=== PATIENT | female | born 1955 | race Caucasian/White ===

== ENCOUNTER → 2016-10-20 | Outpatient (REF) | payer OTHER ==
[2016-10-20 15:25] LABS: ALBUMIN/GLOBULIN RATIO 1.33 (1.00-1.93); ALKALINE PHOSPHATASE 124 U/L (45-117); ALT/SGPT 32 U/L (12-78); ANION GAP 8 MEQ/L (8-16); AST/SGOT 17 U/L (15-37); BILIRUBIN,TOTAL 0.3 MG/DL (0.2-1.0); BLOOD UREA NITROGEN 12 MG/DL (7-18); CALCIUM LEVEL 9.4 MG/DL (8.5-10.1); CARBON DIOXIDE LEVEL 30 MEQ/L (21-32); CHLORIDE LEVEL 104 MEQ/L (98-107); CHOLESTEROL LEVEL 180 MG/DL (<200); CREATININE FOR GFR 0.87 MG/DL (0.55-1.02); GLOMERULAR FILTRATION RATE > 60.0 (>51); GLUCOSE, FASTING 93 MG/DL (70-105); POTASSIUM SERUM 4.4 MEQ/L (3.5-5.1); SODIUM LEVEL 142 MEQ/L (136-145); TRIGLYCERIDES LEVEL 91 MG/DL (<150)
== END ==
LOC: M SFHCLACO 09:41
PROVIDERS: ATTEND Physician Assistant
DX: I10 Essential (primary) hypertension (principal); E78.2 Mixed hyperlipidemia; E11.9 Type 2 diabetes mellitus without complications

== ENCOUNTER → 2017-01-27 | Outpatient (RCR) | payer OTHER | LOC: M CR 01-07 10:33 | PROVIDERS: ATTEND Internal Medicine Cardiovascular Disease | DX: Z98.1 Arthrodesis status (principal) ==

== ENCOUNTER 2017-02-24 11:19 | Outpatient (RCR) | payer OTHER | END 2017-02-26 | LOC: M CR 11:19 | PROVIDERS: ATTEND Internal Medicine Cardiovascular Disease | DX: Z98.61 Coronary angioplasty status (principal) ==

== ENCOUNTER → 2017-03-29 | Outpatient (RCR) | payer OTHER | LOC: M CR 03-01 09:00 | PROVIDERS: ATTEND Internal Medicine Cardiovascular Disease | DX: Z98.1 Arthrodesis status (principal); Z51.89 Encounter for other specified aftercare ==

== ENCOUNTER 2017-04-05 11:01 | Outpatient (RCR) | payer OTHER | END 2017-04-29 | LOC: M CR 11:01 | PROVIDERS: ATTEND Internal Medicine Cardiovascular Disease | DX: Z95.5 Presence of coronary angioplasty implant and graft (principal); I25.10 Atherosclerotic heart disease of native coronary artery without angina pectoris; Z88.2 Allergy status to sulfonamides ==

== ENCOUNTER → 2017-08-03 | Outpatient (REF) | payer OTHER ==
[2017-08-03 12:32] LABS: MEAN CORPUSCULAR HEMOGLOBIN 27.8 pg (27.0-33.0); MEAN CORPUSCULAR HGB CONC 31.2 g/dl (32.0-36.5); MEAN CORPUSCULAR VOLUME 89.1 fl (80.0-96.0); PLATELET COUNT, AUTOMATED 291 10^3/uL (150-450); WHITE BLOOD COUNT 11.6 10^3/uL (4.0-10.0)
[2017-08-03 13:08] LABS: ALBUMIN 4.2 GM/DL (3.2-5.2); ALKALINE PHOSPHATASE 111 U/L (45-117); ALT/SGPT 32 U/L (12-78); ANION GAP 8 MEQ/L (8-16); AST/SGOT 14 U/L (7-37); BILIRUBIN,TOTAL 0.3 MG/DL (0.2-1.0); BLOOD UREA NITROGEN 17 MG/DL (7-18); CALCIUM LEVEL 9.3 MG/DL (8.5-10.1); CARBON DIOXIDE LEVEL 28 MEQ/L (21-32); CHLORIDE LEVEL 106 MEQ/L (98-107); CHOLESTEROL LEVEL 197 MG/DL (<200); CREATININE FOR GFR 0.97 MG/DL (0.55-1.02); FREE T4 0.86 NG/DL (0.76-1.46); GLOMERULAR FILTRATION RATE > 60.0 (>51); GLUCOSE, FASTING 89 MG/DL (70-105); POTASSIUM SERUM 4.9 MEQ/L (3.5-5.1); SODIUM LEVEL 142 MEQ/L (136-145); TOTAL PROTEIN 7.7 GM/DL (6.4-8.2); TRIGLYCERIDES LEVEL 90 MG/DL (<150)
== END ==
LOC: M SFHCADAM 08:51
PROVIDERS: ATTEND Family Medicine
DX: F32.9 Major depressive disorder, single episode, unspecified (principal); R73.03 Prediabetes; E78.5 Hyperlipidemia, unspecified; E55.9 Vitamin D deficiency, unspecified

== ENCOUNTER → 2017-08-05 | Outpatient (CLI) | payer OTHER ==
--- NOTE | 2017-08-05 16:40 | REPMRS ---
Patient History The patient states she has not had a clinical breast exam in over a year. Patient is postmenopausal. Family history of prostate cancer in father at age 50 or over. Digital Woman Screen Mammo: August 05, 2017 - Exam #: [id number] Bilateral CC and MLO view(s) were taken. Technologist: [place] Mireles Technologist FINDINGS: There are scattered fibroglandular densities. This is a baseline mammogram There is a mild amount of residual fibroglandular tissue which is fairly symmetric. There is no dominant mass, architectural distortion, or clustered microcalcification suggestive of malignancy. Minor tissue asymmetry in left breast anteriorly on CC view is normal on MLO and warrants no further evaluation. Scattered lymph nodes are seen in the axillae. ASSESSMENT: BI-RADS/ACR category 2 mammogram. Benign finding(s). Recommendation Routine screening mammogram in 1 year (for women over age 40). This mammogram was interpreted with the aid of an FDA-approved computer-aided dectection system. A. Negative x-ray reports should not delay biopsy if a dominant or clinically suspicious mass is present. B. Four to eight percent of cancers are not identified by mammography. C. Adenosis and dense breast may obscure an underlying neoplasm. Electronically Signed By: Man Orona MD 08/05/17 [id number]
== END ==
LOC: M WHC 14:51
PROVIDERS: ATTEND Family Medicine
DX: Z12.31 Encounter for screening mammogram for malignant neoplasm of breast (principal); Z78.0 Asymptomatic menopausal state

== ENCOUNTER → 2018-02-20 | Outpatient (CLI) | payer OTHER ==
[2018-02-20 16:32] LABS: MEAN CORPUSCULAR HGB CONC 30.8 g/dl (32.0-36.5); MEAN CORPUSCULAR VOLUME 87.8 fl (80.0-96.0); PLATELET COUNT, AUTOMATED 253 10^3/uL (150-450); RED BLOOD COUNT 4.44 10^6/uL (4.00-5.40); RED CELL DISTRIBUTION WIDTH 15.1 % (11.5-14.5); WHITE BLOOD COUNT 8.4 10^3/uL (4.0-10.0)
[2018-02-20 16:46] LABS: ANION GAP 10 MEQ/L (8-16); BLOOD UREA NITROGEN 19 MG/DL (7-18); CALCIUM LEVEL 8.4 MG/DL (8.8-10.2); CARBON DIOXIDE LEVEL 25 MEQ/L (21-32); CHLORIDE LEVEL 109 MEQ/L (98-107); CHOLESTEROL LEVEL 175 MG/DL (<200); CHOLESTEROL RISK RATIO 1.988 (<5); GLOMERULAR FILTRATION RATE > 60.0 (>45); GLUCOSE, FASTING 79 MG/DL (70-100); HDL CHOLESTEROL 88 MG/DL (>40); LDL CHOLESTEROL 70.4 MG/DL (<100); NON-HDL-C 87 MG/DL; POTASSIUM SERUM 4.4 MEQ/L (3.5-5.1); SODIUM LEVEL 144 MEQ/L (136-145); TRIGLYCERIDES LEVEL 83 MG/DL (<150)
== END ==
LOC: M ADAMS 09:46
DX: E78.00 Pure hypercholesterolemia, unspecified (principal); I25.10 Atherosclerotic heart disease of native coronary artery without angina pectoris
CPT/HCPCS: 80061

== ENCOUNTER → 2018-08-11 | Outpatient (CLI) | payer OTHER | LOC: M SMT 14:05 | DX: R06.00 Dyspnea, unspecified (principal) | CPT/HCPCS: 71046 ==

== ENCOUNTER → 2018-08-16 | Outpatient (REF) | payer OTHER ==
[2018-08-16 13:26] LABS: HEMATOCRIT 38.7 % (36.0-47.0); HEMOGLOBIN 11.7 g/dl (12.0-15.5); MEAN CORPUSCULAR HEMOGLOBIN 26.2 pg (27.0-33.0); MEAN CORPUSCULAR HGB CONC 30.2 g/dl (32.0-36.5); MEAN CORPUSCULAR VOLUME 86.6 fl (80.0-96.0); PLATELET COUNT, AUTOMATED 278 10^3/uL (150-450); RED BLOOD COUNT 4.47 10^6/uL (4.00-5.40)
[2018-08-16 13:45] LABS: HEMOGLOBIN A1c 6.5 %
[2018-08-16 13:46] LABS: ALBUMIN 3.8 GM/DL (3.2-5.2); ALT/SGPT 33 U/L (12-78); BILIRUBIN,TOTAL 0.3 MG/DL (0.2-1.0); BLOOD UREA NITROGEN 20 MG/DL (7-18); CALCIUM LEVEL 8.9 MG/DL (8.8-10.2); CARBON DIOXIDE LEVEL 25 MEQ/L (21-32); CHLORIDE LEVEL 108 MEQ/L (98-107); CHOLESTEROL LEVEL 201 MG/DL (<200); CHOLESTEROL RISK RATIO 2.364 (<5); CREATININE FOR GFR 0.99 MG/DL (0.55-1.30); FREE T4 0.93 NG/DL (0.76-1.46); GLOMERULAR FILTRATION RATE > 60.0 (>45); GLUCOSE, FASTING 98 MG/DL (70-100); HDL CHOLESTEROL 85 MG/DL (>40); LDL CHOLESTEROL 101 MG/DL (<100); NON-HDL-C 116 MG/DL; POTASSIUM SERUM 4.4 MEQ/L (3.5-5.1); SODIUM LEVEL 142 MEQ/L (136-145); TOTAL PROTEIN 7.3 GM/DL (6.4-8.2); TRIGLYCERIDES LEVEL 73 MG/DL (<150)
[2018-08-16 13:48] LABS: TOTAL 25(OH) VITAMIN D 21.9 NG/ML (30.0-100.0)
== END ==
LOC: M SFHCADAM 08:10
PROVIDERS: ATTEND Family Medicine
DX: I25.10 Atherosclerotic heart disease of native coronary artery without angina pectoris (principal); E78.2 Mixed hyperlipidemia; F32.9 Major depressive disorder, single episode, unspecified; R73.03 Prediabetes; E55.9 Vitamin D deficiency, unspecified

== ENCOUNTER → 2018-09-06 | Outpatient (CLI) | payer OTHER ==
[~2018-09-06] MED LIST: METHACHOLINE KIT (J7674) INH ONE
--- NOTE | 2018-09-06 15:29 | PFTRPT ---
Height: 63.00 Inches Weight: 240.00 Lbs BSA: 2.09 Diagnosis: R06.00 DATE OF PROCEDURE: 09/06/2018 ORDERED BY: HEATHER Galicia INTERPRETATION: Study of excellent technical quality. Under protocol, methacholine was administered. At a dose of 10 mg or 63.875 CDUs, a 34% decline in the FEV1 was noted. PC of 3.99 is significant. Flow rates did return to baseline post bronchodilator administration. IMPRESSION: Positive methacholine challenge study. MTDD
== END ==
LOC: M CARPUL 14:12
PROVIDERS: ATTEND Physician Assistant
DX: R06.00 Dyspnea, unspecified (principal)
CPT/HCPCS: 94070; J7674

== ENCOUNTER → 2018-11-04 | Outpatient (REF) | payer OTHER ==
[2018-11-04 12:42] LABS: HEMATOCRIT 38.7 % (36.0-47.0); HEMOGLOBIN 11.8 g/dl (12.0-15.5); MEAN CORPUSCULAR HEMOGLOBIN 26.2 pg (27.0-33.0); MEAN CORPUSCULAR HGB CONC 30.5 g/dl (32.0-36.5); MEAN CORPUSCULAR VOLUME 85.8 fl (80.0-96.0); PLATELET COUNT, AUTOMATED 248 10^3/uL (150-450); RED BLOOD COUNT 4.51 10^6/uL (4.00-5.40); WHITE BLOOD COUNT 8.1 10^3/uL (4.0-10.0)
[2018-11-04 13:10] LABS: ALBUMIN 3.8 GM/DL (3.2-5.2); ALT/SGPT 36 U/L (12-78); BILIRUBIN,TOTAL 0.3 MG/DL (0.2-1.0); BLOOD UREA NITROGEN 15 MG/DL (7-18); CALCIUM LEVEL 8.6 MG/DL (8.8-10.2); CARBON DIOXIDE LEVEL 25 MEQ/L (21-32); CHLORIDE LEVEL 111 MEQ/L (98-107); CHOLESTEROL LEVEL 169 MG/DL (<200); CHOLESTEROL RISK RATIO 1.942 (<5); CREATININE FOR GFR 0.93 MG/DL (0.55-1.30); GLOMERULAR FILTRATION RATE > 60.0 (>45); GLUCOSE, FASTING 85 MG/DL (70-100); HDL CHOLESTEROL 87 MG/DL (>40); LDL CHOLESTEROL 68 MG/DL (<100); NON-HDL-C 82 MG/DL; POTASSIUM SERUM 4.6 MEQ/L (3.5-5.1); SODIUM LEVEL 143 MEQ/L (136-145); TOTAL PROTEIN 7.1 GM/DL (6.4-8.2); TRIGLYCERIDES LEVEL 68 MG/DL (<150)
[2018-11-04 13:11] LABS: HEMOGLOBIN A1c 6.3 %
== END ==
LOC: M SFHCADAM 08:56
PROVIDERS: ATTEND Family Medicine
DX: I25.10 Atherosclerotic heart disease of native coronary artery without angina pectoris (principal); K22.70 Barrett's esophagus without dysplasia; R73.03 Prediabetes; E03.9 Hypothyroidism, unspecified; E78.2 Mixed hyperlipidemia

== ENCOUNTER → 2018-12-06 | Outpatient (REF) | payer OTHER ==
[2018-12-06 17:09] LABS: BLOOD UREA NITROGEN 20 MG/DL (7-18); CALCIUM LEVEL 9.1 MG/DL (8.8-10.2); CARBON DIOXIDE LEVEL 26 MEQ/L (21-32); CHLORIDE LEVEL 111 MEQ/L (98-107); GLOMERULAR FILTRATION RATE > 60.0 (>45); GLUCOSE, FASTING 76 MG/DL (70-100); LIPASE 171 U/L (73-393); SODIUM LEVEL 141 MEQ/L (136-145)
[2018-12-06 17:20] LABS: TOTAL 25(OH) VITAMIN D 15.3 NG/ML (30.0-100.0)
== END ==
LOC: M LABDRWAD 16:00
PROVIDERS: ATTEND Internal Medicine Gastroenterology
DX: K22.70 Barrett's esophagus without dysplasia (principal); E56.9 Vitamin deficiency, unspecified; K21.9 Gastro-esophageal reflux disease without esophagitis; K59.1 Functional diarrhea

== ENCOUNTER → 2019-02-16 | Outpatient (CLI) | payer OTHER ==
--- NOTE | 2019-02-16 18:40 | REP ---
Right foot series: Four views. History: Right foot pain. Findings: Four views right foot show overall normal mineralization. There is mild osteoarthritic spurring at the first MTP joint. There is Achilles and plantar calcaneal spurring. No acute bony abnormalities seen. Electronically Signed by Sina Khoury MD 02/16/2019 06:31 P
--- NOTE | 2019-02-16 18:41 | REP ---
Right ankle series: Four views. History: Right foot and ankle pain. Findings: There is Achilles and plantar calcaneal spurring. Ankle mortise is intact. No acute bony abnormality is appreciated. Impression: Heel spurs. No acute abnormality. Electronically Signed by Sina Khoury MD 02/16/2019 06:32 P
== END ==
LOC: M ADAMS 16:27
PROVIDERS: ATTEND Physician Assistant
DX: M77.31 Calcaneal spur, right foot (principal)

== ENCOUNTER 2019-03-17 11:31 | Emergency (ER) | payer OTHER ==
[~2019-03-17] VITALS: Ht 160 cm; Wt 111.4 kg
--- NOTE | 2019-03-17 12:03 | REP ---
Chest x-ray: AP portable exam. History: Chest pain. Comparison study: August 11, 2018. Findings: There is a dextroconvex curvature of the thoracic spine. Lungs are well inflated and clear. Pleural angles are sharp. Heart size is normal. Pulmonary vasculature is not increased. Impression: No active disease. Electronically Signed by Sina Khoury MD 03/17/2019 11:55 A
[2019-03-17 12:20] LABS: BASO # 0.1 10^3/uL (0.0-0.2); BASO % 0.7 % (0.0-1.0); EOS # 0.5 10^3/uL (0.0-0.50); EOS % 4.9 % (0.0-3.0); HEMATOCRIT 40.5 % (36.0-47.0); HEMOGLOBIN 12.4 g/dl (12.0-15.5); LYMPH # 1.3 10^3/uL (1.5-4.5); LYMPH % 12.6 % (24.0-44.0); MEAN CORPUSCULAR HEMOGLOBIN 26.6 pg (27.0-33.0); MEAN CORPUSCULAR HGB CONC 30.6 g/dl (32.0-36.5); MEAN CORPUSCULAR VOLUME 86.9 fl (80.0-96.0); MONO # 0.7 10^3/uL (0.0-0.8); NEUTROPHILS # 7.6 10^3/uL (1.8-7.7); NEUTROPHILS % 74.2 % (36.0-66.0); PLATELET COUNT, AUTOMATED 254 10^3/uL (150-450); RED BLOOD COUNT 4.66 10^6/uL (4.00-5.40); WHITE BLOOD COUNT 10.2 10^3/uL (4.0-10.0)
[2019-03-17 12:29] LABS: INR 0.94; PROTHROMBIN TIME 12.3 SECONDS (11.8-14.0)
[2019-03-17 12:30] LABS: PARTIAL THROMBOPLASTIN TIME 29.7 SECONDS (25.0-38.4)
[2019-03-17 13:09] LABS: ALBUMIN 3.5 GM/DL (3.2-5.2); ALT/SGPT 27 U/L (12-78); BILIRUBIN,DIRECT < 0.1 MG/DL (0.0-0.2); BILIRUBIN,TOTAL 0.4 MG/DL (0.2-1.0); BLOOD UREA NITROGEN 18 MG/DL (7-18); CALCIUM LEVEL 9.5 MG/DL (8.8-10.2); CARBON DIOXIDE LEVEL 24 MEQ/L (21-32); CHLORIDE LEVEL 110 MEQ/L (98-107); CK-MB VALUE MASS < 1.0 NG/ML (<3.6); CPK CREATINE PHOSPHOKINASE 82 U/L (26-192); CREATININE FOR GFR 1.03 MG/DL (0.55-1.30); GLUCOSE, FASTING 103 MG/DL (70-100); LIPASE 132 U/L (73-393); MB/CK RELATIVE INDEX 1.22 (< OR =4); NT-PRO BNP 217 PG/ML (<125); POTASSIUM SERUM 5.2 MEQ/L (3.5-5.1); SODIUM LEVEL 143 MEQ/L (136-145); TOTAL PROTEIN 7.3 GM/DL (6.4-8.2); TROPONIN I < 0.02 NG/ML (< 0.10)
[2019-03-17 15:22] LABS: CK-MB VALUE MASS < 1.0 NG/ML (<3.6); CPK CREATINE PHOSPHOKINASE 41 U/L (26-192); MB/CK RELATIVE INDEX 2.44 (< OR =4); TROPONIN I 0.02 NG/ML (< 0.10)
[2019-03-17 18:20] VITALS: BP 120/59
--- NOTE | 2019-03-17 21:08 | ECGEPIP ---
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
--- NOTE | 2019-03-17 21:10 | ECGEPIP ---
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
[2019-03-18] MEDS ORDERED: NITR0.4S14 SL (03:10)
[2019-03-18] MEDS ORDERED: LOSA25TA14 PO (03:10)
[2019-03-18] MEDS ORDERED: SYMB16INH INH (03:10)
[2019-03-18] MEDS ORDERED: DOXY100T PO (03:10)
[2019-03-18] MEDS ORDERED: DIAZ5TAB PO (03:10)
[2019-03-18] MEDS ORDERED: PANT40TA3 PO (03:10)
[2019-03-18] MEDS ORDERED: CLOP75TA2 PO (03:10)
[2019-03-18] MEDS ORDERED: AMLO10TA5 PO (03:10)
[2019-03-18] MEDS ORDERED: SERT-138 PO (03:10)
[2019-03-18] MEDS ORDERED: ROSU20TA5 PO (03:10)
[2019-03-18] MEDS ORDERED: ATEN50TA2 PO (03:10)
[2019-03-18] MEDS ORDERED: ECOT81TA5 PO (03:11)
[2019-03-18] MEDS ORDERED: BIOT1CAP2 PO (03:13)
[2019-03-18] MEDS ORDERED: D3-5CAP PO (03:13)
[2019-03-18] MEDS ORDERED: DRIS50003 PO (05:14)
[2019-03-18] MEDS ORDERED: RANI300T PO (05:14)
[2019-03-18] MEDS ORDERED: BIOT1000 PO (05:14)
[2019-03-18] MEDS ORDERED: ASPI325T36 PO (05:14)
[2019-03-18] MEDS ORDERED: VENTAER INH (05:15)
== END 2019-03-17 18:36 | disposition home or self-care (01) ==
LOC: M ED 11:31
DX: I20.8 Other forms of angina pectoris (principal); I44.7 Left bundle-branch block, unspecified; I10 Essential (primary) hypertension; E78.5 Hyperlipidemia, unspecified; F33.9 Major depressive disorder, recurrent, unspecified; Z79.82 Long term (current) use of aspirin; Z79.02 Long term (current) use of antithrombotics/antiplatelets; Z87.891 Personal history of nicotine dependence

== ENCOUNTER 2019-03-18 02:29 | Observation (INO) | payer OTHER ==
[~2019-03-18] VITALS: Ht 160 cm; Wt 110.5 kg
[2019-03-18] MEDS ORDERED: CLOP75TA2 PO (03:10)
[2019-03-18] MEDS ORDERED: SERT-138 PO (03:10)
[2019-03-18] MEDS ORDERED: ROSU20TA5 PO (03:10)
[2019-03-18] MEDS ORDERED: DOXY100T PO (03:10)
[2019-03-18] MEDS ORDERED: SYMB16INH INH (03:10)
[2019-03-18] MEDS ORDERED: LOSA25TA14 PO (03:10)
[2019-03-18] MEDS ORDERED: AMLO10TA5 PO (03:10)
[2019-03-18] MEDS ORDERED: NITR0.4S14 SL (03:10)
[2019-03-18] MEDS ORDERED: PANT40TA3 PO (03:10)
[2019-03-18] MEDS ORDERED: ATEN50TA2 PO (03:10)
[2019-03-18] MEDS ORDERED: DIAZ5TAB PO (03:10)
[2019-03-18] MEDS ORDERED: ECOT81TA5 PO (03:11)
[2019-03-18] MEDS ORDERED: D3-5CAP PO (03:13)
[2019-03-18] MEDS ORDERED: BIOT1CAP2 PO (03:13)
[2019-03-18 03:28] LABS: BASO # 0.1 10^3/uL (0.0-0.2); BASO % 0.7 % (0.0-1.0); EOS # 0.4 10^3/uL (0.0-0.50); EOS % 3.6 % (0.0-3.0); HEMATOCRIT 37.9 % (36.0-47.0); HEMOGLOBIN 11.8 g/dl (12.0-15.5); LYMPH # 1.7 10^3/uL (1.5-4.5); LYMPH % 17.3 % (24.0-44.0); MEAN CORPUSCULAR HEMOGLOBIN 27.2 pg (27.0-33.0); MEAN CORPUSCULAR HGB CONC 31.1 g/dl (32.0-36.5); MEAN CORPUSCULAR VOLUME 87.3 fl (80.0-96.0); MONO # 0.8 10^3/uL (0.0-0.8); MONO % 8.4 % (0.0-5.0); NEUTROPHILS # 6.9 10^3/uL (1.8-7.7); NEUTROPHILS % 69.5 % (36.0-66.0); PLATELET COUNT, AUTOMATED 263 10^3/uL (150-450); RED BLOOD COUNT 4.34 10^6/uL (4.00-5.40); WHITE BLOOD COUNT 9.9 10^3/uL (4.0-10.0)
[2019-03-18 03:32] LABS: INR 0.93; PROTHROMBIN TIME 12.2 SECONDS (11.8-14.0)
[2019-03-18 03:45] LABS: BLOOD UREA NITROGEN 17 MG/DL (7-18); CALCIUM LEVEL 8.6 MG/DL (8.8-10.2); CARBON DIOXIDE LEVEL 23 MEQ/L (21-32); CHLORIDE LEVEL 113 MEQ/L (98-107); CK-MB VALUE MASS 1.1 NG/ML (<3.6); CPK CREATINE PHOSPHOKINASE 56 U/L (26-192); CREATININE FOR GFR 1.08 MG/DL (0.55-1.30); GLOMERULAR FILTRATION RATE 54.9 (>45); GLUCOSE, FASTING 126 MG/DL (70-100); MB/CK RELATIVE INDEX 1.96 (< OR =4); SODIUM LEVEL 144 MEQ/L (136-145); TROPONIN I < 0.02 NG/ML (< 0.10)
[2019-03-18] MEDS ORDERED: BIOT1000 PO (05:14)
[2019-03-18] MEDS ORDERED: ASPI325T36 PO (05:14)
[2019-03-18] MEDS ORDERED: RANI300T PO (05:14)
[2019-03-18] MEDS ORDERED: DRIS50003 PO (05:14)
[2019-03-18] MEDS ORDERED: VENTAER INH (05:15)
[2019-03-18] MEDS ORDERED: ACETAMINOPHEN TAB 650MG DOSE (2X325MG) PO PRN (05:30)
--- NOTE | 2019-03-18 05:46 | HPEPDOC ---
General Date of Admission Mar 18, 2019 at 05:14 Date of Service: Mar 18, 2019 Attending Physician: ALESSIO DUNNE MD Chief Complaint The patient is a 63-year-old female admitted with a reason for visit of Angina Pectoris. History of Present Illness Vin is a 63-year-old female, past medical history significant for CAD status post stenting multiple times, presenting to the emergency room on account of chest pain which woke her from sleep. Pain is described as stabbing in na ture, mid sternal area, with radiation to her back. Associated with shortness of breath. She took 1 sublingual nitroglycerin with relief. Last stent was May 2018. Patient was in the emergency room earlier last night with complaints of chest pain. After she ruled out for acute myocardial infarction with negative cardiac biomarkers and 12-lead EKG she was discharged home. She returned due to wo rsening persisting symptoms. Patient also reports recent sinus and left ear infection for which she was started on doxycycline a week ago. Symptoms have been improved. Denies chills, fever, reports hot flashes, still has 2 days antibiotic therapy left. Home Medications Scheduled Amlodipine Besylate (Amlodipine Besylate) 10 Mg Tablet, 10 MG PO QHS, (Reported) Aspirin (Aspirin EC) 325 Mg Tablet.dr, 325 MG PO DAILY, (Reported) Atenolol (Atenolol) 50 Mg Tablet, 50 MG PO BID, (Reported) Biotin (Biotin) 1 Mg Tablet, 1 MG PO DAILY, (Reported) Budesonide/Formoterol (Symbicort 160-4.5 Mcg Inhaler) 6 Gm Hfa.aer.ad, 2 PUFF INH BID, (Reported) Clopidogrel Bisulfate (Clopidogrel) 75 Mg Tablet, 75 MG PO DAILY, (Reported) Doxycycline Hyclate (Doxycycline Hyclate) 100 Mg Tablet, 100 MG PO BID, (Reported) FILLED 03/09/19 X 10 DAY SUPPLY Ergocalciferol (Vitamin D2) (Drisdol) 50,000 Unit Capsule, 50,000 UNIT PO QWEEK, (Reported) TAKE ON SATURDAYS Losartan Potassium (Losartan Potassium) 25 Mg Tablet, 25 MG PO DAILY, (Reported) Pantoprazole Sodium (Pantoprazole Sodium) 40 Mg Tablet.dr, 40 MG PO DAILY, (Reported) Ranitidine HCl (Ranitidine HCl) 300 Mg Tablet, 1 TAB PO QHS, (Reported) Rosuvastatin Calcium (Rosuvastatin Calcium) 20 Mg Tablet, 20 MG PO QHS, (Reported) Sertraline HCl (Sertraline HCl) 100 Mg Tablet, 150 MG PO DAILY, (Reported) Scheduled PRN Albuterol Sulfate (Ventolin Hfa) 18 Gm Hfa.aer.ad, 2 PUFF INH Q4H PRN for SHORTNESS OF BREATH, (Reported) Diazepam (Diazepam) 5 Mg Tablet, 5 MG PO DAILY PRN for ANXIETY/AGITATION, (Reported) Nitroglycerin (Nitroglycerin) 0.4 Mg Tab.subl, 0.4 MG SL NITRO PRN for CHEST PAIN, (Reported) Allergies Coded Allergies: Penicillins (Verified Allergy, Unknown, RASH, 03/18/19) Sulfa (Sulfonamide Antibiotics) (Verified Allergy, Unknown, 03/17/19) RASH amoxicillin (Verified Allergy, Unknown, RASH, 03/18/19) cephalexin (Verified Allergy, Unknown, "FEELS BURNING SENSATION", 03/18/19) erythromycin base (Verified Allergy, Unknown, 03/18/19) sucralfate (Verified Allergy, Unknown, "IRRITATED THROAT", 03/18/19) Past Medical History Medical History Hypertension CAD Hyperlipidemia Asthma Barretts disease Chronic diarrhea Polyarthritis: Knees, right ankle. Morbid obesity Surgical History 1. Cholecystectomy. 2. Left foot bones for removal 3. Cardiac stenting. 4. D&C 5. Tonsillectomy. 6. Bladder suspension. 7. Renal stone retrieval. Family History Father: COPD, myocardial infarction, cardiovascular disease Mother: Hypertension Social History * Smoker: Denies Alcohol: Denies Drugs: denies A-FIB/CHADSVASC A-FIB History Current/History of A-Fib/PAF?: No Current PO Anticoag Therapy: No Review of Systems Other systems A 10 point pertinent review of systems was completed, negative except as stated in the history of presenting illness. Physical Examination Other physical findings GENERAL: Obese female in no acute distress SKIN : Warm, dry intact HEENT: Atraumatic, normocephalic, PERRL, moist mucous membrane CARDIOVASCULAR: Regular rate and rhythm, S1S2, no JVD, no edema, distal pulses + palpable RESP: CTAB, no accessory muscle use noted ABDOMEN: BS+ non distended non tender MS: no joint deformities NEURO: Alert and oriented x 3, CN2-12 grossly intact PSYCH: no anxiety or agitation, appropriate mood and affect. Vital Signs Vital Signs Date Time Temp Pulse Resp B/P (MAP) Pulse Ox O2 Delivery O2 Flow Rate FiO2 03/18/19 04:34 70 97 03/18/19 04:31 18 130/60 (83) Room Air 03/18/19 02:30 97.8 Laboratory Data Labs 24H Laboratory Tests 2 03/18/19 02:48: Immature Granulocyte % (Auto) 0.5, White Blood Count 9.9, Red Blood Count 4.34, Hemoglobin 11.8L, Hematocrit 37.9, Mean Corpuscular Volume 87.3, Mean Richard uscular Hemoglobin 27.2, Mean Corpuscular Hemoglobin Concent 31.1L, Red Cell Distribution Width 15.5H, Platelet Count 263, Neutrophils (%) (Auto) 69.5H, Lymphocytes (%) (Auto) 17.3L, Monocytes (%) (Auto) 8.4H, Eosinophils (%) (Auto) 3.6H, Basophils (%) (Auto) 0.7, Neutrophils # (Auto) 6.9, Lymphocytes # (Auto) 1.7, Monocytes # (Auto) 0.8, Eosinophils # (Auto) 0.4, Basophils # (Auto) 0.1, Nucleated Red Blood Cells % (auto) 0.0, Prothrombin Time 12.2, Prothromb Time International Ratio 0.93, Anion Gap 8, Glomerular Filtration Rate 54.9, Blood Urea Nitrogen 17, Creatinine 1.08, Sodium Level 144, Potassium Level 4.0#, Chloride Level 113H, Carbon Dioxide Level 23, Calcium Level 8.6L, Total Creatine Kinase 56, Creatine Kinase MB 1.1, Creatine Kinase MB Relative Index 1.96, Troponin I < 0.02 CBC/BMP Laboratory Tests 03/18/19 02:48 Red Blood Count 4.34, Mean Corpuscular Volume 87.3, Mean Corpuscular Hemoglobin 27.2, Mean Corpuscular Hemoglobin Concent 31.1 L, Red Cell Distribution Width 15.5 H, Neutrophils (%) (Auto) 69.5 H, Lymphocytes (%) (Auto) 17.3 L, Monocytes (%) (Auto) 8.4 H, Eosinophils (%) (Auto) 3.6 H, Basophils (%) (Auto) 0.7, Neutrophils # (Auto) 6.9, Lymphocytes # (Auto) 1.7, Monocytes # (Auto) 0.8, Eosinophils # (Auto) 0.4, Basophils # (Auto) 0.1, Calcium Level 8.6 L, Total Creatine Kinase 56 Assessment/Plan CAD with angina -Acute myonecrosis has been ruled out with negative cardiac biomarkers -12-lead EKG shows sinus rhythm, left axis deviation, left bundle branch block without any new ischemic changes -Patient will have significant cardiac history with prior stenting and cardiology has been consulted for further input and recommendations -CAD risk factor modifications with aspirin, statin, beta marietta therapy Hypertension -Blood pressure monitoring per unit protocol -Continue home medication regimen -Target systolic blood pressure less than 1 40 mmHg URI -Continue doxycycline for another 2 days -Patient has not been evaluated for sleep apnea but states has been recommended by hand splitter in the past Chronic diarrhea -Continue WelChol DVT Prophylaxis: -Lovenox SQ daily, Advanced care planning -CODE STATUS is full resuscitation -Anticipate discharge based on cardiology recommendations Plan / VTE VTE Prophylaxis Ordered?: Yes TORY SANTAMARIA Mar 18, 2019 05:46
[2019-03-18] MEDS ORDERED: diazePAM 5 MG TAB PO PRN (06:00)
[2019-03-18] MEDS ORDERED: ALBUTEROL 90 MCG/ACT 8GM HFA INHALER INH PRN (06:00)
--- NOTE | 2019-03-18 06:27 | ECGEPIP ---
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
[2019-03-18] MEDS: SYMBICORT 160/4.5MCG INHALER 6GM INH SCH ×2 (08:00→21:25)
[2019-03-18] MEDS ORDERED: VITAMIN D 50,000 UNITS CAPSULE (ERGOCALCIFEROL 1.25MG) PO SCH (09:00)
[2019-03-18] MEDS: CLOPIDOGREL 75 MG TAB PO SCH (09:12)
[2019-03-18] MEDS: ASPIRIN 325 MG TAB PO SCH (09:12)
[2019-03-18] MEDS: SERTRALINE HCL 50 MG TAB PO SCH (09:13)
[2019-03-18] MEDS: DOXYCYCLINE HYCLATE 100 MG TAB PO SCH ×2 (09:13→20:59)
[2019-03-18] MEDS: PANTOPRAZOLE 40MG TAB (PROTONIX) PO SCH (09:13)
[2019-03-18] MEDS: ENOXAPARIN 40 MG/0.4 ML SYRINGE (J1650) SC SCH (09:13)
[2019-03-18] MEDS: ATENOLOL 50 MG TAB PO SCH ×2 (09:14→21:00)
[2019-03-18] MEDS: LOSARTAN 25 MG TAB PO SCH (09:14)
[2019-03-18] MEDS ORDERED: ISOVUE-370 76% 100ML VIAL (Q9967) As Ordered ONE (09:35)
[2019-03-18] MEDS: MORPHINE 4 MG/ML 1ML VIAL/SYRINGE (J2270) IV PRN ×2 (09:51→22:00)
--- NOTE | 2019-03-18 10:03 | IPN ---
DATE OF SERVICE: 03/18/2019 Kim is seen in the emergency room (ER) in interim bed. She was admitted with chest pain. She was in the ER yesterday with chest pain and had atypical features. She was discharged home. She had recurrent chest pain. She returns. The pain is discretely located to the xiphoid area and reproducible upon palpation there. Has a mild pleuritic component, as well, varying with deep inspiration. It does radiate to her neck. She does have a history of coronary artery disease. She is status post cardiac catheterization 05/2018 with a drug-eluting stent to the left anterior descending (LAD). 65% to 70% ejection fraction noted. She had previously undergone two drug-eluting stents to the right coronary artery (RCA), two to the mid LAD and one to the circumflex, and that took place 11/2016. She does have a dilated ascending aorta 4.4 cm, first noticed on CT angiogram 04/2014. She has a history of chronic anxiety and depression, hyperlipidemia, hypertension, arthritis, and renal stones. Other past medical history shows prediabetes, vitamin D deficiency, Brennan esophagus, biopsies done by Dr. Mendenhall in 2017. She has chronic diarrhea. Is followed by Dr. Mendenhall. Takes WelChol for the absorbed properties of this. It helps her chronic diarrhea. She has anxiety attacks triggered by stress from her mother and isyysv-bi-beg, per her report. Chronic foot pain, for which she sees podiatry. Fatty liver on a CT from 2014. Degenerative disc disease of cervical and thoracic spine on MRI from 2011. Gastroparesis with delayed emptying on the nuclear medicine study [address] Mendenhall. Subclinical hypothyroidism , and asthma with a positive methacholine challenge per [facility], for which she is on bronchodilator. She was recently seen in our office for a sinusitis on 03/09/2019 and left otitis media, treated with doxycycline. PHYSICAL EXAMINATION: She is visibly anxious. She is hyperventilating. She answers questions appropriately. HEENT: Unremarkable. Lungs clear. Heart: Regular rate and rhythm. No murmur. Chest wall is tender to palpate at xiphoid process. This chest pain is reproducible. Abdomen: Soft, nontender. No masses. No peripheral edema. LABORATORIES: Complete blood count (CBC) unremarkable. Complete metabolic panel (CMP) unremarkable. Cardiac enzymes remain fine. Electrocardiogram (EKG) shows a left bundle branch block. I went through old records. Goes back to at least 03/2018. IMPRESSION: 1. Chest pain. Has some anginal features, including musculoskeletal reproduction and variation with respiration. However, she does have document coronary artery disease, and the pain does radiate to her neck. The monomer recovery supervisor has been consulted. Followup cardiac enzymes have been ordered. I have ordered some morphine for both pain relief and relief of some obvious anxiety present. She has a history of thoracic aortic aneurysm. At once (STAT) CT angiogram has been ordered. The case has been discussed with Dr. Snyder, who will be seeing the patient in consultation. 2. Anxiety. She received some Valium a short while ago, and already she is breathing much easier and seems calmer. My experience with her in the office is that there is a strong anxiety component to her issues. 3. Rhinosinusitis with a recent left otitis media. She is on doxycycline for this. 4. Asthma. Continue bronchodilator and inhaled Symbicort. 5. Hypertensive heart disease. Continue her antihypertensive medication. 6. Coronary artery disease with several stenting procedures, as summarized above. Continue her clopidogrel 75 mg daily and losartan 25 mg daily. 7. Brennan esophagus. Continue Protonix 40 mg daily. 8. Hyperlipidemia. Continue Crestor 20 mg daily. 9. Anxiety/depression. Continue Zoloft 150 mg daily, Valium 5 mg daily. 10. Vitamin D deficiency. She is on Drisdol 50,000 units weekly. 11. Chronic diarrhea. She previously was on WelChol for this, 625 mg twice a day, which we will continue.
--- NOTE | 2019-03-18 11:16 | REP ---
CT ANGIOGRAM CHEST: TECHNIQUE: Axial contrast enhanced images from the thoracic inlet to the upper abdomen using 100 mL Isovue 370 intravenous contrast material with multiplanar reformations. There is slight dilatation of the ascending thoracic aorta at 4 cm, unchanged since the prior study of 05/22/2014. There is no dissection. There is mild atherosclerotic calcification. No central pulmonary embolism is seen, peripheral pulmonary arterial system is not optimally opacified as the study was protocol to primary evaluate the thoracic aorta. The heart is mildly enlarged. There is no mediastinum, hilar or chest wall lymphadenopathy. There is no pleural or pericardial effusion. Minor scattered fibroatelectatic changes are seen in both lungs. There is a tiny calcified granuloma in the right upper lobe. Small left adrenal adenoma is unchanged since the prior study. The patient has had a prior cholecystectomy. IMPRESSION: Very mild dilatation of the ascending thoracic aorta thoracic without dissection. No change since the prior study in 2013. No other acute finding. Electronically Signed by Peter Taylor MD 03/19/2019 09:20 P
[2019-03-18 16:41] LABS: CK-MB VALUE MASS 2.2 NG/ML (<3.6); MB/CK RELATIVE INDEX 3.61 (< OR =4); TROPONIN I 0.15 NG/ML (< 0.10)
[2019-03-18 19:08] VITALS: BP 139/73
[2019-03-18] MEDS: COLESEVELAM 625 MG TAB (WELCHOL) PO SCH (20:57)
[2019-03-18] MEDS ORDERED: amLODIPine 10 MG TAB PO SCH (21:00)
[2019-03-18] MEDS ORDERED: ROSUVASTATIN 10 MG TAB (CRESTOR) PO SCH (21:00)
[2019-03-18] MEDS: NITROGLYCERIN 2% OINT 1 GM *U/D* PKT TOP SCH (22:23)
[2019-03-18 23:59] VITALS: BP 117/74
[2019-03-19 00:28] LABS: CK-MB VALUE MASS 2.2 NG/ML (<3.6); MB/CK RELATIVE INDEX 4.31 (< OR =4); TROPONIN I 0.1 NG/ML (< 0.10)
[2019-03-19 04:00] VITALS: BP 138/67
[2019-03-19] MEDS: NITROGLYCERIN 2% OINT 1 GM *U/D* PKT TOP SCH (04:12)
[2019-03-19] MEDS: MORPHINE 4 MG/ML 1ML VIAL/SYRINGE (J2270) IV PRN (06:56)
[2019-03-19] MEDS: SYMBICORT 160/4.5MCG INHALER 6GM INH SCH (07:21)
[2019-03-19 07:22] VITALS: O2SAT 97
[2019-03-19 07:40] VITALS: BP 122/66
--- NOTE | 2019-03-19 07:55 | REP ---
CHEST, SINGLE VIEW: There is no evidence of acute infiltrate. No pleural effusion is seen. The heart is normal in size. The mediastinal silhouette is unremarkable. The visualized osseous structures are intact. There are mild calcifications of the thoracic aorta. There are degenerative changes of the spine. IMPRESSION: No acute pulmonary disease. Electronically Signed by Peter Taylor MD 03/19/2019 10:28 P
[2019-03-19 08:04] LABS: HEMATOCRIT 38.5 % (36.0-47.0); HEMOGLOBIN 11.8 g/dl (12.0-15.5); MEAN CORPUSCULAR HEMOGLOBIN 26.6 pg (27.0-33.0); MEAN CORPUSCULAR HGB CONC 30.6 g/dl (32.0-36.5); MEAN CORPUSCULAR VOLUME 86.9 fl (80.0-96.0); PLATELET COUNT, AUTOMATED 222 10^3/uL (150-450); RED BLOOD COUNT 4.43 10^6/uL (4.00-5.40); WHITE BLOOD COUNT 8.3 10^3/uL (4.0-10.0)
[2019-03-19] MEDS: ENOXAPARIN 40 MG/0.4 ML SYRINGE (J1650) SC SCH (08:08)
[2019-03-19] MEDS: COLESEVELAM 625 MG TAB (WELCHOL) PO SCH (08:08)
[2019-03-19] MEDS: PANTOPRAZOLE 40MG TAB (PROTONIX) PO SCH (08:08)
[2019-03-19] MEDS: SERTRALINE HCL 50 MG TAB PO SCH (08:08)
[2019-03-19] MEDS: ASPIRIN 325 MG TAB PO SCH (08:08)
[2019-03-19] MEDS: DOXYCYCLINE HYCLATE 100 MG TAB PO SCH (08:12)
[2019-03-19] MEDS: CLOPIDOGREL 75 MG TAB PO SCH (08:12)
[2019-03-19] MEDS: LOSARTAN 25 MG TAB PO SCH (08:12)
[2019-03-19 08:13] VITALS: BP 122/66
[2019-03-19] MEDS: ATENOLOL 50 MG TAB PO SCH (08:13)
[2019-03-19 08:18] LABS: ALBUMIN 3.3 GM/DL (3.2-5.2); BILIRUBIN,TOTAL 0.3 MG/DL (0.2-1.0); CREATININE FOR GFR 1.06 MG/DL (0.55-1.30); GLOMERULAR FILTRATION RATE 56.1 (>45); MAGNESIUM LEVEL 2.1 MG/DL (1.8-2.4); MB/CK RELATIVE INDEX 4.55 (< OR =4); POTASSIUM SERUM 4.1 MEQ/L (3.5-5.1); TOTAL PROTEIN 7.2 GM/DL (6.4-8.2); TROPONIN I 0.1 NG/ML (< 0.10)
[2019-03-19] MEDS ORDERED: NITROGLYCERIN 0.4 MG SUBL TABLET SL PRN (09:00)
--- NOTE | 2019-03-19 14:19 | IPN ---
DATE OF SERVICE: 03/19/2019 Kim is seen in progressive care unit (PCU). Dr. Snyder saw her in consultation. I appreciate his input. We spoke yesterday. He is planning to transfer her to [facility]. She had a slight bump in her troponin to 0.15. She did have recurrent chest pain this morning. Sublingual nitroglycerin was just ordered. When I saw her, she was resting comfortably. She has a lot of anxiety, which I think provokes chest pain. PHYSICAL EXAMINATION: 122/66, pulse 65. Lungs clear. Heart: Regular rate and rhythm. Chest wall is tender to palpate. Abdomen: Soft, nontender. No masses. No peripheral edema. LABORATORIES: Look unremarkable. Troponin peaked at 0.15. IMPRESSION: 1. Chest pain. Unknown etiology. Possibly cardiac. Being transferred to [facility] for cardiac catheterization this morning. I appreciate Dr. Snyder's assistance. 2. Anxiety. Nursing staff notes that her chest pain complaints only occur when the staff is in the room. She does have anxieties, on chronic anxiolytics at home. 3. Hypertensive heart disease. Blood pressure is well controlled.
--- NOTE | 2019-03-19 19:02 | ECGEPIP ---
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 Electronically Signed on 03-19-2019 19:02:03 EDT by Robel Snyder
--- NOTE | 2019-03-19 21:51 | CR ---
DATE OF CONSULTATION: 03/18/2019 REFERRING PROVIDER: Dr. Ghulam Godinez PRIMARY LEVER OPERATOR: Dr. Venecia Zambrano REASON FOR CONSULTATION: Recurrent chest pain. HISTORY OF PRESENT ILLNESS: A 63-year-old woman, well known by the office. She sees Dr. Zambrano with a history of coronary artery disease with percutaneous transluminal coronary angioplasty (PTCA) and multiple coronary artery stents. She came to the emergency room (ER) yesterday with chest pain. She was evaluated then discharged home. Her serum troponin was negative. While at home, she woke up this morning with the patient, and she came to the ER again for further evaluation. She was admitted for further management and monitoring. She has had two episodes chest pain since in the hospital, and the most recent and the most severe was about 10-11 this morning when she came back from a CT scan. In view of her symptoms, cardiology consult was called. When I saw Mrs. Kim Banuelos early evening, she was sitting up in her bed in no acute distress at rest, and her was at bedside. She has started having shortness of breath with activities and with rest, and she has been having recurrent chest pain on and off, relieved with nitroglycerine sublingual. Her chest pain is described as a tightness, retrosternal area, with some radiation to the jaw, and this has been relieved with rest and more severe with nitroglycerine sublingual, and usually one. She denies any palpitations, pedal edema, orthopnea, syncope, or near syncope. She denies any bleeding. She has no cough or hemoptysis. She has a history of hiatal hernia, and she thinks it is related to that, because when she had her stents in the past, she only was having shortness of breath with activities. PAST MEDICAL HISTORY: Positive for: 1. Coronary artery disease, as mentioned above, with multiple coronary artery stents/PTCA. 2. Hypertension. 3. Hyperlipidemia. 4. Obesity and sleep apnea. 5. Gastroesophageal reflux disease (GERD)/Brennan esophagus. 6. She also was diagnosed with diabetes mellitus, and she is being monitored with diet. There is no history of congestive heart failure, significant valvular heart disease, atrial fibrillation, cardiomyopathy, sudden cardiac , cerebrovascular accident (CVA)/transient ischemic attacks (TIA). She does have the history of abnormal EKG manifested by PVCs/left bundle branch block. HOME MEDICATIONS: - amlodipine 10 mg by mouth daily - aspirin 325 mg by mouth daily - atenolol 50 mg by mouth twice a day - biotin 1 mg by mouth daily - Symbicort as directed - Plavix/clopidogrel 75 mg by mouth daily - doxycycline - vitamin D2 at 50,000 units by mouth weekly - losartan 25 mg by mouth daily - pantoprazole 40 mg by mouth daily - amantadine 300 mg by mouth daily - rosuvastatin 20 mg by mouth daily - serotonin 100 mg by mouth daily Also on an as-needed basis she is on albuterol sulfate, diazepam 5 mg as needed for anxiety, and nitroglycerine sublingual as needed for chest pain, 0.4 mg. PAST SURGICAL HISTORY: Positive for: 1. Cholecystectomy. 2. Dilatation and curettage (D and C). 3. Tonsillectomy. 4. surgery. 5. Surgery done on her left foot. FAMILY HISTORY: Positive for heart disease, significant. It is also positive for hypertension. SOCIAL HISTORY: Patient lives with her . She does not smoke or abuse alcohol. She denies have a remote history of smoking but stopped many years ago. ALLERGIES: PENICILLIN and SULFA, the reaction she describes is rash. She also has allergies to AMOXICILLIN, rash. According to the chart, she also has allergies to SUCRALFATE, ADRIAMYCIN, and CEPHALEXIN. ADVANCE DIRECTIVES: Patient is a full code. PHYSICAL EXAMINATION: Patient is alert and oriented in no acute distress at rest. VITAL SIGNS: Her most recent vital signs reveal a blood pressure of 171/70 with a pulse of (cut off) respirations 18, and she is afebrile. She has an oxygen saturation of 97%/95% on room air. HEAD, EYES, EARS, NOSE, AND THROAT: Atraumatic. NECK: Supple, and no jugular venous distention (JVD) appreciated. LUNGS: Clear bilaterally on inspiration without any wheezing or crackles. HEART: Revealed normal S1, S2 without gallops. The point of maximal impulse (PMI) is not displaced. There is no rub. There is a systolic murmur, grade 2/6, over the precordium and noted at the base of the heart/aortic valve area and also at the lower left sternal border and at the apex. ABDOMEN: Protuberant, nontender. EXTREMITIES: Reveal no pedal edema. Peripheral pulses, dorsalis pedis, were +2 and equal. NEUROLOGIC: Negative for focal deficit. LABORATORY DATA: BMP done today revealed a sodium 144, potassium 4.0, chloride 113, CO2 of 23, BUN 17, creatinine 1.08, GFR 54.9, fasting glucose 126, and calcium 8.6. Her serum troponin was less than 0.2, and second set was 0.15. PT is 12.6 with an INR of 0.93. CBC revealed a WBC of 9.9, hemoglobin 11.8, hematocrit 37.9, and platelets 263,000. EKG done earlier today in the morning at 2:30 a.m. revealed a normal sinus rhythm with underlying left bundle branch block. Chest x-ray revealed no cardiomegaly and no manifestation of heart failure. CT angiogram of the chest done today, 03/18/2019, revealed mild dilation of the ascending thoracic aorta without any dissection. No change from prior study in 2013. No other findings. The ascending aorta measured 4.0 cm. There was mild cardiomegaly. IMPRESSION: A 63-year-old woman with a history of coronary artery disease (CAD), requiring multiple percutaneous transluminal coronary angioplasty (PTCA)/stents over time has been having recurrent chest pain in the last couple days. She came to the ER yesterday. She was evaluated, and her serum troponin was negative, and discharged home. She came back earlier this morning with chest pain. She has had two episodes of chest pain. Her serum troponin was fairly normal, but her second set of troponin done at 4 o'clock is minimally elevated. This will be repeated tonight. She has been free of chest pain since 10-11 o'clock in the morning. We have discussed the above findings, and patient will be referred for a cardiac catheterization at some point prior to going home. If she remains stable, she will be referred for the cardiac catheterization this coming 03/20/2019. If she continues to have chest pain, she will be transferred this weekend. In the meantime, we will continue current medications and will add a long-acting nitrate.. It was a pleasure to participate in the care of Mrs. Kim Banuelos for her underlying cardiac condition. I will continue to monitor along with you. The above was discussed with her as well as her , and admitting physician will be informed.
== END 2019-03-19 10:08 | disposition short-term general hospital (02) ==
LOC: M ED 02:29 → M ED INP 05:14 → M PCU 19:08
PROVIDERS: ADMIT Internal Medicine; ATTEND Family Medicine
DX: I25.119 Atherosclerotic heart disease of native coronary artery with unspecified angina pectoris (principal); R07.89 Other chest pain; F41.9 Anxiety disorder, unspecified; I11.9 Hypertensive heart disease without heart failure; R74.8 Abnormal levels of other serum enzymes; I44.7 Left bundle-branch block, unspecified; J31.0 Chronic rhinitis; J32.9 Chronic sinusitis, unspecified; H66.92 Otitis media, unspecified, left ear; E78.5 Hyperlipidemia, unspecified; E66.9 Obesity, unspecified; G47.30 Sleep apnea, unspecified; K21.9 Gastro-esophageal reflux disease without esophagitis; K22.70 Barrett's esophagus without dysplasia; E11.9 Type 2 diabetes mellitus without complications; F32.9 Major depressive disorder, single episode, unspecified; M17.0 Bilateral primary osteoarthritis of knee; M19.071 Primary osteoarthritis, right ankle and foot; E55.9 Vitamin D deficiency, unspecified; K52.9 Noninfective gastroenteritis and colitis, unspecified; Z87.442 Personal history of urinary calculi; Z79.899 Other long term (current) drug therapy; Z79.2 Long term (current) use of antibiotics; Z79.51 Long term (current) use of inhaled steroids; Z79.82 Long term (current) use of aspirin; Z79.02 Long term (current) use of antithrombotics/antiplatelets; Z88.0 Allergy status to penicillin; Z88.2 Allergy status to sulfonamides; Z88.8 Allergy status to other drugs, medicaments and biological substances; Z88.1 Allergy status to other antibiotic agents
CPT/HCPCS: 36415; 71045; 71275; 80048; 80053; 82550; 82553; 83735; 84484; 85025; 85027; 85610; 93005; 93041; 94640; 94760; 96372; 96374; 96376; 99285; J1650; J2270; Q9967

== ENCOUNTER → 2019-04-25 | Outpatient (REF) | payer OTHER ==
[~2019-04-25] MED LIST changes: +AMLO10TA5 PO; +ASPI325T36 PO; +ATEN50TA2 PO; +BIOF4GEL4 TOP; +BIOT1000 PO; +BIOT1CAP2 PO; +CIPR-250 PO; +CLOP75TA2 PO; +D3-5CAP PO; +DIAZ5TAB PO; +DOXY100T PO; +DRIS50003 PO; +ECOT81TA5 PO; +FOLGTAB5 PO; +KETO2CR EXT; +LOSA25TA14 PO; -METHACHOLINE KIT (J7674) INH ONE; +NITR0.4S14 SL; +PANT40TA3 PO; +PERCOCET PO; +RANI300T PO; +ROSU20TA5 PO; +SERT-138 PO; +SYMB16INH INH; +VALTAREN; +VENTAER INH; +VOLT1GEL15 TOP
[2019-04-25 19:31] LABS: ALBUMIN 3.8 GM/DL (3.2-5.2); BILIRUBIN,TOTAL 0.3 MG/DL (0.2-1.0); CALCIUM LEVEL 8.8 MG/DL (8.8-10.2); CHOLESTEROL RISK RATIO 1.896 (<5); CREATININE FOR GFR 1.17 MG/DL (0.55-1.30); GLOMERULAR FILTRATION RATE 50.1 (>45); POTASSIUM SERUM 4.6 MEQ/L (3.5-5.1); TOTAL PROTEIN 7.3 GM/DL (6.4-8.2)
[2019-04-25 19:32] LABS: HEMATOCRIT 38.9 % (36.0-47.0); HEMOGLOBIN 11.8 g/dl (12.0-15.5); MEAN CORPUSCULAR HEMOGLOBIN 26.6 pg (27.0-33.0); MEAN CORPUSCULAR HGB CONC 30.3 g/dl (32.0-36.5); MEAN CORPUSCULAR VOLUME 87.6 fl (80.0-96.0); PLATELET COUNT, AUTOMATED 287 10^3/uL (150-450); RED BLOOD COUNT 4.44 10^6/uL (4.00-5.40); WHITE BLOOD COUNT 10.1 10^3/uL (4.0-10.0)
[2019-04-25 19:45] LABS: HEMOGLOBIN A1c 6.2 %
== END ==
LOC: M SFHCADAM 11:32
PROVIDERS: ATTEND Family Medicine
DX: I11.9 Hypertensive heart disease without heart failure (principal); R73.03 Prediabetes; E78.2 Mixed hyperlipidemia

== ENCOUNTER 2019-04-28 13:20 | Outpatient (RCR) | payer OTHER ==
--- NOTE | 2019-04-21 08:51 | CARECAPL ---
Assessment Account #s: Initial Assessment General Diagnoses: PTCA Date of event: Mar 13, 2019 Physician: Venecia Zambrano MD Allergies: Coded Allergies: Penicillins (Verified Allergy, Unknown, RASH, 03/18/19) Sulfa (Sulfonamide Antibiotics) (Verified Allergy, Unknown, 03/17/19) RASH amoxicillin (Verified Allergy, Unknown, RASH, 03/18/19) cephalexin (Verified Allergy, Unknown, "FEELS BURNING SENSATION", 03/18/19) doxycycline (Verified Allergy, Unknown, 04/21/19) erythromycin base (Verified Allergy, Unknown, 03/18/19) sucralfate (Verified Allergy, Unknown, "IRRITATED THROAT", 03/18/19) Date Entered Program: Apr 21, 2019 Risk strat for cardiac event: High Exercise Assessment: Initial Assessment Stress Test: MET Level (7.0) Exercise Prescription Plan Educate about cardiovascular disease and increase endurance, flexibility and strength through monitored exercise. Modalities initiated: Treadmill (will add speed 2.0 for 10 minutes), Nustep (will add resistance 2 for 10 minutes), Arm Aerometer (will add resistance 1.0 for 8 minutes), Dumbells (will add 2lbs for 2 reps 8-10), Recumbent Bike (will add resistance of 2 for 5 minutes) Frequency: 2-3 Duration (Minutes) 30-60 minutes total exercise a day. 15-20 work intervals in minutes. prn rest intervals in minutes. Functional Capacity Goal Sustained Metabolic Equivalent of a task (MET) goal of 3.5-4.0 for 15-20 minutes. Intensity: 3-Moderate Progression (METS) Increase by: 0.5 METS every: 3-5 sessions Target Heart Rate rest + 35-40 per beta [place] therapy Medications Scheduled Amlodipine Besylate (Amlodipine Besylate), 10 MG PO QHS, (Reported) Aspirin (Aspirin EC), 325 MG PO DAILY, (Reported) Atenolol (Atenolol), 50 MG PO BID, (Reported) Biotin (Biotin), 1 MG PO DAILY, (Reported) Budesonide/Formoterol (Symbicort 160-4.5 Mcg Inhaler), 2 PUFF INH BID, (Reported) Clopidogrel Bisulfate (Clopidogrel), 75 MG PO DAILY, (Reported) Ergocalciferol (Vitamin D2) (Drisdol), 50,000 UNIT PO QWEEK, (Reported) Losartan Potassium (Losartan Potassium), 25 MG PO DAILY, (Reported) Menthol (Biofreeze), 1 APLCT TOP QID, (Reported) Pantoprazole Sodium (Pantoprazole Sodium), 40 MG PO DAILY, (Reported) Ranitidine HCl (Ranitidine HCl), 1 TAB PO QHS, (Reported) Rosuvastatin Calcium (Rosuvastatin Calcium), 20 MG PO QHS, (Reported) Vit D3/Folic Acid/B2/B6/B12 (Folgard Tablet), 1 TAB PO QWEEK, (Reported) Scheduled PRN Albuterol Sulfate (Ventolin Hfa), 2 PUFF INH Q4H PRN for SHORTNESS OF BREATH, (Reported) Diazepam (Diazepam), 5 MG PO DAILY PRN for ANXIETY/AGITATION, (Reported) Nitroglycerin (Nitroglycerin), 0.4 MG SL NITRO PRN for CHEST PAIN, (Reported) Miscellaneous Medications [valtaren gel], (Reported) Discontinued Medications Budesonide/Formoterol (Symbicort 160-4.5 Mcg Inhaler), 2 PUFF INH BID, (Reported) Discontinued Reason: Re-entering as new Doxycycline Hyclate (Doxycycline Hyclate), 100 MG PO BID, (Reported) Discontinued Reason: Pt states not taking Sertraline HCl (Sertraline HCl), 150 MG PO DAILY, (Reported) Discontinued Reason: Pt states not taking Target Goals Individual exercise Rx (1) BP 140/90 or 130/80 if DM or CKD (1) Aerobic active 30+min 5 days per week (1) Nutrition Date: Apr 21, 2019 Assessment: Initial Assessment Lipids Total Cholesterol (169), High Density Lipids (HDL) (87), Low Density Lipids (LDL) (68), Triglycerides (68), Duration (1.942), Lipid med/supplement (crestor) Lipid- med/supplement crestor 20 mg daily Diabetes Diabetes: Yes HbA1c (%): 6.3 Diabetes medication diet controlled Monitor Blood Sugar at home: No Weight Management Weight (lbs): 245.6 Height (inches): 63 Waist Circumference (Inches): 51 BMI: 43.40 Weight goal: 180 Special Diet: mediteranean diet Alcohol: none Diet Access Tool: Rate your plate Score: 40 Referral to Diabetes education: No Referral to lipid clinic: No Referral to weight mangement p: No Target goal LDL-C<100 if triglycerides are >200 Non-HDL-C should be <130 (1) LDL-C<70 for high risk patients (4) HbA1c<7% (1) BMI<25 Waist cir<40in M/<35in F (1) Education Date: Apr 21, 2019 Assessment: Initial Assessment Learning Barriers: ready Knowledge Test Score: 8 Family Support: Yes Tobacco use: No Quit: >6 months (quit 1998) Tobacco Use Smokeless tobacco: No Intervention Referral to smoking cessation: No Individual education and couns: No Tobacco Adjunct: No Education class schedule given: No Attended education classes: No Target Goals Complete cessation of tobacco use (1). Psychosocial Date: Apr 21, 2019 Assessment: Initial Assessment Psych Test (Initial/Discharge) Tool Used: CESD Score: 8 Intervention Physician Consult: No Physician Referral: No Psychotropic medication none Target Goal Assess presence or absence of depression using a valid screening tool (1). Maximize coping skills (2). Positive support system (2). Patient/Program Goal Preventative Medication: Yes Aspirin, Yes Clopidogrel, Yes Beta blockade, Yes Statin/OTR lipid Lowering, Yes Other (calcium channel [place] and angiotensin receptor blockers) Fall Risk Assess: Yes (no fall risk) Provider Assessment Provider Assessment: Proceed with rehab Nahomi Ferguson RN Apr 21, 2019 08:51
[~2019-04-28 13:20] MED LIST changes: -CIPR-250 PO; -KETO2CR EXT; -PERCOCET PO; -VOLT1GEL15 TOP
== END 2019-04-29 ==
LOC: M CR 13:20
PROVIDERS: ATTEND Internal Medicine Cardiovascular Disease
DX: Z98.61 Coronary angioplasty status (principal)

== ENCOUNTER 2019-05-10 21:35 | Observation (INO) | payer OTHER ==
[~2019-05-10] VITALS: Ht 160 cm; Wt 113.7 kg
[2019-05-10] MEDS: amLODIPine 10 MG TAB PO SCH (04:48)
[2019-05-10] MEDS ORDERED: NS 1,000 ML IV ONE (22:15)
[2019-05-10] MEDS ORDERED: ACETAMINOPHEN *IV* 1,000 MG in APPROPRIATE DILUENT 1 EA IV ONE (22:15)
[2019-05-10] MEDS ORDERED: fentaNYL 100 MCG/2 ML INJECTION (J3010) IV ONE (22:15)
[2019-05-10 22:29] LABS: BASO # 0.1 10^3/uL (0.0-0.2); BASO % 0.6 % (0.0-1.0); EOS # 0.3 10^3/uL (0.0-0.5); EOS % 1.9 % (0.0-3.0); HEMATOCRIT 36.5 % (36.0-47.0); HEMOGLOBIN 11.3 g/dl (12.0-15.5); MEAN CORPUSCULAR HEMOGLOBIN 26.9 pg (27.0-33.0); MEAN CORPUSCULAR VOLUME 86.9 fl (80.0-96.0); MONO # 1.2 10^3/uL (0.0-0.8); MONO % 7.6 % (0.0-5.0); NEUTROPHILS # 11.8 10^3/uL (1.5-8.5); NEUTROPHILS % 75.9 % (36.0-66.0); PLATELET COUNT, AUTOMATED 297 10^3/uL (150-450); WHITE BLOOD COUNT 15.6 10^3/uL (4.0-10.0)
[2019-05-10 23:06] LABS: APPEARANCE, URINE HAZY (CLEAR); BACTERIA, URINE AUTO NEGATIVE (NEGATIVE); BILIRUBIN, URINE AUTO NEGATIVE (NEGATIVE); BLOOD, URINE BLOOD 3+ (NEGATIVE); COLOR, URINE YELLOW (YELLOW); GLUCOSE, URINE (UA) AUTO NEGATIVE (NEGATIVE); KETONE, URINE AUTO NEGATIVE (NEGATIVE); LEUKOCYTE ESTERASE, URINE AUTO 3+ (NEGATIVE); NITRITE, URINE AUTO NEGATIVE (NEGATIVE); PROTEIN, URINE AUTO 1+ mg/dL (NEGATIVE); RBC, URINE AUTO TNTC /HPF (0-3); SPECIFIC GRAVITY URINE AUTO 1.019 (1.002-1.035); SQUAMOUS EPITHELIAL CELL UR AU 1 /HPF (0-6); UROBILINOGEN, URINE AUTO 0.2 mg/dL (0.0-2.0); WBC, URINE AUTO 30 /HPF (0-3)
[2019-05-10 23:12] LABS: ALBUMIN 3.8 GM/DL (3.2-5.2); BILIRUBIN,TOTAL 0.2 MG/DL (0.2-1.0); C REACTIVE PROTEIN QUANTITATIV 0.58 MG/DL (0.00-0.30); CALCIUM LEVEL 9.2 MG/DL (8.8-10.2); CREATININE FOR GFR 1.55 MG/DL (0.55-1.30); GLOMERULAR FILTRATION RATE 36.2 (>45); POTASSIUM SERUM 4.6 MEQ/L (3.5-5.1); TOTAL PROTEIN 7.3 GM/DL (6.4-8.2)
[2019-05-11] MEDS ORDERED: MORPHINE 4 MG/ML 1ML VIAL/SYRINGE (J2270) IV ONE ×2 (00:15→03:45)
[2019-05-11] MEDS ORDERED: METOCLOPRAMIDE INJ 10MG/2ML VIAL (J2765) IV ONE (00:15)
[2019-05-11] MEDS ORDERED: KETO2CR EXT (00:21)
[2019-05-11] MEDS ORDERED: VOLT1GEL15 TOP (00:21)
[2019-05-11] MEDS ORDERED: SERT-138 PO (00:21)
--- NOTE | 2019-05-11 00:24 | REPVR ---
EXAM: CT Abdomen and Pelvis Without Contrast EXAM DATE/TIME: 05/10/2019 10:10 PM CLINICAL HISTORY: 63 years old, female; Abdominal pain; Localized; Left Lower Quadrant (LLQ); Additional Info: LLQ pain, HX of kidney stones, feels the same TECHNIQUE: Imaging protocol: Computed tomography of the abdomen and pelvis without contrast. Radiation optimization: All CT scans at this facility use at least one of these dose optimization techniques: automated exposure control; mA and/or kV adjustment per patient size (includes targeted exams where dose is matched to clinical indication); or iterative reconstruction. COMPARISON: CT ABD PELVIS W/O CONTRAST 04/18/2013 8:55 PM FINDINGS: Liver: Normal. No mass. Gallbladder and bile ducts: Status post cholecystectomy. No biliary ductal dilatation. Pancreas: Normal. No ductal dilation. Spleen: Normal. No splenomegaly. Adrenals: Normal. No mass. Kidneys and ureters: No right hydronephrosis. Moderate left hydronephrosis. Stone in the proximal left ureter measured 4 x 3 x 5 mm. Parapelvic renal cysts bilaterally measuring to 3 cm. Stomach and bowel: Negative for colonic diverticulitis. No abnormal bowel dilatation. No abnormal bowel wall thickening. Appendix: Appendix is normal. Intraperitoneal space: Unremarkable. No free air. No significant fluid collection. Vasculature: Moderate calcified atherosclerotic disease. No aortic aneurysm. Lymph nodes: Unremarkable. No enlarged lymph nodes. Bladder: Unremarkable as visualized. Reproductive: Uterus is normal. Bones/joints: Severe degenerative spine. No acute fracture. Soft tissues: Moderate umbilical hernia containing fat. There is no evidence of strangulation. There is dependent subcutaneous edema. IMPRESSION: 1. Acute obstructive left uropathy with proximal ureteral stone. 2. Parapelvic renal cysts bilaterally. Increased from prior. No followup is necessary. Electronically signed by: Nancy Lizama On 05/11/2019 00:23:43 AM
[2019-05-11] MEDS ORDERED: HYDROMORPHONE HCL 0.5 MG/ 0.5 ML SYRINGE (J1170 PER 1) IV ONE (00:45)
[2019-05-11] MEDS ORDERED: ACETAMINOPHEN TAB 650MG DOSE (2X325MG) PO PRN (03:15)
[2019-05-11] MEDS ORDERED: MORPHINE 4 MG/ML 1ML VIAL/SYRINGE (J2270) IV PRN (03:15)
[2019-05-11] MEDS ORDERED: MOM 30ML SUSPENSION UDC PO PRN (03:15)
[2019-05-11] MEDS ORDERED: NITROGLYCERIN 0.4 MG SUBL TABLET SL PRN (03:30)
[2019-05-11] MEDS ORDERED: ALBUTEROL 90 MCG/ACT 8GM HFA INHALER INH PRN (03:30)
[2019-05-11] MEDS ORDERED: diazePAM 5 MG TAB PO PRN (03:30)
[2019-05-11] MEDS: raNITIdine SYRUP 150 MG/10 ML UDC PO SCH ×3 (04:44→21:26)
[2019-05-11] MEDS: NS 1,000 ML IV SCH ×2 (04:48→12:33)
[2019-05-11] MEDS: ROSUVASTATIN 10 MG TAB (CRESTOR) PO SCH ×2 (04:48→19:42)
[2019-05-11] MEDS: HEPARIN SOD (PORCINE) 5000 UNITS/ML VIAL SC SCH ×3 (05:55→21:26)
[2019-05-11] MEDS ORDERED: DICLOFENAC EPOLAMINE 1.3 % PATCH TOP PRN (06:00)
[2019-05-11 06:43] LABS: INR 0.99; PROTHROMBIN TIME 12.8 SECONDS (11.8-14.0)
[2019-05-11 07:41] LABS: POTASSIUM RANDOM URINE 43.1 MEQ/L; SODIUM,RANDOM URINE 40 MEQ/L
[2019-05-11 07:44] LABS: OSMOLALITY URINE 365 MOSM/KG (500-800)
[2019-05-11] MEDS ORDERED: ALBUTEROL SULFATE 2.5 MG/0.5 ML INH NEB SOLN As Ordered ONE (07:57)
[2019-05-11] MEDS: SYMBICORT 160/4.5MCG INHALER 6GM INH SCH ×2 (08:00→20:26)
--- NOTE | 2019-05-11 08:39 | CR.PDOC ---
General Date of Consultation: May 11, 2019 Consultation REASON FOR CONSULTATION/CHIEF COMPLAINT: Left ureteral calculus. HISTORY OF PRESENT ILLNESS: 63-year-old female with a 1 day history of left flank pain radiating to the left lower quadrant. Pain was severe rated 10 over 10 in severity. Patient did get relief with IV analgesics. She reports nausea and vomiting. She denies fever or chills. She reports a history of stone disease which require a ureteroscopy [address] scan was reviewed and a 4 mm left midureteral calculus is present with mild hydronephrosis. Patient is comfortable this morning with minimal discomfort. She denies nausea or vomiting. ALLERGIES: Please see below. HOME MEDICATIONS: Please see below. PAST MEDICAL HISTORY: 1. Coronary artery disease status post 10 cardiac stents. 2. Hypertension. 3. Diabetes mellitus 4. GERD PAST SURGICAL HISTORY: 1. Cardiac stents 2. Ureteroscopy 3. Cholecystectomy 4. Bladder suspension 5. Tonsillectomy REVIEW OF SYSTEMS: CONSTITUTIONAL: Denies fever or chills. HEENT: Denies headache. CARDIOVASCULAR: Denies chest pain or shortness of breath. RESPIRATORY: Denies shortness of breath. GENITOURINARY: See HPI. MUSCULOSKELETAL: Reports diffuse joint pain. GASTROINTESTINAL: Reports nausea and vomiting which has resolved this morning. SKIN: Denies rashes. NEUROLOGICAL: Denies neurological symptoms. HEMATOLOGIC/LYMPHATIC: Denies bleeding disorders. PHYSICAL EXAMINATION: VITAL SIGNS: Please see below. GENERAL APPEARANCE: Patient awake and alert lying comfortably on a hospital stretcher. HEENT: Unremarkable. RESPIRATORY: No respiratory distress. CARDIOVASCULAR: Moderate peripheral edema. ABDOMEN: Obese nontender, with no CVA tenderness. NEUROLOGICAL: No focal deficits. LABORATORY DATA: Please see below. WBC 15.6 BUN 21, creatinine 1.55 Urinalysis 30 WBCs per high-power field, too numerous to count RBCs ASSESSMENT/PLAN: 1. Patient has a left midureteral calculus with a possible urinary tract infection. Patient is now comfortable with good pain control and resolution of her nausea and vomiting. Recommend antibiotics for her urinary tract infection. Treatment options for her stone were discussed. Patient has elected medical expulsive therapy. Patient will continue with analgesics and IV hydration. Recommend beginning Flomax 0.4 mg daily. All urine should be strained. Patient is urologically clear for discharge if her pain can be controlled with oral analgesics. We will follow with you during her hospitalization. Thank you very much for this consultation. Vital Signs/I&O Vital Signs Date Time Temp Pulse Resp B/P (MAP) Pulse Ox O2 Delivery O2 Flow Rate FiO2 05/11/19 07:10 62 18 128/59 (82) 98 Room Air 05/10/19 21:36 97.8 Laboratory Data Labs 24H Laboratory Tests 2 05/10/19 22:18: Immature Granulocyte % (Auto) 1.0, White Blood Count 15.6H, Red Blood Count 4.20, Hemoglobin 11.3L, Hematocrit 36.5, Mean Corpuscular Volume 86.9, Mean Corpuscular Hemoglobin 26.9L, Mean Corpuscular Hemoglobin Concent 31.0L, Red Cell Distribution Width 15.9H, Platelet Count 297, Neutrophils (%) (Auto) 75.9H, Lymphocytes (%) (Auto) 13.0L, Monocytes (%) (Auto) 7.6H, Eosinophils (%) (Auto) 1.9, Basophils (%) (Auto) 0.6, Neutrophils # (Auto) 11.8H, Lymphocytes # (Auto) 2.0, Monocytes # (Auto) 1.2H, Eosinophils # (Auto) 0.3, Basophils # (Auto) 0.1, Nucleated Red Blood Cells % (auto) 0.0, Urine Appearance HAZY, Urine Color YELLOW, Urine pH 7.0, Urine Specific [place] 1.019, Urine Protein 1+H, Urine Glucose (UA) NEGATIVE, Urine Ketones NEGATIVE, Urine Urobilinogen 0.2, Urine Bilirubin NEGATIVE, Urine Leukocyte Esterase 3+H, Urine Blood 3+H, Urine Nitrite NEGATIVE, Urine WBC (Auto) 30H, Urine RBC (Auto) TNTCH, Urine Hyaline Casts (A uto) 2, Urine Bacteria (Auto) NEGATIVE, Urine Squamous Epithelial Cells 1, Urine Sperm (Auto) , Anion Gap 12, Glomerular Filtration Rate 36.2L, Blood Urea Nitrogen 21H, Creatinine 1.55H, Sodium Level 140, Potassium Level 4.6, Chloride Level 108H, Carbon Dioxide Level 20L, Calcium Level 9.2, Aspartate Amino Transf (AST/SGOT) 23, Alanine Aminotransferase (ALT/SGPT) 32, Alkaline Phosphatase 115, Total Bilirubin 0.2, Total Protein 7.3, Albumin 3.8, C-Reactive Protein, Quantitative 0.58H, Albumin/Globulin Ratio 1.09 05/11/19 06:19: Prothrombin Time 12.8, Prothromb Time International Ratio 0.99 05/11/19 07:15: Urine Random Osmolality 365L, Urine Random Sodium 40, Urine Random Potassium 43.1 CBC/BMP Laboratory Tests 05/10/19 22:18 Red Blood Count 4.20, Mean Corpuscular Volume 86.9, Mean Corpuscular Hemoglobin 26.9 L, Mean Corpuscular Hemoglobin Concent 31.0 L, Red Cell Distribution Width 15.9 H, Neutrophils (%) (Auto) 75.9 H, Lymphocytes (%) (Auto) 13.0 L, Monocytes (%) (Auto) 7.6 H, Eosinophils (%) (Auto) 1.9, Basophils (%) (Auto) 0.6, Neutrophils # (Auto) 11.8 H, Lymphocytes # (Auto) 2.0, Monocytes # (Auto) 1.2 H, Eosinophils # (Auto) 0.3, Basophils # (Auto) 0.1, Calcium Level 9.2, Aspartate Amino Transf (AST/SGOT) 23, Alanine Aminotransferase (ALT/SGPT) 32, Alkaline Phosphatase 115, Total Bilirubin 0.2, Total Protein 7.3, Albumin 3.8 Allergies Coded Allergies: ticagrelor (Verified Allergy, Severe, can't breathe, 05/10/19) Penicillins (Verified Allergy, Mild, RASH, 04/21/19) Sulfa (Sulfonamide Antibiotics) (Verified Allergy, Mild, RASH, 04/21/19) amoxicillin (Verified Allergy, Mild, RASH, 04/21/19) doxycycline (Verified Allergy, Unknown, 04/21/19) erythromycin base (Verified Allergy, Unknown, 03/18/19) cephalexin (Verified Adverse Reaction, Intermediate, "FEELS BURNING SENSATION", 04/21/19) sucralfate (Verified Adverse Reaction, Intermediate, "IRRITATED THROAT", 04/21/19) Home Medications Scheduled Amlodipine Besylate (Amlodipine Besylate) 10 Mg Tablet, 10 MG PO QHS, (Reported) Aspirin (Aspirin EC) 325 Mg Tablet.dr, 325 MG PO DAILY, (Reported) Atenolol (Atenolol) 50 Mg Tablet, 50 MG PO BID, (Reported) Biotin (Biotin) 1 Mg Tablet, 1 MG PO DAILY, (Reported) Budesonide/Formoterol (Symbicort 160-4.5 Mcg Inhaler) 6 Gm Hfa.aer.ad, 2 PUFF INH BID, (Reported) Clopidogrel Bisulfate (Clopidogrel) 75 Mg Tablet, 75 MG PO DAILY, (Reported) Ergocalciferol (Vitamin D2) (Drisdol) 50,000 Unit Capsule, 50,000 UNIT PO QWEEK, (Reported) TAKE ON SATURDAYS Ketoconazole (Ketoconazole) 15 Gm Cream..g., 1 DOSE EXT QHS, (Reported) APPLIES TO FACE Losartan Potassium (Losartan Potassium) 25 Mg Tablet, 25 MG PO DAILY, (Reported) Pantoprazole Sodium (Pantoprazole Sodium) 40 Mg Tablet.dr, 40 MG PO DAILY, (Reported) Ranitidine HCl (Ranitidine HCl) 300 Mg Tablet, 1 TAB PO QHS, (Reported) Rosuvastatin Calcium (Rosuvastatin Calcium) 20 Mg Tablet, 20 MG PO QHS, (Reported) Sertraline HCl (Sertraline HCl) 100 Mg Tablet, 150 MG PO DAILY, (Reported) Scheduled PRN Albuterol Sulfate (Ventolin Hfa) 18 Gm Hfa.aer.ad, 2 PUFF INH Q4H PRN for SHORTNESS OF BREATH, (Reported) Diazepam (Diazepam) 5 Mg Tablet, 5 MG PO DAILY PRN for ANXIETY/AGITATION, (Reported) Diclofenac Sodium (Voltaren) 100 Gm Gel..gram., 1 DOSE TOP QID PRN for PAIN, (Reported) APPLIES TO QUADS AND KNEES Menthol (Biofreeze) 118 Ml Gel..ml., 1 DOSE TOP QID PRN for PAIN, (Reported) APPLIES TO QUADS AND KNEES Nitroglycerin (Nitroglycerin) 0.4 Mg Tab.subl, 0.4 MG SL NITRO PRN for CHEST PAIN, (Reported) Dre Littlejohn MD May 11, 2019 08:39
[2019-05-11] MEDS ORDERED: LOSARTAN 25 MG TAB PO SCH (09:00)
[2019-05-11] MEDS: ANALGESIC BALM CRM 120 GM TOP SCH ×5 (09:00→19:47)
[2019-05-11] MEDS: ASPIRIN ENTERIC 325 MG TAB PO SCH (09:00)
[2019-05-11] MEDS: DOCUSATE SODIUM 100 MG CAP PO SCH ×2 (10:21→19:43)
[2019-05-11] MEDS: CLOPIDOGREL 75 MG TAB PO SCH (10:22)
[2019-05-11] MEDS: SERTRALINE HCL 50 MG TAB PO SCH (10:22)
[2019-05-11] MEDS: ATENOLOL 50 MG TAB PO SCH ×2 (10:22→19:43)
[2019-05-11] MEDS: PANTOPRAZOLE 40MG TAB (PROTONIX) PO SCH (10:22)
[2019-05-11] MEDS: PERCOCET 5MG/325MG TAB PO PRN ×2 (12:34→19:36)
[2019-05-11 12:45] VITALS: BP 124/70
[2019-05-11] MEDS: NS 0.45% 1,000 ML IV SCH (17:16)
[2019-05-11] MEDS: CIPROFLOXACIN 400 MG in APPROPRIATE DILUENT 1 EA IV SCH (17:16)
--- NOTE | 2019-05-11 17:28 | IPN ---
DATE: 05/11/2019 The patient was seen on 05/11/2019 around 12 o'clock, was admitted with pyelonephritis. Did not receive any sign out on this patient, but understood the patient had been on antibiotic therapy, as expected, for pyelonephritis. Apparently, however, no antibiotics have been ordered. The patient was seen earlier today by Dr. Littlejohn from urology who recommended Flomax and, of course, antibiotics. When I saw her, she was having some left flank pain but otherwise was feeling well. No fever or chills. [place] a little better than she had when she was first admitted. CT scan of the chest showed acute obstructive uropathy with a proximal ureteral stone on the left. PHYSICAL EXAM: Afebrile. Vital signs stable 124/70. She is alert, conversant, in no distress. Lungs: Clear. Heart: Regular rhythm. Abdomen: Soft, tender left side, left costovertebral angle (CVA) tenderness present. Trace peripheral edema. LABORATORY: No labs were ordered for today except a procalcitonin. IMPRESSION: 1. Pyelonephritis. Apparently no antibiotics ordered for this patient. We will start Cipro 400 mg IV every 12 hours, first dose now and Flomax for the stone. 2. Left ureteral stone. Flomax 0.4 mg ordered. Urology consultation has been obtained. 3. Acute kidney injury. She is receiving saline. She seems adequately hydrated. Will change this to half normal saline to reduce the chloride load, which can worsen acute kidney injury. We are stopping her losartan in the face of acute kidney injury as well as her diclofenac patch. 4. Hypertensive heart disease. Continue her amlodipine 10 mg daily, atenolol 50 mg twice a day. 5. Hyperlipidemia. Continue Crestor 20 mg daily. 6. Chronic depression. Continue sertraline 150 mg daily. 7. Vitamin D deficiency. She takes Drisdol 50,000 units weekly.
[2019-05-11] MEDS: TAMSULOSIN 0.4 MG CAP PO SCH (19:42)
[2019-05-11] MEDS: amLODIPine 10 MG TAB PO SCH (19:42)
--- NOTE | 2019-05-11 19:56 | HPEPDOC ---
General Date of Admission May 10, 2019 at 21:36 Date of Service: May 11, 2019 Primary Care Physician: Ghulam Godinez MD Other Providers Dr. Dre LittlejohnVnhm-Skgvnza-Zpgzegvjsymi Attending Physician: СЕРГЕЙ GONSALES DO Chief Complaint The patient is a 63-year-old female admitted with a reason for visit of Pyelonephritis. Source: Patient, Family, RN notes reviewed, EMS notes reviewed, Caregiver Severity: Mild Associated Symptoms: Loss of appetite, Nausea, Weakness, Other (decrease urine) History of Present Illness 63 year-old female who presents to [facility] ED with complaints of dysuria, sharp, stabbing lower left abdominal pain radiating to left flank with mild to moderate nausea. She reports painful is 10/10 and was medicated with 4 mg of Morphine Sulfate, Tylenol, Fentanyl. Pain reassessed and it is sharp to left flank 3/10 continuously. She has significant medical history Anxiety, Depression, Essential Hypertension, Diabetes Mellitus II, CAD with 10 stents, Asthma, Angina Pectoris, GERD, Dyslipidemia, Kidney Stones, and Vitamin D Deficiency. She was evaluated by Dr. Dre Littlejohn Urologist for left obstructive urinary stone discovered on CT Abdomen/Pelvis and has been cleared by Urology. Due to patients intractable pain, her plan of care option for medical expulsive therapy for the obstructive stone, she will be admitted to Med-Surg unit for Observation under Hospitalist service. Home Medications Scheduled Amlodipine Besylate (Amlodipine Besylate) 10 Mg Tablet, 10 MG PO QHS, (Reported) Aspirin (Aspirin EC) 325 Mg Tablet.dr, 325 MG PO DAILY, (Reported) Atenolol (Atenolol) 50 Mg Tablet, 50 MG PO BID, (Reported) Biotin (Biotin) 1 Mg Tablet, 1 MG PO DAILY, (Reported) Budesonide/Formoterol (Symbicort 160-4.5 Mcg Inhaler) 6 Gm Hfa.aer.ad, 2 PUFF INH BID, (Reported) Clopidogrel Bisulfate (Clopidogrel) 75 Mg Tablet, 75 MG PO DAILY, (Reported) Ergocalciferol (Vitamin D2) (Drisdol) 50,000 Unit Capsule, 50,000 UNIT PO QWEEK, (Reported) TAKE ON SATURDAYS Ketoconazole (Ketoconazole) 15 Gm Cream..g., 1 DOSE EXT QHS, (Reported) APPLIES TO FACE Losartan Potassium (Losartan Potassium) 25 Mg Tablet, 25 MG PO DAILY, (Reported) Pantoprazole Sodium (Pantoprazole Sodium) 40 Mg Tablet.dr, 40 MG PO DAILY, (Reported) Ranitidine HCl (Ranitidine HCl) 300 Mg Tablet, 1 TAB PO QHS, (Reported) Rosuvastatin Calcium (Rosuvastatin Calcium) 20 Mg Tablet, 20 MG PO QHS, (Reported) Sertraline HCl (Sertraline HCl) 100 Mg Tablet, 150 MG PO DAILY, (Reported) Scheduled PRN Albuterol Sulfate (Ventolin Hfa) 18 Gm Hfa.aer.ad, 2 PUFF INH Q4H PRN for SHORTNESS OF BREATH, (Reported) Diazepam (Diazepam) 5 Mg Tablet, 5 MG PO DAILY PRN for ANXIETY/AGITATION, (Reported) Diclofenac Sodium (Voltaren) 100 Gm Gel..gram., 1 DOSE TOP QID PRN for PAIN, (Reported) APPLIES TO QUADS AND KNEES Menthol (Biofreeze) 118 Ml Gel..ml., 1 DOSE TOP QID PRN for PAIN, (Reported) APPLIES TO QUADS AND KNEES Nitroglycerin (Nitroglycerin) 0.4 Mg Tab.subl, 0.4 MG SL NITRO PRN for CHEST PAIN, (Reported) Allergies Coded Allergies: ticagrelor (Verified Allergy, Severe, can't breathe, 05/10/19) Penicillins (Verified Allergy, Mild, RASH, 04/21/19) Sulfa (Sulfonamide Antibiotics) (Verified Allergy, Mild, RASH, 04/21/19) amoxicillin (Verified Allergy, Mild, RASH, 04/21/19) doxycycline (Verified Allergy, Unknown, 04/21/19) erythromycin base (Verified Allergy, Unknown, 03/18/19) cephalexin (Verified Adverse Reaction, Intermediate, "FEELS BURNING SENSATION", 04/21/19) sucralfate (Verified Adverse Reaction, Intermediate, "IRRITATED THROAT", 04/21/19) Past Medical History Medical History Anxiety, Depression, Essential Hypertension, CAD with 10 stents, Asthma, Diabe jamshid Mellitus II, Angina Pectoris, GERD, Dyslipidemia, Kidney Stones, and Vitamin D Deficiency. Surgical History Tonsillectomy, Cardiac Catheterization with 10 stents, Bladder Suspension, Cholecystectomy, D&C (multiple) Family History Significant Family History: COPD (Dad), Heart disease (MOM-CHF, Dad before age [address] CT), Hypertension (Mom & DAD) Social History * Smoker: former Smoker (20 years ago-cigarettes) Alcohol: occationally Drugs: denies Recent Travel/Sick Contacts: Denies: Recent travel, Recent sick contacts Psychosocial History: Anxiety, Danyel SI and HI, Depression A-FIB/CHADSVASC A-FIB History Current/History of A-Fib/PAF?: No Review of Systems Constitutional: Reports: Fatigue Eyes: Reports: Pain ENT: Denies: Head Aches, Ear Pain, Dysphagia, Sinus Congestion, Post Nasal Drip, Sore Throat, Epistaxis, Other Symptoms Skin: Denies: Rash, Lesions, Jaundice, Bruising, Itching, Dry, Breakdown, Nail Changes, Other Pulmonary: Denies: Dyspnea, Cough, Pleuritic Chest Pain, Other Symptoms Cardiovascular: Denies: Chest Pain, Palpitations, Orthopnea, Paroxysmal Noc. Dyspnea, Edema, Lt Headedness, Other Symptoms Gastrointestinal: Reports: Nausea, Abdominal Pain Genitourinary: Reports: Dysuria Hematologic: Denies: Bruising, Bleeding Excessively, Petecchia, Purpura, Enlarged Lymph Nodes, Other Hematologic Endocrine: Denies: Polydipsia, Polyphagia, Polyuria, Heat Intolerance, Cold Intolerance, Other Endocrine Sx Musculoskeletal: Reports: Back Pain (Left flank & lower back) Neurological: Denies: Weakness, Numbness, Incoordination, Change in speech, Confusion, Seizures, Other Symptoms Psych: Reports: Anxiety Physical Examination General Exam: Positive: Alert, Cooperative, Moderate Distress Eye Exam: Positive: PERRLA, Conjunctiva & lids normal, EOMI, Sclera icteric ENT Exam: Positive: Atraumatic, Mucous membr. moist/pink, Pharynx Normal, Tongue Midline, Nares Patent Neck Exam: Positive: Supple, +2 carotid pulse wo bruit Chest Exam: Positive: Clear to auscultation, Normal air movement Heart Exam: Positive: Rate Normal, Regular Rhythm, Normal S1, Normal S2 Abdomen Exam: Positive: Normal bowel sounds, Tenderness (LUQ, LLQ to palpation) Extremity Exam: Positive: Normal pulses Skin Exam: Positive: Nl turgor and temperature Neuro Exam: Positive: Normal Speech, Cranial Nerves 3-12 NL Psych Exam: Positive: Mental status NL, Mood NL, Oriented x 3 Vital Signs Vital Signs Date Time Temp Pulse Resp B/P (MAP) Pulse Ox O2 Delivery O2 Flow Rate FiO2 05/11/19 04:46 61 16 117/55 (75) 94 05/11/19 00:51 Room Air 05/10/19 21:36 97.8 Height (in): 63 Weight (kg): 113.7 BMI (kg): 44.4 Laboratory Data Labs 24H Laboratory Tests 2 05/10/19 22:18: Immature Granulocyte % (Auto) 1.0, White Blood Count 15.6H, Red Blood Count 4.20, Hemoglobin 11.3L, Hematocrit 36.5, Mean Corpuscular Volume 86.9, Mean Corpuscular Hemoglobin 26.9L, Mean Corpuscular Hemoglobin Concent 31.0L, Red Cell Distribution Width 15.9H, Platelet Count 297, Neutrophils (%) (Auto) 75.9H, Lymphocytes (%) (Auto) 13.0L, Monocytes (%) (Auto) 7.6H, Eosinophils (%) (Auto) 1.9, Basophils (%) (Auto) 0.6, Neutrophils # (Auto) 11.8H, Lymphocytes # (Auto) 2.0, Monocytes # (Auto) 1.2H, Eosinophils # (Auto) 0.3, Basophils # (Auto) 0.1, Nucleated Red Blood Cells % (auto) 0.0, Urine Appearance HAZY, Urine Color YELLOW, Urine pH 7.0, Urine Specific Mobile 1.019, Urine Protein 1+H, Urine Glucose (UA) NEGATIVE, Urine Ketones NEGATIVE, Urine Urobilinogen 0.2, Urine Bilirubin NEGATIVE, Urine Leukocyte Esterase 3+H, Urine Blood 3+H, Urine Nitrite NEGATIVE, Urine WBC (Auto) 30H, Urine RBC (Auto) TNTCH, Urine Hyaline Casts (Auto) 2, Urine Bacteria (Auto) NEGATIVE, Urine Squamous Epithelial Cells 1, Urine Sperm (Auto) , Anion Gap 12, Glomerular Filtration Rate 36.2L, Blood Urea Nitrogen 21H, Creatinine 1.55H, Sodium Level 140, Potassium Level 4.6, Chloride Level 108H, Carbon Dioxide Level 20L, Calcium Level 9.2, Aspartate Amino Transf (AST/SGOT) 23, Alanine Aminotransferase (ALT/SGPT) 32, Alkaline Phosphatase 115, Total Bilirubin 0.2, Total Protein 7.3, Albumin 3.8, C-Reactive Protein, Quantitative 0.58H, Albumin/Globulin Ratio 1.09 CBC/BMP Laboratory Tests 05/10/19 22:18 Red Blood Count 4.20, Mean Corpuscular Volume 86.9, Mean Corpuscular Hemoglobin 26.9 L, Mean Corpuscular Hemoglobin Concent 31.0 L, Red Cell Distribution Width 15.9 H, Neutrophils (%) (Auto) 75.9 H, Lymphocytes (%) (Auto) 13.0 L, Monocytes (%) (Auto) 7.6 H, Eosinophils (%) (Auto) 1.9, Basophils (%) (Auto) 0.6, Neutrophils # (Auto) 11.8 H, Lymphocytes # (Auto) 2.0, Monocytes # (Auto) 1.2 H, Eosinophils # (Auto) 0.3, Basophils # (Auto) 0.1, Calcium Level 9.2, Aspartate Amino Transf (AST/SGOT) 23, Alanine Aminotransferase (ALT/SGPT) 32, Alkaline Phosphatase 115, Total Bilirubin 0.2, Total Protein 7.3, Albumin 3.8 RAD Interpretation STUDY: Rad Actions: Report Reviewed, Wet Read Reviewed, Films Reviewed, Discussed with the pt RAD Interpretation: Interv. Req. See Plan (Moderate left obstructive urinary stone in proximal ureter measuring 4 x 3x 5 mm with moderate left kidney hydronephrosis. No right kidney hydronephrosis visualized), Other Result Comments: (parapelvic renal cysts bilateral 3 cm; moderate umbilical hernia containing fat without strangulation; moderate calcified athersclerotic disease) Assessment/Plan 63 year-old female who presents to [facility] ED with complaints of dysuria, sharp, stabbing lower left abdominal pain radiating to left flank with mild to moderate nausea. She reports painful is 10/10 and was medicated with 4 mg of Morphine Sulfate, Tylenol, Fentanyl. Pain reassessed and it is sharp to left flank 3/10 continuously on pain scale 1-10. Plan: Medical expulsive therapy for left urinary obstructive stone and IV antibiotics for pyelonephritis Pyelonephritis-Acute Start IV antibiotics Ciprofloxacin 400 mg every 12 hours Monitor CBC, IV fluids Normal Saline 120 cc/hr (re-hydration) Monitor temperature (if develop with collect samples for sepsis screen) Zofran 4 mg slow IV push every 4 hours as needed for nausea and vomiting Left Obstructed Urinary Stone with Left Hydronephrosisacute Consult Urology-Completed with Dr. Littlejohn with recommendations. Thank you Dr. Littlejohn for your recommendations. Start Flomax 0.4 mg Po dailynew. Per recommendations Monitor I&O's,CMP, Strain Urine with each urinationnew. Per recommendations Manage pain: Morphine now 3mg slow IV push. Then maintenance Morphine 2 mg slow IV push every 3 hours pain 7-10; Oxycodone/Acetaminophen 5/325 mg 1 po every 4 hours as needed for pain 4-6, Nicholas Gloira cream use sparingly 4 times a day prn, Diclofenac 1.3% patch to lower back as needed, acetaminophen 650 mg by mouth every 4 hours as needed for pain 13/fever. Initiate bowel regimen: Milk of Magnesia 30 cc Po daily as needed for constipation, Colace 100 Po twice a day Essential hypertensionchronic. Continue home medications: Losartan 25 mg by mouth daily, Amlodipine 10 mg by mouth daily, Atenolol 50 mg by mouth twice a day. Monitor blood pressure. Goal blood pressure 140/80 or less. Call blood pressure systolic blood pressure greater than 180. Gait. Manual blood pressure and bilateral arms. If blood pressure systolic is greater then 160 and diastolic is greater than 100. Diet no salt added with carbohydrates calculated accordingly due to diabetes ,Diabetes type 2chronic , A1c POC before meals at bedtime Sliding-scale insulin as needed Dyslipidemia/Coronary artery disease with stents 10chronic. Continue Crestor 20 mg, aspirin 325 mg by mouth daily, Plavix 75 mg by mouth d aily Angina pectorischronic. Continue Nitroglycerin 0.4 mg sublingual as directed. Onset of chest pain Stat EKG as needed, stat troponin with trending troponin 3, stat CK, stat magnesium, stat CMP, stat chest x-ray, AP/ lateral Anxietychronic. Continue Diazepam 5 mg by mouth as needed Depressionchronic Continue Zoloft 50 mg by mouth daily GERDchronic. Ranitidine 300 mg by mouth at bedtime, Protonix DR 40 mg by mouth daily ,Vitamin D deficiencychronic. Continue vitamin D 50,000 IUs 1 by mouth every week ,Asthmachronic. Continue Symbicort 160/4.5 g 2 inhalations by mouth twice a day, albuterol 90 g 2 puffs every 4-6 hours as needed and when necessary nebulizer treatments as needed every 6 hours for shortness of breath and/or wheezing or respiratory distress. Prognosis: Good. DVT prophylaxis: Heparin 5000 IUs every 8 hours, subcutaneous; SCDs/TEDs stockings bilateral lower extremities. Discharge: Pending Problems (1) Pyelonephritis Status: Acute Response to Treatment: Worse Discussed With: Patient Problem Specific Plan: Monitor Clinically, Repeat Labs Plan / VTE VTE Prophylaxis Ordered?: Yes VTE Exclusion Mechanical Proph: Roman Lower Ex DVT Plan IVF: Continue Diet: Advance Activity: Continue Current Respiratory: Other Respiratory (prn respiratory treatments Albuterol) Diagnostics: Check Labs, Repeat Labs in AM, CT Anticipated Discharge: Home XIN RIVERA May 11, 2019 04:53
[2019-05-11] MEDS: HumaLOG INSULIN (NovoLOG) PER UNIT SC SCH (21:00)
[2019-05-11 21:45] LABS: CALCIUM,RANDOM URINE < 5.0 MG/DL
[2019-05-11 22:00] VITALS: BP 136/67
[2019-05-12] MEDS: NS 0.45% 1,000 ML IV SCH ×3 (02:38→22:45)
[2019-05-12] MEDS: HEPARIN SOD (PORCINE) 5000 UNITS/ML VIAL SC SCH ×3 (05:25→22:45)
[2019-05-12] MEDS: CIPROFLOXACIN 400 MG in APPROPRIATE DILUENT 1 EA IV SCH ×2 (05:25→18:25)
[2019-05-12] MEDS: PERCOCET 5MG/325MG TAB PO PRN ×3 (05:31→14:15)
[2019-05-12 06:00] VITALS: BP 131/74
[2019-05-12 07:12] LABS: HEMATOCRIT 33.6 % (36.0-47.0); HEMOGLOBIN 9.9 g/dl (12.0-15.5); MEAN CORPUSCULAR HEMOGLOBIN 25.7 pg (27.0-33.0); MEAN CORPUSCULAR HGB CONC 29.5 g/dl (32.0-36.5); MEAN CORPUSCULAR VOLUME 87.3 fl (80.0-96.0); PLATELET COUNT, AUTOMATED 214 10^3/uL (150-450); RED BLOOD COUNT 3.85 10^6/uL (4.00-5.40); WHITE BLOOD COUNT 8.3 10^3/uL (4.0-10.0)
[2019-05-12] MEDS: HumaLOG INSULIN (NovoLOG) PER UNIT SC SCH ×4 (07:30→20:39)
--- NOTE | 2019-05-12 07:39 | IPNPDOC ---
Date Seen The patient was seen on 05/12/19. Progress Note SUBJECTIVE: Patient is reporting mild pain, 3/10 in severity. Denies passage of stone. Pain controlled with analgesics OBJECTIVE PHYSICAL EXAMINATION: VITAL SIGNS: Please see below. Abd: soft non tender, no CVA tenderness LABORATORY DATA, IMAGING STUDIES, MICROBIOLOGY: Please see below. WBC normal Creat. pending ASSESSMENT AND PLAN: Patient has a 4 mm left ureteral stone. Pain and nausea are controlled and patient is urologically clear for discharge. Continue Flomax and antibiotics as outpatient. Please schedule follow up in office next week. VS, I&O, 24H, Fishbone Vital Signs/I&O Vital Signs Date Time Temp Pulse Resp B/P (MAP) Pulse Ox O2 Delivery O2 Flow Rate FiO2 05/12/19 06:01 16 05/12/19 06:00 97.3 61 131/74 (93) 95 05/11/19 12:18 Room Air I&O- Last 24 Hours up to 6 AM 05/12/19 06:00 Intake Total 2900 ml Output Total 1950 ml Balance 950 ml Laboratory Data 24H LABS Laboratory Tests 2 05/11/19 20:40: Bedside Glucose (Misc Panel) 115 05/12/19 06:41: Nucleated Red Blood Cells % (auto) 0.0 CBC/BMP Laboratory Tests 05/12/19 06:41 Red Blood Count 3.85 L, Mean Corpuscular Volume 87.3, Mean Corpuscular Hemoglobin 25.7 L, Mean Corpuscular Hemoglobin Concent 29.5 L, Red Cell Distribution Width 15.9 H Dre Littlejohn MD May 12, 2019 07:39
[2019-05-12] MEDS: SYMBICORT 160/4.5MCG INHALER 6GM INH SCH ×2 (07:41→20:26)
[2019-05-12 09:00] LABS: BILIRUBIN,TOTAL 0.2 MG/DL (0.2-1.0); CALCIUM LEVEL 8.6 MG/DL (8.8-10.2); CREATININE FOR GFR 1.01 MG/DL (0.55-1.30); GLOMERULAR FILTRATION RATE 59.3 (>45); POTASSIUM SERUM 4.1 MEQ/L (3.5-5.1); TOTAL PROTEIN 6.2 GM/DL (6.4-8.2)
[2019-05-12] MEDS: DOCUSATE SODIUM 100 MG CAP PO SCH ×3 (09:00→21:00)
[2019-05-12] MEDS: PANTOPRAZOLE 40MG TAB (PROTONIX) PO SCH (09:20)
[2019-05-12] MEDS: ATENOLOL 50 MG TAB PO SCH ×2 (09:20→21:02)
[2019-05-12] MEDS: ASPIRIN ENTERIC 325 MG TAB PO SCH (09:20)
[2019-05-12] MEDS: CLOPIDOGREL 75 MG TAB PO SCH (09:21)
[2019-05-12] MEDS: ANALGESIC BALM CRM 120 GM TOP SCH ×4 (09:21→21:00)
[2019-05-12] MEDS: SERTRALINE HCL 50 MG TAB PO SCH (09:21)
--- NOTE | 2019-05-12 11:53 | IPNPDOC ---
Subjective Date Seen The patient was seen on 05/12/19. Subjective Chief Complaint/HPI Pt this morning reports an increase in her L flank pain compared with earlier. She was seen by Dr Littlejohn who advised her that she can be d/c. SHe doesnt feel comfortable going home with this amount of pain. General: Denies: Fatigue Constitutional: Denies: Chills, Fever Pulmonary: Denies: Dyspnea, Cough Cardiovascular: Denies: Chest Pain Gastrointestinal: Denies: Nausea, Vomiting Genitourinary: Reports: Other Symptoms Objective Physical Examination General Exam: Positive: Alert, Cooperative, Mild Distress ENT Exam: Positive: Mucous membr. moist/pink, Tongue Midline Neck Exam: Positive: Supple, +2 carotid pulse wo bruit Chest Exam: Positive: Clear to auscultation, Normal air movement Heart Exam: Positive: Rate Normal, Regular Rhythm, Normal S1, Normal S2 Abdomen Exam: Positive: Normal bowel sounds, Tenderness (LUQ, LLQ to palpation) Skin Exam: Positive: Nl turgor and temperature Neuro Exam: Positive: Normal Speech Psych Exam: Positive: Mental status NL, Mood NL, Oriented x 3 Assessment /Plan Problems (1) Pyelonephritis Status: Acute Response to Treatment: Improving, Worse Discussed With: Patient Problem Specific Plan: Monitor Clinically, Repeat Labs Problem Text: Pt will cont withi IV CIpro today, enc PO hydration, if she does OK today will plan for home tomorrow, she is hesitant for DC today as she has increased L flank pain. Plan/VTE VTE Prophylaxis Ordered?: Yes VTE Exclusion Mechanical Proph: Roman Lower Ex DVT Plan IVF: Continue Diet: Advance Activity: Continue Current Respiratory: Other Respiratory (prn respiratory treatments Albuterol) Diagnostics: Check Labs, Repeat Labs in AM, CT Anticipated Discharge: Home VS, I&O, 24H, [facility] Vital Signs/I&O Vital Signs Date Time Temp Pulse Resp B/P (MAP) Pulse Ox O2 Delivery O2 Flow Rate FiO2 05/12/19 09:53 17 05/12/19 09:20 68 146/62 05/12/19 06:00 97.3 95 05/11/19 12:18 Room Air I&O- Last 24 Hours up to 6 AM 05/12/19 06:00 Intake Total 2900 ml Output Total 1950 ml Balance 950 ml Laboratory Data 24H LABS Laboratory Tests 2 05/11/19 20:40: Bedside Glucose (Misc Panel) 115 05/12/19 06:41: Nucleated Red Blood Cells % (auto) 0.0, Anion Gap 7L, Glomerular Filtration Rate 59.3, Blood Urea Nitrogen 17, Creatinine 1.01, Sodium Level 141, Potassium Level 4.1, Chloride Level 110H, Carbon Dioxide Level 24, Calcium Level 8.6L, Aspartate Amino Transf (AST/SGOT) 16, Alanine Aminotransferase (ALT/SGPT) 26, Alkaline Phosphatase 100, Total Bilirubin 0.2, Total Protein 6.2L, Albumin 3.0#L, Albumin/Globulin Ratio 0.94L CBC/BMP Laboratory Tests 05/12/19 06:41 Red Blood Count 3.85 L, Mean Corpuscular Volume 87.3, Mean Corpuscular Hemoglobin 25.7 L, Mean Corpuscular Hemoglobin Concent 29.5 L, Red Cell Distribution Width 15.9 H, Calcium Level 8.6 L, Aspartate Amino Transf (AST/SGOT) 16, Alanine Aminotransferase (ALT/SGPT) 26, Alkaline Phosphatase 100, Total Bilirubin 0.2, Total Protein 6.2 L, Albumin 3.0 #L VINCENT SALES PA-C May 12, 2019 11:53
[2019-05-12 14:00] VITALS: BP 131/70
[2019-05-12] MEDS: TAMSULOSIN 0.4 MG CAP PO SCH (21:01)
[2019-05-12] MEDS: ROSUVASTATIN 10 MG TAB (CRESTOR) PO SCH (21:01)
[2019-05-12] MEDS: amLODIPine 10 MG TAB PO SCH (21:02)
[2019-05-12] MEDS: raNITIdine SYRUP 150 MG/10 ML UDC PO SCH (21:04)
[2019-05-12 22:00] VITALS: BP 134/86
[2019-05-13] MEDS: NS 0.45% 1,000 ML IV SCH ×3 (01:00→09:00)
[2019-05-13 06:00] VITALS: BP_SYST 132; BP_SYST 134; BP_DIAS 86; BP_DIAS 88
[2019-05-13] MEDS: CIPROFLOXACIN 400 MG in APPROPRIATE DILUENT 1 EA IV SCH (06:03)
[2019-05-13] MEDS: HEPARIN SOD (PORCINE) 5000 UNITS/ML VIAL SC SCH (06:03)
[2019-05-13 07:18] LABS: HEMATOCRIT 32.7 % (36.0-47.0); HEMOGLOBIN 9.8 g/dl (12.0-15.5); MEAN CORPUSCULAR HEMOGLOBIN 26.7 pg (27.0-33.0); MEAN CORPUSCULAR VOLUME 89.1 fl (80.0-96.0); PLATELET COUNT, AUTOMATED 216 10^3/uL (150-450); RED BLOOD COUNT 3.67 10^6/uL (4.00-5.40); WHITE BLOOD COUNT 6.9 10^3/uL (4.0-10.0)
[2019-05-13] MEDS: HumaLOG INSULIN (NovoLOG) PER UNIT SC SCH ×2 (07:30→11:35)
[2019-05-13 07:40] LABS: CALCIUM LEVEL 8.6 MG/DL (8.8-10.2); CREATININE FOR GFR 1.06 MG/DL (0.55-1.30); GLOMERULAR FILTRATION RATE 56.1 (>45); POTASSIUM SERUM 4.1 MEQ/L (3.5-5.1)
[2019-05-13] MEDS: SYMBICORT 160/4.5MCG INHALER 6GM INH SCH (08:24)
[2019-05-13] MEDS: DOCUSATE SODIUM 100 MG CAP PO SCH (08:48)
[2019-05-13] MEDS: ANALGESIC BALM CRM 120 GM TOP SCH ×2 (08:49→13:00)
[2019-05-13] MEDS: CLOPIDOGREL 75 MG TAB PO SCH (08:50)
[2019-05-13] MEDS: ASPIRIN ENTERIC 325 MG TAB PO SCH (08:50)
[2019-05-13] MEDS: PANTOPRAZOLE 40MG TAB (PROTONIX) PO SCH (08:50)
[2019-05-13 08:52] VITALS: BP 130/62
[2019-05-13] MEDS: SERTRALINE HCL 50 MG TAB PO SCH (08:52)
[2019-05-13] MEDS: ATENOLOL 50 MG TAB PO SCH (08:52)
[2019-05-13] MEDS ORDERED: VITAMIN D 50,000 UNITS CAPSULE (ERGOCALCIFEROL 1.25MG) PO SCH (09:00)
--- NOTE | 2019-05-13 09:20 | IPNPDOC ---
Subjective Review oF Systems Chief Complaint The patient is a 63-year-old female admitted with a reason for hospitalization left ureteral calculus Events since Last Encounter She has had no severe pain since yesterday. She has had no fever. She passed some small bits of material in the urine that appears to be small blood clots. No stone retrieved. Objective Physical Examination General Exam: Alert, Cooperative, No Acute Distress Heart Exam: Positive: Rate Normal, Regular Rhythm, Normal S1, Normal S2 Vital Signs/I&O Vital Signs Date Time Temp Pulse Resp B/P (MAP) Pulse Ox O2 Delivery O2 Flow Rate FiO2 05/13/19 08:52 76 130/62 05/13/19 06:00 98.4 18 94 05/11/19 12:18 Room Air I&O- Last 24 Hours up to 6 AM 05/13/19 05:59 Intake Total 5055 ml Output Total 3550 ml Balance 1505 ml Laboratory Data Labs 24H Laboratory Tests 2 05/12/19 11:54: Bedside Glucose (Misc Panel) 109 05/12/19 18:12: Bedside Glucose (Misc Panel) 98 05/12/19 20:34: Bedside Glucose (Misc Panel) 127H 05/13/19 07:09: Nucleated Red Blood Cells % (auto) 0.0, Anion Gap 5L, Glomerular Filtration Rate 56.1, Blood Urea Nitrogen 13, Creatinine 1.06, Sodium Level 138, Potassium Level 4.1, Chloride Level 107, Carbon Dioxide Level 26, Calcium Level 8.6L CBC/BMP Laboratory Tests 05/13/19 07:09 Red Blood Count 3.67 L, Mean Corpuscular Volume 89.1, Mean Corpuscular Hemoglobin 26.7 L, Mean Corpuscular Hemoglobin Concent 30.0 L, Red Cell Distrib ution Width 15.7 H, Calcium Level 8.6 L FSBS Laboratory Tests Test 05/12/19 11:54 05/12/19 18:12 05/12/19 20:34 Range/Units Bedside Glucose (Misc Panel) 109 98 127 80-115 MG/DL Assessment/Plan Date Seen The patient was seen on 05/13/19. Problems (1) Left ureteral calculus Plan/VTE VTE Prophylaxis Ordered?: Yes VTE Exclusion Mechanical Proph: Roman Lower Ex DVT Plan/Urinary Catheter Reason for insertion/continuin: Assist wound healing Plan I discussed the options available for management of left ureteral calculus, 4 mm. She is made aware of the option of proceeding with ureteroscopy and extraction of the calculus but at this time does not want to undergo a procedure. She would like to try to pass this. She is interested in being discharged and trying to pass this at home. I see no contraindication to this. She is asked to force fluids, strain her urine and follow up in the urology office in one week. IVF: Continue Diet: Advance Activity: Continue Current Respiratory: Other Respiratory (prn respiratory treatments Albuterol) Diagnostics: Check Labs, Repeat Labs in AM, CT Anticipated Discharge: Home JV ANTHONY MD May 13, 2019 09:20
[2019-05-13] MEDS ORDERED: CIPR-250 PO (12:29)
[2019-05-13] MEDS ORDERED: PERCOCET PO (12:29)
--- NOTE | 2019-05-14 08:02 | DSES ---
DATE OF ADMISSION: 05/10/2019 DATE OF DISCHARGE: 05/13/2019 PRINCIPAL DIAGNOSIS: Acute left obstructive uropathy with a proximal ureteral stone. SECONDARY DIAGNOSES: Acute kidney injury. Hypertensive heart disease. Hyperlipidemia. Chronic kidney disease. Vitamin D deficiency. HISTORY: Kim Banuelos was admitted with an obstructive urinary stone, details as per history and physical from admission. HOSPITAL COURSE: Admitted to medical bed. Seen by urology. They recommended antibiotic, Flomax, and fluids. Unfortunately, no urine culture was done on admission, despite 3+ leukocytosis, so current treatment is empiric. She was placed on Cipro due to multiple drug allergies. She tolerated this well. On date of discharge, she feels able to go home. She was seen daily by urology and it has been felt that she could have outpatient treatment, straining her urine to try to capture passed stone. SIGNIFICANT LABS: Today, sodium is 138, potassium 4.1, BUN 13, creatinine 1.0. Creatinine was 1.55 on admission. Blood sugar is normal. Urinalysis showed 3+ leukocytes, too much blood to count. Blood count on admission was 15.6 and normalized after starting antibiotics. DISPOSITION: She is discharged home in improved and stable condition. She can take the medicine she usually takes prior to admission. We are adding Cipro 250 mg twice a day for 3 days, oxycodone/acetaminophen 5/325 every 6 hours as needed (12) for pain. Activity as tolerated. She it so strain her urine, push fluids. She is to followup in our office in a week. To followup with urology next week, per their office. No pending labs at time of dictation.
== END 2019-05-13 13:52 | disposition home or self-care (01) ==
LOC: M ED 21:35 → M ED INP 21:36 → M MSPAV 05-11 12:25
PROVIDERS: ADMIT Internal Medicine; ATTEND Family Medicine
DX: N13.2 Hydronephrosis with renal and ureteral calculous obstruction (principal); N17.9 Acute kidney failure, unspecified; I11.9 Hypertensive heart disease without heart failure; E78.49 Other hyperlipidemia; E11.9 Type 2 diabetes mellitus without complications; N18.9 Chronic kidney disease, unspecified; E55.9 Vitamin D deficiency, unspecified; F41.9 Anxiety disorder, unspecified; F32.9 Major depressive disorder, single episode, unspecified; I25.10 Atherosclerotic heart disease of native coronary artery without angina pectoris; Z95.5 Presence of coronary angioplasty implant and graft; K21.9 Gastro-esophageal reflux disease without esophagitis; J45.909 Unspecified asthma, uncomplicated; Z79.82 Long term (current) use of aspirin; Z79.899 Other long term (current) drug therapy; Z79.51 Long term (current) use of inhaled steroids; Z88.0 Allergy status to penicillin; Z88.2 Allergy status to sulfonamides; Z88.8 Allergy status to other drugs, medicaments and biological substances; Z87.891 Personal history of nicotine dependence
CPT/HCPCS: 36415; 74176; 80048; 80053; 81001; 82340; 83935; 84133; 84145; 84300; 85025; 85027; 85610; 86140; 94640; 96361; 96365; 96366; 96372; 96375; 96376; 99284; J0131; J0744; J1170; J2270; J2765; J3010

== ENCOUNTER → 2019-05-26 | Outpatient (CLI) | payer OTHER ==
[~2019-05-26] MED LIST changes: +CIPR-250 PO; +KETO2CR EXT; +PERCOCET PO; +VOLT1GEL15 TOP
--- NOTE | 2019-05-26 15:49 | REP ---
KUB: Two views. History: Kidney stones. Comparison CT study is from May 10, 2019. Findings: Bowel gas pattern is unremarkable. There are clips in the right upper quadrant. Mild vascular calcification is observed in the pelvis. There is an irregularly shaped 6 mm calcific density in the left true pelvis at the level of the iliac spines which could be a distal ureteral stone. The stone was noted on CT study from May 10, 2019 in the left mid ureter. No other urinary tract calculus is seen. Impression: Calcific density in the left true pelvis 6 mm in diameter may be distal ureteral. Electronically Signed by Sina Khoury MD 05/26/2019 04:08 P
== END ==
LOC: M SMT 13:53
PROVIDERS: ATTEND Urology
DX: N20.1 Calculus of ureter (principal)

== ENCOUNTER → 2019-05-29 | Outpatient (RCR) | payer OTHER ==
--- NOTE | 2019-05-15 11:44 | CARECAPL ---
Assessment Account #s: Re-Assessment I General Diagnoses: PTCA Date of event: May 14, 2019 Physician: Venecia Zambrano MD Allergies: Coded Allergies: ticagrelor (Verified Allergy, Severe, can't breathe, 05/10/19) Penicillins (Verified Allergy, Mild, RASH, 04/21/19) Sulfa (Sulfonamide Antibiotics) (Verified Allergy, Mild, RASH, 04/21/19) amoxicillin (Verified Allergy, Mild, RASH, 04/21/19) doxycycline (Verified Allergy, Unknown, 04/21/19) erythromycin base (Verified Allergy, Unknown, 03/18/19) cephalexin (Verified Adverse Reaction, Intermediate, "FEELS BURNING SENSATION", 04/21/19) sucralfate (Verified Adverse Reaction, Intermediate, "IRRITATED THROAT", 04/21/19) Date Entered Program: Apr 21, 2019 Risk strat for cardiac event: High Exercise Date: May 15, 2019 Assessment: Re-Assessment I Stages of change: Contemplate Exercise Prescription Modalities initiated: Treadmill (1.8/ MTS 2.4 RPE 3 10 MINUTES), Nustep (L3 MTS 2.4 RPE 3 10 MINUTES), Arm Aerometer (2.0MTS 1.9 RPE 3 10 MINUTES), Dumbells, Recumbent Bike (MTS 2.7 RPE 4 5 MINUTES) Frequency: 2 Duration (Minutes) 30 - 60 minutes total exercise a day. 15 - 20 work intervals in minutes. PRN rest intervals in minutes. Functional Capacity Goal Sustained Metabolic Equivalent of a task (MET) goal of 3.5-4.0 for 15-20 minutes. Intensity: 3-Moderate Progression (METS) Increase by: METS every: sessions Angina with ex: No Resistance Training: Yes Weight (pounds): 3 Reps: 8-12 Hypertension: Yes Hypertension controlled with: Other (EXERCISE) Resting 150/80 Peak Exercise BP 200/90 Medications Scheduled Amlodipine Besylate (Amlodipine Besylate), 10 MG PO QHS, (Reported) Aspirin (Aspirin EC), 325 MG PO DAILY, (Reported) Atenolol (Atenolol), 50 MG PO BID, (Reported) Biotin (Biotin), 1 MG PO DAILY, (Reported) Budesonide/Formoterol (Symbicort 160-4.5 Mcg Inhaler), 2 PUFF INH BID, (Reported) Ciprofloxacin HCl (Cipro), 1 TAB PO BID Clopidogrel Bisulfate (Clopidogrel), 75 MG PO DAILY, (Reported) Ergocalciferol (Vitamin D2) (Drisdol), 50,000 UNIT PO QWEEK, (Reported) Ketoconazole (Ketoconazole), 1 DOSE EXT QHS, (Reported) Losartan Potassium (Losartan Potassium), 25 MG PO DAILY, (Reported) Pantoprazole Sodium (Pantoprazole Sodium), 40 MG PO DAILY, (Reported) Ranitidine HCl (Ranitidine HCl), 1 TAB PO QHS, (Reported) Rosuvastatin Calcium (Rosuvastatin Calcium), 20 MG PO QHS, (Reported) Sertraline HCl (Sertraline HCl), 150 MG PO DAILY, (Reported) Scheduled PRN Albuterol Sulfate (Ventolin Hfa), 2 PUFF INH Q4H PRN for SHORTNESS OF BREATH, (Reported) Diazepam (Diazepam), 5 MG PO DAILY PRN for ANXIETY/AGITATION, (Reported) Diclofenac Sodium (Voltaren), 1 DOSE TOP QID PRN for PAIN, (Reported) Menthol (Biofreeze), 1 DOSE TOP QID PRN for PAIN, (Reported) Nitroglycerin (Nitroglycerin), 0.4 MG SL NITRO PRN for CHEST PAIN, (Reported) Oxycodone/Acetaminophen (Oxycodone-Acetaminophen 5-325), 1 TAB PO Q6HP PRN for pain 4-6 Discontinued Medications Vit D3/Folic Acid/B2/B6/B12 (Folgard Tablet), 1 TAB PO QWEEK, (Reported) Discontinued Reason: Pt states not taking [valtaren gel], (Reported) Discontinued Reason: Prescription changed Current BP 120/62 Med Change: No (AFTER EXERCISE) Intervention Education: Self pulse (PT DEMONSTRATES SELF PULSE), Ex safety (STATES UNDERSTANDING OF SAFE EXERCISE, REPORTING CHST POLK, WARM/UP COOL DOWN), S/S to report (REPORTING SOB/CHEST DISCOMFORT), Low NA diet (UNDERSTANDING OF LOW NA DIET, NOT ADDING SALT TO FOOD), BP medication (COMPLIANCE WITH MEDICATIONS), RPE Scale (UNDERSTANDS DIFFICULTY SCALE), Equipment orientation (STATES UNDERSTANDING OF OPERATION OF EQUIPMENT), warm up/cool down (INDEPT WITH WARM/UP COOL DOWN), Understand BP (UNDERSTANDING OF HEALTH BP), Physical Active (I MPORTANCE OF EXERCISE WITH CARDIAC DISEASE) Education Goals Met: No (PROGRESSING TOWARD GOALS) Target Goals Individual exercise Rx (1) BP 140/90 or 130/80 if DM or CKD (1) Aerobic active 30+min 5 days per week (1) Nutrition Date: May 15, 2019 Assessment: Re-Assessment I Stages of change: action Diabetes Diabetes: Yes Monitor Blood Sugar at home: Yes Current Weight (pounds): 247.8 Weight Goal 200 Intervention Diet Class: Yes (WILL SEE DURING PROGRAM) Education S&S hypo/hyper glycemia (STATES UNDERSTANDING OF LOW/HIGH BLOOD SUGAR AND HOW TO TX), Relate Diabetes in CAD (STATES UNDERSTANDING OF MAINTAINING GOOD BLOOD SUGAR) Education Goals Met: No (PROGRESSING TOWARD GOALS) Target goal LDL-C<100 if triglycerides are >200 Non-HDL-C should be <130 (1) LDL-C<70 for high risk patients (4) HbA1c<7% (1) BMI<25 Waist cir<40in M/<35in F (1) Education Date: May 15, 2019 Assessment: Re-Assessment I Intervention Education: CAD (STATES UNDERSTANDING OF CAD), Risk factors (HIGH CHOLESTEROL, LOW NA DIET, EXERCISE), med compliance (STATES UNDERSTAND OF TAKING MEDICATIONS), cardiac A&P (REVIEWED PATHOPHYSIOLOGY OF HEART DISEASE), Angina S/S (REPORTING S/S OF CHEST PAIN, SOB, ETC), Sexuality (OK WHEN RELEASED BY DR) Education Goals Met: No (PROGRESSING TOWARD GOALS) Target Goals Complete cessation of tobacco use (1). Psychosocial Date: May 15, 2019 Assessment: Re-Assessment I Stress Management Class: Yes Uses Stress Management Skills: Yes Education Education: Coping Techniques (EXPRESSING FEELINGS AND USING EXERCISE), S/S depression (LACK OF INTEREST, CRYING SPELLS, ), Relaxation Techniques (DEEP BREATHING, TAKING TIME FOR SELF) Education Goals Met: No (PROGRESSING TOWARD GOALS) Target Goal Assess presence or absence of depression using a valid screening tool (1). Maximize coping skills (2). Positive support system (2). Provider Assessment Session Number: 5 Provider Assessment: No changes (GOOD ATTITUDE TOWARD EXERCISE) Linda Arreola RN May 15, 2019 11:44
== END ==
LOC: M CR 05-03 13:50
PROVIDERS: ATTEND Internal Medicine Cardiovascular Disease
DX: Z98.61 Coronary angioplasty status (principal)

== ENCOUNTER → 2019-06-07 | Outpatient (CLI) | payer OTHER ==
--- NOTE | 2019-06-08 10:38 | REP ---
CT ABDOMEN AND PELVIS WITHOUT CONTRAST: CT abdomen and pelvis performed without oral or IV contrast. Sagittal and coronal reconstruction images are performed. Comparison is made with a prior study of 05/10/2019. Visualized lung bases demonstrate no evidence of acute infiltrate. The liver is grossly unremarkable. The patient has had a prior cholecystectomy. There is no evidence of significant biliary dilatation. The spleen is normal in size with no gross abnormality. The right adrenal gland is normal. Left adrenal gland demonstrates a small nodule inferiorly measuring 1.3 cm in diameter with density measurements compatible with an adenoma. The pancreas is grossly unremarkable. There are again parapelvic cysts of both kidneys. There is no hydroureteronephrosis. The previously noted left hydronephrosis has resolved and the previously noted left ureteral calculus is no longer visualized. There is mild to moderate atherosclerotic calcification of the abdominal aorta with no aneurysm. There is no adenopathy. There is no free air or free fluid. There is no bowel wall thickening. The appendix is normal. I see no pelvic mass. Bladder is not wall distended and not optimally evaluated, but no gross intraluminal calculus is seen. There are degenerative changes of the spine. IMPRESSION: Previously noted left ureteral calculus is no longer visualized and the left hydroureteronephrosis has resolved. Once again parapelvic cysts are seen of both kidneys. There is a small left adrenal adenoma. No acute findings. Electronically Signed by Peter Taylor MD 06/09/2019 09:15 A
== END ==
LOC: M RAD 17:35
PROVIDERS: ATTEND Nurse Practitioner Women's Health
DX: N13.2 Hydronephrosis with renal and ureteral calculous obstruction (principal)

== ENCOUNTER 2019-06-21 14:26 | Outpatient (RCR) | payer OTHER ==
--- NOTE | 2019-06-12 14:51 | CARECAPL ---
Assessment Account #s: Re-Assessment II General Diagnoses: PTCA Date of event: May 14, 2019 Physician: Venecia Zambrano MD Allergies: Coded Allergies: ticagrelor (Verified Allergy, Severe, can't breathe, 05/10/19) Penicillins (Verified Allergy, Mild, RASH, 04/21/19) Sulfa (Sulfonamide Antibiotics) (Verified Allergy, Mild, RASH, 04/21/19) amoxicillin (Verified Allergy, Mild, RASH, 04/21/19) doxycycline (Verified Allergy, Unknown, 04/21/19) erythromycin base (Verified Allergy, Unknown, 03/18/19) cephalexin (Verified Adverse Reaction, Intermediate, "FEELS BURNING SENSATION", 04/21/19) sucralfate (Verified Adverse Reaction, Intermediate, "IRRITATED THROAT", 04/21/19) Date Entered Program: Apr 21, 2019 Risk strat for cardiac event: High Exercise Date: Jun 07, 2019 Assessment: Re-Assessment II Stages of change: Contemplate Exercise Prescription Plan Educate on cardiovascular disease and increased endurance, strength and flexibility through monitored exercise program. Modalities initiated: Treadmill (speed 1.8 incline 1.0 for 7 minutes mets 2.63 and RPE 5), Nustep (resistance of 4 for 12 minutes mets 4.8 RPE 3), Arm Aerometer (resistance of 3 for 10 minutes mets 2.0 RPE 3), Dumbells (4 pound weight 1 set for 15 reps RPE 3), Recumbent Bike (resistance of 2 for 7 minutes mets 4.2 RPE 3) Frequency: 2 Duration (Minutes) 30 - 60 minutes total exercise a day. 15 - 20 work intervals in minutes. PRN rest intervals in minutes. Functional Capacity Goal Sustained Metabolic Equivalent of a task (MET) goal of 4.0-4.5 for 15-20 minutes. Intensity: 3-Moderate Progression (METS) Increase by: 0.5 METS every: 3-5 sessions Angina with ex: No Target Heart Rate rest +35-40 per beta marietta therapy Resistance Training: Yes Weight (pounds): 4. Reps: 12-15 Medications Scheduled Amlodipine Besylate (Amlodipine Besylate), 10 MG PO QHS, (Reported) Aspirin (Aspirin EC), 325 MG PO DAILY, (Reported) Atenolol (Atenolol), 50 MG PO BID, (Reported) Biotin (Biotin), 1 MG PO DAILY, (Reported) Budesonide/Formoterol (Symbicort 160-4.5 Mcg Inhaler), 2 PUFF INH BID, (Reported) Ciprofloxacin HCl (Cipro), 1 TAB PO BID Clopidogrel Bisulfate (Clopidogrel), 75 MG PO DAILY, (Reported) Ergocalciferol (Vitamin D2) (Drisdol), 50,000 UNIT PO QWEEK, (Reported) Ketoconazole (Ketoconazole), 1 DOSE EXT QHS, (Reported) Losartan Potassium (Losartan Potassium), 25 MG PO DAILY, (Reported) Pantoprazole Sodium (Pantoprazole Sodium), 40 MG PO DAILY, (Reported) Ranitidine HCl (Ranitidine HCl), 1 TAB PO QHS, (Reported) Rosuvastatin Calcium (Rosuvastatin Calcium), 20 MG PO QHS, (Reported) Sertraline HCl (Sertraline HCl), 150 MG PO DAILY, (Reported) Scheduled PRN Albuterol Sulfate (Ventolin Hfa), 2 PUFF INH Q4H PRN for SHORTNESS OF BREATH, (Reported) Diazepam (Diazepam), 5 MG PO DAILY PRN for ANXIETY/AGITATION, (Reported) Diclofenac Sodium (Voltaren), 1 DOSE TOP QID PRN for PAIN, (Reported) Menthol (Biofreeze), 1 DOSE TOP QID PRN for PAIN, (Reported) Nitroglycerin (Nitroglycerin), 0.4 MG SL NITRO PRN for CHEST PAIN, (Reported) Oxycodone/Acetaminophen (Oxycodone-Acetaminophen 5-325), 1 TAB PO Q6HP PRN for pain 4-6 Current BP 160/80 Med Change: No Education Goals Met: Yes (will continue to educate throughout program, education documented on previous ITP) Target Goals Individual exercise Rx (1) BP 140/90 or 130/80 if DM or CKD (1) Aerobic active 30+min 5 days per week (1) Nutrition Date: Jun 12, 2019 Assessment: Re-Assessment II Stages of change: Contemplate Med Change: No Monitor Blood Sugar at home: No Medication Change: No Current Weight (pounds): 244.4 Intervention Associate Manager Consult: No Nurse/patient discussion: No Diet Class: No Education Goals Met: No (will continue to educate throughout program. See education documented on prior ITP) Target goal LDL-C<100 if triglycerides are >200 Non-HDL-C should be <130 (1) LDL-C<70 for high risk patients (4) HbA1c<7% (1) BMI<25 Waist cir<40in M/<35in F (1) Education Date: Jun 12, 2019 Assessment: Re-Assessment II Education Goals Met: No (will educate throughout program. see education documented on prior ITP) Target Goals Complete cessation of tobacco use (1). Psychosocial Date: Jun 12, 2019 Assessment: Re-Assessment II Stages of change: Contemplate Med Change: No Stress Management Class: Yes Uses Stress Management Skills: Yes Education Goals Met: No (will continue to educate throughout program. See education documented on prior PTP) Target Goal Assess presence or absence of depression using a valid screening tool (1). Maximize coping skills (2). Positive support system (2). Patient/Program Goal Preventative Medication: Yes Aspirin, Yes Beta blockade, Yes Statin/OTR lipid Lowering Fall Risk Assess: Yes (negative for fall risk) Provider Assessment Session Number: 9 Provider Assessment: Proceed with rehab (poor attendance due to kidney stones.) Nahomi Ferguson RN Jun 12, 2019 14:51
== END 2019-06-29 ==
LOC: M CR 14:26
PROVIDERS: ATTEND Internal Medicine Cardiovascular Disease
DX: Z98.61 Coronary angioplasty status (principal)

== ENCOUNTER 2019-06-30 14:41 | Outpatient (RCR) | payer OTHER ==
--- NOTE | 2019-07-06 09:54 | CARECAPL ---
Assessment Account #s: Discharge (will finish program early d/t leg injury and motherinlaw going on hospice) General Diagnoses: PTCA Date of event: May 14, 2019 Physician: Venecia Zambrano MD Allergies: Coded Allergies: ticagrelor (Verified Allergy, Severe, can't breathe, 05/10/19) Penicillins (Verified Allergy, Mild, RASH, 04/21/19) Sulfa (Sulfonamide Antibiotics) (Verified Allergy, Mild, RASH, 04/21/19) amoxicillin (Verified Allergy, Mild, RASH, 04/21/19) doxycycline (Verified Allergy, Unknown, 04/21/19) erythromycin base (Verified Allergy, Unknown, 03/18/19) cephalexin (Verified Adverse Reaction, Intermediate, "FEELS BURNING SENSATION", 04/21/19) sucralfate (Verified Adverse Reaction, Intermediate, "IRRITATED THROAT", 04/21/19) Date Entered Program: Apr 21, 2019 Risk strat for cardiac event: High Exercise Date: Jul 06, 2019 Assessment: Followup/Discharge Exercise Prescription Modalities initiated: Treadmill (1.8/1.5 15 minutes mts 2.63 rpe 2.5), Nustep (L5 mts 2.5 rpe 3 15 minutes), Arm Aerometer (3.0 10 minutes mts 2.0 rpe 2.5), Recumbent Bike (R2 10 minutes mts 3.2 rpe 3) Frequency: 1 Duration (Minutes) 30 - 60 minutes total exercise a day. 15 - 20 work intervals in minutes. PRN rest intervals in minutes. Functional Capacity Goal Sustained Metabolic Equivalent of a task (MET) goal of for minutes. Intensity: 3-Moderate Progression (METS) Increase by: METS every: sessions Angina with ex: No Resistance Training: Yes Weight (pounds): 4 Reps: 6-8 Hypertension: Yes Hypertension controlled with: Medication Resting 158/78 Peak Exercise BP 152/82 Meds see below Medications Scheduled Amlodipine Besylate (Amlodipine Besylate), 10 MG PO QHS, (Reported) Aspirin (Aspirin EC), 325 MG PO DAILY, (Reported) Atenolol (Atenolol), 50 MG PO BID, (Reported) Biotin (Biotin), 1 MG PO DAILY, (Reported) Budesonide/Formoterol (Symbicort 160-4.5 Mcg Inhaler), 2 PUFF INH BID, ( Reported) Clopidogrel Bisulfate (Clopidogrel), 75 MG PO DAILY, (Reported) Ketoconazole (Ketoconazole), 1 DOSE EXT QHS, (Reported) Losartan Potassium (Losartan Potassium), 25 MG PO DAILY, (Reported) Pantoprazole Sodium (Pantoprazole Sodium), 40 MG PO DAILY, (Reported) Ranitidine HCl (Ranitidine HCl), 1 TAB PO QHS, (Reported) Rosuvastatin Calcium (Rosuvastatin Calcium), 20 MG PO QHS, (Reported) Sertraline HCl (Sertraline HCl), 150 MG PO DAILY, (Reported) Scheduled PRN Albuterol Sulfate (Ventolin Hfa), 2 PUFF INH Q4H PRN for SHORTNESS OF BREATH, (Reported) Diazepam (Diazepam), 5 MG PO DAILY PRN for ANXIETY/AGITATION, (Reported) Diclofenac Sodium (Voltaren), 1 DOSE TOP QID PRN for PAIN, (Reported) Menthol (Biofreeze), 1 DOSE TOP QID PRN for PAIN, (Reported) Nitroglycerin (Nitroglycerin), 0.4 MG SL NITRO PRN for CHEST PAIN, (Reported) Oxycodone/Acetaminophen (Oxycodone-Acetaminophen 5-325), 1 TAB PO Q6HP PRN for pain 4-6 Discontinued Medications Ciprofloxacin HCl (Cipro), 1 TAB PO BID Discontinued Reason: Pt states not taking Ergocalciferol (Vitamin D2) (Drisdol), 50,000 UNIT PO QWEEK, (Reported) Discontinued Reason: Pt states not taking Current BP 118/80 after exercise Med Change: No Intervention Home exercise: Type (walking, lifting weights, join gym), Frequency (3/4 times week), Duration (30-60) Resistance Training: Yes Education Goals Met: No (program poor attendance, education not completed d/t attendance) Target Goals Individual exercise Rx (1) BP 140/90 or 130/80 if DM or CKD (1) Aerobic active 30+min 5 days per week (1) Nutrition Date: Jul 06, 2019 Assessment: Followup/Discharge Stages of change: Contemplate Diabetes Diabetes: Yes HbA1c (%): 6.2 Monitor Blood Sugar at home: No Medication Change: No Current Weight (pounds): 242.4 Weight Goal 200 Intervention Diet Class: No (not completed d/t discharge from program per pt request) Referral to Diabetes education: No Referral to lipid clinic: No Referral to weight mangement p: No Education Goals Met: No Target goal LDL-C<100 if triglycerides are >200 Non-HDL-C should be <130 (1) LDL-C<70 for high risk patients (4) HbA1c<7% (1) BMI<25 Waist cir<40in M/<35in F (1) Education Date: Jul 06, 2019 Assessment: Followup/Discharge Intervention Referral to smoking cessation: No Individual education and couns: No Tobacco Adjunct: No Education class schedule given: Yes Education Goals Met: No (not completed d/t discharge from program early d/t family illness) Target Goals Complete cessation of tobacco use (1). Psychosocial Date: Jul 06, 2019 Assessment: Followup/Discharge Psych Test (Initial/Discharge) Tool Used: Other (not completed on d/c) Target Goal Assess presence or absence of depression using a valid screening tool (1). Maximize coping skills (2). Positive support system (2). Provider Assessment Provider Assessment: Please add/change: (good attitude about exercise. Pain, family obligation prevented pt from have good attendance. d/c early from program) Linda Arreola RN Jul 06, 2019 09:54
== END 2019-07-29 ==
LOC: M CR 14:41
PROVIDERS: ATTEND Internal Medicine Cardiovascular Disease
DX: Z98.61 Coronary angioplasty status (principal)

== ENCOUNTER 2019-07-05 14:25 | Emergency (ER) | payer OTHER ==
[~2019-07-05] VITALS: Ht 160 cm; Wt 110.1 kg
[2019-07-05 14:25] VITALS: BP 160/72
[2019-07-05 16:25] LABS: BASO # 0.1 10^3/uL (0.0-0.2); BASO % 0.7 % (0.0-1.0); EOS # 0.2 10^3/uL (0.0-0.5); EOS % 2.1 % (0.0-3.0); HEMATOCRIT 37.1 % (36.0-47.0); LYMPH # 1.5 10^3/uL (1.5-5.0); LYMPH % 14.4 % (24.0-44.0); MEAN CORPUSCULAR HEMOGLOBIN 25.9 pg (27.0-33.0); MEAN CORPUSCULAR HGB CONC 29.6 g/dl (32.0-36.5); MEAN CORPUSCULAR VOLUME 87.5 fl (80.0-96.0); MONO # 0.8 10^3/uL (0.0-0.8); MONO % 7.8 % (0.0-5.0); NEUTROPHILS # 7.5 10^3/uL (1.5-8.5); NEUTROPHILS % 74.6 % (36.0-66.0); PLATELET COUNT, AUTOMATED 255 10^3/uL (150-450); RED BLOOD COUNT 4.24 10^6/uL (4.00-5.40); WHITE BLOOD COUNT 10.1 10^3/uL (4.0-10.0)
== END 2019-07-05 17:08 | disposition home or self-care (01) ==
LOC: M ED 14:25
DX: S80.11XA Contusion of right lower leg, initial encounter (principal); R23.3 Spontaneous ecchymoses; W22.8XXA Striking against or struck by other objects, initial encounter; Y92.9 Unspecified place or not applicable; Y93.9 Activity, unspecified; Y99.9 Unspecified external cause status; Z95.5 Presence of coronary angioplasty implant and graft; E78.00 Pure hypercholesterolemia, unspecified; I10 Essential (primary) hypertension; J45.909 Unspecified asthma, uncomplicated; K21.9 Gastro-esophageal reflux disease without esophagitis; Z87.442 Personal history of urinary calculi; Z87.440 Personal history of urinary (tract) infections; R73.03 Prediabetes; K76.9 Liver disease, unspecified; M17.11 Unilateral primary osteoarthritis, right knee; Z79.82 Long term (current) use of aspirin; Z79.899 Other long term (current) drug therapy; Z88.0 Allergy status to penicillin; Z88.2 Allergy status to sulfonamides; Z88.8 Allergy status to other drugs, medicaments and biological substances

== ENCOUNTER → 2019-10-24 | Outpatient (CLI) | payer OTHER ==
--- NOTE | 2019-10-24 12:19 | REP ---
PA and lateral chest: Comparison is 10/12/2017. The lung mayorga are clear. The cardiac size is normal. The shagufta, mediastinum, and skeletal structures are unremarkable except for thoracic scoliosis convex right, unchanged. Impression: Negative PA and lateral chest. There is no interval change. Electronically Signed by Peter Low MD 10/24/2019 12:11 P
== END ==
LOC: M ADAMS 10:05
PROVIDERS: ATTEND Nurse Practitioner Family
DX: J20.9 Acute bronchitis, unspecified (principal)

== ENCOUNTER → 2019-11-23 | Outpatient (REF) | payer OTHER ==
[2019-11-23 12:41] LABS: HEMATOCRIT 37.4 % (36.0-47.0); HEMOGLOBIN 11.1 g/dl (12.0-15.5); MEAN CORPUSCULAR HEMOGLOBIN 25.4 pg (27.0-33.0); MEAN CORPUSCULAR HGB CONC 29.7 g/dl (32.0-36.5); MEAN CORPUSCULAR VOLUME 85.6 fl (80.0-96.0); PLATELET COUNT, AUTOMATED 300 10^3/uL (150-450); RED BLOOD COUNT 4.37 10^6/uL (4.00-5.40); WHITE BLOOD COUNT 9.5 10^3/uL (4.0-10.0)
[2019-11-23 12:48] LABS: ALBUMIN 3.5 GM/DL (3.2-5.2); BILIRUBIN,TOTAL 0.4 MG/DL (0.2-1.0); CALCIUM LEVEL 8.8 MG/DL (8.8-10.2); CHOLESTEROL RISK RATIO 1.967 (<5); CREATININE FOR GFR 1.09 MG/DL (0.55-1.30); GLOMERULAR FILTRATION RATE 54.3 (>45); POTASSIUM SERUM 4.5 MEQ/L (3.5-5.1); TOTAL PROTEIN 6.8 GM/DL (6.4-8.2)
[2019-11-23 13:00] LABS: HEMOGLOBIN A1c 6.7 %
== END ==
LOC: M SFHCADAM 10:33
PROVIDERS: ATTEND Family Medicine
DX: I11.9 Hypertensive heart disease without heart failure (principal); R73.03 Prediabetes; I25.10 Atherosclerotic heart disease of native coronary artery without angina pectoris; E78.2 Mixed hyperlipidemia

== ENCOUNTER → 2020-02-08 | Outpatient (REF) | payer OTHER ==
[2020-02-08 18:17] LABS: CREATININE FOR GFR 1.16 MG/DL (0.55-1.30); GLOMERULAR FILTRATION RATE 50.4 (>45); POTASSIUM SERUM 3.4 MEQ/L (3.5-5.1)
== END ==
LOC: M LABDRWAD 17:16
PROVIDERS: ATTEND Internal Medicine Cardiovascular Disease
DX: R06.09 Other forms of dyspnea (principal); I50.33 Acute on chronic diastolic (congestive) heart failure

== ENCOUNTER 2020-09-10 23:24 | Emergency (ER) | payer OTHER ==
[~2020-09-10] VITALS: Ht 160 cm; Wt 114.5 kg
[~2020-09-10 23:24] MED LIST changes: -AMLO10TA5 PO; +AMLO1TAB25 PO; +PANT40TA29 PO; -PANT40TA3 PO
--- OUTSIDE RECORDS SUMMARY | 2020-09-10 23:37 | CCD ---
Author Author [facility] Organization [facility] Address Unknown Phone Unavailable Care Team Providers Care Supervisor Chlorine Liquefaction Name Role Phone Venecia Zambrano MD Unavailable Unavailable Venecia Zambrano MD Unavailable Unavailable Venecia Zambrano MD Unavailable Unavailable Venecia Zambrano MD Unavailable Unavailable Venecia Zambrano MD Unavailable Unavailable Venecia Zambrano MD Unavailable Unavailable Venecia Zambrano MD Unavailable Unavailable Venecia Zambrano MD Unavailable Unavailable Venecia Zambrano MD Unavailable Unavailable Venecia Zambrano MD Unavailable Unavailable Venecia Zambrano MD Unavailable Unavailable Venecia Zambrano MD Unavailable Unavailable Venecia Zambrano MD Unavailable Unavailable Venecia Zambrano MD Unavailable Unavailable Venecia Zambrano MD Unavailable Unavailable Venecia Zambrano MD Unavailable Unavailable Venecia Zambrano MD Unavailable Unavailable Venecia Zambrano MD Unavailable Unavailable Venecia Zambrano MD Unavailable Unavailable Venecia Zambrano MD Unavailable Unavailable SleVenecia rascon MD Unavailable Unavailable SleVenecia rascon MD Unavailable Unavailable SlemichelinekaPhilippejtech Unavailable Unavailable SleVenecia rascon MD Unavailable Unavailable SleAmrik rascontech Unavailable Unavailable SleVenecia rascon MD Unavailable Unavailable SleAmrik rascontech Unavailable Unavailable SleAmrik rascontech Unavailable Unavailable SlemichelinekaPhilippejtech Unavailable Unavailable SleAmrik rascontech Unavailable Unavailable SleAmrik rascontech Unavailable Unavailable SleVenecia rascon MD Unavailable Unavailable SleVenecia rascon MD Unavailable Unavailable SlePhilippe rasconjtech Unavailable Unavailable SlemichelinekaPhilippejtech Unavailable Unavailable SleVenecia rascon MD Unavailable Unavailable SleVenecia rascon MD Unavailable Unavailable Venecia Zambrano MD Unavailable Unavailable SleVenecia rascon MD Unavailable Unavailable SleVenecia rascon MD Unavailable Unavailable SleAmrik rascontech Unavailable Unavailable Venecia Zambrano MD Unavailable Unavailable Venecia Zambrano MD Unavailable Unavailable Venecia Zambrano MD Unavailable Unavailable Venecia Zambrano MD Unavailable Unavailable SleVenecia rascon MD Unavailable Unavailable SleVenecia rascon MD Unavailable Unavailable SleVenecia rascon MD Unavailable Unavailable Venecia Zambrano MD Unavailable Unavailable Venecia Zambrano MD Unavailable Unavailable SleVenecia rascon MD Unavailable Unavailable SleVenecia rascon MD Unavailable Unavailable SleAmrik rascontech Unavailable Unavailable SleVenecia rascon MD Unavailable Unavailable Venecia Zambrano MD Unavailable Unavailable Venecia Zambrano MD Unavailable Unavailable Sushant Dimas PA Unavailable Unavailable Sushant Dimas PA Unavailable Unavailable Sushant Dimas PA Unavailable Unavailable Sushant Dimas PA Unavailable Unavailable Sushant Dimas PA Unavailable Unavailable Sushant Dimas PA Unavailable Unavailable Sushant Dimas PA Unavailable Unavailable Sushant Dimas PA Unavailable Unavailable Sushant Dimas PA Unavailable Unavailable Sushant Dimas PA Unavailable Unavailable Sushant Dimas PA Unavailable Unavailable Sushant Dimas PA Unavailable Unavailable Sushant Dimas PA Unavailable Unavailable Sushant Dimas PA Unavailable Unavailable Sushant Dimas PA Unavailable Unavailable Dimas, L Reena PA Unavailable Unavailable Dimas, L Reena PA Unavailable Unavailable Dimas, L Reena PA Unavailable Unavailable Dimas, L Reena PA Unavailable Unavailable Dimas, L Reena PA Unavailable Unavailable Dimas, L Reena PA Unavailable Unavailable Dimas, L Reena PA Unavailable Unavailable Dimas, L Reena PA Unavailable Unavailable Dimas, L Reena PA Unavailable Unavailable Dimas, L Reena PA Unavailable Unavailable Dimas, L Reena PA Unavailable Unavailable Dimas, L Reena PA Unavailable Unavailable Dimas, L Reena PA Unavailable Unavailable Dimas, L Reena PA Unavailable Unavailable Dimas, L Reena PA Unavailable Unavailable Dimas, L Reena PA Unavailable Unavailable Dimas, L Reena PA Unavailable Unavailable Dimas, L Reena PA Unavailable Unavailable Dimas, L Reena PA Unavailable Unavailable Dimas, L Reena PA Unavailable Unavailable Dimas, L Reena PA Unavailable Unavailable BunletakErin MD Unavailable Unavailable BuniakErin MD Unavailable Unavailable BuniakErin MD Unavailable Unavailable BuniakErin MD Unavailable Unavailable BuniakErin MD Unavailable Unavailable BuniakErin MD Unavailable Unavailable BuniakErin MD Unavailable Unavailable BuniakErin MD Unavailable Unavailable BuniakErin MD Unavailable Unavailable BuniakErin MD Unavailable Unavailable BuniakErin MD Unavailable Unavailable BuniakErin MD Unavailable Unavailable BuniakErin MD Unavailable Unavailable BuniakErin MD Unavailable Unavailable BuniakErin MD Unavailable Unavailable BuniakErin MD Unavailable Unavailable BuniakErin MD Unavailable Unavailable BuniakErin MD Unavailable Unavailable BuniakErin MD Unavailable Unavailable BuniakErin MD Unavailable Unavailable BuniakErin MD Unavailable Unavailable BuniakErin MD Unavailable Unavailable BuniakErin MD Unavailable Unavailable BuniakErin MD Unavailable Unavailable BuniakErin MD Unavailable Unavailable BuniakErin MD Unavailable Unavailable BuniakErin MD Unavailable Unavailable BuniakErin MD Unavailable Unavailable BuniakErin MD Unavailable Unavailable BuniakErin MD Unavailable Unavailable BuniakErin MD Unavailable Unavailable BuniakErin MD Unavailable Unavailable BuniakErin MD Unavailable Unavailable BuniakErin MD Unavailable Unavailable Buniak, Borkrish ZAPATA Unavailable Unavailable Buniak, Borys Unavailable Unavailable Buniak, Borys Unavailable Unavailable Buniak, Borys Unavailable Unavailable Buniak, Borys Unavailable Unavailable Buniak, Borys Unavailable Unavailable Buniak, Borys Unavailable Unavailable Buniak, Borys Unavailable Unavailable Buniak, Borys Unavailable Unavailable Buniak, Borys Unavailable Unavailable Buniak, Borys Unavailable Unavailable Buniak, Borys Unavailable Unavailable Buniak, Borys MD Unavailable Unavailable Buniak, Borys MD Unavailable Unavailable Buniak, Borys MD Unavailable Unavailable Buniak, Borys Unavailable Unavailable Buniak, Borys Unavailable Unavailable Buniak, Borys Unavailable Unavailable Buniak, Borys Unavailable Unavailable Buniak, Borys Unavailable Unavailable Buniak, Borys Unavailable Unavailable Buniak, Borys Unavailable Unavailable Buniak, Borys Unavailable Unavailable Buniak, Borys Unavailable Unavailable Buniak, Makennays Unavailable Unavailable Buniak, Borys Unavailable Unavailable Buniak, Borys Unavailable Unavailable Buniak, Borys Unavailable Unavailable Buniak, Borys Unavailable Unavailable Buniak, Borys Unavailable Unavailable Buniak, Borys Unavailable Unavailable Buniak, Makennays Unavailable Unavailable Buniak, Makennays Unavailable Unavailable Buniak, Makennays Unavailable Unavailable Buniak, Makennays Unavailable Unavailable Buniak, Makennays Unavailable Unavailable Buniak, Makennays Unavailable Unavailable Buniak, Makennays Unavailable Unavailable Buniak, Makennays Unavailable Unavailable Buniak, Makennays Unavailable Unavailable Buniak, Borys Unavailable Unavailable Buniak, Makennays Unavailable Unavailable Buniak, Borys Unavailable Unavailable Buniak, Borys Unavailable Unavailable Buniak, Borys Unavailable Unavailable Buniak, Borys Unavailable Unavailable Buniak, Borys Unavailable Unavailable Buniak, Borys Unavailable Unavailable Buniak, Makennays Unavailable Unavailable Buniak, Maknenays Unavailable Unavailable Buniak, Makennays Unavailable Unavailable Buniak, Makennays Unavailable Unavailable Buniak, Borys Unavailable Unavailable Buniak, Borys Unavailable Unavailable Buniak, Borys Unavailable Unavailable Buniak, Borys Unavailable Unavailable Buniak, Borys Unavailable Unavailable Buniak, Borys MD Unavailable Unavailable Bunletak, Makennays MD Unavailable Unavailable Buniak, Borys MD Unavailable Unavailable RING, K ZOIE PA Unavailable Unavailable RING, K ZOIE PA Unavailable Unavailable RING, K ZOIE PA Unavailable Unavailable RING, K ZOIE PA Unavailable Unavailable RING, K ZOIE PA Unavailable Unavailable RING, K ZOIE PA Unavailable Unavailable RING, K ZOIE PA Unavailable Unavailable RING, K ZOIE PA Unavailable Unavailable RING, K ZOIE PA Unavailable Unavailable RING, K ZOIE PA Unavailable Unavailable RING, K ZOIE PA Unavailable Unavailable RING, K ZOIE PA Unavailable Unavailable RING, K ZOIE PA Unavailable Unavailable RING, K ZOIE PA Unavailable Unavailable RING, K ZOIE PA Unavailable Unavailable RING, K ZOIE PA Unavailable Unavailable RING, K ZOIE PA Unavailable Unavailable RING, K ZOIE PA Unavailable Unavailable RING, K ZOIE PA Unavailable Unavailable RING, K ZOIE PA Unavailable Unavailable Chuck, Cyndy PA Unavailable Unavailable Chuck, Cyndy PA Unavailable Unavailable Chuck, Cyndy PA Unavailable Unavailable Chuck, Cyndy PA Unavailable Unavailable Chuck, Cyndy PA Unavailable Unavailable Chuck, Cyndy PA Unavailable Unavailable Chuck, Cyndy PA Unavailable Unavailable Chuck, Cyndy PA Unavailable Unavailable Chuck, Cyndy PA Unavailable Unavailable Chuck, Cyndy PA Unavailable Unavailable Chuck, Cyndy PA Unavailable Unavailable Chuck, Cyndy PA Unavailable Unavailable Chuck, Cyndy PA Unavailable Unavailable Chuck, Cyndy PA Unavailable Unavailable Chuck, Cynyd PA Unavailable Unavailable Chuck, Cyndy PA Unavailable Unavailable Chuck, Cyndy PA Unavailable Unavailable Chuck, Cyndy PA Unavailable Unavailable Chuck, Cyndy PA Unavailable Unavailable Chuck, Cyndy PA Unavailable Unavailable Chuck, Cyndy PA Unavailable Unavailable Chuck, Cyndy PA Unavailable Unavailable Chuck, Cyndy PA Unavailable Unavailable Chuck, Cyndy PA Unavailable Unavailable Chuck, Cyndy PA Unavailable Unavailable Chuck, Cyndy PA Unavailable Unavailable Chuck, Cyndy PA Unavailable Unavailable Chuck, Cyndy PA Unavailable Unavailable Chuck, Cyndy PA Unavailable Unavailable Chuck, Cyndy PA Unavailable Unavailable Chuck, Cyndy PA Unavailable Unavailable Chuck, Cyndy PA Unavailable Unavailable Chuck, Cyndy PA Unavailable Unavailable Chuck, Cyndy PA Unavailable Unavailable Chuck, Cyndy PA Unavailable Unavailable Chuck, Cyndy PA Unavailable Unavailable Chuck, Cyndy PA Unavailable Unavailable Chuck, Cyndy PA Unavailable Unavailable Chuck, Cyndy PA Unavailable Unavailable Chuck, Cyndy PA Unavailable Unavailable Chuck, Cyndy PA Unavailable Unavailable Chuck, Cyndy PA Unavailable Unavailable Chuck, Cyndy PA Unavailable Unavailable Chuck, Cyndy PA Unavailable Unavailable Chuck, Cyndy PA Unavailable Unavailable Chuck, Cyndy PA Unavailable Unavailable Chuck, Cyndy PA Unavailable Unavailable Chuck, Cyndy PA Unavailable Unavailable Chuck, Cyndy PA Unavailable Unavailable Chuck, Cyndy PA Unavailable Unavailable Chuck, Cyndy PA Unavailable Unavailable Chuck, Cyndy PA Unavailable Unavailable Chuck, Cyndy PA Unavailable Unavailable Chuck, Cyndy PA Unavailable Unavailable Chuck, Cyndy PA Unavailable Unavailable Chuck, Cyndy PA Unavailable Unavailable Chuck, Cyndy PA Unavailable Unavailable Chuck, Cyndy PA Unavailable Unavailable Spearance, J Miguel PA Unavailable Unavailable Spearance, J Miguel PA Unavailable Unavailable Spearance, J Miguel PA Unavailable Unavailable Spearance, J Miguel PA Unavailable Unavailable Spearance, J Miguel PA Unavailable Unavailable Spearance, J Miguel PA Unavailable Unavailable Spearance, J Miguel PA Unavailable Unavailable Spearance, J Miguel PA Unavailable Unavailable Spearance, J Miguel PA Unavailable Unavailable Spearance, J Miguel PA Unavailable Unavailable Spearance, J Miguel PA Unavailable Unavailable Spearance, J Miguel PA Unavailable Unavailable Spearance, J Miguel PA Unavailable Unavailable Spearance, J Miguel PA Unavailable Unavailable Spearance, J Miguel PA Unavailable Unavailable Spearance, J Miguel PA Unavailable Unavailable Spearance, J Miguel PA Unavailable Unavailable Spearance, J Miguel PA Unavailable Unavailable Spearance, J Miguel PA Unavailable Unavailable Spearance, J Miguel PA Unavailable Unavailable El-Khally, A Ziad MD Unavailable Unavailable El-Khally, A Ziad MD Unavailable Unavailable El-Khally, A Ziad MD Unavailable Unavailable El-Khally, A Ziad MD Unavailable Unavailable El-Khally, A Ziad MD Unavailable Unavailable El-Khally, A Ziad MD Unavailable Unavailable El-Khally, A Ziad MD Unavailable Unavailable El-Khally, A Ziad MD Unavailable Unavailable El-Khally, A Ziad MD Unavailable Unavailable El-Khally, A Ziad MD Unavailable Unavailable El-Khally, A Ziad MD Unavailable Unavailable El-Khally, A Ziad MD Unavailable Unavailable El-Khally, A Ziad MD Unavailable Unavailable El-Khally, A Ziad MD Unavailable Unavailable El-Khally, A Ziad MD Unavailable Unavailable El-Khally, A Ziad MD Unavailable Unavailable El-Khally, A Ziad MD Unavailable Unavailable El-Khally, A Ziad MD Unavailable Unavailable El-Khally, A Ziad MD Unavailable Unavailable El-Khally, A Ziad MD Unavailable Unavailable El-Khally, A Ziad MD Unavailable Unavailable El-Khally, A Ziad MD Unavailable Unavailable El-Khally, A Ziad MD Unavailable Unavailable El-Khally, A Ziad MD Unavailable Unavailable El-Khally, A Ziad MD Unavailable Unavailable El-Khally, A Ziad MD Unavailable Unavailable El-Khally, A Ziad MD Unavailable Unavailable El-Khally, A Ziad MD Unavailable Unavailable El-Khally, A Ziad MD Unavailable Unavailable El-Khally, A Ziad MD Unavailable Unavailable El-Khally, A Ziad MD Unavailable Unavailable El-Khally, A Ziad MD Unavailable Unavailable El-Khally, A Ziad MD Unavailable Unavailable El-Khally, A Ziad MD Unavailable Unavailable El-Khally, A Ziad MD Unavailable Unavailable El-Khally, A Ziad MD Unavailable Unavailable El-Khally, A Ziad MD Unavailable Unavailable El-Khally, A Ziad MD Unavailable Unavailable El-Khally, A Ziad MD Unavailable Unavailable De Jesus, Marleny DIE CUTTER OPERATOR Unavailable Unavailable De Jesus, Marleny DIE CUTTER OPERATOR Unavailable Unavailable De Jesus, Marleny DIE CUTTER OPERATOR Unavailable Unavailable De Jesus, Marleny DIE CUTTER OPERATOR Unavailable Unavailable De Jesus, Marleny DIE CUTTER OPERATOR Unavailable Unavailable De Jesus, Marleny DIE CUTTER OPERATOR Unavailable Unavailable De Jesus, Marleny DIE CUTTER OPERATOR Unavailable Unavailable De Jesus, Marleny DIE CUTTER OPERATOR Unavailable Unavailable De Jesus, Marleny DIE CUTTER OPERATOR Unavailable Unavailable De Jesus, Marleny DIE CUTTER OPERATOR Unavailable Unavailable De Jesus, Marleny DIE CUTTER OPERATOR Unavailable Unavailable GUZMAN, M LETY PA Unavailable Unavailable GUZMAN, M LETY PA Unavailable Unavailable GUZMAN, M LETY PA Unavailable Unavailable GUZMAN, M LETY PA Unavailable Unavailable GUZMAN, M LETY PA Unavailable Unavailable GUZMAN, M LETY PA Unavailable Unavailable GUZMAN, M LETY PA Unavailable Unavailable GUZMAN, M LETY PA Unavailable Unavailable GUZMAN, M LETY PA Unavailable Unavailable GUZMAN, M LETY PA Unavailable Unavailable GUZMAN, M LETY PA Unavailable Unavailable GUZMAN, M LETY PA Unavailable Unavailable GUZMAN, M LETY PA Unavailable Unavailable GUZMAN, M LETY PA Unavailable Unavailable GUZMAN, M LETY PA Unavailable Unavailable GUZMAN, M LETY PA Unavailable Unavailable GUZMAN, M LETY PA Unavailable Unavailable GUZMAN, M LETY PA Unavailable Unavailable GUZMAN, M LETY PA Unavailable Unavailable GUZMAN, M LETY PA Unavailable Unavailable GUZMAN, M LETY PA Unavailable Unavailable GUZMAN, M LETY PA Unavailable Unavailable GUZMAN, M LETY PA Unavailable Unavailable GUZMAN, M LETY PA Unavailable Unavailable GUZMAN, M LETY PA Unavailable Unavailable GUZMAN, M LETY PA Unavailable Unavailable GUZMAN, M LETY PA Unavailable Unavailable GUZMAN, M LETY PA Unavailable Unavailable GUZMAN, M LETY PA Unavailable Unavailable GUZMAN, M LETY PA Unavailable Unavailable GUZMAN, M LETY PA Unavailable Unavailable GUZMAN, M LETY PA Unavailable Unavailable GUZMAN, M LETY PA Unavailable Unavailable Artesia, V TUTU PA-C Unavailable Unavailable Artesia, V TUTU PA-C Unavailable Unavailable Artesia, V TUTU PA-C Unavailable Unavailable Diane, V TUTU PA-C Unavailable Unavailable Artesia, V TUTU PA-C Unavailable Unavailable Artesia, V TUTU PA-C Unavailable Unavailable Re-disclosure Warning The records that you are about to access may contain information from federally-assisted alcohol or drug abuse programs. If such information is present, then the following federally mandated warning applies: This information has been disclosed to you from records protected by federal confidentiality rules (42 CFR part 2). The federal rules prohibit you from making any further disclosure of this information unless further disclosure is expressly permitted by the written consent of the person to whom it pertains or as otherwise permitted by 42 CFR part 2. A general authorization for the release of medical or other information is NOT sufficient for this purpose. The Federal rules restrict any use of the information to criminally investigate or prosecute any alcohol or drug abuse patient.The records that you are about to access may contain highly sensitive health information, the redisclosure of which is protected by Article 27-F of the [facility] Public Health law. If you continue you may have access to information: Regarding HIV / AIDS; Provided by facilities licensed or operated by the [facility] Office of Mental Health; or Provided by the [facility] Office for People With Developmental Disabilities. If such information is present, then the following [facility] mandated warning applies: This information has been disclosed to you from confidential records which are protected by state law. State law prohibits you from making any further disclosure of this information without the specific written consent of the person to whom it pertains, or as otherwise permitted by law. Any unauthorized further disclosure in violation of state law may result in a fine or mcfp sentence or both. A general authorization for the release of medical or other information is NOT sufficient authorization for further disc losure. Allergies and Adverse Reactions Type Description Substance Reaction Status Data Source(s ) Drug allergy Doxycycline Hyclate Doxycycline unknown Active eC W1 ([facility]) Drug allergy Keflex Cephalexin unknown, but tolerates other cephalosporins Active eCW1 ([facility]) Drug allergy Carafate Sucralfate irritated throat Active eCW1 ([facility]) Drug allergy Amoxicillin Amoxicillin Rash Active eCW1 ([facility]) Erythromycin Erythromycin Erythromycin 500 MG Delayed Rele ase Oral Tablet unknown Active eCW1 ([facility]) Brillinta Brillinta Brillinta SOB Active eCW1 ([facility]) Brillinta Brillinta Brillinta SOB Active eCW1 ([facility]) Family History Family Member Name Family Member Gender Family Member Status Date o f Status Description Data Source(s) Unknown Unknown Problem MEDENT ([facility]) Unknown Female Problem MEDENT ([facility]) Encounters Encounter Providers Location Date Indications Data Source(s ) Outpatient Attender: TUTU TEAGUE.DOUGLAS-SJP.DOUGLAS 12:00:00 AM [facility] - 07/22/2020 02:40:14 PM [facility] Attender: Erin Diazerrer: LETY REED 06/25/2020 08:20:10 PM EDT [facility] Attender: Erin Cazareser: LETY REED 06/25/2020 08:20:10 PM EDT [facility] Attender: Erin Mendenhall MD 06/25/2020 08:20:10 P M EDT [facility] Attender: Erin Mendenhall MD 06/25/2020 08:20:10 P M EDT [facility] Attender: Erin Mendenhall MD 06/25/2020 08:20:10 P M EDT [facility] Attender: Erin Mendenhall MD 06/25/2020 08:20:10 P M EDT [facility] Attender: Erin Mendenhall MD 06/10/2020 08:20:10 P M EDT [facility] Attender: Erin Mendenhall MD 06/10/2020 08:20:10 P M EDT [facility] Outpatient SUNIL-SJP.DOUGLAS 04/16/2020 12:00:00 AM EDT [facility] Attender: Erin Mendenhall MD 04/09/2020 08:20:08 P M EDT [facility] Attender: Erin Mendenhall MD 04/09/2020 08:20:08 P M EDT [facility] Out[facility] Attender: Venecia BARBER-SJP.DOUGLAS 01/2020 12:00:00 AM EDT - 04/04/2020 11:37:48 AM EDT [facility] Unknown [facility] [facility] [address] 03/22/2020 12:00:00 AM EDT eC1 ([facility]) Attender: Erin Mendenhall MD 02/14/2020 08:20:06 P M EDT [facility] Attender: Erin Mendenhall MD 02/14/2020 08:20:06 P M EDT [facility] Attender: Erin Mendenhall MD 02/14/2020 08:20:06 P M EDT [facility] Attender: Erin Mendenhall MD 02/14/2020 08:20:06 P M EDT [facility] Out[facility] Attender: Venecia BARBER-SJP.DOUGLAS 11/2019 12:00:00 AM EDT - 02/01/2020 03:01:46 PM EDT [facility] Outpatient Attender: Karel Varghese MDAdmitter: Karel man MD [email or web address] 01/25/2020 10:22:00 AM EDT - 01/25/2020 03:42:00 PM EDT [facility] Patient discharged. Outpatient Referrer: Karel Varghese MD MOB-MOB.[email or web address] 12/29 11:06:57 AM EDT - 01/22/2020 11:07:00 AM EDT [facility] Outpatient Referrer: Reena KENDOUGLAS-SJP.DOUGLAS 02/2020 01:08:20 PM EDT [facility] Outpatient Referrer: Reena KENDOUGLAS-SJP.DOUGLAS 12:00:00 AM EDT [facility] Attender: Erin Mendenhall MD 2019 08:20:04 P M EDT [facility] Attender: Erin Mendenhall MD 2019 08:20:04 P M EDT [facility] Outpatient Attender: Reena KENDOUGLAS-SJP.DOUGLAS 12:00:00 AM EDT - 12/15/2019 02:36:03 PM EDT [place] [id number] [facility] [address] 11/23/2019 12:00:00 AM EDT eCW1 ([facility]) [facility] [address] [facility] [address] 11/08/2019 12:00:00 AM EDT eCW1 ([facility]) Outpatient Referrer: Cyndy REED 10/31/2019 04:03:0 0 PM EST [facility] [address] [facility] [address] 10/31/2019 12:00:00 AM EST eCW1 ([facility]) [facility] [address] [facility] [address] 10/31/2019 12:00:00 AM EST eCW1 ([facility]) Outpatient Attender: Marleny [facility] 10/24/2019 08:30:00 AM EST MEDENT ([facility]) Outpatient Attender: ZOIE Lancaster [facility] 10/19/2019 08:15:00 AM EST MEDENT ([facility]) Attender: Erin Mendenhall MD 09/20/2019 08:20:01 P M EST [facility] Attender: Erin Mendenhall MD 09/20/2019 08:20:01 P M EST [facility] Attender: Erin Mendenhall MD 09/20/2019 08:20:01 P M EST [facility] Attender: Erin Mendenhall MD 09/20/2019 08:20:01 P M EST [facility] Outpatient Attender: Miguel Lancaster [facility] 09/01/2019 08:45:00 AM EST MEDENT ([facility]) Outpatient Attender: ZOIE Lancaster [facility] 08/28/2019 11:00:00 AM EST MEDENT ([facility]) [facility] [place] [address] [place] [id number] 08/28/2019 12:00:00 AM EST eCW1 ([facility]) [facility] [address] [place] [address] [place] [phone] 07/19/2019 12:00:00 AM EST eCW1 ([facility]) [facility] [address] [place] [address] [place] [phone] 07/14/2019 12:00:00 AM EST eCW1 ([facility] [facility] Medications Medication Brand Name Start Date Product Form Dose Route Admi nistrative Instructions Pharmacy Instructions Status Indications Reaction Description Data Source(s) Metoprolol Tartrate 50 MG Oral Tablet me toprolol tartrate (LOPRESSOR) 50 MG tablet metoprolol tartrate (LOPRESSOR) 50 MG tablet 07/22/2020 12:0 0:00 AM EST 50 mg Oral active Take 1 tablet (5 0 mg total) by mouth 2 (two) times a day [facility] Losartan Potassium 100 MG Oral Tablet losartan (COZAAR ) 100 MG tablet losartan (COZAAR) 100 MG tablet 06/21/2020 12:00:00 AM EDT active TAKE 1 TABLET DAILY [facility] clopidogrel 75 MG Oral Tablet clopidogrel (PLAVIX) 75 MG tablet clopidogrel (PLAVIX) 75 MG tablet 06/21/2020 12:00:00 AM EDT active Coronary 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 TAKE 1 TABLET DAILY [facility] Coronary 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 KLOR-CON M20 20 MEQ tablet [id number] 06/20/2020 12:00:00 AM EDT 1 {tbl} Oral active Take 1 tablet by nadege th daily [facility] Amlodipine 10 MG Oral Tablet amLODIPine (NORVASC) 10 M G tablet amLODIPine (NORVASC) 10 MG tablet 06/20/2020 12:00:00 AM EDT 1 {tbl} Oral active Take 1 tablet by mouth daily [facility] 120 ACTUAT Fluticasone propionate 0.23 M G/ACTUAT / salmeterol 0.021 MG/ACTUAT Metered Dose Inhaler [Advair] ADVAIR HFA 230-21 MCG/ACT inhaler ADVAIR HFA 230- 21 MCG/ACT inhaler 06/20/2020 12:00:00 AM EDT 1 {inhaler} Oral active Take 1 Inhaler by mouth as needed [facility] Metoprolol Tartrate 25 MG Oral Tablet me toprolol tartrate (LOPRESSOR) 25 MG tablet metoprolol tartrate (LOPRESSOR) 25 MG tablet 03/26/2020 12:0 0:00 AM EDT 25 mg Oral aborted Coronary arter y disease involving [place] coronary artery of [place] heart without angina pectorisEssential hypertension Take 1 tablet (25 mg total) by mouth 2 (two) times a day [facility] Coronary 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 Essential hypertension torsemide 20 MG Oral Tablet torsemide (DEMADEX) 20 MG tablet torsemide (DEMADEX) 20 MG tablet 02/26/2020 12:00:00 AM EDT 40 mg Oral acti ve Take 2 tablets (40 mg total) by mouth daily [facility] Potassium Chloride 20 MEQ Extended Relea se Oral Tablet Potassium Chloride ER 20 MEQ TBCR Potassium Chloride ER 20 MEQ TBCR 02/26/2020 12:00:00 AM EDT 20 meq Oral active Take 1 tablet (20 mE q total) by mouth daily [facility] 17.5-3.13-1.6 gram 02/15/2020 12:00:00 AM EDT recon soln 354 USE DIRECTED BY [facility],AFTER MEALS USE DIRECTED BY [facility],AFTER MEALS SOLD: 02/21/2020 [facility] 20 mEq 02/09/2020 12:00:00 AM EDT tablet extended release 30 TAKE ONE TABLET BY MOUTH EVERY DAY TAKE ONE TABLET BY MOUTH EVERY DAY SOLD: 02/12/2020 [facility] 20 mg 02/01/2020 12:00:00 AM EDT tablet 60 TAKE TWO TABLETS BY MOUTH EVERY DAY TAKE TWO TABLETS BY MOUTH EVERY DAY SOLD: 02/01/2020 [facility] normal saline flush 0.9 % injection 3 mL [id number] 01/25/2020 02:00:00 PM EDT 3 mL Intravenous active 3 mL , Intravenous, Every 8 hours (scheduled), First dose on [facility] 01/25/20 at 1400, Pre-op
Rapid push positive pressure flushing shall be performed with a 10 cc normal saline syringe to check the PATENCY of a PIV site prior to any infusion therapy initiation unless resistance is met.
[facility] Medication administered onsite normal saline flush 0.9 % injection 3 mL [id number] 01/25/2020 02:00:00 PM EDT 3 mL Intravenous active 3 mL , Intravenous, Every 8 hours (scheduled), First dose on Gabrielle 01/25/20 at 1400, Pre-op
Rapid push positive pressure flushing shall be performed with a 10 cc normal saline syringe to check the PATENCY of a PIV site prior to any infusion therapy initiation unless resistance is met.
[facility] Medication administered onsite normal saline flush 0.9 % injection 3 mL [id number] 01/25/2020 02:00:00 PM EDT 3 mL Intravenous active 3 mL , Intravenous, PROTOCOL, First dose on Gabrielle 01/25/20 at 1400, Pre-op
flush per protocol, D/C Main IV fluid if appropriate
[facility] Medication administered onsite Acetaminophen 325 MG Oral Tablet acetaminophen (TYLENO L) 325 MG tablet 650 mg acetaminophen (TYLENOL) 325 MG tablet 650 mg 01/25/2020 01:32:18 PM EDT 650 mg Oral active 650 mg, Or al, Every 4 hours PRN, headaches, and non cardiac pain, Starting Gabrielle 01/25/20 at 1332, Post-op
"Maximum dose of acetaminophen is 4,000 mg from all sources in 24 hours."
[facility] Medication administered onsite Nitroglycerin 0.4 MG Sublingual Tablet n itroglycerin (NITROSTAT) SL tablet 0.4 mg nitroglycerin (NITROSTAT) SL tablet 0.4 mg 01/25/2020 01:32:18 P M EDT 0.4 mg Sublingual active 0.4 mg, S ublingual, Every 5 min PRN, chest pain, Starting Gabrielle 01/25/20 at 1332, Post-op
May administer every 5 minutes for 3 doses and call cardio lab MD.
[facility] Medication administered onsite iopamidol (ISOVUE-370) 76 % [id number] 01/25/2020 01:15:08 PM EDT active As needed, Starting Gabrielle 01/25/20 at 1315, Intra-Procedu re [facility] Medication administered onsite furosemide (LASIX) injection [id number] 01/25/2020 01:13:27 PM EDT active As needed, Starting Gabrielle 01/25/20 at 1313, Intra-Procedure [facility] Medication administered onsite heparin (porcine) injection [id number] 01/25/2020 01:04:35 PM EDT active As needed, Starting Gabrielle 01/25/20 at 1304, Intra-Procedure [facility] Medication administered onsite 4 ML Verapamil hydrochloride 2.5 MG/ML Injection verap jamila (ISOPTIN) injection verapamil (ISOPTIN) injection 01/25/2020 01:04:24 PM EDT active As needed, Starting Gabrielle 01/25/20 at 1304, Intra-Procedure [facility] Medication administered onsite lidocaine 1 % injection [id number] 01/25/2020 01:03:36 PM EDT active As needed, Starting Gabrielle 01/25/20 at 1303, Intra-Procedure [facility] Medication administered onsite 2 ML Midazolam 1 MG/ML Injection midazolam (VERSED) in jection midazolam (VERSED) injection 01/25/2020 01:02:57 PM EDT active As needed, Starting Gabrielle 01/25/20 at 1302, Intra-Procedure [facility] Medication administered onsite fentaNYL Citrate (PF) (SUBLIMAZE) injection [id number] 01/25/2020 01:02:46 PM EDT active As neede d, Starting Gabrielle 01/25/20 at 1302, Intra-Procedure [facility] Medication administered onsite sodium chloride 0.9% (NS) infusion [id number] 01/25/2020 11:00:00 AM EDT 100 mL/h Intravenous active at 100 m L/hr, 100 mL/hr, Intravenous, Continuous, Starting Gabrielle 01/25/20 at 1100, Pre-op
Start two hours prior to scheduled start time
[facility] Medication administered onsite 25 mg 01/04/2020 12:00:00 AM EDT tablet 60 TAKE ONE TABLET BY MOUTH TWICE A DAY TAKE ONE TABLET BY MOUTH TWICE A DAY SOLD: 01/04/2020 [facility] Metoprolol Tartrate 25 MG Oral Tablet me toprolol tartrate (LOPRESSOR) 25 MG tablet metoprolol tartrate (LOPRESSOR) 25 MG tablet 01/04/2020 12:0 0:00 AM EDT 25 mg Oral active Coronary arter y disease involving [place] coronary artery of [place] heart without angina pectorisEssential hypertension Take 1 tablet (25 mg total) by mouth 2 (two) times a day [facility] Coronary 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 Essential hypertension 25 mg 01/04/2020 12:00:00 AM EDT tablet 60 TAKE ONE TABLET BY MOUTH TWICE A DAY TAKE ONE TABLET BY MOUTH TWICE A DAY SOLD: 03/26/2020 [facility] clopidogrel 75 MG Oral Tablet clopidogrel (PLAVIX) 75 MG tablet clopidogrel (PLAVIX) 75 MG tablet 12/29/2019 12:00:00 AM EDT 75 mg Oral active Coronary 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 Take 1 tablet (75 mg total) by mouth alberto shin [facility] Coronary 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 Rosuvastatin calcium 40 MG Oral Tablet rosuvastatin (C RESTOR) 40 MG tablet rosuvastatin (CRESTOR) 40 MG tablet 12/15/2019 12:00:00 AM EDT 40 mg Oral active Pure hypercholesterolemia Take 1 tablet (40 mg t otal) by mouth daily [facility] Pure hypercholesterolemia Amlodipine 10 MG Oral Tablet amLODIPine (NORVASC) 10 M G tablet amLODIPine (NORVASC) 10 MG tablet 12/15/2019 12:00:00 AM EDT 10 mg Oral active Essential hypertension Take 1 tablet (10 mg total) by mouth daily [facility] Essential hypertension pantoprazole 40 MG Delayed Release Oral Tablet pantoprazole (PROTONIX) 40 MG tablet pantoprazole (PROTONIX) 40 MG tablet 12/15/2019 12:00:00 AM EDT 40 mg Oral active Gastroesophageal reflux disease, esophagitis presence not specified Take 1 tablet (40 mg total) by mouth [facility] aleida [facility] Gastroesophageal reflux disease, esophag itis presence not specified Losartan Potassium 50 MG Oral Tablet losartan (COZAAR) 50 MG tablet losartan (COZAAR) 50 MG tablet 12/15/2019 12:00:00 AM EDT 50 mg Oral active Essential hypertension Take 1 tablet (50 mg total) by mouth daily [facility] Essential hypertension montelukast 10 MG Oral Tablet MONTELUKAST SODIUM 11/15/2019 12:0 0:00 AM EDT tablet 30 TAKE ONE TABLET BY MOUTH AT BEDT ERNST TAKE ONE TABLET BY MOUTH AT BEDTIME SOLD: 11/20/2019 [facility] Nizatidine 300 MG Oral Capsule Nizatidine 300 MG 11/10/2019 12:00:0 0 AM EDT 1.0 {capsule_at_bedtime} suspended Nizat idine 300 MG eCW1 ([facility]) Nizatidine 300 MG Oral Capsule Nizatidine 300 MG 11/10/2019 12:00:00 AM EDT suspended 1 capsule at bedtime eCW1 ([facility]) Nizatidine 300 MG Oral Capsule Nizatidine 300 MG 11/10/2019 12:00:00 AM EDT active 1 capsule at bedtime eCW1 ([facility]) Famotidine 20 MG Oral Tablet Famotidine 20 MG 10/31/2019 12:00:[address] active 1 tablet at bedtime as ne eded eCW1 ([facility]) Famotidine 20 MG Oral Tablet Famotidine 20 MG 10/31/2019 12:00:[address] active 1 tablet at bedtime as ne eded eCW1 ([facility]) Famotidine 20 MG Oral Tablet Famotidine 20 MG 10/31/2019 12:00:00 A M EST 1.0 {tablet_at_bedtime_as_needed} active Fa motidine 20 MG eCW1 ([facility]) Singulair 10 mg UNK 10/31/2019 12:00:00 AM EST active 1 tablets in the evening eCW1 ([facility]) Singulair 10 mg UNK 10/31/2019 12:00:00 AM EST active 1 tablets in the evening eCW1 ([facility]) Singulair 10 mg UNK 10/31/2019 12:00:00 AM EST 1.0 {ta blets_in_the_evening} active Singulair 10 mg eCW1 ([facility]) 10 mg 10/24/2019 12:00:00 AM EST tablet 30 TAKE 4 TABLETS BY MOUTH ONCE DAILY FOR 3 DAYS THEN 3 TABLETS ONCE DAILY FOR 3 DAYS THEN 2 TABLETS ONCE DAILY FOR 3 DAYS THEN 1 TABLET ONCE DAILY FOR 3 DAYS TAKE 4 TABLETS BY MOUTH ONCE DAILY FOR 3 DAYS THEN 3 TABLETS ONCE DAILY FOR 3 DAYS THEN 2 TABLETS ONCE DAILY FOR 3 DAYS THEN 1 TABLET ONCE DAILY FOR 3 DAYS SOLD: 10/24/2019 [facility] Prednisone 10 MG Oral Tablet Prednisone 10/24/2019 12:00:00 AM EST active MEDENT ([facility]) benzonatate 100 MG Oral Capsule Benzonatate 10/24/2019 12:00:00 AM EST ORAL active MEDENT ([facility]) benzonatate 100 MG Oral Capsule BENZONATATE 10/24/2019 12:00:00 AM EST capsule 30 TAKE ONE CAPSULE BY MOUTH THREE TIMES A DAY NEEDED FOR COUGH TAKE ONE CAPSULE BY MOUTH THREE TIMES A DAY NEEDED FOR COUGH SOLD: 10/24/2019 [facility] Azithromycin 250 MG Oral Tablet Azithromycin 10/24/2019 12:00:[address] ORAL active MEDENT ([facility]) 250 mg 10/24/2019 12:00:00 AM EST tablet 6 TAKE TWO TABLETS BY MOUTH AT ONCE ON THE FIRST DAY THEN TAKE ONE DAILY THEREAFTER TAKE TWO TABLETS BY MOUTH AT ONCE ON THE FIRST DAY THEN TAKE ONE DAILY THEREAFTER SOLD: 10/24/2019 [facility] [employer] [facility] 10/19/2019 12:00:00 AM EST completed MEDENT ([facility]) Doxycycline Monohydrate 100 MG Oral Capsule Doxycycline [place] hydrate 10/19/2019 12:00:00 AM EST ORAL active M EDENT ([facility]) 100 mg 10/19/2019 12:00:00 AM EST capsule 20 TAKE ONE CAPSULE BY MOUTH TWICE A DAY FOR 10 DAYS TAKE ONE CAPSULE BY MOUTH TWICE A DAY FOR 10 DAYS SOLD : 10/19/2019 [facility] 2.5 mg /3 mL (0.083 %) 10/19/2019 12:00:00 AM EST solu tion for nebulization 75 INHALE THE CONTENTS OF ONE V IAL VIA NEBULIZER EVERY 4 TO 6 HOURS NEEDED FOR COUGH AND WHEEZING INHALE THE CONTENTS OF ONE VIAL VIA NEBU LIZER EVERY 4 TO 6 HOURS NEEDED FOR COUGH AND WHEEZING SOLD: 10/31/2019 [facility] NEBULIZER AND COMPRESSOR 10/19/2019 12:00:00 AM EST device 1 USE DIRECTED USE DIRECTED SOLD: 10/19/2019 [facility] Albuterol 0.83 MG/ML Inhalant Solution Albuterol Sulfate 0 10/19/2019 12:00:00 AM EST ORAL active MEDENT ([facility]) 2.5 mg /3 mL (0.083 %) 10/19/2019 12:00:00 AM EST solu tion for nebulization 75 INHALE THE CONTENTS OF ONE V IAL VIA NEBULIZER EVERY 4 TO 6 HOURS NEEDED FOR COUGH AND WHEEZING INHALE THE CONTENTS OF ONE VIAL VIA NEBU LIZER EVERY 4 TO 6 HOURS NEEDED FOR COUGH AND WHEEZING SOLD: 10/19/2019 [facility] Prednisone 10 MG Oral Tablet Prednisone 10/19/2019 12:00:00 AM EST ORAL completed MED[facility] ([facility]) 10 mg 10/19/2019 12:00:00 AM EST tablet 12 TAKE ONE TABLET BY MOUTH THREE TIMES A DAY FOR 4 DAYS TAKE ONE TABLET BY MOUTH THREE TIMES A DAY FOR 4 DAYS SOLD: 10/19/2019 [facility] 20 mg 09/01/2019 12:00:00 AM EST tablet 12 TAKE ONE TABLET BY MOUTH THREE TIMES A DAY FOR 4 TABLETS TAKE ONE TABLET BY MOUTH THREE TIMES A D AY FOR 4 TABLETS SOLD: 09/01/2019 [facility] Prednisone 20 MG Oral Tablet Prednisone 09/01/2019 12:00:00 AM EST ORAL completed [facility] ([facility]) 100 mg 08/28/2019 12:00:00 AM EST tablet 20 TAKE ONE TABLET BY MOUTH TWICE A DAY FOR 10 DAYS TAKE ONE TABLET BY MOUTH TWICE A DAY FOR 10 DAYS SOLD: 08/28/2019 [facility] Doxycycline Monohydrate 100 MG Oral Tablet Doxycycline Monoh ydrate 08/28/2019 12:00:00 AM EST ORAL completed [facility] ([facility]) montelukast 10 MG Oral Tablet MONTELUKAST SODIUM 08/15/2019 12:0 0:00 AM EST tablet 30 TAKE ONE TABLET BY MOUTH AT BEDT ERNST TAKE ONE TABLET BY MOUTH AT BEDTIME SOLD: 08/15/2019 [facility] Insurance Providers Payer name Policy type / Coverage type Policy ID Covered green party ID Covered green party's relationship to levi Policy Levi Plan Information AETNA [facility] [id number] AETNA AETNA [id number] Spo [id number] Aetna HMO PPO POS GPPO MANAGED CARE [id number] INSURANCE COVID-19 COVID Lis C OVID INSURANCE COVID-19 COVID Lis C OVID INSURANCE COVID-19 [id number] GABE CLAIM ADMIN WORK O [id number] S [id number] GABE CLAIM ADMIN WORK COMP [id number] SP [id number] AETNA [place] [id number] HU2 [id number] AETNA US HEALTHC[employer] [place] [id number] HU2 [id number] AETNA US [employer] [place] O [id number] S [id number] AETNA [place] [place] [id number] HU2 [id number] AETNA [place] [place] [id number] HU2 [id number] [employer]ET[employer] [place] [place] [id number] HU2 [id number] ANSI-Commercial [id number] ANSI-Commercial [id number] ANSI-Commercial [id number] ANSI-Commercial [id number] ANSI-Commercial [id number] ANSI-Commercial [id number] ANSI-Commercial [id number] ANSI-Commercial [id number] ANSI-Commercial [id number] ANSI-Commercial [id number] ANSI-Commercial [id number] ANSI-Commercial [id number] Aetna Commercial [id number] Family Dependent [id number] AETNA [place] [id number] HU2 [id number] ANSI-Commercial [id number] AETNA PI PI ANSI-Commercial [id number] AETNA [place] [id number] HU2 [id number] AETNA [id number] Spo [id number] AETNA [place] O [id number] S [id number] AETNA [employer] [place] [id number] HU2 [id number] AETNA US HE[employer] [place] [id number] HU2 [id number] AETNA [employer] [place] [id number] HU2 [id number] Aetna Ppo/Pos/Nap/MC Commercial Family Dependent Aetna Commercial Family Dependent AETNA US HEALTHCARE [place] [id number] HU2 [id number] AETNA US HEALTHCARE [place] P [id number] S [id number] AETNA O [id number] SP [id number] MAGGIE UNAVAILABLE [id number] UNAV AILABLE [id number] Problems, Conditions, and Diagnoses Code Display Name Description Problem Type Effective Dates Data Source(s) Z01.810 Preoperative cardiovascular examination Preoperative cardiovascular examination [id number] 04/07/2020 12:00:00 AM EDT [facility] E78.00 Pure hypercholesterolemia Pure hypercholesterolemia 64 [id number] 01/15/2020 12:00:00 AM EDT [facility] R06.00 MORAN (dyspnea on exertion) MORAN (dyspnea on exertion) 64 [id number] 01/15/2020 12:00:00 AM EDT [facility] J45.31 [id number] Mild persistent asthma with exacerbation Problem 10/31/2019 12:00:00 AM EST eCW1 ([facility]) J45.31 [id number] Mild persistent asthma with exacerbation Problem 10/31/2019 12:00:00 AM EST eCW1 ([facility]) I25.10 Atherosclerotic heart diseas e of [place] coronary artery without angina pectoris Atherosclerotic heart disease of [place] Diagnosis 07/22/2020 01:35:44 PM EST [facility] I10 Essential (primary) hypertension Essential (primary) h ypertension Diagnosis 04/16/2020 09:28:53 AM EDT [facility] Z01.810 Encounter for preprocedural cardiovascul ar examination Encounter for preprocedural cardiovascul Diagnosis 04/04/2020 10:31:26 AM EDT [facility] I71.2 Thoracic aortic aneurysm, without ruptur e Thoracic aortic aneurysm, without ruptur Diagnosis 04/04/2020 10:31:26 AM EDT [facility] E11.9 Type 2 diabetes mellitus without complic ations Type 2 diabetes mellitus without complic Diagnosis 04/04/2020 10:31:26 AM EDT [facility] R06.09 Other forms of dyspnea Other forms of dyspnea Diagnosi s 04/04/2020 10:31:26 AM EDT [facility] I50.33 Acute on chronic diastolic (congestive) heart failure Acute on chronic diastolic (congestive) Diagnosis 02/01/2020 01:56:12 PM EDT [facility] Z98.61 Coronary angioplasty status Coronary angioplasty statu s Diagnosis 01/25/2020 10:22:00 AM EDT [facility] I21.4 Non-ST elevation (NSTEMI) myocardial inf arction Non-ST elevation (NSTEMI) myocardial inf Diagnosis 01/25/2020 10:22:00 AM EDT [facility] E78.00 Pure hypercholesterolemia, unspecified P ure hypercholesterolemia, unspecified Diagnosis 01/25/2020 10:22:00 AM EDT [facility] J98.8 Other specified respiratory disorders Ot her specified respiratory disorders Diagnosis 01/22/2020 11:06:57 AM EDT [facility] U07.1 COVID-19 COVID-19 Diagnosis 01/22/2020 11:06:57 AM ED T [facility] K21.9 Gastro-esophageal reflux disease without esophagitis Gastro-esophageal reflux disease without Diagnosis 12/15/2019 01:20:59 PM EDT [facility] E66.01 Morbid (severe) obesity due to excess ca lories Morbid (severe) obesity due to excess ca Diagnosis 12/15/2019 01:20:59 PM EDT [facility] Surgeries/Procedures Procedure Description Date Indications Data Source(s) CARDIAC CATHETERIZATION CARDIAC CATHETERIZATION Routine 01/25/2020 1:11 PM EDT Coronary 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 MORAN (dyspnea on exertion) Essential hypertension Pure hypercholesterolemia NSTEMI (non-ST elevated myocardial infarction) Thoracic aortic aneurysm without rupture Coronary angioplasty status 01/25/2020 05:11:25 PM EDT Coron ashlyn angioplasty statusThoracic aortic aneurysm without ruptureNSTEMI (non-ST elevated myocardial infarction)Pure hypercholesterolemiaEssential hypertensionDOE (dyspnea on exertion)Coronary 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 [facility] Coronary angioplasty status Thoracic aortic aneurysm without rupture NSTEMI (non-ST elevated myocardial infar ction) Pure hypercholesterolemia Essential hypertension MORAN (dyspnea on exertion) Coronary 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 ECG ROUTINE ECG W/LEAST 12 LDS TRCG ONLY W/O I&R ECG 12-LEAD Routine 01/25/2020 10:52 AM EDT 01/25/2020 02:52:10 PM EDT [facility] Results ID Date Data Source [id number] 06/25/2020 03:30:00 PM EDT [facility] Name Value Range Interpretation Code Description Data Apple rce(s) Supporting Document(s) Follow Up [facility] [id number]jGYQkK1O5TXprTa4OAMqyjlXcECMoCa9+EPGwEI0hnf6aRMBq gMy [file] 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 systems administrator+CRISTINO/LF343v2AlJQAqYPnr /czyrohYPw81GP4AIaO6ZQIEwTxIDhxJBr1ErVP+uHe6Gzc041yQor2KiU/a8osRpwOrCSz9Zme4GR0b ze54U60t8wdIkBmmkimq6Q5kfP5lYQwe/KL2nOnhPjgOGM17bojlYcTK15+A3PWhcNN57msjknjoOiGO xa/Lour2vYxRrY3iJ1zf8el8XUgIzyWS+qAx1VZKBb ewbbAX4gWLl7wDiZ2UsdeeMmR5G6SAu9rgJey55A5B47eb+29jthlphKu6IKp8yCR6Hup14oZMnu7z3x Eg+dur03zgl4IzOygLMZ6d256R4fruo0rRmIrVn7PluuVGEIO4NYrfuovC9LJNP8vVKrnPXPKd3LZX0i xvykmGTgg3k3WQyRQXylwivttLfragQoJPjrjqc8f5 [file] qEvzYUPetvgMD+vp project+2EMO0lsYb6eC9wFhjb57seiDq 5aXugT/xorQJ0E7kyOuGfW6/Bm49JmT+SIb/w/fu+ctyhlp6hKDOnDtbLbqQnwDijk4u0aWY8vWNQqjI MpnGDXfbOMx1zS63QAVLu8d3+T2T4IOLvmQcRrNpom0hWEFj0VRzrT2HvI2L3AeKi/6Cdlb1dDdPCoS7 5JWeSvbs6RdNYan10aiI5nWbYKV2r8nJr1VG4UR2px jxkUakFAmeKpY097lOiRSd45bwYlOetd1kaf+1T+iOrHu3UNBjv53UagqHOVxpi7Pl5kcJ4Dpy/otfpo 49HYO81HNm8vsYEe3AmxPlU7/f0lV3cPadbWJksvYLcl0cy64x8O7D4NZlq92Y5cvs88u0SeGE048inj y5ocxtg6jr22qf3ru98G9vBxvSGgyq67RmtF7nurrd ZvF7lU9myKR4yntnOcfYiNtwaA4tsKC22H33HB1CfTbNqmLbzGRxGQAeQQyqUIhb8NIYNiQ7zfp/yl/W dYU4exgfJRPk8+5HlqzqVN1aiK8M2WmiFLONkcFFBZSmo2aT8X/pDAFtHjOA0vVLVZfACkl1BnP4nrV9 bChXuJPdeCj97iz4pqW7POw5EpI7/sIEO/f+dhKgzc Be41dXGl3dXFY+J1qQDtlj/5YEHL5kwAaYmrKUTNfGEkG/p+CpMfejB7xBfqWlRfvBU9rGbXWDytS5R2 Trh5K3/p6ooxM/Q7fWwP2WoBzbKnBAvXHcq/Bni2uorWqJui59kAqA4zaz0YLQ2PlkDCGpQlRFOodR+w BURNISHER/BEAIqyCSJcO4f+TgkKTN5P/9BTcqvzfNnddnrO [file] [employer] 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/TKgQQ+iA7PDE3J2nLfzh250fNyWBwJSzQXfoBDQkwq9Tt+yEVB7ANBjhRH+tXn3jR//VkqX3VlS4 [file] QVe+line manager/KK7mdivbs0R1UIvfI35qlqhw4f0pUO9XePz [file] wJ3RIhrGSSgtb7otLXv2I0AOfh7O/Medical Lab Technologist+sd43sfZrsWcTmDNOC7ZjZKM4AMoeagEvatbEoSFPRC51UOsu [file] Nmrqt/Dining Car Steward+l4MVUl59opxy3dP1rYeKCg46DGVpNw3owTeXl2WUZhmnXD0TJi7MdHuSuqnfJpKYfvJ+SV [file] u7F7ULKTcHXThTFYfdTyPcb+6jDk1O9PbOq6rA4HVj86ULHOqjsnsuUwd2lKDI/Bam/JK12cno7FHkKaT nAQBd24KnOnfMJ6UK9Qhp6Wks/cL4H+GrIcL8lHh5lZvRooqBGT+/Ibw3aPPgftGin+BUyTzePuZgqob OXic6dTC8xjAPG1F1guJhnUnFBHJpbTcOfz0LlpL+l kiIr6UTLI8DLCB3GY0jSaQAtKyf8UQguWK/kymEeoFJPiHntE5Spddvx32LQ9y1B/6SOIgzWtsNnxH/+ KCyCmb1vbrodKqvoAkH/Xukw5GDK3WLvzZeXblR4X8XyAjUE4v7qGc5C1fqXB+OLsR0YUWUV4hTGcIg/ c9kLR/mDfw2f5+VILhTiZua8bO24bWogXP6pPo4kQc Wm4hLLF16/7EMoa/F1fVUPZAcKQORsL+Os4La9S3cuORutWnZZ7iE48AnAvFrz4LJUcZo67ag/g6o3su r61UFid+YX4tc0r6TMY4oZaaBYAh7yPk4LqUy4om8ZXBmRHMWSJNNZwLrmmqNtaFDI9GE6zj+xpgzB+y czDi3P/hjD1gV+j2uYdzz2nsT3Iz00/GO0WEZ+Kk0U 2f95DqGWzXmMmYyZmCUHeHOt4tZBmfWFUL9AFQ/bs+RqUnI0bHJS7HjD3XbW7O3KakVZzuFwK/mJVilr GGXBvR2GZwbzc4xvQlTxJorihmDaQc3Bh3Hgs7w6YfDWFelumOlAbhIAAuPGe9SyVOi+aD+qnhSK3pKP W1qiI+RyfmatjSayr16EX4OjZ6e583IM+Y0lbPKXNW MKpJX7ilRUwlNCcd0RfBFQsFjf4HxgZGtHkpjy3tMCYmOQ36BOqolYU+6pBOcfmgFHNVjUXxBjYmNeO3 5YXYQ5gWbULAXkvmqBWDBs/xkjhLDaHc4sYk6k8Yqly6J4vC87ZCp0CvIMZR1rTUabFTrsNibOlDRN10 ZLcyaFSbN4VLoI3jMcweX+3VbydsX/SpHa36X++AIR COMPRESSOR OPERATOR [file] E2WHd7qgfoq+FLOHc0s/Radha/BtIrUodQzxn5P4RMzPwZ+/O7AUl5Bz8JU7TzkGZLzyLl+1f1kHl3RCY TMsuh/dJu83Bu4nUWH/MaH63ZidfbuV1HNW9ONkiRT hjoOq9A4T8GPEzThNAwm7K+7rQ9oDaZDORSEgloMhTuSpmOivxoYos21avElRiDBeuayCcfEgC8L9Cls FiJ5ikFmKWAsncADMYBKno/2BPoo4wRG+GfOutMLgDJU9rsPCVRbrYHgb9IBO94nHnejjyce2AN/kfmK 3GUGr2a6din/TVLafS793d89ZI7+1YjnRp26Za1oas c3YZU5KQ4k3g2HfPARWlZBaoFtWHjaL4wEqnSbUlx/9AJJayrvf2375LJsITLopVevffTOoXbgMy9ESd q7u1u4OUS/qqQD8YkZwM9fCYjOhXRWUx5lsq6vmpkvt66DYfK7le4LuiU/jSGhsQ/t1q/V0GB9PN7spt iBpB4hJUGvn3IQf3RqZGGHLcCmIyb71Q0ubCahheON GvHQ/chief fundraising officer+eNfss5+imLtRHz7pU9fhfjxr3W3T7wUgUw7+s3SJFmn8Iyykewdc36Stw0ud78hjsEGgsN9 [file] fE0+6UojIYvX/ENs6/iYENmo8LXf3G1yJrWRputV77gZXpY5s6HRqeDohfgLMhgzt/J2oxy3WgY/Communication Electronic Technician [file] knowledge manager+8Bzkm/cdD3ASQG6lIJoJ+y0lvdylB43w5nP1e1nSKv4KIlhLxkqw2cvRjWJ5toUzRYzOX8zKA4JO [file] YwhvwXketN99q6Hzjrha1f6JZTEiZztz1aFRRjoS6p2Pt/Ply Cutter+gzJwA2LCPG8vAmSjMxOy029Jwc48nW [file] X1uScspYAleVVW/Rudy/FcgsrHFrnCEQ6P2PZI/4cSzAK4talUnDKwP/DmsBexo0iml+n3GA9bqURdR07 KwcbPB4jFq3OCMVgjaGzBvY/WTq70UfUW8FNwGmDtS 5lhxM94eDZ7ss4+faVlZNyVS+BJsEiemHeZXJBz7uRe+EZqAZsTRvDn1OciqhQ5/5JUC52RFUv2lF2y6 mQvNkQylF2MeCkjvdzAZ/75pfp19kf+Xw0eXAF7+ch52TEu1lVgb++LXugWLAz49pGC0eNL8lag6rFAR 6hcVItmcdKHLdCKDJyLMmbjzqB95f1irWfEm6bEilN TwtLck/xpcxW1+SIjbf5xWr05NPya1ozlBmc1gg5iEufkg6bWCdwBhRoHihBKbjO98sVsp63jIugW0PD qVYcoMa17V7L5gxCKmAwc8k/fZ3PqfSYqvhKqGURGunhTjH4H+RN0Oykfr+HSZhwmT+AIR COMPRESSOR OPERATOR/25oGb7qP9 [file] regional training manager+Z8B0PDpD9zeEJCEu/QpC2vQu/co61rsogWnxjEF yg+9urQ6K5PFDF7zihipWg5zQQ8tNjxvF60+QF5ZG2wxNdpW2WojSJ2MrE4yVTU9oZTTQw3B4Cszx9K0 Cm9Ky3kMH+O/Ld1tE+/GHYHhNfNva8YbYgM3AE3KM3QZaSDaJaY0Ew/cLO6CosN9cAs77knvNxIUKxAV rByz8D9mCLwDhU/Sk1jzdSSUFQX3eQiDT1YGk0fZYB bg1ui64wf/1dxcKdlg11oF3QqAz8ckxTYlIeDOBnEXZWFD8ux0+3gheqxiRZ++TxAPdLoga1IdjLS/Ng 965+/zoQw/iJBb9aRxG5e66DCQvd1esbdvtXvFCGqmqBAN8Br7HXZIQEXnr5faPIeF6AED2Q3jRxM56K 7Q7IMTdiM2IWkQuSf8+ZgppzJVSAzOHLWTgTHzIg2A BTMR9JPAvyxiA9zHDqziQAiFL5vK+ypgpGLHSS5B40taYijzM6b6yt1tbHN65ioS/FcuUdJsSYW2adje VNUqIYP3XdaTN7FLJndbk98g+MlLF+01OcPLidLZ6/b1QSDwrxZDPiBJye9NfRHIe8Esrws3F4s/uXiD 0RSXE0g5g3dYvsFf3HakzmMP8DMAM8ZAUMnJSIYS83 ZL13oPi6aanT38jcuKOsFeqjmdZeJxRHByeHSJpqsKwWoYS+1hKyMj4kOtqnva95Frel7f0W4cIfgySH Klt3leKOUdyjtF3qrX1u2oCuP/hXmYdqYjL2ZouKIkRKcdmLeye5o57GNSRtUBxJduZyPNMSNQTIKK3X Vijay/VXy6gRvozvKnXfdAoC2388Bw0z5Hz5w8lhUKzKE [file] 4kRfJ1PnMvmSqYM4iNeo8xTDv8j5gS9T7bBn12ykuJeSFs/tfq6E578+DV+/feeder loader/4dJ29S02Sko6Gyk+ AM9giLF9He9S0bjOWZkeN/dzEkKGjmA7gavqqLZxK8 HQ5Xq939j8+PANEL RAISER OPERATOR/2iMk7wf/wxYBbPdTVf2F+4TdLIiZ4jrF62tfZx4WifPjyrpJcpDB3vLeOymObxw4C [file] project ZFp+Farooq/NpyxPuuC8NcQFT8HOSIFZjUMVCprrfFNYwXj4ZqXCvOB27awuhy1TG5maF/6DHhAp6aXfHka [file] NnUe1jIOmAESzgvj3/dQyQjbb+Q0/x09eLo5v+Y/Qfo/8Y/beverage steward/8BUo3VX/bh9qi6YCQfkVs/F40wvmF 4xEa4tXQWtEzJ82WyYHth8Wa5gCEA5sFauyoKdv8Er2wl8UTtkOkbwjWPKYzDqf0i7bwpO3eAZpTqYH4 9Jv63xyT0+HFPJfbgqtYkfzZ+2ybADidVB3dKMBE8o 7QwHsYo3V3JOqXMsDcoMBS0KV88PgmHmweyivpXQ5vSdb0gCF5G2ROG3d404DfNQnDvGFMXu+W+mZ5yr dBrXOP3lM4l1jG6OxY3QcVJWWmSIOx+3rJBF5oWPVmRODoNuSrCRQO8h4hmlhxaHL7OdHH24ZVw8HSgq 1sJ9ti4PUWLk3cXeLcEtBlBpvQ5ae4vsg0WQTOZApC p5gDfw86UQ/DtDwBs+NXoWJQqqeC6qlCBEVitssjm8mR45b9z4izUASUkRONwIIOExZxUPmia/MARIEL+/O FlunV/BpdEtHghhgRSqlGkwLIc0gYrnmYokYJHhIZQDkOSz0QK7EcZnWQkTpkhv2MgGYpJq+zhC6iTkA 9SmOpF3277+HcKShVvi3pENg28DjrCMLMs0Jm9m2N4 AweJOtW/2VbLX7c+bm+/ZUP1686e25dvekn4ySpJDria6ppCat8N25c1TgGFbI38PucoEqb/qqjPjbLo NvqlEqIKUVP5MAuXxUQgso9C4s2/vb9b98SQEvUoxygWkIdfRAs5pmZRx3s80Mdzv6riK0IUKSTrLGC/ DoC/52q3o5RwFcc8ckxpM/6Hq7jNQw5bvxPYeRJi0O Q2ooe4hrZcTOy/IrHf3Hi7em/RIjm1tNcipZiU4IvRA1WOyFDSFLVClE07aSLE8/yvU0H4CJMGxNGHJu S+rVdhgS6A/LLwQd9YPHG+tehMtFsg14vWhd2SAepn8g6J6O1lemPkntuNBWcBtqomnHPOzkadHqBxxG gGkjTJ/f/VbE7M20Iz+DLSa26W8M3kAEx2jHrWWofX WtqSADbh3TqlHHmI7ZD0vLsUS/4Qck/ocmv2hvC+tDQ0VKj53GN+yATUK/pREw3QYju8/mp3bE+n7v7t Z6ud/vegFr6Ae/dKZ5hZeZv5yjSlt6rnhZABMve44kFqy+Dn5GbyjPWX/1PMYBSInDkqiFthQxg7IscJ t3SKM4xQa7GPghsddicvb7ILKtFfe6l23fiHLn36aS Q/YCgVoAu3y+QyNA8TGH868KiY/hO+IpVPAZa/xRKmr88Z7OgDC/EfvX/0/tH7R+8fvX/0/tH7/41ezH /oMXJ+rVc9owj4w6sOZuNrQA+vKJiAjwW2eDUV0vYSyNRhMN7yn/1F7cNG9qlG2v0TbooFbAzA1os71M Wmh3E6JIajy1ynypgvXEbuD4PosRXTNSAkOCmA/Mickie [file] HmBeicdpgOfw4ExQyMM3A8BFbcLq/O6qSAEvAEJ77FHmpo2bzreg6g+Minnie+yns0t9mQ2h7k8zkxhIciF P9oHNLkjyaqGz4+mLr+Aej3f42UdYGTvw1X+ovO+E6 E6PWx1/T0JfsB47bBCa4gcnv6Ns7Wr7kLbZOp7qL6jLtch+87CnZ+Kaila+JsnjKjJxtG0T8JdchpXc2fc 9khOM8h7rA9idoIT6sJBQvHKCUfb1T5dTRe+qS8q84KU3dvtLaFd8dcKilgiEq4bWi9HMVPgfneNadkg OJiXWKjRi2O1SNueFvuI+6fhinSJ65UBoxvGOMUtVK LlnSyYwA+MwF/4XIrcTGRYKWDob79UYTfJmIDoWuDMpeR5N81NQAujDj3WbMTp0iDSaiUnGjsGyeneQT AV2z9Xr70reoqc5Y3Dm7yS1RdmBG5dNZVrqH7NO8verJPXDCMg0/wpI7doj0LfYJ1dwdVRUBT2qrC8lv XSuGe5gILk50uQvbPsRRjKHjikKjL3zepuhklukKZR llwGBc4FnqT/TIxgp0rvkQ51kmL2VJP6kN5+TUlCLTO2PsRbPAlXKHPLe3OrjtO5Vh4gZzZ9Jry3xhlH WvxlJbeeBcgHy8uWWKKD7Eyu+jOR2Hx7VqZzMvQV1aDShmCu9Pobsh4szSqjgd43jYmsR1Eg3C7K0Lgm beBN7rDJupu6JkrE4GLCQiiMPnwgloW1yfB21fxaME k54/storeroom supervisor//ohIX0sCrERDIuEsCzjs+AzCZnjexvFajhfOJmJ3po9/pg5miM1CrZiFsuSAP68taQEylosg [file] Iwn1IaR7juqkGKmtcxtFl7ugXaUBH5+a5K/María+HCKkrM2R96rDJ+AF/YRM5ydDqO/ziSws4100fWTvO [file] PjYq7f3WWbSDnb5KiK69ptcTs19J5mNn9NLGvXmAEWbJFjp3ejTcxX0rxJpgxZ65BTTEmWwOZbhN+SUN'AQ [file] reproduction machine loader/girMC1pyBkC9wiGbIUQM5ZnrwUZEApaX/fe+fsjBa/j6/LqLXmzSfdmgFZJsaopFhR2ihe6N0zFD [file] WeI7AJO7iXLcAe6EASB9FvL8XG0GBVCPT0Y= ID Date Data Source [id number] 06/10/2020 09:45:00 AM EDT [facility] Name Value Range Interpretation Code Description Data Apple rce(s) Supporting Document(s) EGD-[facility]on[facility] OKUFOa7lYtDXAwZwJHEtPanSGCfgFGifJOSdI9S0BBbcHh7AHCqbufLkWPMsCt0+PTFjYY2vlr7lWRDx gMy [file] RESIDENT CARE DIRECTOR/WaAu9f/pXA97rSf+tMMhxEkj1Ixt97PYqD/j8aM [file] R2L9uBkEJDs57Qb4q3NFdNj6QfEj8NKMEdF09oETMxl876hbBSCJR0H9MYM+MAIJG5vPWEST/SzV/Luciana 2GpQqvQu5UVQcOXwVHwDoOWgqn/cV6pw8jl7ErSYKwyDxmtz90svmDuYyYy6oc7BJXZxypCUeHYPv/UM María+ua8r3+UVFuAO6R++bcjcPTjqhA3JmifQrSpDrw [file] DdY2D6g+fj/wg3iL95djioIQbOx0emQaQ6TTtI3xOllZ776hoc+yboE/ss6aMRsY23S6qOgxY7J0 OxjD+UXffR+6Kqhm+4Oel9URFbWdf3jb1UDZMrslZND5+r1dG0CTYXhJ5/XOj+lDi/g/+Qw5MNPcSAJ0 vWRn2khrb5RfC+1QfvIRwAoDxrSF+KwHg+i572pGGA V44mWnKmUF/Fq128nDpM8KEtIk6uv/eEXnDtsMKvjc5o73Cyu6K/yTDfM94j+ACheKXUbn14WtOq9g1f Oagt/mbaTDxGI6+iK6tas49XoZRQve/e3F1xzyqvPgX7WIXikjnivdZy1hoyoQtKHtd8afPNp0bezAsg B7uVbIEVjRTD3iodx0XfC3sIP/SFYHABkkjaNLq8r9 Zr1+h3yirMfoX9oaNmJdUhaDtdJatqZuLIUNyk/5sfy/C3Owo2ndOwO3VLp/Maria A/qvNet9ATk0d0ppjN [file] 82i8XgJ0Ej/button spindler/iocOF0gEcAcLdr9pza6+NsWJKSW [file] yvf8J4mlADlPkxApH47bmEdKVwKL5RLA6h5pNE+filler spreader [file] IljJ+jqOtbl2HdsTgHB7tSpjl9Y2vUe9XKUTuvo24fP98nXoubbDSY5KkOv/YP8Vt3IAP8gOUBjw+Saúl [file] e/KbTgQqQn1aQVHH5rcBHf+Noemí+BJETttQzWjS3TGR [file] DudBXh1j4NVNdQ9UdembpuQG7Uw8fl9x4yhBJs9o9uRMQsA2W6iR8t/pMMa/ZIYKjK62kbvYY2TOf+DIE CUTTER OPERATOR [file] QXdeOwk4NkBx808b+Aw8FK3nGWP+regional training manager+8bGToOq0IwLQ9clLrejbSyDv/uhlxAyFZbjvBSrzwFYbRt0Oz [file] Gn/debUICy2jnUkfAH81ka/Fm7e71/+anlYocg [file] vp project+y4EX2RB/1uoTBRC8uLJEHQhK5WQBY8gKsFA7/PT [file] nQL7Wtj2Ws5LQ+BD+WAw/bwgpetTh+vFMt5SW/PUFE4J4dstpiG3Ofs5jHN0oghqe+uvlV7k/xRUE/Word Processing Specialist [file] QQ7I9c+WtbW9aX0nkzCaijoyT4oSJCfE6jSdjwK9SkmEzlI2aCaAFwyRjVoooLlWoqOsZzSt8PAbL/regional training manager [file] 7K+HoxPUtRjM2ZMIaD/Vijay/FtIVxh5JHYCup6GdSiVYvGc6jaDA7dw1sj7s7EatxtEqX0TPumaX4zAL31 L7niXn7QZW8HbtF5RFQeWJSZ1ZFC5OJYuLtWoxpAdjEEA2tAx6u7mF4/XP4Hp4UgaVTCKMBrpDi2kDpe /ZdA6fzoGjAdvzrNh6p29YXc/6JBgXipUzqhqxgQ7+ uLhlLvEllGSsCPP7A4K2b3R/YLZJNUO/YI5Q/uZSO9YGEg3hes4gcfo0sJHZaw6rM0ZpAFl5ib/k/AL+ 2EW8C/jVi2zxXkJvdkY9mim0xfgKB1hgVzdobj1woX2kPd/e8ZtASTp9/60D/qTGFyhOHIa0aQaRynLu q+8If0Mpsr8mA52CDacW2/Uoka6gqCb8UBnK2bAjnt MPD/d2qhqOOeE1Qp7vIL7ZVrE9ufGvq0erKKvSyazpHq75W6s0sXqy7SgJR9UfLVIyXrfHYmnH2YNyLS T7RQZmd3PWcN224gBWDAPnPwmNKeU750GXxxwWFOuIUZhwKeL3zk15jQIdWpEHTB4B3Eigna8ujc2OWp ucAbp5SR/u9+N65MDbUYzdbRWYb6VsKljh6qrLMx8t NAoAbI4lQeWaHf4DBrtI8eh40twHuU36F1zmx5d7j+M+RFRQ+4/4wA/xGn+MBraDQf6hQyJdw0oYycit 9hwumftTcObHOvjQR/FR+n2rUsXjpvG8iAyV8DaDQnVT8ykeyTICZZFBKTPBTCui6maE9vtGPXIvotdY [facility]/338agX66OM+WOX9+Tpl/aNVrCHsdO/jf [file] xir6cMWiBW6xmLJsfEIN73Ge+ro3JahXjrCrwMlbE55xKKImSXvB+yse0NYe1ge0EetHbqUxPnnJ+tile installer [file] Gómez/endzo2FOL3ilI3zFoOltJ7aJzY52WbEYCmQbc29Yl15GN5rtIBFeXJrLxGn7zHb4Xn0TqMMe15Mm [file] v1IF+DTHKEwBEnp6YfucHfy2WrQUaGQn6Sz/vp project/NrulUtrPk6rovmKvxy8ukdwJ2ijFArknzp25zpNwC b6RG8qOZgzboUGycZ1AkhSsjfH7rNycCszFaQ9y85Gomdn5TKfRICDP74yL2aXiRSbqguoJ72/9/wZJk /uZXuPVHd4CNYp7gnisCuekIwLAwbKAhNqYQ9pn2Rh 5nhj3VIIRZmOBr5F77HHdtp9Jpw2XLW+r5OgdTPiFXSAFU+T9VpVLhA1lmQOHjFpogjb1WPO6N94pWjw 8kgyVmBhxf6U+lxm04cHoI2+S4+pP6iUTAEhVuFcipIKScs7ztUQacVuQ+/qjmfqW723oc31GleZE+Ul 0f5hxGdNvz3KFRTXI936ZZ90BhmsTcq79aIIawkWqe Qid0JgDck5xwEr0tYK/vMmz+88wT4uBof919gnA8vVc7yEWTdIGF3jMpdJFHEtaBSSy/E7PoIrwkGRA9 85gKdGTr6MN8wTdOSmSv+DuoRce3jw4Q3QPy271AM7w3Gel61ibP6ws0oLci51kAbLHvDdAIo1TvwzM8 cY39ah/Zqlt4AF8+ooQ4hQf62lZ4x3euhS1cui2LOl e92FCsNczszqYZa2aUpQY4tw6bGNU03UuKrGAacjfK0wGTK/HWaCT4Q8kIbc/azlIUO/HdwS2RbRvLeI UnUrljgYKwg/6Po6XzIb9a8KtJAbIPK0hLAPPusRWLcRXeFjKeWEwypekCSpEF0ux8kFpjl1wptH3304 4b0CJlPapqwKhiwjLlnVMHjjayoaM8tmfqzdOFNVvr [file] USFPAeFyYKR7aeXgiX9CRO9bi7OgIX7Kk5SppiM8coXlVEo2JvMoUgkBTeWlOV8C ID Date Data Source [id number] 02/14/2020 03:45:00 PM EDT [facility] Name Value Range Interpretation Code Description Data Apple rce(s) Supporting Document(s) Follow Up [facility] QBLZCf5qQzKURlOfBRNuThvJOSdeHCyqTQEuH5I4YTbiBh4FBLvqvpEzEDWzEa7+THSlVF1usb4qFROh gMy [file] 3IQVMkQAkZZJHBfdRiR72Yj0R62gbS+0m/kMvQD3YVIFehWZBbl1UMDNvI7j+reservation sales agent+YNx056p+P1tcHoV [file] LFFDhhCm5vq/HdbEpqSkV17XKKAaeSiyHMVM2KG/regional training manager [file] M7F0yMXegVne+If2jM9ivQHmxlwf/l5OS7VDv/Z [file] SG4emfAufcRk7QdSHaJUAcpthdiaZUdADV+zKDmPCltRlmriosNclr8KYydGaxJnYiLwfUQ3/line manager+A4h0 [file] jF4q8A9RzqrVkfDGxrqvYaJsfj8e/1JwVcAiPTuuwkLmUJx1O4+regional training manager/+XwS5w3gxRXJNR/SEM2DmY3naJ [file] xzJfpJLZzEL9Kv0xlX9mj/Lester/ugfUwlVqwUjkklW6 BxkqHj7yOhKIx5yGJZM8mg2SAjg1rkYTYOf9RZkSuyWDebHDWdOVsWjD+/TBJ17IqSEjxdnwfBZ2eMto i1mmJwvglCxh30k2m2KQrzGPdpmqYko2iQWsZTxXbPkhLCHmPST/z6xKLf6UwPC11khSt9+Word Processing Specialist/ipakJI [file] 9jv6WymLUL9DIpGjI8ivc/Word Processing Specialist+drFz6phJPIHJWz/Jf [file] epzSwP2vHSiGXmksakM8dXYS+zGpsVTiteIzZR1hvOr4C2ny84HEh8gnxxX1+Eg6357vgZfjwCsdT/RESIDENT CARE DIRECTOR [file] line manager+q36Hw4hP5VvmiVuMcEeIvoc6aNALWekPEi1P7Kjm5qC6hgmqUQE5rxNMNiL8QoG1NsIbiG4SFyulh [file] +CBwXz4KP8yT2MGKcdRs3Kf3x/zIYDu5/PMdG [file] kVd9mh+/cw71FTPXLz9WZ8FetxlWTFmSiSEmjI6pq0rdArm0ReSr/f48Gb0uBFEUhltC8Cb/BqAM+knurling machine tender [file] lhT/IlSoTVM/+Kvng/Z+D1aRI1+vjCzgcDaq9HSj4ntBFnOjdVNthxQCJNOTKN72soUCJDpHbnPO2Nw2M ZngXGG1Cv+ywqpfeL2Cfw6+DNckr26VlwcS7eXEuEI FF/e1ge9i2mJfb/TCAesBw7594y2LG7KO0nsRlSKJlGe/IF3576dPlZMhVVQSuHYrn/qDVwb3VqaQjO7 CT5N0iqHupTz9dXnbpJ9sgCAEtx6AVkxD2yitU06M+m0vTZ7XUjqhFjkcOyaAS+kc1Q851iLOD1isqs/ 9OP7kdPLdGrCMSpyItFycY4ZHe40j0FkzmHCn50Tto ZFp+1Anlg2rx+KPvRH9vjcP7so0pTGTj1IN2Av7WiN2O3M6ujRsrfl/2lMJ4j22fbZPatcRXrI0i3vw9 NpetFZqG6MJud8tHuAJOJuaAGDGTgg4d7ta5OEh/xz7xApdqTPfeRqo+mcX6RG+AoxP343DQc0NZGRMp Alp/g6s8ZpUd/Jl7HfqAYdtJEtvTBCmz1TN/SqvzKe 7uI5HCtfLqEiqTVju8ySpsIaxO+eLKvJLj6/Ynq7PsK8BvFqUzP9IM/n5h6GnCG9hA22whuQVinpiStR NQ1XYFnn8lPUqJ/TsAeNfCo82to9GL+YXaVrTu6S1m8Cdu1GP9ZGjwqUwrZ2oNzc075i+XJA1yiDLhnS yU9PDg6/fo9l7ms2imn0lFsHwUVqugorXs6N0QTzsU Hl59G7yc0gnD1jsCf+OlF1SBZ5xMbhNTOEV/dcfvdc9hYazUtJMF6nEEwBMG7YAKoHLYjQuDZnqb0T1p ZPZ5Eu9BfPfCVfXBpiPfT95hjK+PhQhTgHqDdlvZ6NDmCjcBFBajnASUUS4IYM2HXOWk30lYDZL4iXmT Oee7dg5JiozdLkMo4P0D5I1arXtK//uqi0h/n6I40d sVJRtKYPbfagvj899ozXbPyhVOOZiU/mWZ2Ei24UK6AUKhMYNEysACu1z8qhUa+s/WfwJ4JgZLN6Hp2z 4pDa9lCNt124cBEXrBE6lDe5pyAO40OlWurEOL8ng04gkqFWplE2bkx5Dlh5pZ52IRrknAuGhonYC+Word Processing Specialist [file] project [file] HbDU+zDfq/DELIVERY MGR+WrTaXgYcrXCg9T7WpQo4BhTnrEzi k3YoUzyeWEAnxcEiwvK4ZbrPGfOKmEHI3/d1bkaIqGTN+OnOq/USQ/1p8AKwFbuyVnvWwc/TuWcxlS+d IIolvhrPp5sqKmiz8krIgjoM+0JLJ8mmB/7HRrg9pjWJk+O6n/cnbHO6NtF7dKtLPm3qblAwTTXla1sE Zbg0+7BElmTJsqsh4F4n43bbOB/nzT1A/cDZ2TGMmR MBxkIgxfJWGzphuv8hKABHcdwrOrw2E2zkNZwNF1VJYAh1OwC1meoBaI3b1FJnMLgV1bcHcuRao46nwr PglBRMCwh0K+MzbN/USSd8cREb5/SA43EKjGCdvF8WXL3A/vjzmsxPW1TtclqMH1eanxw6tyGihmS0mv 3IST4Ed43i4022mCR2l9/79/9/G/QJX9Qr6T35gQND [file] do758jBtsRsUUg94fIHq8182Bs5N+PGbxbNjw/jewelry enameler+ [file] MwDQolJUVPRg== ID Date Data Source [id number] 01/25/2020 01:14:48 PM EDT [facility] Name Value Range Interpretation Code Description Data Apple rce(s) Supporting Document(s) &PDF [facility] FZSYMh8lWjNIAxFt50/VAQxdKOTwu8NvHOkeYVy4ZShnZKJeV4YsfVuwTL0CY0rUEY4pX7ERBA4pEPOm yKE [file] qOgS3a8z9/MKpj5QHgusnEy3GaVW5lMGuCq0OPQ1TmG+YCR6eWuh2rBu+yiL7a+Q3M+30bOS9q65+supervisor polishing [file] esJSSpa5MRkh5Dr4FcYPbKLh/i++assembler final+rh5NcA7MDZ [file] 3XSWPLS3BSYn== ID Date Data Source [id number] 01/25/2020 11:42:45 AM EDT [facility] Name Value Range Interpretation Code Description Data Apple rce(s) Supporting Document(s) EKG [facility] VVIOZo7tAhWTVkVce4KvIdAnDQCoFG9coya6O7I5gOIwZ0EgzXXnl2elK0IkZ9JmKNOsJGHVBP0JsXNg jb2 [file] 83I83fQ1+hny2VB5XLt19/qX8/89c/eSz9+9nf/sl3 6N/PGvhPXjz/hipTl8F3riSzeBWcQ5+6ro/Bc0ocXjcYrithsroc8ON6+vvck/XdP09CVO6kecVz2hea 9kwDeVkdkbvIxOS4S4pH/KM8p84vc6Xgs7xNB/oiD7ig1XBO8Xg/pmx2EIMWT7xSKd+v3GE1thwmU+iF 69yJHVnkZQRdsClnkNWUjZLB1rCvcXwH5PnOsDAfKB /9L+gN+zLl9dvOWZVZ4NA66GG0RP7+HXw7+E4xHeP0mfG/tOzXQH/MYC0BQ6GnKM2kdRnNJ0I9uP1pnF 25tooY8Fy3+U2xIdX0cCsXnS8m/S70d6G/X1aAfkoscHXuwF6IbMw5wqrpsVqB6QWX9SgMc5VtxRC+D9 7vAd+PqQCL79VbIs3Ljid9J/yh6MxHNI7lZQcCKWIE XAXL6Kg6cs5a+dVyXzIWmY9vBr1tbR45x8CQJ23gFdA/k7za+n/w3fr/SVryKnSzJnnletoVdAPdQQ/c O/FM8IV+5TKy8Z8Vo5Q1fj0Z2I41w44YTvAKeHj0flP99JX91KVeR16kJqTBSu1MW8Xf0BL7PM/QG/RJ MwHUwlJwEThxh0hR/akXNQvfKY76Qg+KtbVJvyrln+ efh65Mjcpsd9DBIDkP78W/nB3+nB43t2Oas+ty/zyX/rku98+B7Z/rcv/8GP+0LmiOktnj37P/3Mn/uS 73Lyzhn+tyF+jFntikt2Q044qguqa6PtddRlSq23V/ggP+sE03s6F7j+ty/3xI/3jg795g8B/rcv+cXP 24Nibj0Nex06Y/zvT+vB597Zdz/Lb4pSe2Rb8AjaJs uDf3VX88T2ULVaqhLrwLZM/hwfkgwfQru8bc+z4D5SNsGf/G53yzvjuNxiI+J50x0Sl1d+t+f1Lf6E/u W3zhbyoWuj4yc0odda3/r888z9uNPKkTE9CZoD3C4qBct2GU7MFMNVE0b++xys00Q1oEMRn1MrDNA8uc 8l0obzL+Hpyuc8R2/xZJ0T++5wZ184dLEjwq4Sq3L8 pD5aOOEpNubhq4QCe9BT6ty8aFJuMPDe7l2oq71dVtB2auxYxYjUsS///i1bNgaewG8YuCJso/dLQz5N T06R6apH0/ao186UxFJnd0Fm/8/A6+Ia/2CtpUALqHgca13ddwixo+JI4L/voY4x/bsc6iou+Ns4K/8Q xeIa88/gYtnviUzKnkOiSicgG1pHo/a+jHwycj29Tp /CwuxCs03IuxA42ajOfa65C+U8/s0M164AfQ/ajFZtfhpFI47Uuog21WvNKuTG/QE/QKdJZehuP8Hcu2 N/hCv+o79cm+c13oO+VGl7zy/1Pz9Bw9jS5KYo1QV9CLnIn5SKM/0K/6Ad+D5jemT3VYBYBel3wIMro6 awxk23eM3C876zxPPhKewcLL+qPpkvw43SP9+zvKAr 1B5ziP+lLqqYZc4Typ0inaL9X83fW/J/1a49oZ8B6O8rjjWidXC9EOyhjsh44jv8jFNuP1y18uVdb2gc ff2E59AHe1/5/96m/X/932iHgA60LeI+3Hw6T/g4MXNgCpfam/5NVfm+Y/1+X+x8FbIx7HUs+yHCv5hC nxKE0HwsKt/8yb/5mW53hkQTp6FtsSOYNN0SfzgLq9 Ia+C0Bgnafr8rDvAvqjn6698sbdoddMjO9NKwJYdBRhNrfk3gBYf7vEpGpnt8r5NT9+Word Processing Specialist+xXpkteA/vV bK3IbPe1S/TPjZQTB26O6q1kQAdZy1iKr4WnaUHSaJvi+6PdcDdt2NO580zYr5VU/WrIfqXvRfYrfUey X+s7gz5wtF5+epJoU2yPqjV6pa5M6+Sk/hpfi6f3ol p+5XraYb+SmF6sI9E1AribfngDVzxTn+jQY4/o/VydPKzx9/qQV35+jTa7z6UA6me3+J76bc5bDMxjxn c+qZ+j0z/W0xGIJsgzuhHFW5bs8sqVPYQan1KDwz3TBOHbylai5x3lkQIa4uERhj93k2UcrZocW4/smi 2uU5TC8BN3O36FTfwgtv44k8RIUatx5W/QBXQFnevR 4VttX0OkdOLj8MsLn1CvRC2JjsBbupDPW2UpH+mAp5WpuOTtkpOMD/arOTHOsF/Q0NBe9k/E+676g7UV Bl/tD6Mlsvt7JsW5UW3U88swdebJylzMhnMhD61vdu2LkoQ53dbv1fLBK/pNHt0Mbnd49OExzYS+Howz 7hOP2ap8AS8U7it8ye5O75P4z166DS1ngS+tJ+1168 [file] i68tyu0qNDpjUZTA+4+/qD306J3I789fA21YJSP24d kDD93/O7elaJ+2Pja+uV2+//jL+5/+6t5B11k+9MpvNX/6kloD6IjXL8azQQ/5+0Pw3//20dK5gtAkT+ 2riWPbH+6/+MP9d9j+8H4NbC+ueqRtf2nldsCDGzMsTK0D+ZUay65K7qm5IZJr+18Bizst0yn8uKW/instrumentation technologist vv9z//+u4/LlykJxdvbp+abdNUf9Ry//zpT7/7ZO9x Ib58/+GcT88p8j0o+/N3f//u3c/fv/b64gwMyim07siSM91/8yR+/UKdUb/68aqcdKx1Aqws0bym/fvv /vbx++5gQxF2edMsy/265kz7/dvXt40id2kZ0AhmjBInIx/z7r/oA9l77u+Pn6U+sKznuUJ0wUoanm1h 7sP3N3UBhX/ellav3y9D/e97BEUEe9Lf1muhtu/2fZ j6fUOyaz4ZpV7G1rjiYrbhviZtfDDeTE1FNE1le8UaPkP1TJWso7YlPCapTSz5mZQsYPoltjIbm3Wmvg eiB7Tea4AtDpJrTYUpQeFkNre9CWQqLnX3bHTtGzGvCFNcV2WpFOGrAbD7KiKlPVSXQK6TTNNynwMsPy AwIFI+GhApGS6niaptMDDkm4CsOVvbGGysLQLuX5H3 hChuTTSiM6UloR27WJObF8LposW6BAZ7OBErGxAnDLLlaOIqYOMdWNB+XaEnVI9rsczuIMVcp8WtSBbo MET9mS9fNYzICVEKEAaEBAwfKaW2q00tomLYQOMhOQFsPK5JtbUawFxpgnNzaYStGDL5RdEaKAJ8Jqib OBQwEEJCBDHdBTFoXQSoQLHuQ6TbtNlvOIiKQRQNCK qMBFrqUlXqo6O3JDDpnsIPHDRCASALJOSKBAYWXiXsVCClKALtYmfdCD9XvHZlFPU7GIsXWDVOAQeMCT ibQbSmw4Q7TFRrI8TqYVUautHeTZYNASjtXnnyKX3abJduovnrU6HrrCVqUXNDKDHkYZQeHGHaEKHnG0 Ksb6J5V5WfJLiPVDIAPZzCSAufGaG6b63lmxXDYKTe ZXMpID4+ZV9qy1SqAz0OXMSiAH0sxfj8DX3OkJWjOD5QECazikHgN2yngwCdRaGxPJRJVK6iF9OrgL52 YENNIFER+ZwZgSC1smok5sdDoMpDcAVTmJBGjPLIyPSywCJHiVXQgGSVsSTZ0PBM0HQPrTnBaHDAeFJh4YMWa HCHaHLFrblKCSKOmUSU8HuY7KFLiFPMqJXFfNDhaOG VsKEK0JyA9PBGfSDMxRU1aRpJzXJSbSSYnUATaSpK2ZoPaQiILTKBuASRzJFMdQxXcZSCeRIKrQLlzMG XgJJOgMKn0IXAwLIFoSF6kUgOgNWJhCHNaXBMfDYRzEYZcvxGQQYUaTCBrLIE4CBQdNQWnCTFsJQpzBL TbAYGkRGT9VLIkECFqVV9nZyRoHISuLFG0UhWtZWMc CYQhfgZPPIZqMERyEHK3HLVbUWSaFQWdZNjhSPOeYNAyDwB3WTGoQKPuST0lLlYlUVJyHTS9SZRhUKJn DRLjhfQBMYKoGNZiREd7SeDlGKRxQOXuQXbjPHGxMETbFYnjLDQmDWEbLB2wXkRyGDVnMYDoVDZwRMKl ELKbjmNCAQCdYFEvJNK1UuObAQPzSPKoRBoeSQSpWO KdRPA2QIVkWQJhOD2sHvEtLPPcTKclEWnuCGRyUOHfjfBWMDSgQZAoUQSgQHKoMAHvIXNaOTgmMGXjXF UqWlZ3FJWfYFMfXG2fIeKxPEOpEHG1QHEoAKIoUKEaisNIQSVrWCXyMBRjKMJ4OBKcJFNuGHd4ibAaiI LnYxh9Vp5WwCcmZOX9Rf3NbsGkJAKrNGBOIy8Nx363 IDUgMCBSCgo+PsvhiNRhoLngXKZTVSp7APFERSTJE3F= ID Date Data Source [id number] 01/22/2020 09:59:00 AM EDT [facility] Name Value Range Interpretation Code Description Data Apple rce(s) Supporting Document(s) SARS CORONAVIRUS 2 RNA [facility] This lab was ordered by [facility] and reported by [facility]. ID Date Data Source [id number] 01/23/2020 01:06:48 PM EDT [facility] Name Value Range Interpretation Code Description Data Apple rce(s) Supporting Document(s) SARS-COV-2 EDGARDO [facility] Not DetectedReference range: Not Detecte d Testing was performed using the roselyn(R) SARS-CoV-2 test. This test was developed and its performance characteristics determined by [employer]. This test has not been FDA cleared or approved. This test has been authorized by FDA under an Emergency Use Authorization (EUA). This test is only authorized for the duration of time the declaration that circumstances exist justifying the authorization of the emergency use of in vitro diagnostic tests for detection of SARS-CoV-2 virus and/or diagnosis of COVID-19 infection under section 564(b)(1) of the Act, 21 U.S.C. 360bbb-3(b)(1), unless the authorization is terminated or revoked sooner. When diagnostic testing is negative, the possibility of a false negative result should be considered in the context of a patient's recent exposures and the presence of clinical signs and symptoms consistent with COVID-19. An individual without symptoms of COVID-19 and who is not shedding SARS-CoV-[address] to have a negative (not detected) result in this assay. Performed At: [facility] [id number] Mich Ortiz MD Ph:[phone] ID Date Data Source LIPID PANEL (CARDIAC RISK) 11/23/2019 12:00:00 AM EDT eCW1 ( [facility]) Name Value Range Interpretation Code Description Data Apple rce(s) Supporting Document(s) Cholesterol in HDL [Moles/volume] in Serum or Plasma 91 >40 HDL CHOLESTEROL eCW1 ([facility]) Cholesterol [Moles/volume] in Serum or Plasma 179 <200 CHOLESTEROL LEVEL eCW1 ([facility]) Triglyceride [Mass/volume] in Serum or Plasma by calculation 67 <150 TRIGLYCERIDES LEVEL eCW1 ([facility]) 88 NON-HDL-C eCW1 ([facility]) 1.967 <5 CHOLESTEROL RISK RATIO eCW1 ([facility]) Cholesterol in LDL [Mass/volume] in Serum or Plasma by calculation 75 <100 LDL CHOLESTEROL eCW1 ([facility]) ID Date Data Source [id number] 11/23/2019 12:00:00 AM EDT eCW1 ([facility]) Name Value Range Interpretation Code Description Data Apple rce(s) Supporting Document(s) Hemoglobin A1c/Hemoglobin.total in Blood 6.7 HEMOGLOBIN A1c eCW1 ([facility]) ID Date Data Source Comprehensive Metabolic Profile (CMP) 11/23/2019 12:00:00 AM EDT eCW1 ([facility]) Name Value Range Interpretation Code Description Data Apple rce(s) Supporting Document(s) 89 70-100 GLUCOSE, FASTING eCW1 ([facility]) 17 7-18 BLOOD UREA NITROGEN eCW1 ([facility]) 4.5 3.5-5.1 POTASSIUM SERUM eCW1 ([facility]) 141 136-145 SODIUM LEVEL eCW1 ([facility]) 1.09 0.55-1.30 CREATININE FOR GFR eCW1 ([facility]) 54.3 >45 GLOMERULAR FILTRATION RATE eCW 1 ([facility]) 8.8 8.8-10.2 CALCIUM LEVEL eCW1 ([facility]) 111 98-107 CHLORIDE LEVEL eCW1 ([facility]) 25 7-37 AST/SGOT eCW1 ([facility]) 28 21-32 CARBON DIOXIDE LEVEL eCW1 ([facility]) 40 12-78 ALT/SGPT eCW1 ([facility]) 6.8 6.4-8.2 TOTAL PROTEIN eCW1 ([facility]) 0.4 0.2-1.0 BILIRUBIN,TOTAL eCW1 ([facility]) 108 45-117 ALKALINE PHOSPHATASE eCW1 ([facility]) 1.06 1.00-1.93 ALBUMIN/GLOBULIN RATIO eCW1 ([facility]) 3.5 3.2-5.2 ALBUMIN eCW1 ([facility]) ID Date Data Source CBC - Complete Blood Count 11/23/2019 12:00:00 AM EDT eCW1 ( [facility]) Name Value Range Interpretation Code Description Data Apple rce(s) Supporting Document(s) 4.37 4.00-5.40 RED BLOOD COUNT eCW1 ([facility]) 11.1 12.0-15.5 HEMOGLOBIN eCW1 ([facility]) 9.5 4.0-10.0 WHITE BLOOD COUNT eCW1 ([facility]) 25.4 27.0-33.0 MEAN CORPUSCULAR HEMOGLOB IN eCW1 ([facility]) 37.4 36.0-47.0 HEMATOCRIT eCW1 ([facility]) 85.6 80.0-96.0 MEAN CORPUSCULAR VOLUME e CW1 ([facility]) 29.7 32.0-36.5 MEAN CORPUSCULAR HGB CONC eCW1 ([facility]) 300 150-450 PLATELET COUNT, AUTOMATED eCW1 ([facility]) 17.6 11.5-14.5 RED CELL DISTRIBUTION WID TH eCW1 ([facility]) Procedure Social History Code Duration Value Status Description Data Source(s ) Alcohol intake 07/22/2020 12:00:00 AM EST Yes completed [facility] Cigarette pack-years 07/22/2020 12:00:00 AM EST UNK completed [facility] Cigarettes smoked current (pack per day) - Reported 07/22/20 12:00:00 AM EST UNK completed [facility] Smoking 07/22/2020 12:00:00 AM EST Former smoker completed Former smoker [facility] Alcohol intake 01/25/2020 12:00:00 AM EDT No completed [facility] Cigarette pack-years 01/25/2020 12:00:00 AM EDT UNK completed [facility] Cigarettes smoked current (pack per day) - Reported 01/25/20 12:00:00 AM EDT UNK completed [facility] Smoking 01/25/2020 12:00:00 AM EDT Former smoker completed Former smoker [facility] Alcohol intake 12/20/2019 12:00:00 AM EDT No completed [facility] Cigarette pack-years 12/20/2019 12:00:00 AM EDT UNK completed [facility] Cigarettes smoked current (pack per day) - Reported 12/20/19 12:00:00 AM EDT UNK completed [facility] Smoking 12/20/2019 12:00:00 AM EDT Former smoker completed Former smoker [facility] Smoking 11/23/2019 12:00:00 AM EDT Former Smoker completed Former Smoker eCW1 ([facility]) Vital Signs ID Date Data Source UNK Name Value Range Interpretation Code Description Data Source(s) Oxygen saturation in Arterial blood by Pulse oximetry 96 % 96 % [facility] Body mass index (BMI) [Ratio] 43.22 kg/m2 43.22 kg/m2 [facility] Body weight 110.678 kg 110.678 kg [facility] Body height 160 cm 160 cm [facility] Heart rate 82 /min 82 /min [facility] Diastolic blood pressure 60 mm[Hg] 60 mm[Hg] [facility] Systolic blood pressure 116 mm[Hg] 116 mm[Hg] [facility] Heart rate 86 /min 86 /min [facility] Diastolic blood pressure 65 mm[Hg] 65 mm[Hg] [facility] Systolic blood pressure 129 mm[Hg] 129 mm[Hg] [facility] Oxygen saturation in Arterial blood by Pulse oximetry 96 % 96 % [facility] Respiratory rate 18 /min 18 /min [facility] Body temperature 36.78 Leida 36.78 Leida [facility] Body mass index (BMI) [Ratio] 44.88 kg/m2 44.88 kg/m2 [facility] Body weight 114.9 kg 114.9 kg [facility] Body height 160 cm 160 cm [facility] Diastolic blood pressure 70 mm[Hg] 70 mm[Hg] eCW1 ([facility]) Systolic blood pressure 130 mm[Hg] 130 mm[Hg] e CW1 ([facility]) Body temperature 96.1 [degF] 96.1 [degF] eCW1 ( [facility]) Respiratory rate 18 /min 18 /min eCW1 ([facility]) Heart rate 87 /min 87 /min eCW1 ([facility]) Body mass index (BMI) [Ratio] 45.34 kg/m2 45.34 kg/m2 eCW1 ([facility]) Body height 63.25 [in_us] 63.25 [in_us] eCW1 ([facility]) Body weight Measured 258 [lb_av] 258 [lb_av] eC W1 ([facility]) Diastolic blood pressure 72 mm[Hg] 72 mm[Hg] eCW1 ([facility]) Systolic blood pressure 124 mm[Hg] 124 mm[Hg] e CW1 ([facility]) Body temperature 97.1 [degF] 97.1 [degF] eCW1 ( [facility]) Respiratory rate 20 /min 20 /min eCW1 ([facility]) Heart rate 86 /min 86 /min eCW1 ([facility]) Body mass index (BMI) [Ratio] 44.56 kg/m2 44.56 kg/m2 eCW1 ([facility]) Body height 63.25 [in_us] 63.25 [in_us] eCW1 ([facility]) Body weight Measured 253.6 [lb_av] 253.6 [lb_av ] eCW1 ([facility]) Body mass index (BMI) [Ratio] 43.9 kg/m2 43.9 k g/m2 [facility] ([facility], [facility]) Body height 63 [in_i] 63 [in_i] MEDENT ([facility], [facility]) 5'3" Body weight 248.00 [lb_av] 248.00 [lb_av] MEDEN T ([facility], [facility]) Body temperature 98.7 [degF] 98.7 [degF] [facility] ([facility], [facility]) Oxygen saturation in Arterial blood by Pulse oximetry 96 % 96 % [facility] ([facility], [facility]) Respiratory rate 22 /min 22 /min [facility] ( [facility], [facility]) Heart rate 69 /min 69 /min [facility] ([facility], [facility]) Diastolic blood pressure 74 mm[Hg] 74 mm[Hg] [facility] ([facility], [facility]) Systolic blood pressure 162 mm[Hg] 162 mm[Hg] M EDENT ([facility], [facility]) Diastolic blood pressure 70 mm[Hg] 70 mm[Hg] [facility] ([facility], [facility]) Systolic blood pressure 158 mm[Hg] 158 mm[Hg] M EDENT ([facility], [facility]) Body mass index (BMI) [Ratio] 43.9 kg/m2 43.9 k g/m2 [facility] ([facility], [facility]) Body height 63 [in_i] 63 [in_i] [facility] ([facility], [facility]) 5'3" Body weight 248.00 [lb_av] 248.00 [lb_av] MEDEN T ([facility], [facility]) Body temperature 98.6 [degF] 98.6 [degF] [facility] ([facility], [facility]) Oxygen saturation in Arterial blood by Pulse oximetry 97 % 97 % [facility] ([facility], [facility]) Respiratory rate 12 /min 12 /min [facility] ( [facility], [facility]) Heart rate 69 /min 69 /min [facility] Body mass index (BMI) [Ratio] 43.9 kg/m2 43.9 k g/m2 [facility] ([facility], [facility]) Body height 63 [in_i] 63 [in_i] [facility] ([facility], [facility]) 5'3" Body weight 248.00 [lb_av] 248.00 [lb_av] MEDEN T ([facility], [facility]) Body temperature 98.7 [degF] 98.7 [degF] [facility] ([facility], [facility]) Oxygen saturation in Arterial blood by Pulse oximetry 97 % 97 % [facility], [facility]) Respiratory rate 20 /min 20 /min [facility] ( [facility], [facility]) Heart rate 74 /min 74 /min [facility] ([facility], [facility]) Diastolic blood pressure 68 mm[Hg] 68 mm[Hg] [facility] ([facility], [facility]) Systolic blood pressure 138 mm[Hg] 138 mm[Hg] M EDENT ([facility], [facility]) Body mass index (BMI) [Ratio] 43.9 kg/m2 43.9 k g/m2 [facility] ([facility], [facility]) Body height 63 [in_i] 63 [in_i] [facility] ([facility], [facility]) 5'3" Body weight 248.00 [lb_av] 248.00 [lb_av] MEDEN T ([facility], [facility]) Body temperature 98.9 [degF] 98.9 [degF] [facility], [facility]) Oxygen saturation in Arterial blood by Pulse oximetry 96 % 96 % [facility] ([facility], [facility]) Respiratory rate 20 /min 20 /min [facility] ( [facility], [facility]) Heart rate 70 /min 70 /min [facility] ([facility], [facility]) Diastolic blood pressure 78 mm[Hg] 78 mm[Hg] [facility] ([facility], [facility]) Systolic blood pressure 125 mm[Hg] 125 mm[Hg] [facility]) Patient Treatment Plan of Care Planned Activity Planned Date Details Description Data Source (s) Metoprolol Tartrate 50 MG Oral Tablet 07/22/2020 12:00:00 AM EST [facility] clopidogrel 75 MG Oral Tablet 06/21/2020 12:00:00 AM EDT [facility] Losartan Potassium 100 MG Oral Tablet 06/21/2020 12:00:00 AM EDT [facility] KLOR-CON M20 20 MEQ tablet 06/20/2020 12:00:00 AM EDT [facility] 120 ACTUAT Fluticasone propionate 0.23 M G/ACTUAT / salmeterol 0.021 MG/ACTUAT Metered Dose Inhaler [Advair] 06/20/2020 12:00:00 AM EDT [facility] Amlodipine 10 MG Oral Tablet 06/20/2020 12:00:00 AM EDT [facility] Metoprolol Tartrate 25 MG Oral Tablet 03/26/2020 12:00:00 AM EDT [facility] Potassium Chloride 20 MEQ Extended Release Oral Tablet 02/26/2020 12:00:00 AM EDT [facility] torsemide 20 MG Oral Tablet 02/26/2020 12:00:00 AM EDT [facility] Metoprolol Tartrate 25 MG Oral Tablet 01/04/2020 12:00:00 AM EDT [facility] clopidogrel 75 MG Oral Tablet 12/29/2019 12:00:00 AM EDT [facility] pantoprazole 40 MG Delayed Release Oral Tablet 12/15/2019 12:00:00 AM EDT [facility] Losartan Potassium 50 MG Oral Tablet 12/15/2019 12:00:00 AM EDT [facility] Amlodipine 10 MG Oral Tablet 12/15/2019 12:00:00 AM EDT [facility] Rosuvastatin calcium 40 MG Oral Tablet 12/15/2019 12:00:00 AM EDT [facility] Nizatidine 300 MG Oral Capsule 11/10/2019 12:00:00 AM EDT eCW1 ([facility]) Famotidine 20 MG Oral Tablet 10/31/2019 12:00:00 AM EST eCW1 ([facility]) Singulair 10 mg 10/31/2019 12:00:00 AM EST eCW1 ([facility])
[2020-09-11] MEDS ORDERED: KETOROLAC 30 MG/ML 1ML VIAL IV ONE
[2020-09-11 00:22] LABS: BASO # 0.1 10^3/uL (0.0-0.2); BASO % 0.6 % (0.0-1.0); EOS # 0.4 10^3/uL (0.0-0.5); HEMATOCRIT 32.9 % (36.0-47.0); HEMOGLOBIN 9.8 g/dl (12.0-15.5); LYMPH # 1.5 10^3/uL (1.5-5.0); LYMPH % 14.6 % (24.0-44.0); MEAN CORPUSCULAR HEMOGLOBIN 23.9 pg (27.0-33.0); MEAN CORPUSCULAR HGB CONC 29.8 g/dl (32.0-36.5); MEAN CORPUSCULAR VOLUME 80.2 fl (80.0-96.0); MONO # 0.9 10^3/uL (0.0-0.8); MONO % 8.8 % (0.0-5.0); NEUTROPHILS # 7.3 10^3/uL (1.5-8.5); NEUTROPHILS % 71.5 % (36.0-66.0); PLATELET COUNT, AUTOMATED 282 10^3/uL (150-450); WHITE BLOOD COUNT 10.2 10^3/uL (4.0-10.0)
[2020-09-11 00:33] LABS: CALCIUM LEVEL 9.2 MG/DL (8.8-10.2); CK-MB VALUE MASS 2.9 NG/ML (<3.6); CREATININE FOR GFR 1.12 MG/DL (0.55-1.30); GLOMERULAR FILTRATION RATE 52.5 (>45); MB/CK RELATIVE INDEX 2.4 (< OR =4); POTASSIUM SERUM 3.3 MEQ/L (3.5-5.1); TROPONIN I 0.07 NG/ML (< 0.10)
--- NOTE | 2020-09-11 00:44 | REPVR ---
PROCEDURE INFORMATION: Exam: XR Chest, 1 View Exam date and time: 09/10/2020 11:59 PM Age: 64 years old Clinical indication: Chest pain TECHNIQUE: Imaging protocol: XR of the chest Views: 1 view. COMPARISON: DX CHEST 2 VIEW 10/24/2019 9:57 AM FINDINGS: Lungs: Unremarkable. No consolidation. No pulmonary edema. Pleural space: Unremarkable. No pleural effusion or pneumothorax is identified. Heart/Mediastinum: Unremarkable. No cardiomegaly. Bones/joints: There are endplate spurs in the thoracic spine. IMPRESSION: No acute findings. Electronically signed by: Syed Frye On 09/11/2020 00:45:06 AM
[2020-09-11] MEDS: NITROGLYCERIN 0.4 MG SUBL TABLET SL PRN ×2 (01:20→01:35)
[2020-09-11 01:35] VITALS: BP 120/59
--- OUTSIDE RECORDS SUMMARY | 2020-09-11 02:33 | CCD ---
Author Author [facility] Organization [facility] Address Unknown Phone Unavailable Care Team Providers Care Border Measurer And Cutter Name Role Phone Venecia Zambrano MD Unavailable Unavailable Venecia Zambrano MD Unavailable Unavailable Venecia Zambrano MD Unavailable Unavailable Venecia Zmabrano MD Unavailable Unavailable Venecia Zambrano MD Unavailable [...] Unavailable Unavailable Chuck, Cyndy PA Unavailable Unavailable Cuhck, Cyndy PA Unavailable Unavailable Chuck, Cyndy PA [...] Ziad MD Unavailable Unavailable De Jesus, Marleny HOUSEHOLD MANAGER Unavailable Unavailable De Jesus, Marleny HOUSEHOLD MANAGER Unavailable Unavailable De Jesus, Marleny HOUSEHOLD MANAGER Unavailable Unavailable De Jesus, Marleny HOUSEHOLD MANAGER Unavailable Unavailable De Jesus, Marleny HOUSEHOLD MANAGER Unavailable Unavailable De Jesus, Marleny HOUSEHOLD MANAGER Unavailable Unavailable De Jesus, Marleny HOUSEHOLD MANAGER Unavailable Unavailable De Jesus, Marleny HOUSEHOLD MANAGER Unavailable Unavailable De Jesus, Marleny HOUSEHOLD MANAGER Unavailable Unavailable De Jesus, Marleny HOUSEHOLD MANAGER Unavailable Unavailable De Jesus, Marleny HOUSEHOLD MANAGER Unavailable Unavailable GUZMAN, M LETY PA Unavailable [...] Unavailable GUZMAN, M LETY PA Unavailable Unavailable [place], V TUTU PA-C Unavailable Unavailable [place], V TUTU PA-C Unavailable Unavailable [place], V TUTU PA-C Unavailable Unavailable Diane, V TUTU PA-C Unavailable Unavailable [place], V TUTU PA-C Unavailable Unavailable [place], V TUTU PA-C Unavailable Unavailable Re-disclosure Warning [...] is protected by Article 27-F of the [facility] Public Health law. If you continue you may have access to information: Regarding HIV / AIDS; Provided by facilities licensed or operated by the [facility] Office of Mental Health; or Provided by the [facility] Office for People With Developmental Disabilities. If such information is present, then the following [facility] mandated warning applies: This information has [...] law may result in a fine or intermediate sentence or both. A general authorization for the release of medical or other information is NOT sufficient authorization for further disc losure. Allergies and Adverse Reactions Type Description Substance Reaction Status Data Source(s ) Drug allergy Doxycycline Hyclate Doxycycline unknown Active eC W1 ([facility]) Drug allergy Keflex Cephalexin unknown, but tolerates other cephalosporins Active eCW1 ([facility]) Drug allergy Carafate Sucralfate irritated throat Active eCW1 ([facility]) Drug allergy Amoxicillin Amoxicillin Rash Active eCW1 ([facility]) Erythromycin Erythromycin Erythromycin 500 MG Delayed Rele ase Oral Tablet unknown Active eCW1 ([facility]) Brillinta Brillinta Brillinta SOB Active eCW1 ([facility]) Brillinta Brillinta Brillinta SOB Active eCW1 ([facility]) Family History Family Member Name Family Member Gender Family Member Status Date o f Status Description Data Source(s) Unknown Unknown Problem MEDENT ([facility]) Unknown Female Problem MEDENT ([facility]) Encounters Encounter Providers Location Date Indications Data Source(s ) Outpatient Attender: TUTU TEAGUE.DOUGLAS-SJP.DOUGLAS 12:00:00 AM [facility] - 07/22/2020 02:40:14 PM [facility] Attender: Erin Diazerrer: LETY REED 06/25/2020 08:20:10 PM EDT [facility] Attender: Erin Cazareser: LETY REED 06/25/2020 08:20:10 PM EDT [facility] Attender: Erin Mendenhall MD 06/25/2020 08:20:10 P M EDT [facility] Attender: Erin Mendenhall MD 06/25/2020 08:20:10 [...] [facility] SUNIL-SJP.DOUGLAS 04/16/2020 12:00:00 AM EDT [facility] Attender: Erin Mendenhall MD 04/09/2020 08:20:08 P M EDT [facility] Attender: Erin Mendenhall MD 04/09/2020 08:20:08 P M EDT [facility] Attender: Venecia BARBER-SJP.DOUGLAS 01/2020 12:00:00 AM EDT - 04/04/2020 11:37:48 AM EDT [facility] Unknown [facility] [address] 03/22/2020 12:00:00 AM EDT eC1 ([facility]) Attender: Erin Mendenhall MD 02/14/2020 08:20:06 P [...] AM EDT - 02/01/2020 03:01:46 PM EDT [facility] Outpatient Attender: Karel Varghese MDAdmitter: Karel man MD ES1-SJ.CVAU 01/25/2020 10:22:00 AM EDT - 01/25/2020 03:42:00 PM EDT [facility] Patient discharged. Outpatient Referrer: Karel Varghese MD MOB-MOB.PAT 12/29 11:06:57 AM EDT - 01/22/2020 11:07:00 AM EDT [facility] Outpatient Referrer: Reena KENDOUGLAS-SJP.DOUGLAS 02/2020 01:08:20 PM EDT [facility] Outpatient Referrer: Reena KENDOUGLAS-SJP.DOUGLAS 12:00:00 AM EDT [facility] Attender: Erin Mendenhall MD 2019 08:20:04 P M EDT [facility] Attender: Erin Mendenhall MD 2019 08:20:04 P M EDT [facility] Outpatient Attender: Reena KENDOUGLAS-SJP.DOUGLAS 12:00:00 AM EDT - 12/15/2019 02:36:03 PM EDT [place] [id number] [facility] [place] [address] 11/23/2019 12:00:00 AM EDT eCW1 ([facility]) [facility] [address] [facility] [place] [address] 11/08/2019 12:00:00 AM EDT eCW1 ([facility]) Outpatient Referrer: Cyndy REED 10/31/2019 04:03:0 0 PM EST [facility] [address] [facility] [place] [address] 10/31/2019 12:00:00 AM EST eCW1 ([facility]) [facility] [address] [facility] [place] [address] 10/31/2019 12:00:00 AM EST eCW1 ([facility]) Outpatient Attender: Marleny Landon [facility] 10/24/2019 08:30:00 AM EST MEDENT ([facility]) Outpatient Attender: ZOIE [facility] 10/19/2019 08:15:00 AM EST MEDENT ([facility]) Attender: Erin Mendenhall MD 09/20/2019 08:20:01 P M EST [facility] Attender: Erin Mendenhall MD 09/20/2019 08:20:01 P M EST [facility] Attender: Erin Mendenhall MD 09/20/2019 08:20:01 P M EST [facility] Attender: Erin Mendenhall MD 09/20/2019 08:20:01 P M EST [facility] Outpatient Attender: Miguel [facility] 09/01/2019 08:45:00 AM EST MEDENT ([facility]) Outpatient Attender: ZOIE [facility] 08/28/2019 11:00:00 AM EST MEDENT ([facility]) [facility] [place] [address] [place] [address] 08/28/2019 12:00:00 AM EST eCW1 ([facility]) [facility] [place] [address] [place] [address] [place] [address] 07/19/2019 12:00:00 AM EST eCW1 ([facility]) [facility] [address] [place] [address] [place] [address] 07/14/2019 12:00:00 AM EST eCW1 ([facility]) Medications Medication Brand Name Start Date Product Form Dose Route Admi nistrative Instructions Pharmacy Instructions Status Indications Reaction Description Data Source(s) Metoprolol Tartrate 50 MG Oral Tablet me toprolol tartrate (LOPRESSOR) 50 MG tablet metoprolol tartrate (LOPRESSOR) 50 MG tablet 07/22/2020 12:0 0:00 AM EST 50 mg Oral active Take 1 tablet (5 0 mg total) by mouth 2 (two) times a day [facility] Losartan Potassium 100 MG Oral Tablet losartan (COZAAR ) 100 MG tablet losartan (COZAAR) 100 MG tablet 06/21/2020 12:00:00 AM EDT active TAKE 1 TABLET DAILY [facility] clopidogrel 75 MG Oral Tablet clopidogrel (PLAVIX) 75 MG tablet clopidogrel (PLAVIX) 75 MG tablet 06/21/2020 12:00:00 AM EDT active 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 TAKE 1 TABLET DAILY [facility] 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 KLOR-CON M20 20 MEQ tablet [id number] 06/20/2020 12:00:00 AM EDT 1 {tbl} Oral active Take 1 tablet by nadege th daily [facility] Amlodipine 10 MG Oral Tablet amLODIPine (NORVASC) 10 M G tablet amLODIPine (NORVASC) 10 MG tablet 06/20/2020 12:00:00 AM EDT 1 {tbl} Oral active Take 1 tablet by mouth daily [facility] 120 ACTUAT Fluticasone propionate 0.23 M G/ACTUAT / salmeterol 0.021 MG/ACTUAT Metered Dose Inhaler [Advair] ADVAIR HFA 230-21 MCG/ACT inhaler ADVAIR HFA 230- 21 MCG/ACT inhaler 06/20/2020 12:00:00 AM EDT 1 {inhaler} Oral active Take 1 Inhaler by mouth as needed [facility] Metoprolol Tartrate 25 MG Oral Tablet me toprolol tartrate (LOPRESSOR) 25 MG tablet metoprolol tartrate (LOPRESSOR) 25 MG tablet 03/26/2020 12:0 0:00 AM EDT 25 mg Oral aborted Coronary arter y disease involving barrow coronary artery of barrow heart without angina pectorisEssential hypertension Take 1 tablet (25 mg total) by mouth 2 (two) times a day [facility] 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 Essential hypertension torsemide 20 MG Oral Tablet torsemide (DEMADEX) 20 MG tablet torsemide (DEMADEX) 20 MG tablet 02/26/2020 12:00:00 AM EDT 40 mg Oral acti ve Take 2 tablets (40 mg total) by mouth daily [facility] Potassium Chloride 20 MEQ Extended Relea se Oral Tablet Potassium Chloride ER 20 MEQ TBCR Potassium Chloride ER 20 MEQ TBCR 02/26/2020 12:00:00 AM EDT 20 meq Oral active Take 1 tablet (20 mE q total) by mouth daily [facility] 17.5-3.13-1.6 gram 02/15/2020 12:00:00 AM EDT recon soln 354 USE DIRECTED BY [facility],AFTER MEALS USE DIRECTED BY [facility],AFTER MEALS SOLD: 02/21/2020 [facility] 20 [...] saline flush 0.9 % injection 3 mL [id number] 01/25/2020 02:00:00 PM EDT 3 mL Intravenous active 3 mL , Intravenous, Every 8 hours (scheduled), First dose on [facility] 01/25/20 at 1400, Pre-op
Rapid push positive pressure flushing shall be performed with a 10 cc normal saline syringe to check the PATENCY of a PIV site prior to any infusion therapy initiation unless resistance is met.
[facility] Medication administered onsite normal saline flush 0.9 % injection 3 mL [id number] 01/25/2020 02:00:00 PM EDT 3 mL Intravenous active 3 mL , Intravenous, Every 8 hours (scheduled), First dose on [facility] 01/25/20 at 1400, Pre-op
Rapid push positive pressure flushing shall be performed with a 10 cc normal saline syringe to check the PATENCY of a PIV site prior to any infusion therapy initiation unless resistance is met.
[facility] Medication administered onsite normal saline flush 0.9 % injection 3 mL [id number] 01/25/2020 02:00:00 PM EDT 3 mL Intravenous active 3 mL , Intravenous, PROTOCOL, First dose on [facility] 01/25/20 at 1400, Pre-op
flush per protocol, D/C Main IV fluid if appropriate
[facility] Medication administered onsite Acetaminophen 325 MG [...] mg from all sources in 24 hours."
[facility] Medication administered onsite Nitroglycerin 0.4 MG Sublingual Tablet n itroglycerin (NITROSTAT) SL tablet 0.4 mg nitroglycerin (NITROSTAT) SL tablet 0.4 mg 01/25/2020 01:32:18 P M EDT 0.4 mg Sublingual active 0.4 mg, S ublingual, Every 5 min PRN, chest pain, Starting [facility] 01/25/20 at 1332, Post-op
May administer every 5 minutes for 3 doses and call cardio lab MD.
[facility] Medication administered onsite iopamidol (ISOVUE-370) 76 % 41950 01/25/2020 01:15:08 PM EDT active As needed, Starting Gabrielle 01/25/20 at 1315, Intra-Procedu re [facility] Medication administered onsite furosemide (LASIX) injection [id number] 01/25/2020 01:13:27 PM EDT active As needed, Starting Gabrielle 01/25/20 at 1313, Intra-Procedure [facility] Medication administered onsite heparin (porcine) injection 73215-849-02 01/25/2020 01:04:35 PM EDT active As needed, Starting Gabrielle 01/25/20 at 1304, Intra-Procedure [facility] Medication administered onsite 4 ML Verapamil hydrochloride 2.5 MG/ML Injection verap jamila (ISOPTIN) injection verapamil (ISOPTIN) injection 01/25/2020 01:04:24 PM EDT active As needed, Starting Gabrielle 01/25/20 at 1304, Intra-Procedure [facility] Medication administered onsite lidocaine 1 % injection [id number] 01/25/2020 01:03:36 PM EDT active As needed, Starting Gabrielle 01/25/20 at 1303, Intra-Procedure [facility] Medication administered onsite 2 ML Midazolam 1 MG/ML Injection midazolam (VERSED) in jection midazolam (VERSED) injection 01/25/2020 01:02:57 PM EDT active As needed, Starting Gabrielle 01/25/20 at 1302, Intra-Procedure [facility] Medication administered onsite fentaNYL Citrate (PF) (SUBLIMAZE) injection [id number] 01/25/2020 01:02:46 PM EDT active As neede d, Starting Gabrielle 01/25/20 at 1302, Intra-Procedure [facility] Medication administered onsite sodium chloride 0.9% (NS) infusion [id number] 01/25/2020 11:00:00 AM EDT 100 mL/h Intravenous active at 100 m L/hr, 100 mL/hr, Intravenous, Continuous, Starting Gabrielle 01/25/20 at 1100, Pre-op
Start two hours prior to scheduled start time
[facility] Medication administered onsite 25 mg 01/04/2020 [...] Oral active Coronary arter y disease involving barrow coronary artery of barrow heart without angina pectorisEssential hypertension Take 1 tablet (25 mg total) by mouth 2 (two) times a day [facility] 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 Essential hypertension 25 mg 01/04/2020 12:00:00 AM EDT tablet 60 TAKE ONE TABLET BY MOUTH TWICE A DAY TAKE ONE TABLET BY MOUTH TWICE A DAY SOLD: 03/26/2020 [facility] clopidogrel 75 MG Oral Tablet clopidogrel (PLAVIX) 75 MG tablet clopidogrel (PLAVIX) 75 MG tablet 12/29/2019 12:00:00 AM EDT 75 mg Oral active 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 Take 1 tablet (75 mg total) by mouth alberto shin [facility] 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 Rosuvastatin calcium 40 MG Oral Tablet rosuvastatin (C RESTOR) 40 MG tablet rosuvastatin (CRESTOR) 40 MG tablet 12/15/2019 12:00:00 AM EDT 40 mg Oral active Pure hypercholesterolemia Take 1 tablet (40 mg t otal) by mouth daily [facility] Pure hypercholesterolemia Amlodipine 10 MG Oral Tablet amLODIPine (NORVASC) 10 M G tablet amLODIPine (NORVASC) 10 MG tablet 12/15/2019 12:00:00 AM EDT 10 mg Oral active Essential hypertension Take 1 tablet (10 mg total) by mouth daily [facility] Essential hypertension pantoprazole 40 MG Delayed Release Oral Tablet pantoprazole (PROTONIX) 40 MG tablet pantoprazole (PROTONIX) 40 MG tablet 12/15/2019 12:00:00 AM EDT 40 mg Oral active Gastroesophageal reflux disease, esophagitis presence not specified Take 1 tablet (40 mg total) by mouth [facility] aleida [facility] Gastroesophageal reflux disease, esophag itis presence not specified Losartan Potassium 50 MG Oral Tablet losartan (COZAAR) 50 MG tablet losartan (COZAAR) 50 MG tablet 12/15/2019 12:00:00 AM EDT 50 mg Oral active Essential hypertension Take 1 tablet (50 mg total) by mouth daily [facility] Essential hypertension montelukast 10 MG Oral Tablet MONTELUKAST SODIUM 11/15/2019 12:0 0:00 AM EDT tablet 30 TAKE ONE TABLET BY MOUTH AT BEDT ERNST TAKE ONE TABLET BY MOUTH AT BEDTIME SOLD: 11/20/2019 [facility] Nizatidine 300 MG Oral Capsule Nizatidine 300 MG 11/10/2019 12:00:0 0 AM EDT 1.0 {capsule_at_bedtime} suspended Nizat idine 300 MG eCW1 ([facility]) Nizatidine 300 MG Oral Capsule Nizatidine 300 MG 11/10/2019 12:00:00 AM EDT suspended 1 capsule at bedtime eCW1 ([facility]) Nizatidine 300 MG Oral Capsule Nizatidine 300 MG 11/10/2019 12:00:00 AM EDT active 1 capsule at bedtime eCW1 ([facility]) Famotidine 20 MG Oral Tablet Famotidine 20 MG 10/31/2019 12:00:[address] active 1 tablet at bedtime as ne eded eCW1 ([facility]) Famotidine 20 MG Oral Tablet Famotidine 20 MG 10/31/2019 12:00:[address] active 1 tablet at bedtime as ne eded eCW1 ([facility]) Famotidine 20 MG Oral Tablet Famotidine 20 MG 10/31/2019 12:00:00 A M EST 1.0 {tablet_at_bedtime_as_needed} active Fa motidine 20 MG eCW1 ([facility]) Singulair 10 mg UNK 10/31/2019 12:00:00 AM EST active 1 tablets in the evening eCW1 ([facility]) Singulair 10 mg UNK 10/31/2019 12:00:00 AM EST active 1 tablets in the evening eCW1 ([facility]) Singulair 10 mg UNK 10/31/2019 12:00:00 AM EST 1.0 {ta blets_in_the_evening} active Singulair 10 mg eCW1 ([facility]) 10 mg 10/24/2019 12:00:00 AM EST tablet [...] Prednisone 10/24/2019 12:00:00 AM EST active MEDENT ([facility]) benzonatate 100 MG Oral Capsule Benzonatate 10/24/2019 12:00:00 AM EST ORAL active MEDENT ([facility]) benzonatate 100 MG Oral Capsule BENZONATATE 10/24/2019 12:00:00 AM EST capsule 30 TAKE ONE CAPSULE BY MOUTH THREE TIMES A DAY NEEDED FOR COUGH TAKE ONE CAPSULE BY MOUTH THREE TIMES A DAY NEEDED FOR COUGH SOLD: 10/24/2019 [facility] Azithromycin 250 MG Oral Tablet Azithromycin 10/24/2019 12:00:[address] ORAL active MEDENT ([facility]) 250 mg 10/24/2019 12:00:00 AM EST tablet 6 TAKE TWO TABLETS BY MOUTH AT ONCE ON THE FIRST DAY THEN TAKE ONE DAILY THEREAFTER TAKE TWO TABLETS BY MOUTH AT ONCE ON THE FIRST DAY THEN TAKE ONE DAILY THEREAFTER SOLD: 10/24/2019 [facility] Airial Compact Compressornebulizer System 10/19/2019 12:00:00 AM EST completed MEDENT ([facility]) Doxycycline Monohydrate 100 MG Oral Capsule Doxycycline [place] hydrate 10/19/2019 12:00:00 AM EST ORAL active [...] 10/19/2019 12:00:00 AM EST ORAL active MEDENT ([facility]) 2.5 mg /3 mL (0.083 %) 10/19/2019 [...] 10/19/2019 12:00:00 AM EST ORAL completed MEDENT ([facility]) 10 mg 10/19/2019 12:00:00 AM EST tablet [...] 09/01/2019 12:00:00 AM EST ORAL completed MEDENT ([facility]) 100 mg 08/28/2019 12:00:00 AM EST tablet [...] type / Coverage type Policy ID Covered republican ID Covered republican's relationship to levi Policy Levi Plan Information AETNA [facility] [id number] AETNA AETNA [id number] Spo [id number] [employer]etna HMO PPO POS GPPO MANAGED CARE [id number] INSURANCE COVID-19 COVID Lis C OVID INSURANCE COVID-19 COVID Lis C OVID INSURANCE COVID-19 [id number] 2 [id number] GABE CLAIM ADMIN WORK O [id number] S [id number] GABE CLAIM ADMIN WORK COMP [id number] SP [id number] AETNA [place] [id number] HU2 [id number] AETNA [place] HEALTH[employer] [place] [id number] HU2 [id number] AETNA [employer]ARE [place] O [id number] S [id number] [employer]ET[employer] [place] [id number] HU2 [id number] [employer]ET[employer] [place] [id number] HU2 [id number] [employer] [place] [id number] HU2 [id number] ANSI-Commercial [id number] ANSI-Commercial [id number] ANSI-Commercial [id number] ANSI-Commercial [id number] ANSI-Commercial [id number] ANSI-Commercial [id number] ANSI-Commercial [id number] ANSI-Commercial [id number] ANSI-Commercial [id number] ANSI-Commercial [id number] ANSI-Commercial [id number] ANSI-Commercial [id number] Aetna Commercial [id number] Family Dependent [id number] AETNA [place] [id number] HU2 [id number] ANSI-Commercial [id number] AETNA PI PI ANSI-Commercial [id number] AETNA [place] [id number] HU2 [id number] AETNA [id number] Spo [id number] AETNA [place] O [id number] S [id number] AETNA [place] [id number] HU2 [id number] AETNA [place] [id number] HU2 [id number] AETNA [place] [id number] HU2 [id number] Aetna Ppo/Pos/Nap/MC Commercial Family Dependent Aetna Commercial Family Dependent AETNA US HEALTHCARE [place] [id number] HU2 [id number] AETNA US HEALTHCARE [place] P [id number] S [id number] AETNA O [id number] SP [id number] MAGGIE UNAVAILABLE [id number] UNAV AILABLE [id number] Problems, Conditions, and Diagnoses Code Display Name Description Problem Type Effective Dates Data Source(s) Z01.810 Preoperative cardiovascular examination Preoperative cardiovascular examination [id number] 04/07/2020 12:00:00 AM EDT [facility] E78.00 Pure hypercholesterolemia Pure hypercholesterolemia 64 [id number] 01/15/2020 12:00:00 AM EDT [facility] R06.00 MORAN (dyspnea on exertion) MORAN (dyspnea on exertion) 64 195436 01/15/2020 12:00:00 AM EDT [facility] J45.31 [id number] Mild persistent asthma with exacerbation Problem 10/31/2019 12:00:00 AM EST eCW1 ([facility]) J45.31 [id number] Mild persistent asthma with exacerbation Problem 10/31/2019 12:00:00 AM EST eCW1 ([facility]) 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 Diagnosis 07/22/2020 01:35:44 PM EST [facility] I10 Essential (primary) hypertension Essential (primary) h ypertension Diagnosis 04/16/2020 09:28:53 AM EDT [facility] Z01.810 Encounter for preprocedural cardiovascul ar examination Encounter for preprocedural cardiovascul Diagnosis 04/04/2020 10:31:26 AM EDT [facility] I71.2 Thoracic aortic aneurysm, without ruptur e Thoracic aortic aneurysm, without ruptur Diagnosis 04/04/2020 10:31:26 AM EDT [facility] E11.9 Type 2 diabetes mellitus without complic ations Type 2 diabetes mellitus without complic Diagnosis 04/04/2020 10:31:26 AM EDT [facility] R06.09 Other forms of dyspnea Other forms of dyspnea Diagnosi s 04/04/2020 10:31:26 AM EDT [facility] I50.33 Acute on chronic diastolic (congestive) heart failure Acute on chronic diastolic (congestive) Diagnosis 02/01/2020 01:56:12 PM EDT [facility] Z98.61 Coronary angioplasty status Coronary angioplasty statu s Diagnosis 01/25/2020 10:22:00 AM EDT [facility] I21.4 Non-ST elevation (NSTEMI) myocardial inf arction Non-ST elevation (NSTEMI) myocardial inf Diagnosis 01/25/2020 10:22:00 AM EDT [facility] E78.00 Pure hypercholesterolemia, unspecified P ure hypercholesterolemia, unspecified Diagnosis 01/25/2020 10:22:00 AM EDT [facility] J98.8 Other specified respiratory disorders Ot her specified respiratory disorders Diagnosis 01/22/2020 11:06:57 AM EDT [facility] U07.1 COVID-19 COVID-19 Diagnosis 01/22/2020 11:06:57 AM ED T [facility] K21.9 Gastro-esophageal reflux disease without esophagitis Gastro-esophageal reflux disease without Diagnosis 12/15/2019 01:20:59 PM EDT [facility] E66.01 Morbid (severe) obesity due to excess ca lories Morbid (severe) obesity due to excess ca Diagnosis 12/15/2019 01:20:59 PM EDT [facility] Surgeries/Procedures Procedure Description Date Indications Data Source(s) CARDIAC CATHETERIZATION CARDIAC CATHETERIZATION Routine 01/25/2020 1:11 PM EDT 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 MORAN (dyspnea on exertion) Essential hypertension Pure hypercholesterolemia NSTEMI (non-ST elevated myocardial infarction) Thoracic aortic aneurysm without rupture Coronary angioplasty status 01/25/2020 05:11:25 PM EDT Coron ashlyn angioplasty statusThoracic aortic aneurysm without ruptureNSTEMI (non-ST elevated myocardial infarction)Pure hypercholesterolemiaEssential hypertensionDOE (dyspnea on exertion)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 [facility] Coronary angioplasty status Thoracic aortic aneurysm without rupture NSTEMI (non-ST elevated myocardial infar ction) Pure hypercholesterolemia Essential hypertension MORAN (dyspnea on exertion) 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 ECG ROUTINE ECG W/LEAST 12 LDS TRCG ONLY W/O I&R ECG 12-LEAD Routine 01/25/2020 10:52 AM EDT 01/25/2020 02:52:10 PM EDT [facility] Results ID Date Data Source [id number] 06/25/2020 03:30:00 PM EDT [facility] Name Value Range Interpretation Code Description Data Apple rce(s) Supporting Document(s) Follow Up [facility] TNRNYy4iNaAPQaZrOEZfLvaKAQfxXHdoFBQeG9X7CGdmPc6IUPubweTbUBHdBm6+ASDuEW6kfj4sBHYo gMy [file] Hx/miniature set constructor/pqnAOygc871wynGi4eGuKK/xwyZJ7m0gMsn [file] mYLtJKWa8HcKJ/4/special effects designer/g3oL7P5FBGMM5l4zRAMnSQ2bL6zesCOv9oIaE6ymSlKWGf54w5RXh7yvwe0G [file] /P6iNn1v+RkS4r6j/internet architect+CRISTINO/PT567f9SmRSMlPOun /iuiyioXWk89CK0LVaB7BPUDtKdCKrzTTi0CyDD+jTm1Wnl695zJaz7AgO/t0liYztMzIGv5Gtr8OO2q ts92H23u0wuEjKqbqsjf6F9xqB8uSBex/RF0zNfdOetRWM93vxvhSmGV77+G5LVvuZN22temcjpsAkRF xa/Mmfe9jFzPdE4fR8rx6zw1KXtHkhXI+cBn6RDHCk wmrwXX3sLVp8xTdG5GhxxdWtL1X7KIo4qtVxq35H9Y09ta+11lsamwiQr4ZMe6dIX0Jhl38nZGbp5h8k Eg+egx25woc5JnAskGYO7t677T0mrsq2tOiPrQk9TpgfFRHMA0BQxwcskV4ANJH2sVOmvVLSIa4BDK6l hzvqvPCto4f7MLdLOOsvmymfyIazukFxFKwywhr9u1 [file] qEvzYUPetvgMD+vp design+5YCO7xjLc6tP9hMoii30tcwUt 5aXugT/brkHU9W5smReMiR9/Cu20XpO+SIb/w/fu+vuecjq5zYKTeRpfNgkCsrLvoh0n6gYD2hFPUtaN VicAOJyqUJf6gP81XFLLf4q8+J5Q5GCJsrXmZsSnff4pFKWu8HIwrL1ScP1J1JaSq/2Jsoo9mRcUSmL1 7DRbNtta0DhEPyk90dbK2iSnCPU8x0yBh0NR1UP0ss fnvMxmEUjhMxO561rZuUQq85oxOrOncz2jli+1T+hCxVx3VCRcg68CafhUJRvca5Zr4puD8Jcs/otfpo 57GBW99DMe3uzPHl9GjsYsN5/c6hK9oDyutOLldrNMxw3dl87c8D9Y7ALtx75W1gmy90q2OaVZ596bds w6xmmzt9tz64bb9jc80T3vSvqVXkux43WblR9bbbxr GgI1xD5gbMS4rcvwYqcZyYvmrJ0mkEB63L88GM4LkFcRfaRipVFvWWVoBZgiYNhq4DOVJqH5nfs/yl/W dDS3fgmlZPYq7+3KnxtcBK9iuK1J2HunDAIXxdPGZHZaf6hS3T/eMVRzAcEX0kLWKBtDNrq7JpC3wuS9 uByHzJWshMk47yc9diH1LIh9OlJ0/sIEO/f+dhKgzc Fn03vXRv7rRDZ+J7oARipr/8GIWI6dhWaZpcHKBKgFBoT/p+AwHpuvL5lNywBmKgtSM3rIgRPXkpO9Z1 Trh5K3/p6ooxM/Q5iUiM7RoJxuXvGOdXXpj/Kve8ocqOkZik18mPqU5dyj9BTA0QpqANDjYsAVUjdD+w GENERAL ACTIVITIES THERAPIST/ASURzdYTXkR2j+LhyPDV3K/9BTcqvzfNnddnrO [file] airborne and air delivery specialist/TKgQQ+dP5YLP3D5fYijl463sVlVTsVTbUXskKMLcvk3Gm+pLOL6WDPeoQK+tXn3jR//YouM8JvB0 [file] QVe+needle setter/HV5cifrot3N7GHhhH27nmbjs4j4eDL1SfFj [file] oP6YDubOCRflf4bfETn8X8ZFwm7E/Avionics Manager+iu62wdMiwQfQjQXOD7WnOSK0WIglejBfiwpEnGHSUN26HOny [file] Nmrqt/Relief Master+v1RHWn70vaan5hN3wUkJOu68XWFtDj6zhVqOe1OVHwbcTJ0GAd2TjLyCfzaaPdUGaiW+SV [file] w4T6EVBFcVIStHRKlbHyPhs+7pVo6U4TgVk4zO3WFy71ZSTQyeioxzTtd6yISU/Bam/TM63brr6FQqJfI mJGAn81GlEvwPN1OC7Aza0Cjm/cL4H+BkVpX7nUu1pJcKztwANI+/Mqo3lYWpzpYhs+BUyTzePuZgqob PXvg6sBW0eoLEM7I0uqEfdUpISAGmtQfCdu2BjrL+l feRm7KNHA1NGVZ2WR4uHxVTgTqh1QIzvAW/qdoAixXOPiNxgQ5Cgwdzd24WY8u4V/6SOIgzWtsNnxH/+ QSaJsq5jyydbPdmqYhG/Eaph1COV7GSxbIkFmnQ1D2MtBpAC3z4hDr6H8usXT+KKcB6VAJLF6cPUzCr/ c9kLR/uLxn7c4+IGGrCdAjz4eB54nNbhXH6cTa4iVy Em2aXTG72/7EMoa/F8xNYMUMuAWHOeJ+Ov1Ar6V9qsLClzMdEM5aN26JqAqUag3DKDrKe14rg/g6o3su t44UQqw+QC0xd5s5NRN7jVfnIPCm2aSj4EaRq8ag5ZXFaFCIAIDVHBzJkkwcWnyTKT6WE7ry+xpgzB+y czDi3P/hjD1gV+l8fCmqo2igC7Ee19/GO0WEZ+Kk0U 7r54SqYPlNvUyCjYyEQGwXLh8rDKfsMHRT5TUK/bs+PpQkV1bJXR0WeY7GkC2W9UbvFSyrNkZ/mJVilr JELTpO2GXcryp4ibOnYiAcomogIaVs6Ee2Fot4n8BcXVVlfbqXdSkqHWMsJDk7BeZId+aD+gpcBK8oSK W1qiI+ExwfkkoNjag15ZR5ShO0s594DC+L8wyCXIJS TXjTB6qcLLocDGib4UtOZQjIub9KocSTkWplit4vTLRgXU03SSehnRT+0oYHxwxzAXFTjGVuVlNoLuJ3 9YINE1yTcJPSVsmmaRFKOe/eaggOXtPc1eCw3e6Typu3A0qE33ZTp0ZpKDCL4jIRcyVCaxRviOlXJO63 BTqzwTQsO8IQrP3oCmywW+3VbydsX/PbTg13P++RODDING ANODE WORKER [file] R0CRb4dgpge+BYABk8w/Radha/MeJbJdsTsxf1T7BBfYlX+/C6BIq9Uu5BB7ItwPKFrhAi+7p7qWz4XFE TMsuh/qRh03De8vHRR/XfG95AybzyvY9HQK9BBzuNQ ntxZn8N6Y8NTXvCkDThm1L+0mS1yViBEGWTTjgdFiZyGgdBjatgSrx10owQaXbITwjpfVgiTzZ5O5Gjc ExS4kdRhGNZaxeLSRJECyk/6JJaw7kHV+KsQwmSQhCHV5sdOPMJfbRWll6RMY29gDrohslhj6FE/kfmK 4GSMa2l8baw/TGPfsB906j17TM3+6QafTj20Tw7don u5XRD2YI8a8z4PyWFYKqSTnnLjVTqtM0yUybAoAav/9JVHkrkfv9488JGeLNWmpXrpatTYlKkjUb3NOv i6e1g1XSE/eyIK2TwBsC6zVNsCaSEJZi8eme1thacww34FWgP3ar4EgyH/jSGhsQ/t1q/T0PR3AJ0ssv hBcF6kHBHbq3XSt7XuIHPZYxKrJeb00F4xfRjxycGX GvHQ/gypsum [file] fE0+6UojIYvX/ENs6/mETLdm6JTp2W3pUmSTwrwN88aQKrI9l5UCwrQpvycNMtgxs/A9bsg1PaE/Slice Cutting Machine Operator Helper [file] social media assistant+8Bzkm/jzG3AETJ4yXTvI+o0ejxrfK43n7cZ7z4oTUf9SZadZgqaw7iyRwXZ4mnBeNPfWT5iVA0SH [file] V0cOfukKScyLZY/Rudy/XndcpDGanWWU3W5JAL/0zYyTO0xiiXmMQxV/TpjWsec5oqz+p5EG4swSKuM77 IhfrEC1gHp5JMBGqmuFrMtY/QBd55QqDP2ILjYvDcN 4nddQ89zVF3td1+faVlZNyVS+RWtLxakMeETQUc4iBj+VTlYFcLYpXg0BjmfwR0/7TMU16LTCq5gL9f5 dSmBuJqwN9RqOtomjwPX/63kuu14br+Xb1yOTN6+yu12LBr7jPmh++FGoaIIIm53xPU9pEB7fns1iUNB 5dgBTcrwoXQJjABTFkOMxhfavO19v4sbZsDh3zPqoI TwtLck/xpcxW1+OHixf8cWm91UPua8wjyAri3dn8pMymme4uDPulKjNiJzhWRiyW73oKim47jOrqN4KY kUTtbRs69F4H5zlBKlVwx2w/nI7MyqDAzngTsNYCMeymQcJ8Z+WC5Vahos+HSZhwmT+RODDING ANODE WORKER/40nMx1tJ9 [file] display mechanic+L1Z0IIvY0qqKPPLs/BzY7lBo/ya17bfezWhyiTN yg+5jdJ2B0GSTN0udugzMn3lDX1vFnjcZ22+HG4IP1upDexG8AspTX2SlS0qUBE4fWASOx0N6Hush6T1 Hc3Ev9dWH+O/Ld1tE+/FZFIbQuFry2VkQdS2PX3MO4BEiFOzNxL6Em/cUO9AomJ4zXp59nhyVcMPXzVI oZxd4K9mQOjZmK/Nk7jkiDESPLL9kRfCA5FFa5oSCP ak1yx76sz/1kslPxni08dM6MgZf9lxfMQkEjEGXlGVPCGB5rq3+3gheqxiRZ++UbBInWsic9OfhUJ/Ng 965+/zoQw/mFDc2hQwG0t92JTXux2djfojrWoFTHvqrJYF4Gu9NWAJAVTvh0kgLKwX0EWR8R7pHoW61J 3A9BFCyrK6LUxQhUl8+RrbetAGZGeDNCGCjNGiWa3X KIVR1XQUnhojF8fFXnchANbAI2rG+fnzuIBOFI8D94cwAvkuX3w9uc3eiFT13hyG/FesGtWvZOU6ghll TAAkIOF9KdyTK2RTZyjrx70k+MlLF+99EgLWnrQO0/b5TOBoxnGCOrIRep0DrFNEs2Kmpcx4J6q/uXiD 1JPPN2g0f5hElgZe8WlzmpYA0FWJR5YUHBjLQLIU51 RR01lMu9yhbV39svsKUpZglahoPwZkHCJngHZJagbBuAsDX+4eAkBx4yDvrajj79Llxm7h9C4bBftpVY Ndm6rvDJPgngsN7nnU9i1mXqO/xPtSuoPqR7CnbXGnNHraeEyvp7y11XQCCiOSvEftUaMBXETITYAA6B Vijay/KYj3lIdwtaClFrnGeB4576Sz7k5Wr0s9saYNtQO [file] 1rRgO7IyOtpBuKR6aRyp6pQEb0n9yK8R7gPc22cyjQaRVd/apy1Q991+DV+/restaurant crew/0mE91C89Dip7Dzz+ IQ6rbLB8Xg6B9niWMEfuP/jbCeFUihO0vlajeQHoR0 AB8Ff133a9+MOTORCOACH DRIVER/8yRt6nf/cdBMeAfHEe2U+1XkAVkW5khM21duZa5GxkUxqfmStzAN5zWeEpgOtuf1K [file] design ZFp+Farooq/BfbsAufK9BjAQH2VFZPNVwDTDCzdnnCHVaSu8VlPCgEB33zpxgf6CN3zaY/1RRfAn7nDeAbo [file] IjBo5qDUeKAFvvqd5/dQyQjbb+Q0/r23aAs5f+Y/Qfo/8Y/steel analyst/2IPb0TO/wu6gs1TMWyxMc/T96acjS 3wOm1iPJKcQrR42UqEEbt2Ho6nPQI5sOwqnzSra0Qo4uw1AOejNfffzMWRNtIvi0z5hcbD6nDCrYcKC6 4Dl91jqN3+HFPJfbgqtYkfzZ+0phWUjmKU3mRVTR4e 3JlTmYq9X8TGaSIhOqdQBK8VU19BxbLcwhorpwWC6wDlw7zTM6P9SKL2z916QcRHpDvYGJKe+W+mZ5yr zHtUXX0zS0e8mO3CvV8WjZNODzRAVk+3xJHQ9yEPSxINShUuHjBUTR9l3scbcipWC1GzVU90IPp9CZhz 0rO1hu1GRMWg7kYsJfOeDvBbpM6ak9kjb7IYOPNUmZ d0nMmh77ML/DtDwBs+ARiOXUkktP4nyZKCYjzkcay9bL30i0y2smUCPYrRSXyMSYMvOfGJngd/MARIEL+/O FlunV/TahZuHohatEYcmAcwBLg3nEzywEjdVWIqTJQIcGAe7QL9DqGkDXjKmeur1QoCYpCa+ubW5nOjR 4QxLgF3493+XfCWdDhd4hNNv32UxoHZPYl1Hb5q1S5 AweJOtW/4ZhBA8l+bm+/VNS2785r40gwqig6hTkUYfxt2ecOft7A14s0UnNFcP27FilvKmt/qqjPjbLo CsknJfYXCIP6FCnAeRTxjl2J6c3/ni1w49INUkPhzjxChSznDGx2siPNw3h90Fucv6fiH6HIIKSiNOP/ DoC/87u8v7FuMnh0ykjzC/6Tt6vYOw2xjoJYmHQg5F X7sgp5yoCvPYm/IvEq7Uv9nb/RRwc3kAmyoNjG0WyJM2QOaIHPQXAXiL64yOOB5/swL9J3HILVgEBDVy S+nUpgvU2I/RYsIp1UBAJ+fjlImDla58hJwn4YXhtd4a8C2T8bplYghrxWIYmQpjujuLUWkpaxAnPhhQ gGkjTJ/f/NzK9H14Zm+DVWo89B2T1jOBi7lGyJEqyK NjiSBTqn8MgmUNbD4XL2uCqOR/4Qck/pjhc7anP+jLV4HAg98JT+yATUK/aSTl4ZKgy2/mp3bE+n7v7t Z6ud/ukpBm6Cb/kVR9uRqLc2sbDjl9wueCKMMwd38uIvi+Zk6EadqDNC/9TYLFOYnLymaKbiUqk7UsdG h1RJX4dFx3GJlqrhczcot7LSIeJyw6o84lwILa58oG Q/UJkRbLg8k+AvZC4SDR222VdW/hO+IpVPAZa/zGFhw96H1FwOG/EfvX/0/tH7R+8fvX/0/tH7/41ezH /oMXJ+qTw8lsa6b3sNShFlKM+yKBxEwmN2nRUD0jKCkCEbNU6ir/3I6uEH8vcZ9w1BclvUbRaL7dj11M Don0E0DVnuj2msaztsZYgsI7ChrTBRAFDiAUaR/Mickie [file] WrPzxvxizUsx5CgGzZS7P3QOmxVd/I9nEEDlNWU17DSllt5nyfof4o+Minnie+css1d8jP5j8n6umdhIdiF S1cVUIuaqvfBo8+mLr+Qok2r49UnAVGkf9T+ovO+E6 E6PWx1/D1YqzL28kYUl0zuwq4Jk7Cb5iHaNYy6hZ6zQyxp+87CnZ+Kaila+MbkjHoUcvC5M5JnnitBe7kz 9ymTX4y0zY8wcxBC0kVCMwKMVXwz0Q2iDIz+rE5k77IJ1auwMsLo1blYnphiAx1xIz5MKSDgpwjBrorh WAcWLVaXx8S5ZAelZjlS+7ovybYQ25GMpgaXJOSsNF LlnSyYwA+MwF/6RWzjOAXKWRFcy63CRDgDbDVbMlVJasK4F09UDTqaWi8QaXRt8gZLxpTaYbuUowrtWA DU4i6Ko49wrqzl1R5Gc2oL4YxkHQ6pZVWczM0GK1nsfTFNVGCy5/pdI8gaw7XyYR1cagNWGEO4rbA9tb NGmPo4wJXc03yHhpHbGEsODxycWnL8ktmrthrpuWNL yhlYTk9CbaF/OHlbb1dkvB83ezL4SFY7lZ9+HOfXSVV7AwNxFDrPKYBKl6VaxgW5Sa0rOgQ8Pqk3aurU FljsPelfQqzWc7xRGXLH8Wfk+tKN4Fm5UzZxNaPR5mBLagOg4Mwgar8psIanwa42dXbpD0Mu7N4L3Fyf qhRV6wWAsps2LfmA1MGUHvbGCubvmoJ5ixF18cqmDO k54/medical billing associate//jrZZ5cDxGWQDePmYnip+CjZNkqpxkChppcYDcF4eu6/hj8lvM0LkSgRogBPZ22cqHYzrknr [file] Drk5PiM6ffhdYWprwwkVu1fwHzYSG6+a5K/María+VVDmmC4S95lXO+AF/ZHU0awInD/ssIke5026cZYpI [file] photostat operator helper/fdnZN0zlQfO8wyDuYFGQ3CsocYCTXtiT/fe+fsjBa/j6/MfYRptNltabYHYqrviYnH6rpn2D3fZT [file] WnG0EZH7qYJgVd2JXOQ1UvW9QK4WFQCIP2K= ID Date Data Source [id number] 06/10/2020 09:45:00 AM EDT [facility] Name Value Range Interpretation Code Description Data Apple rce(s) Supporting Document(s) EGD[facility] QCWWVq3tKtTUEmQwXIKhDuqSELnnSJrjPCTbF4U0AOndGn7PDSuzuwTjQXSdJv8+NVWvFU4vbc7qOCGx gMy [file] PROJECT ASSISTANT/WaAu9f/iBV70nWj+xRDjuYmy3Pox38QCjG/j8aM [file] P1L9tBxOQUc14Uz0s3GHdVi7YgMr4XCJAgR65nEZQla340njFCAPL6D1HYM+JUZFE9mUCDTM/SzV/Luciana 1SlUwjPy4ELIcAZbQHvGpBRtxf/dC1xq2ra2GvWPBkhTtfiz50ddlRdOmGo7bo9DGCMyssWZdPSHx/UM María+ua8r3+RXKkKX4Q++psyrGDzgmG6WzahOtPcCrm [file] WwS5G7y+fj/hf8aR59xbrfLUqJj6unNuW0XZpT1wFcmA068epk+yboE/ny1aQGoT51D7gJlbP3U2 OxjD+UXffR+6Kqhm+4Dls7DFLhEga8tl4BAOFvciWLN7+w3dY0PNTHyG3/XOj+lDi/g/+Is0ZBEhCTW2 rDPj1iqdr8AkK+1QfvIRwAoDxrSF+KwHg+f446kMMU Y06aEuShJM/Qu969wHeB4ZQiVi9sw/tQBhHofEMlhl5c83Wms3C/zDRqI08h+UZfqDYBne47YsIt8p2g Oagt/mbaTDxGI6+pN8fbg25XsQMGaj/b7V3jekvuDcO5TMZiuycqvzCm7luitXpWKlv8wcNWy0vpyJbl L8pUwFQNfWBE3nggf3BzI7bHY/VNPRAUcchqGGr9r3 Zr1+n1ifaRuiO2pcWmZvVphNxsQcymReNSVTla/5sfy/N2Dmp6pqFuA2PNj/Maria A/nvCdc4LJa2w6gcbW [file] 01c0CpS6Nh/insemination worker/dvxOK8vKqBmLeo1rku4+NsWJKSW [file] lyo3N1bxWBhQwxHdX41dsVmYJrXJ0ABK9k0rNN+petroleum refinery operator [file] IljJ+vvZewi5KdnYjOL9iUdtq3M2fTs0RKPEhkb83yF68fDidvuFER0OyOj/KR9Lo4YAV1kBDMtv+Saúl [file] e/McQiEvNl4fVLEB0zzJGk+Noemí+MXIBqtXbMhM7VKH [file] JnmINp5v2DTZaD0RnwblvsTT5Ba4pc8f9erORc9q8qDKKoN7Q9qB2c/pMMa/DRTLbD03phtZG8SDr+HOUSEHOLD MANAGER [file] NOalMad5WbAj231o+Pp0LC2lMXR+display mechanic+1hBFxAo0BiSI6yoZoicuTlQb/ijdyVkGQfnqHZszkLScDk6Cb [file] Gn/lenKSVt6iiAwnKF47vr/Fm7e71/+anlYocg [file] vp design+e7IP1UU/0pzJYQT1dWDLFMoW4YJMX2fDgSL6/PT [file] gLO1Tyn2Gq5VY+BD+WAw/bwgpetTh+nXPh4GW/LYJD7B0ahqgvX6Vxo2mRU6oasew+uvlV7k/xRUE/Account Administrator [file] QQ7I9c+SqcD0gC9uyeYfvrlbR5eIEVtA6tGnagL1NdnOvnX4eGzEVemBbFexhFiGqfUeQbXf0HNsW/display mechanic [file] 7K+DrxKKuUnA5CSIgV/Vijay/NqOTly8ABJBbr5HjLdWQoNv4ubDS2oo5tk6l0MgrfyHfF4PEmzeF5hTP48 G2rkNr9JHE7CroH5XSXrRZVW4PZF3GNDrWgUojnGyeEGW0zKv0j6mO0/TZ1Ii1JceHIAIMKoqNp4pIht /CtU8uypJyYkovpNu8k42YUz/5CRsXfzFqbxfmtU4+ cIupKsDyhAUdXEQ1Z0B3z1J/YLZJNUO/YI5Q/dHZZ0BHTx6kez9jtgk1oHMUxp7nR2SyCVk8bi/k/AL+ 2EW8C/qOa0hkPyUwecC8njs0kqeCK2wpSygilx3jeR9nQf/b2TkMKIt0/60D/oWNMpeBFTv3kTkJfzCj q+2Rp1Vrmn9aW41UEbwW1/Uzzb8prWl1LGaT1qBahq MPD/d0gvaMDbD0Dr9xCT5RZeJ8jpTcu0zlUZaQrlmmRf22O3k2oDzi6DbNQ3SxJTLrInbRYgkB4XZjXZ X5ZCGpo2YXxL372oFVWGXtSgyNWvM069AObrhHNYkRLRpaJsV3dp09xPMnGaJUER1Z9Xeyat4ibp6HGi llDdt6NB/u9+D20TThPZyfiDZGa6DoVcaj1usYCr6s ASyZwC8xTdNyYx9KRwdO5mu04qrLuX23R2kuu3l2r+M+RFRQ+4/4wA/xGn+STtjZXq0uIlJph2yHnvpn 9hwumftTcObHOvjQR/FR+b7dXjVaszI4gVmP0RmKAiHI2uekzLZYVTBTAEEMPSvq7nrY9zaTLTFddhbL [facility]/964saC50DJ+WOX9+Tpl/aNVrCHsdO/jf [file] nbq8jADxLL7neBRtuUIJ23Jn+lp7CdrIlzNojDohR52uYDBiSVrG+krp8AWf9as9MzvNntCmZnbP+armature inspector [file] Gómez/qbcvk5OJD2grI3kWnXozN6nOuT58OfPVLnFot56Go60KB4xhIVDiOBdQgMb5fNb3Dg4VzXVa65Qx [file] v1IF+DQVZLpQRxw9JywrGqw0UjDTtBAh0Nt/vp design/CgxqXnkRy9zakhYrfu2goczH2tlHGpfoma33wiUkF c0OA6mEJaukxPVvaS3OnrXhlpP1tNfaWjkUzM1l12Rfzjb2RVaGIVOL23uC8gZaYEfkspnH06/9/wZJk /gNPdGNNg1IZZn1jxseGdshUcWBndQJkNdPJ5iz0Gj 8fbs0CNOGAnWLk7M22YZgtz7Eul3EIV+e7FdvVOiNSTLEA+R5HkBAyN5tkOLNnSpgwhp7SDM3H20qFzu 9xufRfDeix5D+lqr90gPhQ3+S4+gM9iAGTHqSxCsjnOTZfg1stSKqkOxJ+/mnkzxJ836eo62JelCK+Ul 9o0biNnGrr7HVPRDX473SD36IqbkHjc73qYUmluYqw Mmi8OeEht0ugOm8tLA/vMmz+22oT4bGgl428okC5tFn8tAFXtZRO5rYsyWLESunVKAg/M0AdKbzpBFF4 42jFbABs6GV3pRqVKjJi+LxdVdz3ym0L2CLm590SE4m0Phc86weO6mw0yIed12vPsLTuTeARw8WfruR2 cY39ah/Mbza4KM6+tpE0qNo92nB6x0gcqI3epp5GSv i41IGiIfdtwrUAv4lAaYN6tk7xBQQ72PbInLTheotE0jVYP/XJtWP4S3ePzh/azlIUO/EayV1IfTpHtI UnUrljgYKwg/2Xn2PhTb2b3DfECjNZM5uXFVEnqOXJpGSxMbFjVGjnsciBJnNH2iw3nGppp2moqX7192 7o5CQqMxwafAuwokWdxKWGfymtfaA2xhilebYIJJxi [file] YVHXRjXjKAF1oeJjsQ4UFD3zp5NhQB0Hj4CthrF2jhJvSZd2QjVuFwuUTyVwOS9X ID Date Data Source [id number] 02/14/2020 03:45:00 PM EDT [facility] Name Value Range Interpretation Code Description Data Apple rce(s) Supporting Document(s) Follow Up [facility] GDDXLh8ySuNNFiHoFUTeOutZBZaoJEvfQWSvP2C8FFqrLi8XJZleloGuTTCyOl5+XXCtNG0oie8qIATy gMy [file] 0TAEIkJBeFTFOKeyThU53Yw6A02uuV+0m/iIwMA1NWWWbnKWJww2LAVByN2i+fishing tool technician oil well+TSu722f+G3grRwL [file] QJIKxeGv8nh/DxeYgoZlI00JBQQfeDniRTVF0CO/display mechanic [file] D5W6uHKfpFgu+Wi4rP2csXKqdvdk/d3LB5GFr/Z [file] YB7ysdOxvvIa7VsWDzNZGkspqxciVFqSRZ+lNEcCCefDcrusjeIccv5XNqlDxvLsLkPirPG9/needle setter+A4h0 [file] oQ5q0K4ZkhfUbcFPawmbCoElns9x/9MhYbTzGOnpvkCrILz1V0+display mechanic/+BeW2c5hhJJIDJ/LJD5XxL4ihW [file] nwMawRBUmZM3Uu7jsI7lj/Lester/ugfUwlVqwUjkklW6 DcxdIa2mIpVVl3rUYLK8tu7ITfc9xhINPOe0IRmAblONiuFMWfQKpRfD+/LVM74QtRQxysgqpNT7yCmt f6uiTbdsqFbe72z3i3DFgdCHeyeoOnk4aQRcRGiVqPlzRBAvCZL/f9iBXy1VwCA06lsBw7+Account Administrator/ipakJI [file] 9zl7MmmZMJ4GSqIcU1tfc/Account Administrator+bvCw5uxBBAKVFr/Jf [file] mzmJjC1tPEfTGmjfmxG3cJFZ+jEijAQpbtKwTK0hcAh3T9dx26OLo0avziE5+Gr3590rcZgbkRsaY/PROJECT ASSISTANT [file] Federico/4D2vfxpNPW5BN5oLyZeWRwsCnOnDdSkp1KwRYO03eBAAe0jg3euWToVgivnrzBdRCFEQU34hnf8y EWcIQHO8CkuIvhGemv5BiDVNFraycvVqIX7IRWqZP4 nd2NYUeaQNLdDiv4i/rdZBe9GRoAHkzoQ14CICdkFEgPGTtz2Ue81K7wR6QUmT9emCtauYa1RzxBVQ3B tqMVQ3kC58nDMJFFd3p0A0iopQIpqY0BFsfe+VyxpmOjmIbP+6vIobyGK/Ykk1yFVTLltnnzZU8/AUvd 82WnStu+JIEz/DEds6WERWaUE3zdUPin1p0btCGi0f 8Ur/mXSaRpXUHgfYEAtyoFwX4h7PbNZ1gOqgTaY0lF0TmvYQ7UBmWFRTDQRlk/udPVvnOn79AiaxPg1R FScpr2o7Z2CpGPjnz2dzmIOGXSMYPbdGXrI3099rk9iPcF3//IHYxaBklUAW2Ii64Pae33JPkcsxyM4s j995m4goM9tkqFtoWy++paDeO/FvaUEGBejAVF4nro 4fLUyOB7HgVLdUYmsabLCCuhxM+Ashley+v68PivuRp4M0rWtsNvKCJxpTFQFLKTNjnPeQ46JY22r8DgWVS UjHpye4jdiO8Z51hfxl/mNSlp+ZIlXZ/dlbc5I1p7pWkSEnFmUJzxhqTOtT5lyIh1A6UrnN8cLa35j5e T2MQ6ZDy9g8KydMsnp7KrDVcpi6dT/p1nadIf+a0SQ 44Vw9LP9HohLJlDAIO5AzVeM2zwMGYhMqq6R3IV/2M3rK/RPXWwxs6vfouRyxV0Uesg0rjnT78frA2va pMNYTueSn+WB6eYFsjraUeLlWHPxHJeMjpkm9N/Bkm9VKk03DheziQVB7a2L6zUwZPwzp4g9hdHHK/O5 /ojhTNXfYBjpjJeG7wQSMFETYVkHtrTFBekYCxUBAj Rzjo8HoB9WGWL0peWvCcZuyWu8/3cQci9KFoGmBP6yv6p4YE+RYFa4z3BeMUYODpZFf8XOq+LlzCumdx nLxJ+JIO0VtcBSDv7/Z30QedX1+21P/Um8ihzkei9meTGSXeVMWIAouNsUViJTb/aA3B+lufe8NNj2f7 bL9+073/As2Pl0MUsvUEmIayvx8FH399DlhaZaKOkU PvRwz2KXT8GJkJOuf+TizL71r2YaHqWud6m7F6NyjkleAv+m7Nki05OQZJffzDnh0xKWO7Z+rb7bZBig AxRUg1B1/qsrcWSU6VWEPRRKIyVWoEmgD1XsQ3beW6SyvSd6lZ6+LJXXG9ixViVE9/9PNzW9twMmOctn mN1LUPJ1dx/BeUbzI4XuJ1lvKVPserSWzf5/ctOGJp DkjwWiKfdS/dXyVsMQnXAzBxbLA3bZiaS8YS3DHYLJarheZcUIkLmqsWsruLnKZrHZQIMQ3CzUQMtKYp rBR/DwwnRr24pvCY3VYkylvLqw/ndAOyd1muFFgFstq1zXWZ2zGo46gzIZcn/YZP7+2Wr+nf6fL3alLK kzDzwR6+FAF0Rdb5ePS1XJLJU5qI69+build engineer/25YD6sG [file] needle setter+d26Ro9bC2LfzuOoIpRgNhzo9xWBNSzgUHa1M8Nad1kH2pnqdRGK5rqIVBtW7WnR7GuZrjJ3WLmmzv [file] +FArNk1YL6nR2YWKcfQu1Us0e/zIYDu5/PMdG [file] kVd9mh+/ig64DWJUQp2PI9LugphCHOpKyAMhrW5ky7trTqj9JaEt/r09Ow2yMYSNhqnS7Ai/BqAM+forestry engineer [file] lhT/IlSoTVM/+Kvng/Z+D1aRI1+wvIjukQaq8HGu4jpHCcZauAYjyfXFWRUHQF38boDPYSnNbeSG8Mu8E NehYJN5Ol+hiszexJ9Jzz8+TJukc54WpbrK5lIHvPY FF/t7jn9u7bVel/KOCsxAh3654z5NS3TG6udTlLVIaEw/QU2099cTvFVuHJNTaQQeg/tGIco7MeyFtD9 LW5Z4mzDksPp7wNxddB4fePAQzh5DUmoG6iyhR35X+b4eXB2AQsayPjnxGpzKS+ge3S491aKYB6kvle/ 8ID9twQEtXcRCSwkSeBsmN7YOr03z9XyukEOy83Bey ZFp+2Iafu4op+UOlJS9idoL3bn3hDPEh8NK6Zi8TsH1E8U9cnPqdvu/3qGF8n70uaXUmqiSSkY3g5hh9 ZaxvQCxG3MJgp0mViPJEDmtESBBHxq0o9zc2TVl/es4pTxxjIEtnWqe+mcX6RG+HwaE892CKy8UYMWFl Alp/z9d8ZyTu/Yw7HjzOFngAExmWELht2EE/SqvzKe 9bW2QDyxQwTlmXKuz3aOqvTlmX+eLKvJLj6/Jez7MmN4WpPyFdZ2ZX/h0m2TpQV9tU58nlzZPkumbUrE EV2LOQhi8tYEyH/KbYjKiFg11jg9QJ+CLrYuTg0O0v0Cji2NV1ZClvvUnmN8eBbl985c+UWV2rtDBsoS mV2GBu6/xy1p0ka6dii9aOvRkWEkaebzUh4L7KDorX Xo63L3mu1ufE6maKo+MjZ0YAQ2vCciXEQLQ/uzecxf4hZwvJmPGJ3hASqXEU8NFAlDXRfQaEUanh5W4d XHT3Xl3RfJeKSwKEqiPjJ34xkQ+NyWbTuTyBwdrC6MOzDvjNPQykdYBDGU5SHM1YCSUk11jSZKF9vLuT Zxx2ls5NibvpWwRz5D1J4Y9ocQrY//uqi0h/n6I40d rPQCpKJYrpxjwm652nyGkFwuHTSXnJ/mZC4Zy11BY4BERkJTBZwlVYy8n7qqVa+s/MfhS3DmFFX7Al2y 4tEk7dBEk986zZEUtGV6jQy4nrJV93FoOskNFC6if91bnrYWhpY9ajy5Vmr4sK05XLwgzJhTyevRH+Account Administrator [file] design [file] HbDU+zDfq/SHEET WRITER+DdDzCyMxeZRk4J4NbLh3SiHxaDht g6JiOabcHUGicqKtxaF8AwaECePEsEAU6/m8sinNrXHV+OnOq/USQ/5n7YSbSqkgFxuBqn/TuWcxlS+d BDtzgtkQs0hbPpbf3nrVnajL+5NPQ0zhO/1KGlw2slZSy+O6n/eqzYT2LcB1kAtPPc9engXmFODwr2vL Zbg0+2HSneORluuh7H5f94irLQ/nzT1A/gMX1LMXuO XGowCjubKBGkkcum4eTRDRvfknYwe2Z4atFIkGX8ITWQt7XrC5iksAsR6x9NPnBPfJ3eaTxtNtb99fzb AwrHMWMvr0U+MzbN/JHYo0kLIe8/MT48EBsEZyrG4BDZ8Q/rbiwyaEN0KakflOE0lbyhr1ouWsbdN7at 4RGB6Wh30j3287cON8z9/79/9/G/ZAE0Oc4Q17xGYL [file] ao037uJuvEfXEu17oVJp4665Hg2R+PGbxbNjw/sheet heater helper+ [file] MwDQolJUVPRg== ID Date Data Source [id number] 01/25/2020 01:14:48 PM EDT [facility] Name Value Range Interpretation Code Description Data Apple rce(s) Supporting Document(s) &PDF [facility] JQRFLn0wBhGZJuKr24/SNVpbNXIga2CvEXgjEDq9WXriQVXrM1TrqIfcMF6LL4uEZU2rL1EWJQ4nADOr yKE [file] fFnE0v0w0/QSwx7KDhbnoLq6WvJD6wROrMi0NFG2GkY+RQH9oXrd0gNz+yiL7a+Q3M+71oBC0f68+battery plate remover [file] twEUXgw4LAks0Uc2WnTEjCBb/i++trader fixed income+af5PlP5WXU [file] 1CQSTJC4QMHi== ID Date Data Source [id number] 01/25/2020 11:42:45 AM EDT [facility] Name Value Range Interpretation Code Description Data Apple rce(s) Supporting Document(s) EKG [facility] RGSUKh6vTsLEQfLyk5YkVxUzCXYrIY9yopq2A1X7oWXyE5QyjZEed6xxD0OrN8IdWOJzRBCZJG9JvLJq jb2 [file] 31B52pW0+iwd7AK2QGw86/qX8/89c/eSz9+9nf/sl3 6N/PGvhPXjz/gdrPz4J9ybZpwTGcW1+6ro/Yh3pvMuqTtglzeewv7PI0+vvck/MlU52OOF4ayaGa0njt 2clTuVoqyazCxWA7C0kD/FL6i04vq9Dda2gNM/xiH0ys9EAE5Ja/bkw7OLLTH6sYNj+z0XT3ebkkG+iF 07sHHMfaJWLtrKbfjFSEcHMV9sOwpUgI8XpHuPZsMK /9L+gN+aZu1shLMDSK3EY05EB5OQ6+HXw7+X2vKyR5joU/tOzXQH/JSL1CK8MlFZ6qfViPZ7S8xA5ctL 15klrX9So5+Y3dZbX2dPpYaT3s/S70d6G/E5pBumvvuTHwqP2BvKq7pzohpUfP2TZP4IqVx6EhbDX+D9 7vAd+HlNQK93NfEf5Cndx6O/mj0SeNSG1vXLgJALKQ EYYK1Oi2ww3t+aEwHmMXiG3eSr1aoC13q7RIZ53uLqM/k7za+n/w3fr/SVryKnSzJnnletoVdAPdQQ/c O/FM8IV+3MAq3O8Xf5A6kv4H0W48j93SAhKItNw2hqK75WC88UZiA21hXeNRPz0RP9Nb7QB5YW/QG/RJ EvUYjpBuSGnpz9kO/ehSIChkLO91Xu+KtbVJvyrln+ qsy48Gobzsr4EYPPsJ93Q/nB3+eU90i6Ild+ty/zyX/rku98+B7Z/rcv/8GP+4SjcTvgqf88H/3Mn/uS 73Lyzhn+tyF+xAwwana2V476whljd6WzqpAsUk88M/ggP+iU15m7B8e+ty/3xI/2di347f5G/rcv+cXP 07Atfp7Wga65G/zvT+tA837Yej/La9lVn5Wt6FvePh bWj8MV75Z8EMGzitQobOTX/jiwyjtpXqd9tg+w5J4XHuTi/X94jdxiyTguY+V89r8Sv8h+t+f1Lf6E/u U6mtubiSor2lm7rjbc1/m949i4cYBNjUI7BEfL3Z6wVht6XO9BTINHF2x++bmb27O8qYPGr1OvILN1tb 9e0iecO+Iznzk6G7/xZJ0T++9jA659fPErdj6Rk4F5 pQ5pNDHmOzzgx3FSh3UP8ym3xKTaETSk5v6no16jJsW0dyyKjJzSoT///w2pSceigU5EjGNte/dLQz5N T39X9mxS9/ai654QyMNlr2Bp/8/A6+Ia/6BdkWVTeFpdm62cpdfmt+JI4L/voY4x/byc8ygn+Ns4K/8Q xeIa88/oQafevSyJokSsAxhrD4iKs/a+lHzwks14Ut /GpkfYo14UngW34eaVwg37K+U8/g9W354SaA/ydWPoomjPY16Kecj73EoLYtGT/QE/PNjHAwygE4Nvp0 N/hCv+o79cm+c13oO+VGl7zy/5Bb5Ga3bC3ZYe6VM9BDdKn5SRA/0K/6Ad+J6owbD8BKBUWrl6iOAap7 dayr43aV0F186qrMPgXdhjDA+cHtgxx98JI0+zvKAr 1B5ziP+hQwbGJd0Jwi5nqfE4H57cH/J/4b01eE8G8V0ledKutBN4WMjoiub66ey2wQEkV5k26oCpm8qf wb2J16RQt6/5/96m/X/514tWfR16GbW+3Hw6T/r0CQInHmvpu/5NVfm+Y/1+X+m6IlWi1VMk+hFVi0hS tdFA2HizMr/8yb/0uF21qjWEr9XncPOFPY2TdqqTa4 Ia+P8Xqubqe1aGmXlgja7293jbniuqIaW3VOsTCvYGvXocx8oBPg4wSePuei7m1VX0+Account Administrator+xXpkteA/vV kE2HeLt6G/WUfWLUU66A0q1zZXgMs1tTt4DbkJKQjIzr+9NlyEdj4CL794pCv1MH/WrIfqXvRfYrfUey X+j6er1grX4+nkUpJ8zBjyV3qq3L4+Sk/hsba4n5lv p+5XraYb+XsP8pU8X9WjubgmnGGmhPl+jQY4/o/VydPKzx9/qQV35+wRj9q5LC4aq1+T94wb8kPPpkkj c+qZ+j0z/W8aCCEgonreDDU6la7ehNZYWir5SCtg0JVNMobayg8i5zoBHx0xUTyl91l7YaqJkpQ5/smi 0oM9RX4ON9D84WMfqqol71g1KAKqrk9U/QBXQFnevR 1RprY6JqhCOv1MrHy0NwZU4XrsQkqhKYE2IiB+xIj6NqvTYgkxHVG/arOTHOsF/D2EDa6d/E+095r6FM Bl/bG8Emdkr6UgP0WC1C24vyzzeZimcIdaKzI05tdy8UrsV02klz9rCWA/rILe4Hjlj85RQxcUW+Howz 6pVP3hn8FR9K1kw2nz5Z35H7l622XK1xkF+tJ+1168 [file] f31fgz3lXDigMYWA+4+/mD964B7N222vX77UOVN87o kDD93/O7elaJ+2Pja+uV2+//jL+5/+5l2C54t+9MpvNX/6hlrE2MwCI6ooCP/5+0Pw3//75lG2aaOiW+ 2riWPbH+6/+MP9d9j+8H4NbC+mgxKst8iawlJCGtRlEI2X+GFkf98J3eu0VQIr+28Eezhn9ak9gGY/horticultural farmer vv9z//+u4/LlykJxdvbp+cddVMp3Xl//zpT7/7ZO9x Ib58/+DcK71y2w3y+/N3f//u3c/fv/t09vfIdkn18imBU72/8yR+/UKdUb/72xbpzIq1Vpqa2qsn/fvv /vbx++0eNrW1sdSbb/265kz7/yxFj67mc5fU0BdneVLiVi/z7r/kN9y70d+Pn6U+aEuquKO4pVyhqk6x 4fE7Y4QMjN/bdwtf8w5F/n06GKNBa6Jx9apply/2fZ o6kVCkfq4WzO9Q8dppWdcxjxMkfZZhCR1TJI5hv9IaBuC0YYUyo0AiWBtcFNk6yBYfRCnzdeDly1Kqdy lcJ6Wqb6SvOzYmOMOfLkOeJcf6NQKaLzY4vEUwWoQqZVIwU3UbWOIfStD8KmHjNVSMZU6BIZMfuvAuIx AwIFI+WlTwNX5lqnlbGNUyv3FbFMftZMkyFKGhW0J8 vSmdOYIbY9KbxF37ZWOnO5UmcdT2DAR6DKRnEgPwLEKgtDCtDHFrLQP+WfOkSA5liqgwRLVel9RuYVkb EXS3aB8mBYoVLPANNPrLXXudLmI6i36ydvPRUTIoGVZmFY3FhgIbmEukonTfoODdJDX8AaMlRFO4Jeao FWOmDMXSBGBcFSNbKRNnTRCiL3IimXxeMNxXMLTSXH xWGTxkSwQbw8X8CFEkefJUJFHPRQWRBZRKOVZHQzBzKJMcNNYyXnmaVM5WjGLuFTR7KXbEHFKOLFrYUV pbXzBmy7V5SMTgB3EaTHSyulSrRDCDZAlbHnnzWK9ntPbsgrbuH1VaqMGnVIURAEGzNMFiIBLiEBFvZ8 Xrv5J1D3LrJJtIPAQYGFcTOOatXcO1v73ymhZVBHOu ZXMpID4+DF1ti5RkCv2BJHRvAZ6qntr9KN6YyHZbHT6WRCyusdGeF6fdbxFgKqBtITOUTQ9hH3UumI65 YENNIFER+FvXlZT4selk1tgCzBeTaXEKySDKqTFUdENhgRSVmMUGaOWDkSTW6DCP7HUEiMzPfSRErDCn8YNBv NHVkXAShqxLNDZHkDYR4AaI5YBQeSGLrWLBaVRbvFC IeMUF6NnX8PLZaJOEhRF6mHkAiBKUjEPTcANWuTlL7XmXtEpASPTGcZRLpRXJiScMwGMCeQLSxWDelHU LeSQPnGIx6AQUyYQLhRA6oMgSiOYLtSYWsIABtANXtDINbhqGTXWYuZQDeHHI5HAEkAPSsTCBlNQqrUY WqDBVeICT9FIRxRSSrGI6bLmCxNIMfUUT1DfAwKLQt CGSrbfCHZGSqJEVeAPL6MDHkSVDuQNZsTEmsFFWnBQKpJbZ6LLHjJMEdEM7wXcCzIVAlISV3TRLaXNSo FBTokoZWDUOwWQKeTHh8GwByIIUoGMIoGUftNVGhNFVpUNvpGYKrDDKzYA7yIzCpDLOuEGUoWEWlCVNu LRFaxsLAHYHgBQQvSSB4SsUwSNGnLLKmPMccKOIvMB WiDOX3TIHrKIKmHQ1gFmGzRLBhAVmhNWjgTEDqIMZxasMQWECyQMZlHEUgMUJrYQNbXBJjNGgcXGWlUL BnOrZ2YNCwWALvEA1dUkDxPIFnSBW5SSTvHAMbZSDksfWBYENhEHEkWXKiJLQ1MWMvRMDeBHk4ljAxoU DxYop1Eh5YeDipVYC5Yv9GqxPmDIQdBQKGUz6Hg437 IDUgMCBSCgo+ShcyxZXqzTnrAYMGIFp9DBMJDBVNJ5O= ID Date Data Source [id number] 01/22/2020 09:59:00 AM EDT [facility] Name Value Range Interpretation Code Description Data Apple rce(s) Supporting Document(s) SARS CORONAVIRUS 2 RNA [facility] This lab was ordered by [facility] and reported by [facility]. ID Date Data Source [id number] 01/23/2020 01:06:48 PM EDT [facility] Name Value Range Interpretation Code Description Data Apple rce(s) Supporting Document(s) SARS-COV-2 EDGARDO [facility] Not DetectedReference range: Not Detecte d Testing was performed using the roselyn(R) SARS-CoV-2 test. This test was developed and its performance characteristics determined by [employer]. This test has not been FDA cleared [...] result in this assay. Performed At: [facility] [id number] Mich Ortiz MD Ph:[phone] ID Date Data Source LIPID PANEL (CARDIAC RISK) 11/23/2019 12:00:00 AM EDT eCW1 ( [facility]) Name Value Range Interpretation Code Description Data Apple rce(s) Supporting Document(s) Cholesterol in HDL [Moles/volume] in Serum or Plasma 91 >40 HDL CHOLESTEROL eCW1 ([facility]) Cholesterol [Moles/volume] in Serum or Plasma 179 <200 CHOLESTEROL LEVEL eCW1 ([facility]) Triglyceride [Mass/volume] in Serum or Plasma by calculation 67 <150 TRIGLYCERIDES LEVEL eCW1 ([facility]) 88 NON-HDL-C eCW1 ([facility]) 1.967 <5 CHOLESTEROL RISK RATIO eCW1 ([facility]) Cholesterol in LDL [Mass/volume] in Serum or Plasma by calculation 75 <100 LDL CHOLESTEROL eCW1 ([facility]) ID Date Data Source [id number] 11/23/2019 12:00:00 AM EDT eCW1 ([facility]) Name Value Range Interpretation Code Description Data Apple rce(s) Supporting Document(s) Hemoglobin A1c/Hemoglobin.total in Blood 6.7 HEMOGLOBIN A1c eCW1 ([facility]) ID Date Data Source Comprehensive Metabolic Profile (CMP) 11/23/2019 12:00:00 AM EDT eCW1 ([facility]) Name Value Range Interpretation Code Description Data Apple rce(s) Supporting Document(s) 89 70-100 GLUCOSE, FASTING eCW1 ([facility]) 17 7-18 BLOOD UREA NITROGEN eCW1 ([facility]) 4.5 3.5-5.1 POTASSIUM SERUM eCW1 ([facility]) 141 136-145 SODIUM LEVEL eCW1 ([facility]) 1.09 0.55-1.30 CREATININE FOR GFR eCW1 ([facility]) 54.3 >45 GLOMERULAR FILTRATION RATE eCW 1 ([facility]) 8.8 8.8-10.2 CALCIUM LEVEL eCW1 ([facility]) 111 98-107 CHLORIDE LEVEL eCW1 ([facility]) 25 7-37 AST/SGOT eCW1 ([facility]) 28 21-32 CARBON DIOXIDE LEVEL eCW1 ([facility]) 40 12-78 ALT/SGPT eCW1 ([facility]) 6.8 6.4-8.2 TOTAL PROTEIN eCW1 ([facility]) 0.4 0.2-1.0 BILIRUBIN,TOTAL eCW1 ([facility]) 108 45-117 ALKALINE PHOSPHATASE eCW1 ([facility]) 1.06 1.00-1.93 ALBUMIN/GLOBULIN RATIO eCW1 ([facility]) 3.5 3.2-5.2 ALBUMIN eCW1 ([facility]) ID Date Data Source CBC - Complete Blood Count 11/23/2019 12:00:00 AM EDT eCW1 ( [facility]) Name Value Range Interpretation Code Description Data Apple rce(s) Supporting Document(s) 4.37 4.00-5.40 RED BLOOD COUNT eCW1 ([facility]) 11.1 12.0-15.5 HEMOGLOBIN eCW1 ([facility]) 9.5 4.0-10.0 WHITE BLOOD COUNT eCW1 ([facility]) 25.4 27.0-33.0 MEAN CORPUSCULAR HEMOGLOB IN eCW1 ([facility]) 37.4 36.0-47.0 HEMATOCRIT eCW1 ([facility]) 85.6 80.0-96.0 MEAN CORPUSCULAR VOLUME e CW1 ([facility]) 29.7 32.0-36.5 MEAN CORPUSCULAR HGB CONC eCW1 ([facility]) 300 150-450 PLATELET COUNT, AUTOMATED eCW1 ([facility]) 17.6 11.5-14.5 RED CELL DISTRIBUTION WID TH eCW1 ([facility]) Procedure Social History Code Duration Value Status Description Data Source(s ) Alcohol intake 07/22/2020 12:00:00 AM EST Yes completed [facility] Cigarette pack-years 07/22/2020 12:00:00 AM EST UNK completed [facility] Cigarettes smoked current (pack per day) - Reported 07/22/20 12:00:00 AM EST UNK completed [facility] Smoking 07/22/2020 12:00:00 AM EST Former smoker completed Former smoker [facility] Alcohol intake 01/25/2020 12:00:00 AM EDT No completed [facility] Cigarette pack-years 01/25/2020 12:00:00 AM EDT UNK completed [facility] Cigarettes smoked current (pack per day) - Reported 01/25/20 12:00:00 AM EDT UNK completed [facility] Smoking 01/25/2020 12:00:00 AM EDT Former smoker completed Former smoker [facility] Alcohol intake 12/20/2019 12:00:00 AM EDT No completed [facility] Cigarette pack-years 12/20/2019 12:00:00 AM EDT UNK completed [facility] Cigarettes smoked current (pack per day) - Reported 12/20/19 12:00:00 AM EDT UNK completed [facility] Smoking 12/20/2019 12:00:00 AM EDT Former smoker completed Former smoker [facility] Smoking 11/23/2019 12:00:00 AM EDT Former Smoker completed Former Smoker eCW1 ([facility]) Vital Signs ID Date Data Source UNK Name Value Range Interpretation Code Description Data Source(s) Oxygen saturation in Arterial blood by Pulse oximetry 96 % 96 % [facility] Body mass index (BMI) [Ratio] 43.22 kg/m2 43.22 kg/m2 [facility] Body weight 110.678 kg 110.678 kg [facility] Body height 160 cm 160 cm [facility] Heart rate 82 /min 82 /min [facility] Diastolic blood pressure 60 mm[Hg] 60 mm[Hg] [facility] Systolic blood pressure 116 mm[Hg] 116 mm[Hg] [facility] Heart rate 86 /min 86 /min [facility] Diastolic blood pressure 65 mm[Hg] 65 mm[Hg] [facility] Systolic blood pressure 129 mm[Hg] 129 mm[Hg] [facility] Oxygen saturation in Arterial blood by Pulse oximetry 96 % 96 % [facility] Respiratory rate 18 /min 18 /min [facility] Body temperature 36.78 Leida 36.78 Leida [facility] Body mass index (BMI) [Ratio] 44.88 kg/m2 44.88 kg/m2 [facility] Body weight 114.9 kg 114.9 kg [facility] Body height 160 cm 160 cm [facility] Diastolic blood pressure 70 mm[Hg] 70 mm[Hg] eCW1 ([facility]) Systolic blood pressure 130 mm[Hg] 130 mm[Hg] e CW1 ([facility]) Body temperature 96.1 [degF] 96.1 [degF] eCW1 ( [facility]) Respiratory rate 18 /min 18 /min eCW1 ([facility]) Heart rate 87 /min 87 /min eCW1 ([facility]) Body mass index (BMI) [Ratio] 45.34 kg/m2 45.34 kg/m2 eCW1 ([facility]) Body height 63.25 [in_us] 63.25 [in_us] eCW1 ([facility]) Body weight Measured 258 [lb_av] 258 [lb_av] eC W1 ([facility]) Diastolic blood pressure 72 mm[Hg] 72 mm[Hg] eCW1 ([facility]) Systolic blood pressure 124 mm[Hg] 124 mm[Hg] e CW1 ([facility]) Body temperature 97.1 [degF] 97.1 [degF] eCW1 ( [facility]) Respiratory rate 20 /min 20 /min eCW1 ([facility]) Heart rate 86 /min 86 /min eCW1 ([facility]) Body mass index (BMI) [Ratio] 44.56 kg/m2 44.56 kg/m2 eCW1 ([facility]) Body height 63.25 [in_us] 63.25 [in_us] eCW1 ([facility]) Body weight Measured 253.6 [lb_av] 253.6 [lb_av ] eCW1 ([facility]) Body mass index (BMI) [Ratio] 43.9 kg/m2 43.9 k g/m2 MEDENT ([facility]) Body height 63 [in_i] 63 [in_i] MEDENT ([facility], [facility]) 5'3" Body weight 248.00 [lb_av] 248.00 [lb_av] MEDEN T ([facility], [facility]) Body temperature 98.7 [degF] 98.7 [degF] MEDENT ([facility], [facility]) Oxygen saturation in Arterial blood by Pulse oximetry 96 % 96 % [facility] ([facility], [facility]) Respiratory rate 22 /min 22 /min MED[facility] ( [facility], [facility]) Heart rate 69 /min 69 /min [facility] ([facility], [facility]) Diastolic blood pressure 74 mm[Hg] 74 mm[Hg] [facility]ENT ([facility], [facility]) Systolic blood pressure 162 mm[Hg] 162 mm[Hg] M EDENT ([facility], [facility]) Diastolic blood pressure 70 mm[Hg] 70 mm[Hg] [facility] ([facility], [facility]) Systolic blood pressure 158 mm[Hg] 158 mm[Hg] M EDENT ([facility], [facility]) Body mass index (BMI) [Ratio] 43.9 kg/m2 43.9 k g/m2 [facility] ([facility], [facility]) Body height 63 [in_i] 63 [in_i] MEDENT ([facility], [facility]) 5'3" Body weight 248.00 [lb_av] 248.00 [lb_av] MEDEN T ([facility], [facility]) Body temperature 98.6 [degF] 98.6 [degF] MEDENT ([facility], [facility]) Oxygen saturation in Arterial blood by Pulse oximetry 97 % 97 % [facility] ([facility], [facility]) Respiratory rate 12 /min 12 /min [facility] ( [facility], [facility]) Heart rate 69 /min 69 /min [facility] ([facility]) Body mass index (BMI) [Ratio] 43.9 kg/m2 43.9 k g/m2 [facility] ([facility], [facility]) Body height 63 [in_i] 63 [in_i] MEDENT ([facility]) 5'3" Body weight 248.00 [lb_av] 248.00 [lb_av] MEDEN T ([facility], [facility]) Body temperature 98.7 [degF] 98.7 [degF] MEDENT ([facility], [facility]) Oxygen saturation in Arterial blood by Pulse oximetry 97 % 97 % [facility] ([facility], [facility]) Respiratory rate 20 /min 20 /min MED[facility] ( [facility], [facility]) Heart rate 74 /min 74 /min [facility] ([facility], [facility]) Diastolic blood pressure 68 mm[Hg] 68 mm[Hg] MEDENT ([facility], [facility]) Systolic blood pressure 138 mm[Hg] 138 mm[Hg] M EDENT ([facility], [facility]) Body mass index (BMI) [Ratio] 43.9 kg/m2 43.9 k g/m2 [facility] ([facility], [facility]) Body height 63 [in_i] 63 [in_i] [facility] ([facility], [facility]) 5'3" Body weight 248.00 [lb_av] 248.00 [lb_av] MEDEN T ([facility], [facility]) Body temperature 98.9 [degF] 98.9 [degF] [facility] ([facility], [facility]) Oxygen saturation in Arterial blood by Pulse oximetry 96 % 96 % [facility] ([facility], [facility]) Respiratory rate 20 /min 20 /min [facility] ( [facility], [facility]) Heart rate 70 /min 70 /min [facility] ([facility], [facility]) Diastolic blood pressure 78 mm[Hg] 78 mm[Hg] [facility] ([facility], [facility]) Systolic blood pressure 125 mm[Hg] 125 mm[Hg] [facility]) Patient Treatment Plan of Care Planned Activity Planned Date Details Description Data Source (s) Metoprolol Tartrate 50 MG Oral Tablet 07/22/2020 12:00:00 AM EST [facility] clopidogrel 75 MG Oral Tablet 06/21/2020 12:00:00 AM EDT [facility] Losartan Potassium 100 MG Oral Tablet 06/21/2020 12:00:00 AM EDT [facility] KLOR-CON M20 20 MEQ tablet 06/20/2020 12:00:00 AM EDT [facility] 120 ACTUAT Fluticasone propionate 0.23 M G/ACTUAT / salmeterol 0.021 MG/ACTUAT Metered Dose Inhaler [Advair] 06/20/2020 12:00:00 AM EDT [facility] Amlodipine 10 MG Oral Tablet 06/20/2020 12:00:00 AM EDT [facility] Metoprolol Tartrate 25 MG Oral Tablet 03/26/2020 12:00:00 AM EDT [facility] Potassium Chloride 20 MEQ Extended Release Oral Tablet 02/26/2020 12:00:00 AM EDT [facility] torsemide 20 MG Oral Tablet 02/26/2020 12:00:00 AM EDT [facility] Metoprolol Tartrate 25 MG Oral Tablet 01/04/2020 12:00:00 AM EDT [facility] clopidogrel 75 MG Oral Tablet 12/29/2019 12:00:00 AM EDT [facility] pantoprazole 40 MG Delayed Release Oral Tablet 12/15/2019 12:00:00 AM EDT [facility] Losartan Potassium 50 MG Oral Tablet 12/15/2019 12:00:00 AM EDT [facility] Amlodipine 10 MG Oral Tablet 12/15/2019 12:00:00 AM EDT [facility] Rosuvastatin calcium 40 MG Oral Tablet 12/15/2019 12:00:00 AM EDT [facility] Nizatidine 300 MG Oral Capsule 11/10/2019 12:00:00 AM EDT eCW1 ([facility]) Famotidine 20 MG Oral Tablet 10/31/2019 12:00:00 AM EST eCW1 ([facility]) Singulair 10 mg 10/31/2019 12:00:00 AM EST eCW1 ([facility])
[2020-09-11 04:10] LABS: CK-MB VALUE MASS 9.6 NG/ML (<3.6); MB/CK RELATIVE INDEX 6.04 (< OR =4); TROPONIN I 1.01 NG/ML (< 0.10)
[2020-09-11] MEDS ORDERED: HEPARIN DRIP 25,000 UNITS in IV 1 EA IV SCH (04:28)
[2020-09-11] MEDS ORDERED: ASPIRIN 81 MG CHEW TABLET PO ONE (04:30)
[2020-09-11] MEDS ORDERED: POTASSIUM CHLORIDE 10 MEQ SR TABLET PO ONE (04:30)
[2020-09-11] MEDS ORDERED: HEPARIN SOD (PORCINE) 5000UNITS/ML 1ML VIAL/SYRINGE IV ONE (04:30)
[2020-09-11 05:39] LABS: RSV AMPLIFICATION NEGATIVE (NEGATIVE)
[2020-09-11 06:24] VITALS: BP 157/64
--- NOTE | 2020-09-11 10:20 | ECGEPIP ---
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
--- NOTE | 2020-09-11 10:26 | ECGEPIP ---
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
== END 2020-09-11 06:35 | disposition short-term general hospital (02) ==
LOC: M ED 23:24
DX: I21.4 Non-ST elevation (NSTEMI) myocardial infarction (principal); I44.7 Left bundle-branch block, unspecified; I25.10 Atherosclerotic heart disease of native coronary artery without angina pectoris; I25.2 Old myocardial infarction; I10 Essential (primary) hypertension; E78.5 Hyperlipidemia, unspecified; Z95.5 Presence of coronary angioplasty implant and graft; Z79.82 Long term (current) use of aspirin; Z79.899 Other long term (current) drug therapy; Z88.0 Allergy status to penicillin; Z88.2 Allergy status to sulfonamides; Z88.8 Allergy status to other drugs, medicaments and biological substances; Z88.1 Allergy status to other antibiotic agents
CPT/HCPCS: 71045; 80047; 80048; 82550; 82553; 84484; 85025; 87631; 93005; 93041; 94760; 96374; 99285; J1644; J1885

== ENCOUNTER → 2020-09-25 | Outpatient (REF) | payer BC ==
[2020-09-25 13:39] LABS: CHOLESTEROL RISK RATIO 2.146 (<5)
== END ==
LOC: M LABDRWAD 12:23
PROVIDERS: ATTEND Physician Assistant
DX: I25.10 Atherosclerotic heart disease of native coronary artery without angina pectoris (principal)

== ENCOUNTER → 2020-11-06 | Outpatient (REF) | payer BC ==
[~2020-11-06] MED LIST changes: -ASPI325T36 PO; +ASPI325T49 PO
[2020-11-06 13:11] LABS: HEMATOCRIT 38.2 % (36.0-47.0); HEMOGLOBIN 11.7 g/dl (12.0-15.5); MEAN CORPUSCULAR HEMOGLOBIN 25.5 pg (27.0-33.0); MEAN CORPUSCULAR HGB CONC 30.6 g/dl (32.0-36.5); MEAN CORPUSCULAR VOLUME 83.4 fl (80.0-96.0); PLATELET COUNT, AUTOMATED 275 10^3/uL (150-450); RED BLOOD COUNT 4.58 10^6/uL (4.00-5.40); WHITE BLOOD COUNT 9.4 10^3/uL (4.0-10.0)
[2020-11-06 13:50] LABS: ALBUMIN 3.7 GM/DL (3.2-5.2); ALT/SGPT 42 U/L (12-78); BILIRUBIN,TOTAL 0.2 MG/DL (0.2-1.0); BLOOD UREA NITROGEN 22 MG/DL (7-18); CALCIUM LEVEL 9.2 MG/DL (8.8-10.2); CARBON DIOXIDE LEVEL 32 MEQ/L (21-32); CHLORIDE LEVEL 104 MEQ/L (98-107); CHOLESTEROL LEVEL 248 MG/DL (<200); CHOLESTEROL RISK RATIO 2.883 (<5); CREATININE FOR GFR 0.99 MG/DL (0.55-1.30); FERRITIN 46 NG/ML (8-252); GLOMERULAR FILTRATION RATE > 60.0 (>45); GLUCOSE, FASTING 101 MG/DL (70-100); HDL CHOLESTEROL 86 MG/DL (>40); IRON (FE) 33 UG/DL (50-170); LDL CHOLESTEROL 146 MG/DL (<100); NON-HDL-C 162 MG/DL; PERCENT SATURATION 8.4 % (13.2-45.0); POTASSIUM SERUM 4.1 MEQ/L (3.5-5.1); SODIUM LEVEL 140 MEQ/L (136-145); TOTAL IRON BINDING CAPACITY 392 UG/DL (250-450); TOTAL PROTEIN 7.3 GM/DL (6.4-8.2); TRIGLYCERIDES LEVEL 80 MG/DL (<150)
== END ==
LOC: M SFHCADAM 09:31
PROVIDERS: ATTEND Family Medicine
DX: D50.0 Iron deficiency anemia secondary to blood loss (chronic) (principal); E78.2 Mixed hyperlipidemia; R73.03 Prediabetes

== ENCOUNTER → 2021-01-09 | Outpatient (CLI) | payer BC ==
--- NOTE | 2021-01-09 15:54 | REP ---
INDICATION: ACUTE PAIN OF LEFT KNEE COMPARISON: None. TECHNIQUE: AP, lateral, bilateral oblique and sunrise views. FINDINGS: Very mild osteopenia is suggested. There is mild medial and patellofemoral joint space narrowing. No acute fracture or dislocation. No effusion.. IMPRESSION: Mild osteopenia and joint space narrowing.. <Electronically signed by Yoandy Timmons > 01/09/21 [id number]
== END ==
LOC: M ADAMS 15:34
PROVIDERS: ATTEND Physician Assistant
DX: M25.562 Pain in left knee (principal)

== ENCOUNTER → 2021-02-03 | Outpatient (CLI) | payer BC ==
[~2021-02-03] MED LIST changes: +E-Z-PAQUE 96% w/w SUSP 176GM BTL As Ordered ONE
--- NOTE | 2021-02-03 18:03 | REP ---
INDICATION: IRON DEFICIENCY ANEMIA SECONDARY TO BLOOD LOSS. COMPARISON: None. TECHNIQUE: The procedure was performed under the direct supervision of Dr. Taylor. The images were reviewed with Dr. Taylor. Liquid barium was administered and the barium column was followed through the small bowel to the level of the terminal ileum. 0.9 minutes of fluoro time was utilized for this procedure. FINDINGS: The consumer studies professor film shows no organomegaly or pathological masses. The intestinal gas pattern is nonspecific. Small bowel transit time is approximately 1 hour. During fluoroscopy gentle palpation shows all loops are freely movable and pliable. There are no fixed or angulated loops. The small bowel mucosal pattern is normal in course and caliber. There is no transition to suggest a partial small bowel obstruction. Spot filming of the terminal ileum shows it to be unremarkable. IMPRESSION: Small bowel follow-through examination within normal limits. <Electronically signed by Jesu Joseph > 02/03/21 1800 <Electronically signed by Peter Taylor > 02/03/21 1800
== END ==
LOC: M RAD 08:32
PROVIDERS: ATTEND Internal Medicine Gastroenterology
DX: D50.0 Iron deficiency anemia secondary to blood loss (chronic) (principal); K22.70 Barrett's esophagus without dysplasia; I25.10 Atherosclerotic heart disease of native coronary artery without angina pectoris

== ENCOUNTER → 2021-02-10 | Outpatient (REF) | payer BC ==
[~2021-02-10] MED LIST changes: -E-Z-PAQUE 96% w/w SUSP 176GM BTL As Ordered ONE
[2021-02-10 18:30] LABS: HEMATOCRIT 40.1 % (36.0-47.0); HEMOGLOBIN 12.1 g/dl (12.0-15.5); MEAN CORPUSCULAR HGB CONC 30.2 g/dl (32.0-36.5); MEAN CORPUSCULAR VOLUME 89.5 fl (80.0-96.0); PLATELET COUNT, AUTOMATED 285 10^3/uL (150-450); RED BLOOD COUNT 4.48 10^6/uL (4.00-5.40); WHITE BLOOD COUNT 9.5 10^3/uL (4.0-10.0)
[2021-02-10 18:31] LABS: BILIRUBIN,TOTAL 0.4 MG/DL (0.2-1.0); CALCIUM LEVEL 9.3 MG/DL (8.8-10.2); CREATININE FOR GFR 1.06 MG/DL (0.55-1.30); GLOMERULAR FILTRATION RATE 55.7 (>45); POTASSIUM SERUM 4.7 MEQ/L (3.5-5.1)
[2021-02-10 18:32] LABS: ALBUMIN 3.7 GM/DL (3.2-5.2); CHOLESTEROL RISK RATIO 2.219 (<5); PERCENT SATURATION 10.3 % (13.2-45.0); TOTAL PROTEIN 7.3 GM/DL (6.4-8.2)
== END ==
LOC: M SFHCADAM 14:01
PROVIDERS: ATTEND Family Medicine
DX: D50.0 Iron deficiency anemia secondary to blood loss (chronic) (principal); E78.2 Mixed hyperlipidemia

== ENCOUNTER → 2021-05-15 | Outpatient (CLI) | payer BC ==
[2021-05-15 20:35] LABS: HEMATOCRIT 37.1 % (36.0-47.0); HEMOGLOBIN 11.4 g/dl (12.0-15.5); MEAN CORPUSCULAR HEMOGLOBIN 27.5 pg (27.0-33.0); MEAN CORPUSCULAR HGB CONC 30.7 g/dl (32.0-36.5); MEAN CORPUSCULAR VOLUME 89.4 fl (80.0-96.0); PLATELET COUNT, AUTOMATED 276 10^3/uL (150-450); RED BLOOD COUNT 4.15 10^6/uL (4.00-5.40); WHITE BLOOD COUNT 10.3 10^3/uL (4.0-10.0)
[2021-05-15 20:42] LABS: C REACTIVE PROTEIN QUANTITATIV 0.76 MG/DL (0.00-0.30); PERCENT SATURATION 16.1 % (13.2-45.0)
[2021-05-15 21:03] LABS: ERYTHROCYTE SEDIMENTATION RATE 41 mm/hr (0-30)
== END ==
LOC: M LABDRWAD 13:07
PROVIDERS: ATTEND Nurse Practitioner Family
DX: D50.0 Iron deficiency anemia secondary to blood loss (chronic) (principal)

== ENCOUNTER → 2021-05-15 | Outpatient (CLI) | payer BC ==
--- NOTE | 2021-05-15 14:32 | REP ---
INDICATION: ABSSESS FOR RETAINED VIDEO CAPSULE COMPARISON: None. TECHNIQUE: Supine view of the abdomen and pelvis. FINDINGS: Bowel gas pattern is nonspecific and without obstruction or perforation. No organomegaly. No abnormal calcifications. Skeletal structures intact. No retained foreign body/video capsule noted. Surgical clips in the right upper quadrant consistent with prior cholecystectomy. IMPRESSION: Normal abdominal radiograph. No retained foreign body/video capsule. <Electronically signed by Yoandy Timmons > 05/15/21 [id number]
== END ==
LOC: M ADAMS 13:12
PROVIDERS: ATTEND Nurse Practitioner Family
DX: D50.0 Iron deficiency anemia secondary to blood loss (chronic) (principal); Z90.49 Acquired absence of other specified parts of digestive tract

== ENCOUNTER → 2021-06-04 | Outpatient (REF) | payer BC ==
[2021-06-04 16:19] LABS: HEMATOCRIT 38.1 % (36.0-47.0); HEMOGLOBIN 12.1 g/dl (12.0-15.5); MEAN CORPUSCULAR HEMOGLOBIN 28.1 pg (27.0-33.0); MEAN CORPUSCULAR HGB CONC 31.8 g/dl (32.0-36.5); MEAN CORPUSCULAR VOLUME 88.6 fl (80.0-96.0); PLATELET COUNT, AUTOMATED 271 10^3/uL (150-450); WHITE BLOOD COUNT 8.9 10^3/uL (4.0-10.0)
[2021-06-04 17:48] LABS: ALBUMIN 3.5 GM/DL (3.2-5.2); BILIRUBIN,TOTAL 0.4 MG/DL (0.2-1.0); CALCIUM LEVEL 9.1 MG/DL (8.8-10.2); CHOLESTEROL RISK RATIO 1.764 (<5); CREATININE FOR GFR 1.1 MG/DL (0.55-1.30); FREE T4 0.93 NG/DL (0.76-1.46); GLOMERULAR FILTRATION RATE 53.4 (>45); PERCENT SATURATION 13.4 % (13.2-45.0); THYROID STIMULATING HORMONE 2.98 uIU/ML (0.358-3.740); TOTAL PROTEIN 7.1 GM/DL (6.4-8.2)
[2021-06-04 18:44] LABS: HEMOGLOBIN A1c 6.2 %
== END ==
LOC: M SFHCADAM 13:05
PROVIDERS: ATTEND Family Medicine
DX: D50.0 Iron deficiency anemia secondary to blood loss (chronic) (principal); R73.03 Prediabetes; E03.9 Hypothyroidism, unspecified; E78.2 Mixed hyperlipidemia

== ENCOUNTER → 2021-10-01 | Outpatient (CLI) | payer BC ==
[~2021-10-01] MED LIST changes: +LOSA25TA13 PO; -LOSA25TA14 PO
== END ==
LOC: M ADAMS 12:26
PROVIDERS: ATTEND Family Medicine
DX: R05.9 Cough, unspecified (principal)

== ENCOUNTER 2021-10-03 21:23 | Emergency (ER) | payer BC ==
[~2021-10-03] VITALS: Ht 160 cm; Wt 113.6 kg
[2021-10-03 22:16] LABS: BASO # 0.1 10^3/uL (0.0-0.2); BASO % 0.4 % (0.0-1.0); EOS % 0.1 % (0.0-3.0); HEMATOCRIT 40.2 % (36.0-47.0); HEMOGLOBIN 12.7 g/dl (12.0-15.5); LYMPH # 0.9 10^3/uL (1.5-5.0); LYMPH % 7.3 % (24.0-44.0); MEAN CORPUSCULAR HEMOGLOBIN 27.6 pg (27.0-33.0); MEAN CORPUSCULAR HGB CONC 31.6 g/dl (32.0-36.5); MEAN CORPUSCULAR VOLUME 87.4 fl (80.0-96.0); MONO # 0.2 10^3/uL (0.0-0.8); NEUTROPHILS # 10.9 10^3/uL (1.5-8.5); NEUTROPHILS % 88.7 % (36.0-66.0); PLATELET COUNT, AUTOMATED 281 10^3/uL (150-450); WHITE BLOOD COUNT 12.3 10^3/uL (4.0-10.0)
[2021-10-03 22:27] LABS: CALCIUM LEVEL 9.8 MG/DL (8.8-10.2); CREATININE FOR GFR 1.76 MG/DL (0.55-1.30); POTASSIUM SERUM 3.8 MEQ/L (3.5-5.1)
[2021-10-03 22:27] LABS: INR 0.88; PROTHROMBIN TIME 12.3 SECONDS (12.7-14.5)
[2021-10-03] MEDS ORDERED: EZET10TA21 PO (22:28)
[2021-10-03] MEDS ORDERED: COLE625T PO (22:28)
[2021-10-03] MEDS ORDERED: FAMO20TA5 PO (22:28)
[2021-10-03] MEDS ORDERED: TORS20TA2 PO (22:29)
[2021-10-03] MEDS ORDERED: PRED20TA PO (22:29)
[2021-10-03] MEDS ORDERED: ROSU40TA4 PO (22:29)
[2021-10-03] MEDS ORDERED: POTA-141 PO (22:29)
[2021-10-03] MEDS ORDERED: MONT10TA97 PO (22:29)
[2021-10-03] MEDS ORDERED: LOSA100T45 PO (22:29)
[2021-10-03] MEDS ORDERED: BENZ-18 PO (22:29)
[2021-10-03] MEDS ORDERED: FERR325T3 PO (22:29)
[2021-10-03] MEDS ORDERED: METO50TA7 PO (22:29)
[2021-10-03 22:31] LABS: CK-MB VALUE MASS < 1.0 NG/ML (<3.6); CPK CREATINE PHOSPHOKINASE 67 U/L (26-192); MB/CK RELATIVE INDEX 1.49 (< OR =4)
[2021-10-03 23:53] LABS: CK-MB VALUE MASS 5.2 NG/ML (<3.6); MB/CK RELATIVE INDEX 5.47 (< OR =4)
[2021-10-04] MEDS ORDERED: ASPIRIN 81 MG CHEW TABLET PO ONE (00:30)
[2021-10-04] MEDS ORDERED: ISOVUE-370 76% 100ML VIAL As Ordered ONE (00:32)
[2021-10-04] MEDS: NITROGLYCERIN 0.4 MG SUBL TABLET SL PRN ×2 (00:36→00:51)
[2021-10-04 00:41] LABS: PARTIAL THROMBOPLASTIN TIME 30.3 SECONDS (25.9-37.0)
[2021-10-04] MEDS ORDERED: HEPARIN DRIP 25,000 UNITS in IV 1 EA IV SCH (01:30)
[2021-10-04] MEDS ORDERED: HEPARIN SOD (PORCINE) 5000UNITS/ML 1ML VIAL/SYRINGE IV ONE (01:30)
[2021-10-04 02:15] VITALS: BP 150/65
== END 2021-10-04 02:25 | disposition short-term general hospital (02) ==
LOC: M ED 21:23
DX: R00.0 Tachycardia, unspecified (principal); I44.7 Left bundle-branch block, unspecified; I21.4 Non-ST elevation (NSTEMI) myocardial infarction; I25.10 Atherosclerotic heart disease of native coronary artery without angina pectoris; I50.9 Heart failure, unspecified; I25.2 Old myocardial infarction; I10 Essential (primary) hypertension; E78.5 Hyperlipidemia, unspecified; E03.9 Hypothyroidism, unspecified; Z95.5 Presence of coronary angioplasty implant and graft; K44.9 Diaphragmatic hernia without obstruction or gangrene
CPT/HCPCS: 71045; 71275; 80048; 82550; 82553; 84484; 85025; 85610; 85730; 93005; 93041; 94760; 96365; 99285; J1644; Q9967

== ENCOUNTER → 2021-10-21 | Outpatient (CLI) | payer BC ==
[~2021-10-21] MED LIST changes: +BENZ-18 PO; +COLE625T PO; +EZET10TA21 PO; +FAMO20TA5 PO; +FERR325T3 PO; +LOSA100T45 PO; +METO50TA7 PO; +MONT10TA97 PO; +POTA-141 PO; +PRED20TA PO; +ROSU40TA4 PO; +TORS20TA2 PO
== END ==
LOC: M ADAMS 09:40
PROVIDERS: ATTEND Family Medicine
DX: R06.09 Other forms of dyspnea (principal); M53.84 Other specified dorsopathies, thoracic region; M53.86 Other specified dorsopathies, lumbar region

== ENCOUNTER → 2021-10-21 | Outpatient (REF) | payer BC ==
[2021-10-21 12:59] LABS: HEMOGLOBIN 12.7 g/dl (12.0-15.5); MEAN CORPUSCULAR HEMOGLOBIN 27.9 pg (27.0-33.0); MEAN CORPUSCULAR HGB CONC 31.8 g/dl (32.0-36.5); MEAN CORPUSCULAR VOLUME 87.7 fl (80.0-96.0); PLATELET COUNT, AUTOMATED 290 10^3/uL (150-450); RED BLOOD COUNT 4.56 10^6/uL (4.00-5.40); WHITE BLOOD COUNT 10.3 10^3/uL (4.0-10.0)
[2021-10-21 13:18] LABS: HEMOGLOBIN A1c 6.3 %
[2021-10-21 13:34] LABS: ALBUMIN 3.7 GM/DL (3.2-5.2); BILIRUBIN,TOTAL 0.3 MG/DL (0.2-1.0); CALCIUM LEVEL 9.2 MG/DL (8.8-10.2); CHOLESTEROL RISK RATIO 2.214 (<5); CREATININE FOR GFR 1.17 MG/DL (0.55-1.30); FREE T4 0.96 NG/DL (0.76-1.46); GLOMERULAR FILTRATION RATE 49.7 (>45); PERCENT SATURATION 19.7 % (13.2-45.0); THYROID STIMULATING HORMONE 4.76 uIU/ML (0.358-3.740); TOTAL PROTEIN 7.6 GM/DL (6.4-8.2)
== END ==
LOC: M SFHCADAM 09:37
PROVIDERS: ATTEND Family Medicine
DX: R06.09 Other forms of dyspnea (principal); D50.0 Iron deficiency anemia secondary to blood loss (chronic); U09.9 Post COVID-19 condition, unspecified; E03.9 Hypothyroidism, unspecified; I25.10 Atherosclerotic heart disease of native coronary artery without angina pectoris; R73.03 Prediabetes

== ENCOUNTER → 2021-11-04 | Outpatient (REF) | payer BC ==
[2021-11-04 13:53] LABS: BLOOD UREA NITROGEN 13 MG/DL (7-18); CALCIUM LEVEL 9.3 MG/DL (8.8-10.2); CARBON DIOXIDE LEVEL 33 MEQ/L (21-32); CHLORIDE LEVEL 107 MEQ/L (98-107); CREATININE FOR GFR 0.99 MG/DL (0.55-1.30); FREE T4 0.98 NG/DL (0.76-1.46); GLOMERULAR FILTRATION RATE > 60.0 (>45); GLUCOSE, FASTING 126 MG/DL (70-100); NT-PRO BNP 445 PG/ML (<125); POTASSIUM SERUM 3.5 MEQ/L (3.5-5.1); SODIUM LEVEL 145 MEQ/L (136-145)
[2021-11-04 14:12] LABS: THYROID PEROXIDASE ANTIBODY 34.4 U/ML (<60.0)
== END ==
LOC: M SFHCADAM 08:33
PROVIDERS: ATTEND Family Medicine
DX: R06.00 Dyspnea, unspecified (principal); E03.9 Hypothyroidism, unspecified

== ENCOUNTER → 2021-11-25 | Outpatient (CLI) | payer BC | LOC: M RAD 10:15 | PROVIDERS: ATTEND Physician Assistant Medical | DX: M79.651 Pain in right thigh (principal); M79.661 Pain in right lower leg; W19.XXXA Unspecified fall, initial encounter; Y92.9 Unspecified place or not applicable; Y93.9 Activity, unspecified; Y99.9 Unspecified external cause status ==

== ENCOUNTER → 2021-12-16 | Outpatient (REF) | payer BC ==
[2021-12-16 12:42] LABS: HEMATOCRIT 38.9 % (36.0-47.0); HEMOGLOBIN 12.3 g/dl (12.0-15.5); MEAN CORPUSCULAR HEMOGLOBIN 28.3 pg (27.0-33.0); MEAN CORPUSCULAR HGB CONC 31.6 g/dl (32.0-36.5); MEAN CORPUSCULAR VOLUME 89.4 fl (80.0-96.0); PLATELET COUNT, AUTOMATED 257 10^3/uL (150-450); RED BLOOD COUNT 4.35 10^6/uL (4.00-5.40); WHITE BLOOD COUNT 9.2 10^3/uL (4.0-10.0)
== END ==
LOC: M LABDRWAD 12:13
PROVIDERS: ATTEND Nurse Practitioner Family
DX: D50.0 Iron deficiency anemia secondary to blood loss (chronic) (principal); K22.70 Barrett's esophagus without dysplasia

== ENCOUNTER → 2021-12-16 | Outpatient (CLI) | payer BC ==
[2021-12-16 12:42] LABS: HEMATOCRIT 38.4 % (36.0-47.0); HEMOGLOBIN 12.1 g/dl (12.0-15.5); MEAN CORPUSCULAR HEMOGLOBIN 27.5 pg (27.0-33.0); MEAN CORPUSCULAR HGB CONC 31.5 g/dl (32.0-36.5); MEAN CORPUSCULAR VOLUME 87.3 fl (80.0-96.0); PLATELET COUNT, AUTOMATED 261 10^3/uL (150-450); WHITE BLOOD COUNT 9.3 10^3/uL (4.0-10.0)
[2021-12-16 12:57] LABS: ALBUMIN 3.7 GM/DL (3.2-5.2); ALT/SGPT 34 U/L (12-78); BILIRUBIN,TOTAL 0.4 MG/DL (0.2-1.0); BLOOD UREA NITROGEN 15 MG/DL (7-18); CALCIUM LEVEL 9.2 MG/DL (8.8-10.2); CARBON DIOXIDE LEVEL 31 MEQ/L (21-32); CHLORIDE LEVEL 106 MEQ/L (98-107); CHOLESTEROL LEVEL 146 MG/DL (<200); CHOLESTEROL RISK RATIO 2.027 (<5); CREATININE FOR GFR 0.92 MG/DL (0.55-1.30); FREE T4 0.91 NG/DL (0.76-1.46); GLOMERULAR FILTRATION RATE > 60.0 (>45); GLUCOSE, FASTING 111 MG/DL (70-100); HDL CHOLESTEROL 72 MG/DL (>40); LDL CHOLESTEROL 58 MG/DL (<100); NON-HDL-C 74 MG/DL; POTASSIUM SERUM 3.5 MEQ/L (3.5-5.1); SODIUM LEVEL 143 MEQ/L (136-145); TOTAL PROTEIN 6.8 GM/DL (6.4-8.2); TRIGLYCERIDES LEVEL 79 MG/DL (<150)
== END ==
LOC: M ADAMS 09:05
PROVIDERS: ATTEND Family Medicine
DX: E78.2 Mixed hyperlipidemia (principal); F32.9 Major depressive disorder, single episode, unspecified

== ENCOUNTER → 2021-12-18 | Outpatient (CLI) | payer BC | LOC: M ADAMS 09:05 | PROVIDERS: ATTEND Family Medicine | DX: M51.34 Other intervertebral disc degeneration, thoracic region (principal); M25.78 Osteophyte, vertebrae ==

== ENCOUNTER → 2021-12-18 | Outpatient (REF) | payer BC ==
[2021-12-18 12:45] LABS: APPEARANCE, URINE CLEAR (CLEAR); BACTERIA, URINE AUTO 1+ (NEGATIVE); BILIRUBIN, URINE AUTO NEGATIVE (NEGATIVE); BLOOD, URINE BLOOD NEGATIVE (NEGATIVE); COLOR, URINE STRAW (YELLOW); GLUCOSE, URINE (UA) AUTO NEGATIVE (NEGATIVE); KETONE, URINE AUTO NEGATIVE (NEGATIVE); LEUKOCYTE ESTERASE, URINE AUTO 2+ (NEGATIVE); MUCUS, URINE SMALL (NEGATIVE); NITRITE, URINE AUTO NEGATIVE (NEGATIVE); PROTEIN, URINE AUTO NEGATIVE (NEGATIVE); RBC, URINE AUTO 1 /HPF (0-3); SPECIFIC GRAVITY URINE AUTO 1.006 (1.002-1.035); SQUAMOUS EPITHELIAL CELL UR AU 0 /HPF (0-6); TRANSITIONAL EPITHELIAL AUTO <1 /HPF; UROBILINOGEN, URINE AUTO 0.2 mg/dL (0.0-2.0); WBC, URINE AUTO 19 /HPF (0-3)
== END ==
LOC: M SFHCADAM 08:54
PROVIDERS: ATTEND Family Medicine
DX: M54.6 Pain in thoracic spine (principal)

== ENCOUNTER → 2022-01-13 | Outpatient (CLI) | payer BC ==
[2022-01-13 17:18] LABS: CALCIUM LEVEL 9.5 MG/DL (8.8-10.2); CREATININE FOR GFR 1.12 MG/DL (0.55-1.30); GLOMERULAR FILTRATION RATE 52.1 (>45); TOTAL 25(OH) VITAMIN D 19.4 NG/ML (30.0-100.0)
== END ==
LOC: M ADAMS 13:06
PROVIDERS: ATTEND Student in an Organized Health Care Education/Training Program
DX: D50.0 Iron deficiency anemia secondary to blood loss (chronic) (principal); K22.70 Barrett's esophagus without dysplasia; E56.9 Vitamin deficiency, unspecified

== ENCOUNTER → 2022-01-16 | Outpatient (CLI) | payer BC | LOC: M ADAMS 11:45 | PROVIDERS: ATTEND Physician Assistant Medical | DX: M51.16 Intervertebral disc disorders with radiculopathy, lumbar region (principal); M25.78 Osteophyte, vertebrae ==

== ENCOUNTER → 2022-03-11 | Outpatient (REF) | payer BC ==
[2022-03-11 13:32] LABS: HEMATOCRIT 39.9 % (36.0-47.0); HEMOGLOBIN 12.6 g/dl (12.0-15.5); MEAN CORPUSCULAR HEMOGLOBIN 27.5 pg (27.0-33.0); MEAN CORPUSCULAR HGB CONC 31.6 g/dl (32.0-36.5); MEAN CORPUSCULAR VOLUME 86.9 fl (80.0-96.0); PLATELET COUNT, AUTOMATED 325 10^3/uL (150-450); RED BLOOD COUNT 4.59 10^6/uL (4.00-5.40); WHITE BLOOD COUNT 9.4 10^3/uL (4.0-10.0)
[2022-03-11 14:48] LABS: ALBUMIN 3.9 GM/DL (3.2-5.2); BILIRUBIN,TOTAL 0.3 MG/DL (0.2-1.0); CALCIUM LEVEL 9.5 MG/DL (8.8-10.2); CHOLESTEROL RISK RATIO 1.908 (<5); CREATININE FOR GFR 1.11 MG/DL (0.55-1.30); FREE T4 0.9 NG/DL (0.76-1.46); GLOMERULAR FILTRATION RATE 52.7 (>45); THYROID STIMULATING HORMONE 6.47 uIU/ML (0.358-3.740); TOTAL PROTEIN 7.3 GM/DL (6.4-8.2)
[2022-03-11 22:00] LABS: HEMOGLOBIN A1c 6.3 %
== END ==
LOC: M SFHCADAM 08:59
PROVIDERS: ATTEND Family Medicine
DX: D50.0 Iron deficiency anemia secondary to blood loss (chronic) (principal); E53.8 Deficiency of other specified B group vitamins; R73.03 Prediabetes; I25.10 Atherosclerotic heart disease of native coronary artery without angina pectoris; E03.9 Hypothyroidism, unspecified; Z95.5 Presence of coronary angioplasty implant and graft

== ENCOUNTER 2022-04-14 00:38 | Emergency (ER) | payer BC ==
[~2022-04-14] VITALS: Ht 160 cm; Wt 109.1 kg
[2022-04-14 01:23] LABS: BASO # 0.1 10^3/uL (0.0-0.2); BASO % 0.6 % (0.0-1.0); EOS # 0.6 10^3/uL (0.0-0.5); EOS % 5.2 % (0.0-3.0); HEMATOCRIT 35.6 % (36.0-47.0); HEMOGLOBIN 10.9 g/dl (12.0-15.5); LYMPH # 1.5 10^3/uL (1.5-5.0); LYMPH % 13.8 % (24.0-44.0); MEAN CORPUSCULAR HEMOGLOBIN 27.2 pg (27.0-33.0); MEAN CORPUSCULAR HGB CONC 30.6 g/dl (32.0-36.5); MEAN CORPUSCULAR VOLUME 88.8 fl (80.0-96.0); MONO # 0.9 10^3/uL (0.0-0.8); MONO % 8.1 % (2.0-8.0); NEUTROPHILS # 7.7 10^3/uL (1.5-8.5); NEUTROPHILS % 71.6 % (36.0-66.0); PLATELET COUNT, AUTOMATED 253 10^3/uL (150-450); RED BLOOD COUNT 4.01 10^6/uL (4.00-5.40); WHITE BLOOD COUNT 10.7 10^3/uL (4.0-10.0)
[2022-04-14 01:34] LABS: INR 0.89; PROTHROMBIN TIME 12.4 SECONDS (12.7-14.5)
[2022-04-14] MEDS ORDERED: ASPIRIN 81 MG CHEW TABLET PO ONE (01:50)
[2022-04-14] MEDS: NITROGLYCERIN 0.4 MG SUBL TABLET SL PRN ×3 (01:53→03:39)
[2022-04-14 02:03] LABS: ALBUMIN 3.2 GM/DL (3.2-5.2); BILIRUBIN,DIRECT 0.2 MG/DL (0.0-0.2); BILIRUBIN,TOTAL 0.2 MG/DL (0.2-1.0); CALCIUM LEVEL 9.1 MG/DL (8.8-10.2); CREATININE FOR GFR 1.24 MG/DL (0.55-1.30); GLOMERULAR FILTRATION RATE 46.4 (>45); POTASSIUM SERUM 3.7 MEQ/L (3.5-5.1); TOTAL PROTEIN 6.9 GM/DL (6.4-8.2)
[2022-04-14 02:04] LABS: CK-MB VALUE MASS 1.2 NG/ML (<3.6); MB/CK RELATIVE INDEX 1.38 (< OR =4)
[2022-04-14 03:14] LABS: CK-MB VALUE MASS 1.4 NG/ML (<3.6); MB/CK RELATIVE INDEX 1.59 (< OR =4)
[2022-04-14 03:39] VITALS: BP 118/55
[2022-04-14] MEDS ORDERED: HEPARIN DRIP 25,000 UNITS in IV 1 EA IV SCH (04:30)
[2022-04-14] MEDS ORDERED: HEPARIN SOD (PORCINE) 5000UNITS/ML 1ML VIAL/SYRINGE IV ONE (04:30)
[2022-04-14 05:10] LABS: INR 0.92; PROTHROMBIN TIME 12.7 SECONDS (12.7-14.5)
[2022-04-14 05:11] LABS: PARTIAL THROMBOPLASTIN TIME 34.2 SECONDS (25.9-37.0)
[2022-04-14 05:33] LABS: RSV AMPLIFICATION NEGATIVE (NEGATIVE)
[2022-04-14 05:46] VITALS: BP 115/58
== END 2022-04-14 06:22 | disposition short-term general hospital (02) ==
LOC: M ED 00:38
DX: I24.9 Acute ischemic heart disease, unspecified (principal); I25.2 Old myocardial infarction; I25.10 Atherosclerotic heart disease of native coronary artery without angina pectoris; I10 Essential (primary) hypertension; E78.5 Hyperlipidemia, unspecified; J45.909 Unspecified asthma, uncomplicated; Z87.442 Personal history of urinary calculi; Z87.19 Personal history of other diseases of the digestive system; Z82.49 Family history of ischemic heart disease and other diseases of the circulatory system; Z79.82 Long term (current) use of aspirin; Z79.899 Other long term (current) drug therapy; Z88.0 Allergy status to penicillin; Z88.2 Allergy status to sulfonamides; Z88.1 Allergy status to other antibiotic agents; Z88.8 Allergy status to other drugs, medicaments and biological substances
CPT/HCPCS: 71045; 80048; 80076; 82550; 82553; 83690; 84484; 85025; 85610; 85730; 87631; 93005; 93041; 94760; 96360; 99285; J1644

== ENCOUNTER → 2022-05-14 | Outpatient (REF) | payer BC ==
[2022-05-14 13:55] LABS: HEMATOCRIT 34.2 % (36.0-47.0); HEMOGLOBIN 10.1 g/dl (12.0-15.5); MEAN CORPUSCULAR HEMOGLOBIN 26.9 pg (27.0-33.0); MEAN CORPUSCULAR HGB CONC 29.5 g/dl (32.0-36.5); PLATELET COUNT, AUTOMATED 427 10^3/uL (150-450); RED BLOOD COUNT 3.76 10^6/uL (4.00-5.40); WHITE BLOOD COUNT 11.7 10^3/uL (4.0-10.0)
[2022-05-14 14:34] LABS: CALCIUM LEVEL 9.1 MG/DL (8.8-10.2); CREATININE FOR GFR 1.1 MG/DL (0.55-1.30); GLOMERULAR FILTRATION RATE 53.2 (>45); POTASSIUM SERUM 3.9 MEQ/L (3.5-5.1)
== END ==
LOC: M SFHCADAM 08:32
PROVIDERS: ATTEND Family Medicine
DX: J90 Pleural effusion, not elsewhere classified (principal); T81.30XA Disruption of wound, unspecified, initial encounter; Y83.9 Surgical procedure, unspecified as the cause of abnormal reaction of the patient, or of later complication, without mention of misadventure at the time of the procedure

== ENCOUNTER → 2022-05-14 | Outpatient (CLI) | payer BC | LOC: M ADAMS 09:44 | PROVIDERS: ATTEND Family Medicine | DX: J90 Pleural effusion, not elsewhere classified (principal); I51.7 Cardiomegaly ==

== ENCOUNTER → 2022-06-04 | Outpatient (CLI) | payer BC | LOC: M ADAMS 10:19 | PROVIDERS: ATTEND Family Medicine | DX: M79.671 Pain in right foot (principal); M19.071 Primary osteoarthritis, right ankle and foot ==

== ENCOUNTER → 2022-07-01 | Outpatient (REF) | payer BC ==
[2022-07-01 13:57] LABS: CALCIUM LEVEL 9.6 MG/DL (8.8-10.2); CREATININE FOR GFR 1.16 MG/DL (0.55-1.30); GLOMERULAR FILTRATION RATE 50.1 (>45); POTASSIUM SERUM 3.8 MEQ/L (3.5-5.1)
== END ==
LOC: M LABDRWAD 12:36
PROVIDERS: ATTEND Internal Medicine Cardiovascular Disease
DX: I50.32 Chronic diastolic (congestive) heart failure (principal)

== ENCOUNTER → 2022-07-01 | Outpatient (CLI) | payer BC | LOC: M ADAMS 11:35 | PROVIDERS: ATTEND Family Medicine | DX: R06.09 Other forms of dyspnea (principal); I51.7 Cardiomegaly ==

== ENCOUNTER → 2022-07-30 | Outpatient (REF) | payer BC ==
[2022-07-30 16:18] LABS: HEMATOCRIT 35.8 % (36.0-47.0); HEMOGLOBIN 10.6 g/dl (12.0-15.5); MEAN CORPUSCULAR HEMOGLOBIN 26.2 pg (27.0-33.0); MEAN CORPUSCULAR HGB CONC 29.6 g/dl (32.0-36.5); MEAN CORPUSCULAR VOLUME 88.4 fl (80.0-96.0); PLATELET COUNT, AUTOMATED 278 10^3/uL (150-450); RED BLOOD COUNT 4.05 10^6/uL (4.00-5.40); WHITE BLOOD COUNT 8.3 10^3/uL (4.0-10.0)
[2022-07-30 17:27] LABS: BLOOD UREA NITROGEN 16 MG/DL (9-23); CALCIUM LEVEL 9.3 MG/DL (8.3-10.6); CARBON DIOXIDE LEVEL 26 MMOL/L (20-31); CHLORIDE LEVEL 107 MMOL/L (98-107); CREATININE FOR GFR 0.91 MG/DL (0.55-1.30); GLOMERULAR FILTRATION RATE > 60.0 (>45); GLUCOSE, FASTING 98 MG/DL (74-106); SODIUM LEVEL 141 MMOL/L (136-145)
== END ==
LOC: M SFHCADAM 15:11
PROVIDERS: ATTEND Family Medicine
DX: J21.9 Acute bronchiolitis, unspecified (principal); I11.9 Hypertensive heart disease without heart failure

== ENCOUNTER → 2022-07-30 | Outpatient (CLI) | payer BC | LOC: M ADAMS 15:19 | PROVIDERS: ATTEND Family Medicine | DX: J21.9 Acute bronchiolitis, unspecified (principal); I11.9 Hypertensive heart disease without heart failure ==

== ENCOUNTER 2022-08-16 05:37 | Emergency (ER) | payer BC ==
[~2022-08-16] VITALS: Ht 160 cm; Wt 106.6 kg
[2022-08-16 06:37] LABS: HEMATOCRIT 36.7 % (36.0-47.0); HEMOGLOBIN 11.1 g/dl (12.0-15.5); MEAN CORPUSCULAR HEMOGLOBIN 25.8 pg (27.0-33.0); MEAN CORPUSCULAR HGB CONC 30.2 g/dl (32.0-36.5); MEAN CORPUSCULAR VOLUME 85.3 fl (80.0-96.0); PLATELET COUNT, AUTOMATED 309 10^3/uL (150-450); WHITE BLOOD COUNT 12.1 10^3/uL (4.0-10.0)
[2022-08-16 06:45] LABS: INR 0.94; PROTHROMBIN TIME 12.8 SECONDS (12.5-14.5)
[2022-08-16 07:01] LABS: ALBUMIN 3.2 G/DL (3.2-5.2); BILIRUBIN,TOTAL 0.3 MG/DL (0.3-1.2); CALCIUM LEVEL 8.8 MG/DL (8.3-10.6); CREATININE FOR GFR 1.14 MG/DL (0.55-1.30); GLOMERULAR FILTRATION RATE 51.1 (>45); POTASSIUM SERUM 3.8 MMOL/L (3.5-5.1); TOTAL PROTEIN 6.5 G/DL (5.7-8.2)
[2022-08-16 07:55] VITALS: BP 175/75
[2022-08-16] MEDS ORDERED: TORS100T (08:01)
[2022-08-16] MEDS ORDERED: EZET10TA21 PO (08:01)
[2022-08-16] MEDS ORDERED: DIAZ5TAB PO (08:01)
[2022-08-16] MEDS ORDERED: ASCO500T PO (08:01)
[2022-08-16] MEDS ORDERED: PRED20TA (08:01)
[2022-08-16] MEDS ORDERED: AMIO400T7 (08:01)
[2022-08-16] MEDS ORDERED: ELIQ5TAB (08:01)
[2022-08-16] MEDS ORDERED: FOLI1TAB11 (08:01)
[2022-08-16] MEDS ORDERED: LOSA50TA28 (08:01)
== END 2022-08-16 08:16 | disposition home or self-care (01) ==
LOC: M ED 05:37
DX: R04.0 Epistaxis (principal); Z79.01 Long term (current) use of anticoagulants; Z79.899 Other long term (current) drug therapy; Z88.0 Allergy status to penicillin; Z88.2 Allergy status to sulfonamides; Z88.1 Allergy status to other antibiotic agents; Z88.8 Allergy status to other drugs, medicaments and biological substances

== ENCOUNTER 2022-08-23 19:21 | Emergency (ER) | payer BC ==
[~2022-08-23] VITALS: Ht 160 cm; Wt 117.1 kg
[~2022-08-23 19:21] MED LIST changes: +AMIO400T7; +ASCO500T PO; +ELIQ5TAB; +FOLI1TAB11; +LOSA50TA28; +PRED20TA; +TORS100T
[2022-08-23 19:49] LABS: BASO # 0.1 10^3/uL (0.0-0.2); BASO % 0.4 % (0.0-1.0); EOS # 0.2 10^3/uL (0.0-0.5); EOS % 1.3 % (0.0-3.0); HEMATOCRIT 33.9 % (36.0-47.0); HEMOGLOBIN 10.2 g/dl (12.0-15.5); LYMPH # 1.7 10^3/uL (1.5-5.0); LYMPH % 10.1 % (24.0-44.0); MEAN CORPUSCULAR HEMOGLOBIN 26.2 pg (27.0-33.0); MEAN CORPUSCULAR HGB CONC 30.1 g/dl (32.0-36.5); MEAN CORPUSCULAR VOLUME 86.9 fl (80.0-96.0); MONO # 1.2 10^3/uL (0.0-0.8); MONO % 7.2 % (2.0-8.0); NEUTROPHILS # 13.2 10^3/uL (1.5-8.5); NEUTROPHILS % 79.4 % (36.0-66.0); PLATELET COUNT, AUTOMATED 267 10^3/uL (150-450); WHITE BLOOD COUNT 16.6 10^3/uL (4.0-10.0)
[2022-08-23 20:02] LABS: INR 0.83; PROTHROMBIN TIME 11.6 SECONDS (12.5-14.5)
[2022-08-23 20:23] LABS: BILIRUBIN,DIRECT < 0.1 MG/DL (<0.4)
[2022-08-23 20:29] LABS: ALBUMIN 3.2 G/DL (3.2-5.2); ALKALINE PHOSPHATASE 91 U/L (46-116); ALT/SGPT 41 U/L (7.0-40); AST/SGOT 50 U/L (<34); BILIRUBIN,TOTAL 0.2 MG/DL (0.3-1.2); BLOOD UREA NITROGEN 22 MG/DL (9-23); CALCIUM LEVEL 8.1 MG/DL (8.3-10.6); CARBON DIOXIDE LEVEL 27 MMOL/L (20-31); CHLORIDE LEVEL 102 MMOL/L (98-107); CK-MB VALUE MASS < 1.0 NG/ML (<3.6); CPK CREATINE PHOSPHOKINASE 53 U/L (34-145); CREATININE FOR GFR 1.48 MG/DL (0.55-1.30); GLOMERULAR FILTRATION RATE 37.8 (>45); GLUCOSE, FASTING 146 MG/DL (74-106); LIPASE 47 U/L (12-53); MB/CK RELATIVE INDEX 1.88 (< OR =4); POTASSIUM SERUM 4.3 MMOL/L (3.5-5.1); SODIUM LEVEL 142 MMOL/L (136-145); TOTAL PROTEIN 6.1 G/DL (5.7-8.2)
[2022-08-23 21:24] LABS: CK-MB VALUE MASS < 1.0 NG/ML (<3.6)
[2022-08-23 21:27] LABS: CPK CREATINE PHOSPHOKINASE 26 U/L (34-145); MB/CK RELATIVE INDEX 3.84 (< OR =4)
[2022-08-24 03:45] VITALS: BP 149/65
[2022-08-24 03:49] LABS: CK-MB VALUE MASS < 1.0 NG/ML (<3.6)
[2022-08-24 03:51] LABS: CPK CREATINE PHOSPHOKINASE 26 U/L (34-145); MB/CK RELATIVE INDEX 3.84 (< OR =4)
== END 2022-08-24 04:12 | disposition home or self-care (01) ==
LOC: M ED 19:21
DX: I20.0 Unstable angina (principal); I25.10 Atherosclerotic heart disease of native coronary artery without angina pectoris; I25.2 Old myocardial infarction; I10 Essential (primary) hypertension; E78.5 Hyperlipidemia, unspecified; K21.9 Gastro-esophageal reflux disease without esophagitis; F32.9 Major depressive disorder, single episode, unspecified; Z95.5 Presence of coronary angioplasty implant and graft; Z98.61 Coronary angioplasty status; Z87.442 Personal history of urinary calculi; Z79.01 Long term (current) use of anticoagulants; Z79.899 Other long term (current) drug therapy; Z88.0 Allergy status to penicillin; Z88.2 Allergy status to sulfonamides; Z88.1 Allergy status to other antibiotic agents; Z88.8 Allergy status to other drugs, medicaments and biological substances

== ENCOUNTER → 2022-09-17 | Outpatient (REF) | payer BC ==
[2022-09-17 13:31] LABS: HEMATOCRIT 36.3 % (36.0-47.0); HEMOGLOBIN 10.8 g/dl (12.0-15.5); MEAN CORPUSCULAR HEMOGLOBIN 26.9 pg (27.0-33.0); MEAN CORPUSCULAR HGB CONC 29.8 g/dl (32.0-36.5); MEAN CORPUSCULAR VOLUME 90.3 fl (80.0-96.0); PLATELET COUNT, AUTOMATED 313 10^3/uL (150-450); RED BLOOD COUNT 4.02 10^6/uL (4.00-5.40); WHITE BLOOD COUNT 9.8 10^3/uL (4.0-10.0)
[2022-09-17 13:48] LABS: HEMOGLOBIN A1c 5.8 % (4.0-6.0)
[2022-09-17 13:56] LABS: ALBUMIN 3.5 G/DL (3.2-5.2); BILIRUBIN,TOTAL 0.3 MG/DL (0.3-1.2); CALCIUM LEVEL 8.7 MG/DL (8.3-10.6); CHOLESTEROL RISK RATIO 2.07 (<5); CREATININE FOR GFR 1.08 MG/DL (0.55-1.30); GLOMERULAR FILTRATION RATE 54.4 (>45); HDL CHOLESTEROL 86.9 MG/DL (>40); LDL CHOLESTEROL 73.7 MG/DL (<100); PERCENT SATURATION 56.8 % (13.2-45.0); POTASSIUM SERUM 3.8 MMOL/L (3.5-5.1); TOTAL PROTEIN 6.7 G/DL (5.7-8.2)
[2022-09-17 13:58] LABS: FERRITIN 27.4 NG/ML (7.3-270.7); FREE T4 1.02 NG/DL (0.89-1.76); THYROID STIMULATING HORMONE 14.761 uIU/ML (0.55-4.78)
== END ==
LOC: M SFHCADAM 09:30
PROVIDERS: ATTEND Family Medicine
DX: D50.0 Iron deficiency anemia secondary to blood loss (chronic) (principal); R73.03 Prediabetes; E03.9 Hypothyroidism, unspecified; I25.10 Atherosclerotic heart disease of native coronary artery without angina pectoris

== ENCOUNTER → 2022-10-14 | Outpatient (REF) | payer BC ==
[2022-10-14 13:59] LABS: FREE T4 1.07 NG/DL (0.89-1.76)
[2022-10-14 14:00] LABS: THYROID STIMULATING HORMONE 10.102 uIU/ML (0.55-4.78)
== END ==
LOC: M SFHCADAM 08:20
PROVIDERS: ATTEND Family Medicine
DX: E03.9 Hypothyroidism, unspecified (principal)

== ENCOUNTER 2022-11-24 09:21 | Inpatient (IN) | payer BC ==
[~2022-11-24] VITALS: Ht 160 cm; Wt 113.0 kg
[~2022-11-24 09:21] MED LIST changes: -ELIQ5TAB; +ELIQ5TAB PO; -FOLI1TAB11; +FOLI1TAB11 PO; -LOSA50TA28; +LOSA50TA28 PO; -TORS100T; +TORS100T PO
[2022-11-24 10:35] LABS: BASO # 0.1 10^3/uL (0.0-0.2); BASO % 0.6 % (0.0-1.0); EOS # 0.1 10^3/uL (0.0-0.5); EOS % 1.1 % (0.0-3.0); HEMATOCRIT 36.4 % (36.0-47.0); HEMOGLOBIN 11.1 g/dl (12.0-15.5); LYMPH # 0.7 10^3/uL (1.5-5.0); LYMPH % 8.4 % (24.0-44.0); MEAN CORPUSCULAR HEMOGLOBIN 27.8 pg (27.0-33.0); MEAN CORPUSCULAR HGB CONC 30.5 g/dl (32.0-36.5); MEAN CORPUSCULAR VOLUME 91.2 fl (80.0-96.0); MONO # 0.7 10^3/uL (0.0-0.8); MONO % 8.3 % (2.0-8.0); NEUTROPHILS # 6.6 10^3/uL (1.5-8.5); PLATELET COUNT, AUTOMATED 269 10^3/uL (150-450); RED BLOOD COUNT 3.99 10^6/uL (4.00-5.40); WHITE BLOOD COUNT 8.2 10^3/uL (4.0-10.0)
[2022-11-24 10:38] LABS: VENOUS BASE EXCESS 0.5 (-2.0-2.0); VENOUS HCO3 26.5 MEQ/L (23.0-27.0); VENOUS PARTIAL PRESSURE CO2 48.3 mmHg (38.0-50.0); VENOUS PARTIAL PRESSURE O2 45.2 mmHg (30.0-50.0); VENOUS PH 7.357 UNITS (7.330-7.430); VENOUS STANDARD HCO3 24.6 MEQ/L
[2022-11-24 11:15] LABS: RSV AMPLIFICATION NEGATIVE (NEGATIVE)
[2022-11-24 11:17] LABS: THYROID STIMULATING HORMONE 4.68 uIU/ML (0.55-4.78); THYROXINE (T4) 11.4 UG/DL (4.5-10.9)
[2022-11-24 11:18] LABS: FREE THYROXINE INDEX 4.3 % (1.3-4.8); T UPTAKE 37.9 % (22.5-37.0)
[2022-11-24 11:19] LABS: ALBUMIN 3.4 G/DL (3.2-5.2); ALKALINE PHOSPHATASE 106 U/L (46-116); ALT/SGPT 29 U/L (7.0-40); AST/SGOT 22 U/L (<34); BILIRUBIN,DIRECT < 0.1 MG/DL (<0.4); BILIRUBIN,TOTAL 0.3 MG/DL (0.3-1.2); BLOOD UREA NITROGEN 17 MG/DL (9-23); CALCIUM LEVEL 9.5 MG/DL (8.3-10.6); CARBON DIOXIDE LEVEL 26 MMOL/L (20-31); CHLORIDE LEVEL 104 MMOL/L (98-107); CREATININE FOR GFR 1.01 MG/DL (0.55-1.30); FREE THYROXINE INDEX 4.4 % (1.3-4.8); GLOMERULAR FILTRATION RATE 58.7 (>45); GLUCOSE, FASTING 107 MG/DL (74-106); POTASSIUM SERUM 4.9 MMOL/L (3.5-5.1); SODIUM LEVEL 138 MMOL/L (136-145); T UPTAKE 36.5 % (22.5-37.0); THYROID STIMULATING HORMONE 6.286 uIU/ML (0.55-4.78); TOTAL PROTEIN 6.6 G/DL (5.7-8.2)
[2022-11-24] MEDS ORDERED: ISOVUE-370 76% 100ML VIAL As Ordered ONE (12:48)
[2022-11-24] MEDS ORDERED: FUROSEMIDE 100MG/10ML VIAL IV ONE (15:05)
[2022-11-24] MEDS ORDERED: ENOXAPARIN 60MG/0.6ML SYRINGE (J1650 PER 10MG) SC ONE (15:20)
[2022-11-24] MEDS ORDERED: TORSEMIDE (DEMADEX) 50 MG PER 1/2 TAB PO ONE (15:25)
[2022-11-24] MEDS ORDERED: ISOS120T7 PO (16:00)
[2022-11-24] MEDS ORDERED: METO1TAB7 PO (16:00)
[2022-11-24] MEDS ORDERED: SYNT75TA PO (16:00)
[2022-11-24] MEDS ORDERED: ZOLO100T PO (16:00)
[2022-11-24] MEDS ORDERED: RANO500T2 PO (16:00)
[2022-11-24] MEDS ORDERED: SENN-80 PO (16:02)
[2022-11-24] MEDS ORDERED: HOME MED LIST COMPLETE! XX SCH (16:10)
[2022-11-24 17:05] VITALS: BP 150/70
[2022-11-24] MEDS ORDERED: ALBUTEROL 90 MCG/ACT 8GM HFA INHALER INH PRN (17:45)
[2022-11-24] MEDS ORDERED: SENNA 8.6 MG TAB (SENOKOT) PO PRN (17:45)
[2022-11-24] MEDS ORDERED: NITROGLYCERIN 0.4MG SUBL TABLET SL PRN (17:45)
[2022-11-24 20:00] VITALS: BP 131/54
[2022-11-24] MEDS ORDERED: RANOLAZINE 500MG ER TAB PO SCH (21:00)
[2022-11-24] MEDS: FUROSEMIDE 40MG/4ML VIAL IV SCH (21:57)
[2022-11-24 22:00] VITALS: BP 132/90
[2022-11-24] MEDS: MONTELUKAST 10 MG TAB PO SCH (22:08)
[2022-11-24] MEDS: APIXABAN 5 MG TAB (ELIQUIS) PO SCH (22:08)
[2022-11-24] MEDS: COLESEVELAM 625 MG TAB (WELCHOL) PO SCH (22:09)
[2022-11-24] MEDS: ROSUVASTATIN 10 MG TAB (CRESTOR) PO SCH (22:09)
[2022-11-24] MEDS: SERTRALINE HCL 50 MG TAB PO SCH (22:09)
[2022-11-24] MEDS: FERROUS SULFATE 325MG TAB PO SCH (22:09)
[2022-11-24 22:48] LABS: CALCIUM LEVEL 9.5 MG/DL (8.3-10.6); CK-MB VALUE MASS 1.1 NG/ML (<3.6); CREATININE FOR GFR 1.14 MG/DL (0.55-1.30); GLOMERULAR FILTRATION RATE 51.1 (>45); MB/CK RELATIVE INDEX 2.75 (< OR =4); POTASSIUM SERUM 4.3 MMOL/L (3.5-5.1)
[2022-11-25] MEDS: FUROSEMIDE 40MG/4ML VIAL IV SCH (04:00)
[2022-11-25 04:36] VITALS: BP 109/67
[2022-11-25 05:11] VITALS: BP 120/62
[2022-11-25] MEDS: LEVOTHYROXINE 75MCG TABLET (0.075MG) PO SCH (05:55)
[2022-11-25 06:12] LABS: HEMATOCRIT 36.6 % (36.0-47.0); HEMOGLOBIN 11.2 g/dl (12.0-15.5); MEAN CORPUSCULAR HEMOGLOBIN 27.5 pg (27.0-33.0); MEAN CORPUSCULAR HGB CONC 30.6 g/dl (32.0-36.5); MEAN CORPUSCULAR VOLUME 89.7 fl (80.0-96.0); PLATELET COUNT, AUTOMATED 288 10^3/uL (150-450); RED BLOOD COUNT 4.08 10^6/uL (4.00-5.40); WHITE BLOOD COUNT 7.9 10^3/uL (4.0-10.0)
[2022-11-25 06:40] LABS: CK-MB VALUE MASS < 1.0 NG/ML (<3.6)
[2022-11-25 06:43] LABS: CPK CREATINE PHOSPHOKINASE 31 U/L (34-145); MB/CK RELATIVE INDEX 3.22 (< OR =4)
[2022-11-25 06:44] LABS: BLOOD UREA NITROGEN 20 MG/DL (9-23); CALCIUM LEVEL 9.5 MG/DL (8.3-10.6); CARBON DIOXIDE LEVEL 28 MMOL/L (20-31); CHLORIDE LEVEL 102 MMOL/L (98-107); GLOMERULAR FILTRATION RATE 53.2 (>45); GLUCOSE, FASTING 182 MG/DL (74-106); POTASSIUM SERUM 4.1 MMOL/L (3.5-5.1); SODIUM LEVEL 139 MMOL/L (136-145)
[2022-11-25] MEDS ORDERED: ISOSORBIDE MON. (IMDUR) 60MG XR TAB PO SCH (09:00)
[2022-11-25] MEDS ORDERED: TORSEMIDE (DEMADEX) 50 MG PER 1/2 TAB PO SCH (09:00)
[2022-11-25] MEDS: COLESEVELAM 625 MG TAB (WELCHOL) PO SCH ×2 (09:00→20:40)
[2022-11-25] MEDS ORDERED: LOSARTAN 50MG TABLET PO SCH (09:00)
[2022-11-25] MEDS ORDERED: METOPROLOL SUCC (TopROL XL) 50MG **XL** TAB PO SCH (09:00)
[2022-11-25] MEDS: PANTOPRAZOLE 40MG TAB (PROTONIX) PO SCH (09:10)
[2022-11-25] MEDS: EZETIMIBE 10MG TABLET (ZETIA) PO SCH (09:11)
[2022-11-25] MEDS: ASCORBIC ACID 500 MG TAB PO SCH (09:12)
[2022-11-25] MEDS: APIXABAN 5 MG TAB (ELIQUIS) PO SCH ×2 (09:12→20:37)
[2022-11-25] MEDS: CLOPIDOGREL 75 MG TAB PO SCH (09:12)
[2022-11-25] MEDS: FAMOTIDINE 20 MG TAB PO SCH (09:12)
[2022-11-25] MEDS: FOLIC ACID 1MG TAB PO SCH (09:12)
[2022-11-25] MEDS: RANOLAZINE 500MG ER TAB PO SCH ×2 (09:17→20:38)
[2022-11-25] MEDS ORDERED: FUROSEMIDE injection 250 MG in D5W 225 ML IV SCH ×2 (10:00→16:00)
[2022-11-25] MEDS ORDERED: FUROSEMIDE 100MG/10ML VIAL IV ONE (10:15)
[2022-11-25 12:43] VITALS: BP 154/76
[2022-11-25 14:00] VITALS: BP 137/73
[2022-11-25] MEDS: FUROSEMIDE injection 250 MG in D5W 225 ML IV SCH (15:21)
[2022-11-25 18:51] LABS: BLOOD UREA NITROGEN 23 MG/DL (9-23); CALCIUM LEVEL 9.4 MG/DL (8.3-10.6); CARBON DIOXIDE LEVEL 26 MMOL/L (20-31); CHLORIDE LEVEL 102 MMOL/L (98-107); CK-MB VALUE MASS < 1.0 NG/ML (<3.6); CPK CREATINE PHOSPHOKINASE 39 U/L (34-145); CREATININE FOR GFR 1.11 MG/DL (0.55-1.30); GLOMERULAR FILTRATION RATE 52.7 (>45); GLUCOSE, FASTING 110 MG/DL (74-106); MAGNESIUM LEVEL 1.9 MG/DL (1.8-2.4); MB/CK RELATIVE INDEX 2.56 (< OR =4); POTASSIUM SERUM 3.9 MMOL/L (3.5-5.1); SODIUM LEVEL 135 MMOL/L (136-145)
[2022-11-25 20:30] VITALS: BP 139/62
[2022-11-25] MEDS: FERROUS SULFATE 325MG TAB PO SCH (20:37)
[2022-11-25] MEDS: ROSUVASTATIN 10 MG TAB (CRESTOR) PO SCH (20:37)
[2022-11-25] MEDS: MONTELUKAST 10 MG TAB PO SCH (20:38)
[2022-11-25] MEDS: SERTRALINE HCL 50 MG TAB PO SCH (20:38)
[2022-11-25] MEDS ORDERED: ENOXAPARIN 40MG/0.4ML SYRINGE (J1650 PER 10MG) SC SCH (21:00)
[2022-11-26 00:39] LABS: CK-MB VALUE MASS 1.2 NG/ML (<3.6)
[2022-11-26 00:40] LABS: CALCIUM LEVEL 8.6 MG/DL (8.3-10.6); CREATININE FOR GFR 1.21 MG/DL (0.55-1.30); GLOMERULAR FILTRATION RATE 47.7 (>45); MB/CK RELATIVE INDEX 3.87 (< OR =4); POTASSIUM SERUM 3.5 MMOL/L (3.5-5.1)
[2022-11-26 02:34] VITALS: BP 139/63
[2022-11-26 04:40] VITALS: BP 116/55
[2022-11-26] MEDS: LEVOTHYROXINE 75MCG TABLET (0.075MG) PO SCH (05:56)
[2022-11-26 07:37] LABS: CALCIUM LEVEL 8.7 MG/DL (8.3-10.6); CREATININE FOR GFR 1.07 MG/DL (0.55-1.30); MB/CK RELATIVE INDEX 2.85 (< OR =4); POTASSIUM SERUM 3.6 MMOL/L (3.5-5.1)
[2022-11-26] MEDS: COLESEVELAM 625 MG TAB (WELCHOL) PO SCH ×2 (09:00→21:13)
[2022-11-26] MEDS: PANTOPRAZOLE 40MG TAB (PROTONIX) PO SCH (09:48)
[2022-11-26] MEDS: CLOPIDOGREL 75 MG TAB PO SCH (09:48)
[2022-11-26] MEDS: APIXABAN 5 MG TAB (ELIQUIS) PO SCH ×2 (09:48→21:13)
[2022-11-26] MEDS: EZETIMIBE 10MG TABLET (ZETIA) PO SCH (09:48)
[2022-11-26] MEDS: FOLIC ACID 1MG TAB PO SCH (09:48)
[2022-11-26] MEDS: FAMOTIDINE 20 MG TAB PO SCH (09:48)
[2022-11-26] MEDS: ASCORBIC ACID 500 MG TAB PO SCH (09:48)
[2022-11-26] MEDS: RANOLAZINE 500MG ER TAB PO SCH ×2 (09:48→22:03)
[2022-11-26 12:35] LABS: BLOOD UREA NITROGEN 17 MG/DL (9-23); CALCIUM LEVEL 8.9 MG/DL (8.3-10.6); CARBON DIOXIDE LEVEL 27 MMOL/L (20-31); CHLORIDE LEVEL 101 MMOL/L (98-107); CREATININE FOR GFR 0.96 MG/DL (0.55-1.30); GLOMERULAR FILTRATION RATE > 60.0 (>45); GLUCOSE, FASTING 167 MG/DL (74-106); POTASSIUM SERUM 3.3 MMOL/L (3.5-5.1); SODIUM LEVEL 137 MMOL/L (136-145)
[2022-11-26 14:00] VITALS: BP 147/57
[2022-11-26 18:46] LABS: CALCIUM LEVEL 9.3 MG/DL (8.3-10.6); CREATININE FOR GFR 1.03 MG/DL (0.55-1.30); GLOMERULAR FILTRATION RATE 57.4 (>45); POTASSIUM SERUM 3.9 MMOL/L (3.5-5.1)
[2022-11-26] MEDS: SERTRALINE HCL 50 MG TAB PO SCH (21:13)
[2022-11-26] MEDS: ROSUVASTATIN 10 MG TAB (CRESTOR) PO SCH (21:13)
[2022-11-26] MEDS: MONTELUKAST 10 MG TAB PO SCH (21:14)
[2022-11-26] MEDS: FERROUS SULFATE 325MG TAB PO SCH (21:14)
[2022-11-26 21:20] VITALS: BP 146/58
[2022-11-27] MEDS: FUROSEMIDE injection 250 MG in D5W 225 ML IV SCH (00:17)
[2022-11-27 00:55] LABS: CALCIUM LEVEL 8.6 MG/DL (8.3-10.6); CREATININE FOR GFR 1.03 MG/DL (0.55-1.30); GLOMERULAR FILTRATION RATE 57.4 (>45); POTASSIUM SERUM 3.4 MMOL/L (3.5-5.1)
[2022-11-27 04:50] VITALS: BP 143/59
[2022-11-27] MEDS: LEVOTHYROXINE 75MCG TABLET (0.075MG) PO SCH (05:33)
[2022-11-27 06:45] LABS: CALCIUM LEVEL 8.7 MG/DL (8.3-10.6); GLOMERULAR FILTRATION RATE 59.4 (>45); POTASSIUM SERUM 4.2 MMOL/L (3.5-5.1)
[2022-11-27] MEDS ORDERED: metOLazone 5 MG TAB PO STA (07:19)
[2022-11-27] MEDS ORDERED: TORS10TA3 PO ×2 (07:26→10:46)
[2022-11-27] MEDS ORDERED: RANO10002 PO (07:26)
[2022-11-27] MEDS ORDERED: FUROSEMIDE 100MG/10ML VIAL IV ONE (07:40)
[2022-11-27] MEDS: RANOLAZINE 500MG ER TAB PO SCH (08:25)
[2022-11-27] MEDS: FOLIC ACID 1MG TAB PO SCH (08:25)
[2022-11-27] MEDS: FAMOTIDINE 20 MG TAB PO SCH (08:25)
[2022-11-27] MEDS: PANTOPRAZOLE 40MG TAB (PROTONIX) PO SCH (08:25)
[2022-11-27] MEDS: ASCORBIC ACID 500 MG TAB PO SCH (08:25)
[2022-11-27] MEDS: COLESEVELAM 625 MG TAB (WELCHOL) PO SCH (08:25)
[2022-11-27] MEDS: CLOPIDOGREL 75 MG TAB PO SCH (08:25)
[2022-11-27] MEDS: EZETIMIBE 10MG TABLET (ZETIA) PO SCH (08:25)
[2022-11-27] MEDS: APIXABAN 5 MG TAB (ELIQUIS) PO SCH (08:25)
[2022-11-27] MEDS ORDERED: RANO500T2 PO (10:46)
[2022-11-27] MEDS ORDERED: ACETAMINOPHEN 500 MG TAB PO ONE (12:15)
[2022-11-27 14:00] VITALS: BP 143/59
[2022-11-27 14:13] LABS: CALCIUM LEVEL 9.5 MG/DL (8.3-10.6); CREATININE FOR GFR 1.09 MG/DL (0.55-1.30); GLOMERULAR FILTRATION RATE 53.8 (>45); MAGNESIUM LEVEL 1.8 MG/DL (1.8-2.4); MB/CK RELATIVE INDEX 2.56 (< OR =4)
== END 2022-11-27 16:53 | disposition home or self-care (01) | DRG 425 ==
LOC: M ED 09:21 → M ED INP 15:19 → ENRESERV 16:23 → M MSPAV 17:06
PROVIDERS: ADMIT General Practice; ATTEND General Practice
PROC: B246ZZZ Ultrasonography of Right and Left Heart (ICD-10-PCS; principal; 2022-11-27)
DX: E87.70 Fluid overload, unspecified (principal); I21.A1 Myocardial infarction type 2; I11.0 Hypertensive heart disease with heart failure; I50.9 Heart failure, unspecified; Z68.41 Body mass index [BMI] 40.0-44.9, adult; E66.01 Morbid (severe) obesity due to excess calories; I48.91 Unspecified atrial fibrillation; Z79.01 Long term (current) use of anticoagulants; I25.10 Atherosclerotic heart disease of native coronary artery without angina pectoris; Z95.5 Presence of coronary angioplasty implant and graft; E78.5 Hyperlipidemia, unspecified; R73.03 Prediabetes; K22.70 Barrett's esophagus without dysplasia; M51.34 Other intervertebral disc degeneration, thoracic region; Z86.16 Personal history of COVID-19; E55.9 Vitamin D deficiency, unspecified; Z90.49 Acquired absence of other specified parts of digestive tract; Z87.891 Personal history of nicotine dependence; F32.A Depression, unspecified; J45.909 Unspecified asthma, uncomplicated; Z20.822 Contact with and (suspected) exposure to COVID-19; Z79.890 Hormone replacement therapy; Z79.899 Other long term (current) drug therapy; Z88.0 Allergy status to penicillin; Z88.1 Allergy status to other antibiotic agents; Z88.2 Allergy status to sulfonamides; Z88.8 Allergy status to other drugs, medicaments and biological substances

== ENCOUNTER → 2022-12-03 | Outpatient (REF) | payer BC ==
[~2022-12-03] MED LIST changes: +ISOS120T7 PO; +METO1TAB7 PO; +RANO10002 PO; +RANO500T2 PO; +SENN-186 PO; +SYNT75TA PO; +TORS10TA3 PO; +ZOLO100T PO
[2022-12-03 14:50] LABS: HEMATOCRIT 35.4 % (36.0-47.0); MEAN CORPUSCULAR HEMOGLOBIN 27.3 pg (27.0-33.0); MEAN CORPUSCULAR HGB CONC 31.1 g/dl (32.0-36.5); MEAN CORPUSCULAR VOLUME 87.8 fl (80.0-96.0); PLATELET COUNT, AUTOMATED 311 10^3/uL (150-450); RED BLOOD COUNT 4.03 10^6/uL (4.00-5.40); WHITE BLOOD COUNT 9.6 10^3/uL (4.0-10.0)
[2022-12-03 14:51] LABS: CALCIUM LEVEL 8.7 MG/DL (8.3-10.6); CREATININE FOR GFR 1.16 MG/DL (0.55-1.30); GLOMERULAR FILTRATION RATE 50.1 (>45); POTASSIUM SERUM 2.6 MMOL/L (3.5-5.1)
== END ==
LOC: M LABDRWAD 12:31
PROVIDERS: ATTEND Internal Medicine Cardiovascular Disease
DX: I50.22 Chronic systolic (congestive) heart failure (principal); I25.119 Atherosclerotic heart disease of native coronary artery with unspecified angina pectoris

== ENCOUNTER → 2022-12-03 | Outpatient (REF) | payer BC ==
[2022-12-03 14:45] LABS: THYROID STIMULATING HORMONE 4.679 uIU/ML (0.55-4.78)
[2022-12-03 14:47] LABS: FREE T4 1.41 NG/DL (0.89-1.76)
[2022-12-03 15:16] LABS: CALCIUM LEVEL 8.8 MG/DL (8.3-10.6); CREATININE FOR GFR 1.18 MG/DL (0.55-1.30); GLOMERULAR FILTRATION RATE 49.1 (>45); MAGNESIUM LEVEL 1.7 MG/DL (1.8-2.4); POTASSIUM SERUM 2.6 MMOL/L (3.5-5.1)
== END ==
LOC: M SFHCADAM 09:21
PROVIDERS: ATTEND Family Medicine
DX: E87.6 Hypokalemia (principal); E03.9 Hypothyroidism, unspecified; I11.9 Hypertensive heart disease without heart failure

== ENCOUNTER → 2022-12-08 | Outpatient (REF) | payer BC ==
[2022-12-08 14:09] LABS: CALCIUM LEVEL 9.3 MG/DL (8.3-10.6); CREATININE FOR GFR 1.08 MG/DL (0.55-1.30); GLOMERULAR FILTRATION RATE 54.4 (>45); POTASSIUM SERUM 3.4 MMOL/L (3.5-5.1)
== END ==
LOC: M LABDRWAD 12:53
PROVIDERS: ATTEND Internal Medicine Cardiovascular Disease
DX: I50.22 Chronic systolic (congestive) heart failure (principal)

== ENCOUNTER → 2022-12-17 | Outpatient (CLI) | payer BC ==
[2022-12-17 17:06] LABS: ALBUMIN 3.3 G/DL (3.2-5.2); BILIRUBIN,TOTAL 0.3 MG/DL (0.3-1.2); CALCIUM LEVEL 9.6 MG/DL (8.3-10.6); CREATININE FOR GFR 1.37 MG/DL (0.55-1.30); GLOMERULAR FILTRATION RATE 41.3 (>45); POTASSIUM SERUM 4.5 MMOL/L (3.5-5.1); TOTAL PROTEIN 7.2 G/DL (5.7-8.2)
== END ==
LOC: M LABDRWAD 15:06
PROVIDERS: ATTEND Internal Medicine Cardiovascular Disease
DX: I50.22 Chronic systolic (congestive) heart failure (principal)

== ENCOUNTER → 2022-12-23 | Outpatient (REF) | payer BC, MEDICARE ==
[2022-12-23 15:47] LABS: CALCIUM LEVEL 10.2 MG/DL (8.3-10.6); CK-MB VALUE MASS 1.1 NG/ML (<3.6); CREATININE FOR GFR 1.07 MG/DL (0.55-1.30); GLOMERULAR FILTRATION RATE 54.8 (>45); MB/CK RELATIVE INDEX 2.24 (< OR =4); POTASSIUM SERUM 4.4 MMOL/L (3.5-5.1)
== END ==
LOC: M SFHCADAM 08:37
PROVIDERS: ATTEND Family Medicine
DX: I25.9 Chronic ischemic heart disease, unspecified (principal)

== ENCOUNTER 2022-12-29 19:14 | Observation (INO) | payer BC, MEDICARE ==
[~2022-12-29] VITALS: Ht 160 cm; Wt 109.3 kg
[~2022-12-29 19:14] MED LIST changes: -LOSA100T45 PO; +LOSA100T46 PO
[2022-12-29 19:55] LABS: BASO # 0.1 10^3/uL (0.0-0.2); BASO % 0.6 % (0.0-1.0); EOS # 0.1 10^3/uL (0.0-0.5); EOS % 0.9 % (0.0-3.0); HEMATOCRIT 37.6 % (36.0-47.0); HEMOGLOBIN 11.9 g/dl (12.0-15.5); LYMPH # 1.1 10^3/uL (1.5-5.0); LYMPH % 11.1 % (24.0-44.0); MEAN CORPUSCULAR HGB CONC 31.6 g/dl (32.0-36.5); MEAN CORPUSCULAR VOLUME 85.5 fl (80.0-96.0); MONO # 1.1 10^3/uL (0.0-0.8); MONO % 11.9 % (2.0-8.0); NEUTROPHILS # 7.1 10^3/uL (1.5-8.5); NEUTROPHILS % 75.2 % (36.0-66.0); PLATELET COUNT, AUTOMATED 376 10^3/uL (150-450); WHITE BLOOD COUNT 9.5 10^3/uL (4.0-10.0)
[2022-12-29 20:05] LABS: INR 1.08; PROTHROMBIN TIME 14.2 SECONDS (12.5-14.5)
[2022-12-29 20:16] LABS: CALCIUM LEVEL 8.9 MG/DL (8.3-10.6); CREATININE FOR GFR 1.19 MG/DL (0.55-1.30); GLOMERULAR FILTRATION RATE 48.5 (>45); POTASSIUM SERUM 3.5 MMOL/L (3.5-5.1)
[2022-12-29 20:17] LABS: MB/CK RELATIVE INDEX 1.75 (< OR =4)
[2022-12-29 20:21] LABS: RSV AMPLIFICATION NEGATIVE (NEGATIVE)
[2022-12-29 21:56] LABS: ALBUMIN 3.5 G/DL (3.2-5.2); BILIRUBIN,DIRECT 0.1 MG/DL (<0.4); BILIRUBIN,TOTAL 0.3 MG/DL (0.3-1.2); TOTAL PROTEIN 6.9 G/DL (5.7-8.2)
[2022-12-29] MEDS ORDERED: BIOF4GEL4 EXT (23:51)
[2022-12-29] MEDS ORDERED: TORS100T PO (23:51)
[2022-12-29] MEDS ORDERED: SPIR-10 PO (23:51)
[2022-12-29] MEDS ORDERED: ALBU2.5V10 INH (23:51)
[2022-12-29] MEDS ORDERED: FAMO40TA3 PO (23:51)
[2022-12-29] MEDS ORDERED: HOME MED LIST COMPLETE! XX SCH (23:55)
[2022-12-30] MEDS ORDERED: NORCO, ANEXSIA 5/325MG TABLET (HYDROcodone/ACETAMINOPHEN) PO PRN (01:10)
[2022-12-30] MEDS ORDERED: ONDANSETRON 4MG ORAL DISINTEGRATING TAB PO PRN (01:10)
[2022-12-30] MEDS ORDERED: ACETAMINOPHEN TAB 650MG DOSE (2X325MG) PO PRN (01:10)
[2022-12-30] MEDS ORDERED: NITROGLYCERIN 0.4MG SUBL TABLET SL PRN (01:10)
[2022-12-30] MEDS ORDERED: ALBUTEROL 90 MCG/ACT 8GM HFA INHALER INH PRN (01:10)
[2022-12-30 02:15] VITALS: BP 137/64
[2022-12-30 06:00] VITALS: BP 102/57
[2022-12-30] MEDS ORDERED: LEVOTHYROXINE 75MCG TABLET (0.075MG) PO SCH (06:00)
[2022-12-30] MEDS ORDERED: NITROGLYCERIN 0.4MG SUBL TABLET SL STA (08:24)
[2022-12-30] MEDS ORDERED: ASPIRIN 81MG CHEW TABLET PO SCH (09:00)
[2022-12-30] MEDS ORDERED: TORSEMIDE 100 MG TAB PO SCH (09:00)
[2022-12-30] MEDS ORDERED: LOSARTAN 50MG TABLET PO SCH (09:00)
[2022-12-30] MEDS ORDERED: PANTOPRAZOLE 40MG TAB (PROTONIX) PO SCH (09:00)
[2022-12-30] MEDS ORDERED: SPIRONOLACTONE 25 MG TAB PO SCH (09:00)
[2022-12-30] MEDS ORDERED: CLOPIDOGREL 75 MG TAB PO SCH (09:00)
[2022-12-30] MEDS ORDERED: EZETIMIBE 10MG TABLET (ZETIA) PO SCH (09:00)
[2022-12-30] MEDS ORDERED: ISOSORBIDE MON. (IMDUR) 60MG XR TAB PO SCH (09:00)
[2022-12-30] MEDS ORDERED: APIXABAN 5 MG TAB (ELIQUIS) PO SCH (09:00)
[2022-12-30] MEDS ORDERED: METOPROLOL SUCC *XL* 25MG TAB (TopROL *XL*) PO SCH (09:00)
[2022-12-30 11:14] VITALS: BP 152/78
[2022-12-30] MEDS ORDERED: ROSUVASTATIN 10 MG TAB (CRESTOR) PO SCH (21:00)
== END 2022-12-30 13:52 | disposition home or self-care (01) ==
LOC: M ED 19:14 → M ED INP 19:15 → ENRESERV 12-30 01:24 → M MSPAV 12-30 02:01
PROVIDERS: ADMIT Internal Medicine; ATTEND Internal Medicine
DX: I25.119 Atherosclerotic heart disease of native coronary artery with unspecified angina pectoris (principal); Z98.61 Coronary angioplasty status; Z95.1 Presence of aortocoronary bypass graft; I48.91 Unspecified atrial fibrillation; Z79.01 Long term (current) use of anticoagulants; I50.40 Unspecified combined systolic (congestive) and diastolic (congestive) heart failure; E78.5 Hyperlipidemia, unspecified; Z87.891 Personal history of nicotine dependence; E03.9 Hypothyroidism, unspecified; K22.70 Barrett's esophagus without dysplasia; Z79.899 Other long term (current) drug therapy; Z88.0 Allergy status to penicillin; Z88.2 Allergy status to sulfonamides; Z88.8 Allergy status to other drugs, medicaments and biological substances

== ENCOUNTER 2023-01-01 11:50 | Emergency (ER) | payer BC ==
[~2023-01-01] VITALS: Ht 160 cm; Wt 109.6 kg
[~2023-01-01 11:50] MED LIST changes: +ALBU2.5V10 INH; +BIOF4GEL4 EXT; +FAMO40TA3 PO; +SPIR-10 PO
[2023-01-01 12:44] LABS: BASO # 0.1 10^3/uL (0.0-0.2); BASO % 0.6 % (0.0-1.0); EOS # 0.2 10^3/uL (0.0-0.5); EOS % 1.9 % (0.0-3.0); LYMPH # 1.1 10^3/uL (1.5-5.0); LYMPH % 11.4 % (24.0-44.0); MEAN CORPUSCULAR HEMOGLOBIN 26.9 pg (27.0-33.0); MEAN CORPUSCULAR HGB CONC 31.4 g/dl (32.0-36.5); MEAN CORPUSCULAR VOLUME 85.6 fl (80.0-96.0); MONO # 0.9 10^3/uL (0.0-0.8); MONO % 9.7 % (2.0-8.0); PLATELET COUNT, AUTOMATED 317 10^3/uL (150-450); RED BLOOD COUNT 4.09 10^6/uL (4.00-5.40); WHITE BLOOD COUNT 9.2 10^3/uL (4.0-10.0)
[2023-01-01 12:53] LABS: INR 1.09; PROTHROMBIN TIME 14.3 SECONDS (12.5-14.5)
[2023-01-01 12:54] LABS: PARTIAL THROMBOPLASTIN TIME 37.2 SECONDS (24.8-34.2)
[2023-01-01 13:13] LABS: CK-MB VALUE MASS < 1.0 NG/ML (<3.6)
[2023-01-01 13:15] LABS: CPK CREATINE PHOSPHOKINASE 55 U/L (34-145); MB/CK RELATIVE INDEX 1.81 (< OR =4)
[2023-01-01 13:16] LABS: ALBUMIN 3.3 G/DL (3.2-5.2); ALKALINE PHOSPHATASE 106 U/L (46-116); ALT/SGPT 29 U/L (7.0-40); AST/SGOT 23 U/L (<34); BILIRUBIN,DIRECT 0.2 MG/DL (<0.4); BILIRUBIN,TOTAL 0.4 MG/DL (0.3-1.2); BLOOD UREA NITROGEN 18 MG/DL (9-23); CALCIUM LEVEL 9.1 MG/DL (8.3-10.6); CARBON DIOXIDE LEVEL 30 MMOL/L (20-31); CHLORIDE LEVEL 100 MMOL/L (98-107); CREATININE FOR GFR 1.17 MG/DL (0.55-1.30); GLOMERULAR FILTRATION RATE 49.4 (>45); GLUCOSE, FASTING 115 MG/DL (74-106); POTASSIUM SERUM 3.7 MMOL/L (3.5-5.1); SODIUM LEVEL 137 MMOL/L (136-145); TOTAL PROTEIN 6.7 G/DL (5.7-8.2)
[2023-01-01 13:17] LABS: FREE T4 1.44 NG/DL (0.89-1.76)
[2023-01-01 13:18] LABS: THYROID STIMULATING HORMONE 3.812 uIU/ML (0.55-4.78)
[2023-01-01] MEDS ORDERED: LABETALOL 100MG/20ML VIAL IV STA (14:04)
[2023-01-01] MEDS ORDERED: ISOVUE-370 76% 100ML VIAL As Ordered ONE (14:07)
[2023-01-01 14:49] LABS: CK-MB VALUE MASS < 1.0 NG/ML (<3.6)
[2023-01-01 14:51] LABS: CPK CREATINE PHOSPHOKINASE 49 U/L (34-145); MB/CK RELATIVE INDEX 2.04 (< OR =4)
[2023-01-01 14:59] LABS: RSV AMPLIFICATION NEGATIVE (NEGATIVE)
[2023-01-01 16:51] LABS: CK-MB VALUE MASS < 1.0 NG/ML (<3.6)
[2023-01-01 16:52] LABS: CPK CREATINE PHOSPHOKINASE 48 U/L (34-145); MB/CK RELATIVE INDEX 2.08 (< OR =4)
[2023-01-01 17:00] VITALS: BP 156/72
== END 2023-01-01 17:13 | disposition home or self-care (01) ==
LOC: M ED 11:50
DX: R07.9 Chest pain, unspecified (principal); I48.91 Unspecified atrial fibrillation; I25.10 Atherosclerotic heart disease of native coronary artery without angina pectoris; I50.9 Heart failure, unspecified; E78.5 Hyperlipidemia, unspecified; E66.9 Obesity, unspecified; K22.70 Barrett's esophagus without dysplasia; Z87.442 Personal history of urinary calculi; Z95.1 Presence of aortocoronary bypass graft; F17.200 Nicotine dependence, unspecified, uncomplicated; Z79.01 Long term (current) use of anticoagulants; Z79.899 Other long term (current) drug therapy; Z88.0 Allergy status to penicillin; Z88.2 Allergy status to sulfonamides; Z88.1 Allergy status to other antibiotic agents; Z88.8 Allergy status to other drugs, medicaments and biological substances
CPT/HCPCS: 71046; 71275; 80048; 80076; 82550; 82553; 84439; 84443; 84484; 85025; 85610; 85730; 87631; 93005; 93041; 94760; 99285; Q9967

== ENCOUNTER → 2023-01-27 | Outpatient (REF) | payer BC, MEDICARE ==
[2023-01-27 13:20] LABS: HEMATOCRIT 33.4 % (36.0-47.0); HEMOGLOBIN 10.1 g/dl (12.0-15.5); MEAN CORPUSCULAR HEMOGLOBIN 26.6 pg (27.0-33.0); MEAN CORPUSCULAR HGB CONC 30.2 g/dl (32.0-36.5); MEAN CORPUSCULAR VOLUME 87.9 fl (80.0-96.0); PLATELET COUNT, AUTOMATED 338 10^3/uL (150-450); WHITE BLOOD COUNT 10.2 10^3/uL (4.0-10.0)
[2023-01-27 13:28] LABS: ALBUMIN 3.3 G/DL (3.2-5.2); BILIRUBIN,TOTAL 0.3 MG/DL (0.3-1.2); CALCIUM LEVEL 8.9 MG/DL (8.3-10.6); CHOLESTEROL RISK RATIO 2.14 (<5); CREATININE FOR GFR 1.33 MG/DL (0.55-1.30); GLOMERULAR FILTRATION RATE 42.6 (>45); LDL CHOLESTEROL 48.4 MG/DL (<100); POTASSIUM SERUM 4.4 MMOL/L (3.5-5.1); TOTAL PROTEIN 6.3 G/DL (5.7-8.2)
[2023-01-27 13:30] LABS: FREE T4 1.45 NG/DL (0.89-1.76); THYROID STIMULATING HORMONE 3.743 uIU/ML (0.55-4.78)
[2023-01-27 14:06] LABS: HEMOGLOBIN A1c 6.6 % (4.0-6.0)
== END ==
LOC: M SFHCADAM 09:48
PROVIDERS: ATTEND Family Medicine
DX: K92.2 Gastrointestinal hemorrhage, unspecified (principal); I11.9 Hypertensive heart disease without heart failure; R73.03 Prediabetes; E03.9 Hypothyroidism, unspecified; Z95.1 Presence of aortocoronary bypass graft; Z95.5 Presence of coronary angioplasty implant and graft

== ENCOUNTER → 2023-02-10 | Outpatient (CLI) | payer BC, MEDICARE ==
[~2023-02-10] MED LIST changes: -ROSU20TA5 PO; +ROSU20TA61 PO
[2023-02-10 12:59] LABS: BASO # 0.1 10^3/uL (0.0-0.2); BASO % 0.8 % (0.0-1.0); EOS # 0.2 10^3/uL (0.0-0.5); EOS % 2.1 % (0.0-3.0); HEMATOCRIT 35.9 % (36.0-47.0); HEMOGLOBIN 10.8 g/dl (12.0-15.5); LYMPH % 11.3 % (24.0-44.0); MEAN CORPUSCULAR HGB CONC 30.1 g/dl (32.0-36.5); MEAN CORPUSCULAR VOLUME 86.3 fl (80.0-96.0); MONO # 0.9 10^3/uL (0.0-0.8); MONO % 9.9 % (2.0-8.0); NEUTROPHILS # 6.7 10^3/uL (1.5-8.5); NEUTROPHILS % 75.3 % (36.0-66.0); PLATELET COUNT, AUTOMATED 391 10^3/uL (150-450); RED BLOOD COUNT 4.16 10^6/uL (4.00-5.40)
[2023-02-10 13:28] LABS: CALCIUM LEVEL 9.3 MG/DL (8.3-10.6); CREATININE FOR GFR 1.14 MG/DL (0.55-1.30); GLOMERULAR FILTRATION RATE 50.9 (>45); PERCENT SATURATION 4.3 % (13.2-45.0); POTASSIUM SERUM 4.2 MMOL/L (3.5-5.1)
== END ==
LOC: M ADAMS 10:03
PROVIDERS: ATTEND Physician Assistant
DX: I11.0 Hypertensive heart disease with heart failure (principal); K92.2 Gastrointestinal hemorrhage, unspecified; I48.0 Paroxysmal atrial fibrillation; D50.0 Iron deficiency anemia secondary to blood loss (chronic)

== ENCOUNTER 2023-02-16 11:49 | Outpatient (CLI) | payer BC, MEDICARE ==
[~2023-02-16] VITALS: Ht 160 cm; Wt 113.0 kg
[~2023-02-16 11:49] MED LIST changes: +ALBUTEROL SULFATE 2.5MG/0.5ML INH NEB SOLN INH PRN; +EPINEPHrine INJ 1 MG/ML 1ML AMP IM PRN; +diphenhydrAMINE 50MG/ML VIAL IV PRN; +methylPREDNISolone 125MG 2ML VIAL IV PRN
[2023-02-16] MEDS ORDERED: IRON SUCROSE 200 MG in NS 190 ML IV ONE (12:30)
[2023-02-16] MEDS ORDERED: methylPREDNISolone 40MG 1ML VIAL IV ONE (12:30)
[2023-02-16] MEDS ORDERED: NS 1,000 ML IV SCH (12:30)
[2023-02-16] MEDS ORDERED: diphenhydrAMINE 50MG/ML VIAL IV ONE (12:30)
[2023-02-16 12:59] VITALS: BP 132/63; O2SAT 96
[2023-02-16 14:15] VITALS: BP 155/68; O2SAT 100
== END 2023-02-16 14:20 ==
LOC: M INFU 11:49
PROVIDERS: ATTEND Family Medicine
DX: D50.9 Iron deficiency anemia, unspecified (principal); Z88.0 Allergy status to penicillin; Z88.2 Allergy status to sulfonamides; Z88.1 Allergy status to other antibiotic agents; Z88.8 Allergy status to other drugs, medicaments and biological substances
CPT/HCPCS: 96365; 96375; J1200; J1756; J2920

== ENCOUNTER 2023-02-17 09:55 | Emergency (ER) | payer BC, MEDICARE ==
[~2023-02-17] VITALS: Ht 160 cm; Wt 113.1 kg
[~2023-02-17 09:55] MED LIST changes: -ALBUTEROL SULFATE 2.5MG/0.5ML INH NEB SOLN INH PRN; -EPINEPHrine INJ 1 MG/ML 1ML AMP IM PRN; -diphenhydrAMINE 50MG/ML VIAL IV PRN; -methylPREDNISolone 125MG 2ML VIAL IV PRN
[2023-02-17 10:56] LABS: BASO % 0.2 % (0.0-1.0); HEMATOCRIT 34.3 % (36.0-47.0); HEMOGLOBIN 10.2 g/dl (12.0-15.5); LYMPH # 0.7 10^3/uL (1.5-5.0); LYMPH % 4.1 % (24.0-44.0); MEAN CORPUSCULAR HGB CONC 29.7 g/dl (32.0-36.5); MEAN CORPUSCULAR VOLUME 87.5 fl (80.0-96.0); MONO % 5.6 % (2.0-8.0); NEUTROPHILS # 16.1 10^3/uL (1.5-8.5); NEUTROPHILS % 89.1 % (36.0-66.0); PLATELET COUNT, AUTOMATED 377 10^3/uL (150-450); RED BLOOD COUNT 3.92 10^6/uL (4.00-5.40); WHITE BLOOD COUNT 18.1 10^3/uL (4.0-10.0)
[2023-02-17 11:21] LABS: CALCIUM LEVEL 9.7 MG/DL (8.3-10.6); CK-MB VALUE MASS 1.4 NG/ML (<3.6); CREATININE FOR GFR 1.13 MG/DL (0.55-1.30); GLOMERULAR FILTRATION RATE 51.4 (>45); POTASSIUM SERUM 4.6 MMOL/L (3.5-5.1)
[2023-02-17 11:28] LABS: MB/CK RELATIVE INDEX 1.72 (< OR =4)
[2023-02-17] MEDS ORDERED: ASPIRIN 81MG CHEW TABLET PO ONE (12:20)
[2023-02-17] MEDS ORDERED: ISOVUE-370 76% 100ML VIAL As Ordered ONE (12:22)
[2023-02-17 12:29] LABS: CK-MB VALUE MASS 1.3 NG/ML (<3.6)
[2023-02-17 12:30] LABS: MB/CK RELATIVE INDEX 1.96 (< OR =4)
[2023-02-17] MEDS: NITROGLYCERIN 0.4MG SUBL TABLET SL PRN ×3 (12:40→12:56)
[2023-02-17 12:56] VITALS: BP 126/60
[2023-02-17 14:26] LABS: MB/CK RELATIVE INDEX 3.57 (< OR =4)
[2023-02-17 14:56] VITALS: O2SAT 97
[2023-02-17 17:40] VITALS: BP 134/58; TEMP 98.1; O2SAT 96
== END 2023-02-17 17:44 | disposition home or self-care (01) ==
LOC: M ED 09:55
DX: R07.9 Chest pain, unspecified (principal); I48.91 Unspecified atrial fibrillation; I25.10 Atherosclerotic heart disease of native coronary artery without angina pectoris; I10 Essential (primary) hypertension; E78.5 Hyperlipidemia, unspecified; J45.909 Unspecified asthma, uncomplicated; E53.8 Deficiency of other specified B group vitamins; Z95.5 Presence of coronary angioplasty implant and graft; Z95.1 Presence of aortocoronary bypass graft; Z87.442 Personal history of urinary calculi; Z87.891 Personal history of nicotine dependence; Z79.01 Long term (current) use of anticoagulants; Z79.899 Other long term (current) drug therapy; Z88.0 Allergy status to penicillin; Z88.2 Allergy status to sulfonamides; Z88.1 Allergy status to other antibiotic agents; Z88.8 Allergy status to other drugs, medicaments and biological substances
CPT/HCPCS: 71045; 71275; 80048; 82550; 82553; 84484; 85025; 93005; 93041; 94760; 99285; Q9967

== ENCOUNTER 2023-02-23 10:58 | Outpatient (CLI) | payer BC ==
[~2023-02-23] VITALS: Ht 160 cm; Wt 113.0 kg
[~2023-02-23 10:58] MED LIST changes: +ALBUTEROL SULFATE 2.5MG/0.5ML INH NEB SOLN INH PRN; +EPINEPHrine INJ 1 MG/ML 1ML AMP IM PRN; +diphenhydrAMINE 50MG/ML VIAL IV PRN; +methylPREDNISolone 125MG 2ML VIAL IV PRN
[2023-02-23 11:15] VITALS: BP 132/61; O2SAT 95
[2023-02-23] MEDS ORDERED: NS 1,000 ML IV SCH (11:30)
[2023-02-23] MEDS ORDERED: IRON SUCROSE 200 MG in NS 190 ML IV ONE (11:30)
[2023-02-23] MEDS ORDERED: methylPREDNISolone 40MG 1ML VIAL IV ONE (11:30)
[2023-02-23] MEDS ORDERED: diphenhydrAMINE 50MG/ML VIAL IV ONE (11:30)
[2023-02-23 12:45] VITALS: BP 134/63; O2SAT 98
== END 2023-02-23 12:45 | disposition home or self-care (01) ==
LOC: M INFU 10:58
PROVIDERS: ATTEND Family Medicine
DX: D50.9 Iron deficiency anemia, unspecified (principal); Z88.0 Allergy status to penicillin; Z88.2 Allergy status to sulfonamides; Z88.1 Allergy status to other antibiotic agents; Z88.8 Allergy status to other drugs, medicaments and biological substances
CPT/HCPCS: 96365; 96375; J1200; J1756; J2920

== ENCOUNTER → 2023-02-24 | Outpatient (REF) | payer BC ==
[~2023-02-24] MED LIST changes: -ALBUTEROL SULFATE 2.5MG/0.5ML INH NEB SOLN INH PRN; -EPINEPHrine INJ 1 MG/ML 1ML AMP IM PRN; -diphenhydrAMINE 50MG/ML VIAL IV PRN; -methylPREDNISolone 125MG 2ML VIAL IV PRN
[2023-02-24 14:34] LABS: CREATININE FOR GFR 0.97 MG/DL (0.55-1.30); GLOMERULAR FILTRATION RATE > 60.0 (>45)
== END ==
LOC: M LABDRWAD 13:06
PROVIDERS: ATTEND Internal Medicine Cardiovascular Disease
DX: I20.0 Unstable angina (principal)

== ENCOUNTER 2023-03-03 11:55 | Outpatient (CLI) | payer BC ==
[~2023-03-03] VITALS: Ht 160 cm; Wt 113.0 kg
[2023-03-03 11:55] VITALS: BP 145/66; O2SAT 96
[~2023-03-03 11:55] MED LIST changes: +ALBUTEROL SULFATE 2.5MG/0.5ML INH NEB SOLN INH PRN; +EPINEPHrine INJ 1 MG/ML 1ML AMP IM PRN; +diphenhydrAMINE 50MG/ML VIAL IV PRN; +methylPREDNISolone 125MG 2ML VIAL IV PRN
[2023-03-03] MEDS ORDERED: methylPREDNISolone 125MG 2ML VIAL IV ONE (12:00)
[2023-03-03] MEDS ORDERED: diphenhydrAMINE 50MG/ML VIAL IV ONE (12:00)
[2023-03-03] MEDS ORDERED: IRON SUCROSE 200 MG in NS 190 ML IV ONE (12:00)
[2023-03-03] MEDS ORDERED: methylPREDNISolone 40MG 1ML VIAL IV ONE (12:00)
[2023-03-03] MEDS ORDERED: NS 1,000 ML IV SCH (12:00)
[2023-03-03 13:40] VITALS: BP 157/67; O2SAT 99
== END 2023-03-03 13:40 | disposition home or self-care (01) ==
LOC: M INFU 11:55
PROVIDERS: ATTEND Family Medicine
DX: D50.9 Iron deficiency anemia, unspecified (principal); Z88.0 Allergy status to penicillin; Z88.2 Allergy status to sulfonamides; Z88.1 Allergy status to other antibiotic agents; Z88.8 Allergy status to other drugs, medicaments and biological substances
CPT/HCPCS: 96365; 96375; J1200; J1756; J2920

== ENCOUNTER → 2023-03-29 | Outpatient (REF) | payer BC, MEDICARE ==
[~2023-03-29] MED LIST changes: -ALBUTEROL SULFATE 2.5MG/0.5ML INH NEB SOLN INH PRN; -EPINEPHrine INJ 1 MG/ML 1ML AMP IM PRN; -diphenhydrAMINE 50MG/ML VIAL IV PRN; -methylPREDNISolone 125MG 2ML VIAL IV PRN
[2023-03-29 13:37] LABS: HEMATOCRIT 38.8 % (36.0-47.0); HEMOGLOBIN 11.9 g/dl (12.0-15.5); MEAN CORPUSCULAR HEMOGLOBIN 27.5 pg (27.0-33.0); MEAN CORPUSCULAR HGB CONC 30.7 g/dl (32.0-36.5); MEAN CORPUSCULAR VOLUME 89.6 fl (80.0-96.0); PLATELET COUNT, AUTOMATED 324 10^3/uL (150-450); RED BLOOD COUNT 4.33 10^6/uL (4.00-5.40); WHITE BLOOD COUNT 8.1 10^3/uL (4.0-10.0)
[2023-03-29 14:01] LABS: CREATININE FOR GFR 1.24 MG/DL (0.55-1.30); GLOMERULAR FILTRATION RATE 46.2 (>45); PERCENT SATURATION 9.8 % (13.2-45.0); POTASSIUM SERUM 3.9 MMOL/L (3.5-5.1)
[2023-03-29 14:03] LABS: FERRITIN 29.3 NG/ML (7.3-270.7)
== END ==
LOC: M SFHCADAM 09:26
PROVIDERS: ATTEND Family Medicine
DX: D50.0 Iron deficiency anemia secondary to blood loss (chronic) (principal); I11.0 Hypertensive heart disease with heart failure

== ENCOUNTER → 2023-04-01 | Outpatient (REF) | payer BC, MEDICARE ==
[~2023-04-01] MED LIST changes: +AMIO400T2; -AMIO400T7
[2023-04-01 18:50] LABS: CALCIUM LEVEL 9.5 MG/DL (8.3-10.6); CREATININE FOR GFR 1.57 MG/DL (0.55-1.30); GLOMERULAR FILTRATION RATE 35.2 (>45); POTASSIUM SERUM 3.9 MMOL/L (3.5-5.1)
[2023-04-02 09:53] LABS: MAGNESIUM LEVEL 2.1 MG/DL (1.8-2.4)
== END ==
LOC: M SFHCADAM 13:58
PROVIDERS: ATTEND Physician Assistant Medical
DX: K52.9 Noninfective gastroenteritis and colitis, unspecified (principal); R25.2 Cramp and spasm

== ENCOUNTER 2023-06-15 11:19 | Inpatient (IN) | payer BC, MEDICARE ==
[~2023-06-15] VITALS: Ht 160 cm; Wt 110.9 kg
[2023-06-15] MEDS ORDERED: JARD1TAB PO (12:01)
[2023-06-15] MEDS ORDERED: ECOT81TA5 PO (12:01)
[2023-06-15] MEDS ORDERED: LEVO75TA4 PO (12:01)
[2023-06-15] MEDS ORDERED: MIRT-10 PO (12:01)
[2023-06-15 12:37] LABS: VENOUS BASE EXCESS 0.7 (-2.0-2.0); VENOUS HCO3 27.4 MMOL/L (23.0-27.0); VENOUS O2 SATURATION 43.1 % (60.0-80.0); VENOUS PARTIAL PRESSURE CO2 54.1 mmHg (38.0-50.0); VENOUS PARTIAL PRESSURE O2 28.2 mmHg (30.0-50.0); VENOUS PH 7.322 UNITS (7.330-7.430); VENOUS STANDARD HCO3 24.1 MMOL/L
[2023-06-15 12:45] LABS: BASO # 0.1 10^3/uL (0.0-0.2); EOS # 0.6 10^3/uL (0.0-0.5); EOS % 6.6 % (0.0-3.0); HEMATOCRIT 32.3 % (36.0-47.0); HEMOGLOBIN 9.3 g/dl (12.0-15.5); LYMPH % 10.8 % (24.0-44.0); MEAN CORPUSCULAR HEMOGLOBIN 25.5 pg (27.0-33.0); MEAN CORPUSCULAR HGB CONC 28.8 g/dl (32.0-36.5); MEAN CORPUSCULAR VOLUME 88.7 fl (80.0-96.0); MONO # 0.8 10^3/uL (0.0-0.8); MONO % 8.9 % (2.0-8.0); NEUTROPHILS # 6.4 10^3/uL (1.5-8.5); NEUTROPHILS % 72.3 % (36.0-66.0); PLATELET COUNT, AUTOMATED 316 10^3/uL (150-450); RED BLOOD COUNT 3.64 10^6/uL (4.00-5.40); WHITE BLOOD COUNT 8.9 10^3/uL (4.0-10.0)
[2023-06-15 13:15] LABS: BILIRUBIN,DIRECT 0.2 MG/DL (<0.4); BILIRUBIN,TOTAL 0.4 MG/DL (0.3-1.2); CALCIUM LEVEL 8.4 MG/DL (8.3-10.6); CREATININE FOR GFR 1.16 MG/DL (0.55-1.30); GLOMERULAR FILTRATION RATE 49.9 (>45); POTASSIUM SERUM 3.6 MMOL/L (3.5-5.1); TOTAL PROTEIN 5.9 G/DL (5.7-8.2)
[2023-06-15 13:18] LABS: THYROID STIMULATING HORMONE 1.37 uIU/ML (0.55-4.78)
[2023-06-15 13:19] LABS: CK-MB VALUE MASS 1.3 NG/ML (<3.6)
[2023-06-15 13:20] LABS: MB/CK RELATIVE INDEX 2.7 (< OR =4)
[2023-06-15] MEDS ORDERED: FUROSEMIDE 100MG/10ML VIAL IV ONE (13:25)
[2023-06-15] MEDS ORDERED: FUROSEMIDE 40MG/4ML VIAL IV ONE (13:45)
[2023-06-15 13:53] LABS: MB/CK RELATIVE INDEX 2.27 (< OR =4)
[2023-06-15] MEDS ORDERED: MED REC IN PROGRESS XX SCH (14:25)
[2023-06-15] MEDS ORDERED: BENZONATATE 100MG CAPSULE PO PRN (15:15)
[2023-06-15] MEDS ORDERED: TORS20TA2 PO (15:51)
[2023-06-15] MEDS ORDERED: SPIR50TA4 PO (15:51)
[2023-06-15] MEDS ORDERED: MENT120C TOP (15:51)
[2023-06-15] MEDS ORDERED: HOME MED LIST COMPLETE! XX SCH (15:55)
[2023-06-15] MEDS ORDERED: ENTR1TAB PO (16:31)
[2023-06-15 16:33] LABS: INR 1.18; PROTHROMBIN TIME 14.7 SECONDS (12.5-14.5)
[2023-06-15 16:34] LABS: PARTIAL THROMBOPLASTIN TIME 33.8 SECONDS (24.8-34.2)
[2023-06-15 17:50] VITALS: BP 91/53; TEMP 98; O2SAT 97
[2023-06-15 19:53] VITALS: BP 93/43; TEMP 97.6; O2SAT 96
[2023-06-15] MEDS: MONTELUKAST 10 MG TAB PO SCH (19:53)
[2023-06-15] MEDS: APIXABAN 5 MG TAB (ELIQUIS) PO SCH (19:53)
[2023-06-15] MEDS: MIRTAZAPINE 15 MG TAB PO SCH (19:53)
[2023-06-15] MEDS: guaiFENesin ER TABLET 600 MG TAB PO SCH (19:53)
[2023-06-15] MEDS: ROSUVASTATIN 10 MG TAB (CRESTOR) PO SCH (19:54)
[2023-06-15] MEDS: ACETAMINOPHEN TAB 650MG DOSE (2X325MG) PO PRN (21:58)
[2023-06-15 23:31] VITALS: BP 114/58; TEMP 97.6; O2SAT 95
[2023-06-16] VITALS (7 sets, daily range): BP systolic 90–118; BP diastolic 46–80; PULSE 92; TEMP 96.8–97.9; O2SAT 94–99
[2023-06-16] MEDS: ACETAMINOPHEN TAB 650MG DOSE (2X325MG) PO PRN ×2 (02:39→16:30)
[2023-06-16] MEDS ORDERED: ACETAMINOPHEN TAB 650MG DOSE (2X325MG) PO ONE (03:00)
[2023-06-16 03:45] LABS: CK-MB VALUE MASS < 1.0 NG/ML (<3.6)
[2023-06-16 03:46] LABS: CPK CREATINE PHOSPHOKINASE 52 U/L (34-145); MB/CK RELATIVE INDEX 1.92 (< OR =4)
[2023-06-16 04:07] LABS: HEMATOCRIT 30.6 % (36.0-47.0); HEMOGLOBIN 9.1 g/dl (12.0-15.5); MEAN CORPUSCULAR HEMOGLOBIN 25.6 pg (27.0-33.0); MEAN CORPUSCULAR HGB CONC 29.7 g/dl (32.0-36.5); PLATELET COUNT, AUTOMATED 280 10^3/uL (150-450); RED BLOOD COUNT 3.56 10^6/uL (4.00-5.40); WHITE BLOOD COUNT 7.3 10^3/uL (4.0-10.0)
[2023-06-16 04:33] LABS: ALBUMIN 2.8 G/DL (3.2-5.2); ALKALINE PHOSPHATASE 76 U/L (46-116); ALT/SGPT 16 U/L (7.0-40); AST/SGOT 21 U/L (<34); BILIRUBIN,TOTAL 0.3 MG/DL (0.3-1.2); BLOOD UREA NITROGEN 18 MG/DL (9-23); CALCIUM LEVEL 8.5 MG/DL (8.3-10.6); CARBON DIOXIDE LEVEL 27 MMOL/L (20-31); CHLORIDE LEVEL 102 MMOL/L (98-107); CK-MB VALUE MASS < 1.0 NG/ML (<3.6); CPK CREATINE PHOSPHOKINASE 54 U/L (34-145); CREATININE FOR GFR 1.18 MG/DL (0.55-1.30); GLOMERULAR FILTRATION RATE 48.9 (>45); GLUCOSE, FASTING 129 MG/DL (74-106); MB/CK RELATIVE INDEX 1.85 (< OR =4); POTASSIUM SERUM 3.8 MMOL/L (3.5-5.1); SODIUM LEVEL 136 MMOL/L (136-145); TOTAL PROTEIN 5.5 G/DL (5.7-8.2)
[2023-06-16] MEDS: LEVOTHYROXINE 75MCG TABLET (0.075MG) PO SCH (05:12)
[2023-06-16] MEDS ORDERED: ISOSORBIDE MON. (IMDUR) 30MG XR TAB PO SCH (09:00)
[2023-06-16] MEDS ORDERED: METOPROLOL SUCC (TopROL XL) 100MG *XL* TAB PO SCH (09:00)
[2023-06-16] MEDS ORDERED: FUROSEMIDE 40MG/4ML VIAL IV SCH (09:00)
[2023-06-16] MEDS: guaiFENesin ER TABLET 600 MG TAB PO SCH ×2 (09:00→21:40)
[2023-06-16] MEDS: FUROSEMIDE 20MG/2ML VIAL IV SCH ×2 (09:13→16:30)
[2023-06-16] MEDS: EZETIMIBE 10MG TABLET (ZETIA) PO SCH (09:14)
[2023-06-16] MEDS: PANTOPRAZOLE 40MG TAB (PROTONIX) PO SCH (09:15)
[2023-06-16] MEDS: FAMOTIDINE 20 MG TAB PO SCH (09:15)
[2023-06-16] MEDS: APIXABAN 5 MG TAB (ELIQUIS) PO SCH ×2 (09:15→21:40)
[2023-06-16] MEDS: SPIRONOLACTONE 12.5MG PER 1/2 TABLET PO SCH (09:15)
[2023-06-16] MEDS: ASPIRIN 81MG ENTERIC TABLET PO SCH (09:15)
[2023-06-16] MEDS ORDERED: FUROSEMIDE 20MG/2ML VIAL IV ONE (20:00)
[2023-06-16] MEDS: MONTELUKAST 10 MG TAB PO SCH (21:40)
[2023-06-16] MEDS: MIRTAZAPINE 15 MG TAB PO SCH (21:40)
[2023-06-16] MEDS: ROSUVASTATIN 10 MG TAB (CRESTOR) PO SCH (21:41)
[2023-06-16] MEDS: DAPAGLIFLOZIN PROPANEDIOL 10MG TABLET (FARXIGA) PO SCH (21:42)
[2023-06-17] VITALS (8 sets, daily range): BP systolic 88–122; BP diastolic 52–69; TEMP 97.2–99; O2SAT 92–98
[2023-06-17] MEDS: ACETAMINOPHEN TAB 650MG DOSE (2X325MG) PO PRN ×2 (03:33→20:40)
[2023-06-17] MEDS ORDERED: ONDANSETRON 4MG 2ML VIAL IV ONE ×2 (04:00→13:55)
[2023-06-17] MEDS: LEVOTHYROXINE 75MCG TABLET (0.075MG) PO SCH (05:35)
[2023-06-17 06:09] LABS: HEMATOCRIT 29.3 % (36.0-47.0); HEMOGLOBIN 8.9 g/dl (12.0-15.5); MEAN CORPUSCULAR HEMOGLOBIN 26.2 pg (27.0-33.0); MEAN CORPUSCULAR HGB CONC 30.4 g/dl (32.0-36.5); MEAN CORPUSCULAR VOLUME 86.2 fl (80.0-96.0); PLATELET COUNT, AUTOMATED 287 10^3/uL (150-450); WHITE BLOOD COUNT 11.2 10^3/uL (4.0-10.0)
[2023-06-17 06:35] LABS: ALBUMIN 2.9 G/DL (3.2-5.2); BILIRUBIN,TOTAL 0.4 MG/DL (0.3-1.2); CALCIUM LEVEL 8.8 MG/DL (8.3-10.6); CREATININE FOR GFR 1.07 MG/DL (0.55-1.30); GLOMERULAR FILTRATION RATE 54.8 (>45); POTASSIUM SERUM 3.9 MMOL/L (3.5-5.1); TOTAL PROTEIN 5.9 G/DL (5.7-8.2)
[2023-06-17] MEDS: EZETIMIBE 10MG TABLET (ZETIA) PO SCH (08:14)
[2023-06-17] MEDS: METOPROLOL SUCC (TopROL XL) 50MG **XL** TAB PO SCH (08:15)
[2023-06-17] MEDS: SPIRONOLACTONE 12.5MG PER 1/2 TABLET PO SCH (08:15)
[2023-06-17] MEDS: PANTOPRAZOLE 40MG TAB (PROTONIX) PO SCH (08:15)
[2023-06-17] MEDS: ASPIRIN 81MG ENTERIC TABLET PO SCH (08:15)
[2023-06-17] MEDS: APIXABAN 5 MG TAB (ELIQUIS) PO SCH ×2 (08:15→20:42)
[2023-06-17] MEDS: FAMOTIDINE 20 MG TAB PO SCH (08:15)
[2023-06-17] MEDS: FUROSEMIDE 20MG/2ML VIAL IV SCH ×2 (08:16→16:57)
[2023-06-17] MEDS: guaiFENesin ER TABLET 600 MG TAB PO SCH ×2 (08:18→20:45)
[2023-06-17 08:44] LABS: PHOSPHORUS LEVEL 3.9 MG/DL (2.4-5.1)
[2023-06-17] MEDS ORDERED: MUCI600T31 PO (12:30)
[2023-06-17] MEDS ORDERED: BENZ-18 PO (12:30)
[2023-06-17] MEDS ORDERED: SPIR-10 PO (12:30)
[2023-06-17] MEDS ORDERED: ISOS1TAB36 PO (12:30)
[2023-06-17] MEDS ORDERED: METO1TAB7 PO (12:30)
[2023-06-17] MEDS ORDERED: METO25TA PO (13:03)
[2023-06-17] MEDS ORDERED: NS 250 ML IV ONE (14:30)
[2023-06-17] MEDS ORDERED: ONDANSETRON 4MG 2ML VIAL IV PRN (15:25)
[2023-06-17 16:35] LABS: CK-MB VALUE MASS 3.4 NG/ML (<3.6)
[2023-06-17 16:36] LABS: MB/CK RELATIVE INDEX 5.96 (< OR =4)
[2023-06-17] MEDS: ALBUTEROL SULFATE 2.5MG/0.5ML INH NEB SOLN NEB PRN (16:58)
[2023-06-17] MEDS: DAPAGLIFLOZIN PROPANEDIOL 10MG TABLET (FARXIGA) PO SCH (20:40)
[2023-06-17] MEDS: MIRTAZAPINE 15 MG TAB PO SCH (20:42)
[2023-06-17] MEDS: ROSUVASTATIN 10 MG TAB (CRESTOR) PO SCH (20:42)
[2023-06-17] MEDS: MONTELUKAST 10 MG TAB PO SCH (20:43)
[2023-06-17] MEDS ORDERED: rOPINIRole 0.25 MG TAB(REQUIP) PO ONE (21:40)
[2023-06-18] MEDS: ACETAMINOPHEN TAB 650MG DOSE (2X325MG) PO PRN (00:25)
[2023-06-18] MEDS: ALBUTEROL SULFATE 2.5MG/0.5ML INH NEB SOLN NEB PRN (02:37)
[2023-06-18 03:48] VITALS: BP 114/54; TEMP 97.4; O2SAT 95
[2023-06-18] MEDS: LEVOTHYROXINE 75MCG TABLET (0.075MG) PO SCH (05:25)
[2023-06-18 06:56] LABS: HEMATOCRIT 31.7 % (36.0-47.0); HEMOGLOBIN 9.2 g/dl (12.0-15.5); MEAN CORPUSCULAR HEMOGLOBIN 25.2 pg (27.0-33.0); MEAN CORPUSCULAR VOLUME 86.8 fl (80.0-96.0); PLATELET COUNT, AUTOMATED 282 10^3/uL (150-450); RED BLOOD COUNT 3.65 10^6/uL (4.00-5.40); WHITE BLOOD COUNT 10.3 10^3/uL (4.0-10.0)
[2023-06-18 07:44] VITALS: BP 119/67; TEMP 97.5; O2SAT 96
[2023-06-18 08:47] LABS: CPK CREATINE PHOSPHOKINASE 58 U/L (30-170)
[2023-06-18] MEDS ORDERED: ONDA4TAB6 PO (09:16)
[2023-06-18] MEDS: FUROSEMIDE 20MG/2ML VIAL IV SCH (09:17)
[2023-06-18] MEDS: PANTOPRAZOLE 40MG TAB (PROTONIX) PO SCH (09:20)
[2023-06-18] MEDS: EZETIMIBE 10MG TABLET (ZETIA) PO SCH (09:20)
[2023-06-18] MEDS: ASPIRIN 81MG ENTERIC TABLET PO SCH (09:21)
[2023-06-18 09:22] VITALS: BP 119/67
[2023-06-18] MEDS: METOPROLOL SUCC (TopROL XL) 50MG **XL** TAB PO SCH (09:22)
[2023-06-18] MEDS: APIXABAN 5 MG TAB (ELIQUIS) PO SCH (09:23)
[2023-06-18] MEDS: SPIRONOLACTONE 12.5MG PER 1/2 TABLET PO SCH (09:23)
[2023-06-18] MEDS: FAMOTIDINE 20 MG TAB PO SCH (09:24)
[2023-06-18] MEDS: guaiFENesin ER TABLET 600 MG TAB PO SCH (09:25)
[2023-06-18 16:58] LABS: GLUCOSE, FASTING 122 MG/DL
[2023-06-18 17:09] LABS: ALKALINE PHOSPHATASE 84 U/L (35-104); ALT/SGPT 10 U/L (1-33); AST/SGOT 13 U/L (5-40); BLOOD UREA NITROGEN 12 MG/DL (7-21); CARBON DIOXIDE LEVEL 23 MEQ/L (22-30); CHLORIDE LEVEL 99 MEQ/L (98-107); GLOMERULAR FILTRATION RATE 59.2 (>45); POTASSIUM SERUM 3.9 MEQ/L (3.6-5.0); SODIUM LEVEL 134 MEQ/L (134-153)
[2023-06-18 17:10] LABS: ALBUMIN 3.6 G/DL (3.9-5.0); BILIRUBIN,TOTAL < 0.7 MG/DL (0.2-1.3)
== END 2023-06-18 11:31 | disposition home health service (06) | DRG 194 ==
LOC: M ED 11:19 → M ED INP 15:14 → M PCU 17:42
PROVIDERS: ADMIT Internal Medicine; ATTEND Internal Medicine
DX: I11.0 Hypertensive heart disease with heart failure (principal); I50.23 Acute on chronic systolic (congestive) heart failure; I25.10 Atherosclerotic heart disease of native coronary artery without angina pectoris; Z95.5 Presence of coronary angioplasty implant and graft; E78.5 Hyperlipidemia, unspecified; R73.03 Prediabetes; I48.91 Unspecified atrial fibrillation; F32.A Depression, unspecified; K21.9 Gastro-esophageal reflux disease without esophagitis; R11.12 Projectile vomiting; K22.70 Barrett's esophagus without dysplasia; J91.8 Pleural effusion in other conditions classified elsewhere; E55.9 Vitamin D deficiency, unspecified; F41.9 Anxiety disorder, unspecified; M51.24 Other intervertebral disc displacement, thoracic region; R07.89 Other chest pain; M50.30 Other cervical disc degeneration, unspecified cervical region; J45.909 Unspecified asthma, uncomplicated; E53.8 Deficiency of other specified B group vitamins; E66.01 Morbid (severe) obesity due to excess calories; Z90.49 Acquired absence of other specified parts of digestive tract; B34.8 Other viral infections of unspecified site; I95.9 Hypotension, unspecified; Z79.01 Long term (current) use of anticoagulants; Z79.82 Long term (current) use of aspirin; Z79.899 Other long term (current) drug therapy; Z79.890 Hormone replacement therapy; Z88.0 Allergy status to penicillin; Z88.1 Allergy status to other antibiotic agents; Z88.2 Allergy status to sulfonamides; Z88.8 Allergy status to other drugs, medicaments and biological substances; Z20.822 Contact with and (suspected) exposure to COVID-19

== ENCOUNTER → 2023-06-21 | Outpatient (REF) | payer BC, MEDICARE ==
[~2023-06-21] MED LIST changes: +ENTR1TAB PO; +ISOS1TAB36 PO; +JARD1TAB PO; +LEVO75TA4 PO; +MENT120C TOP; +METO25TA PO; +MIRT-10 PO; +MUCI600T31 PO; +ONDA4TAB6 PO; +SPIR50TA4 PO
[2023-06-22 01:51] LABS: CALCIUM LEVEL 8.2 MG/DL (8.3-10.6); CREATININE FOR GFR 1.31 MG/DL (0.55-1.30); GLOMERULAR FILTRATION RATE 43.4 (>45)
== END ==
LOC: M LABDRWAD 12:53
PROVIDERS: ATTEND Internal Medicine Cardiovascular Disease
DX: I50.22 Chronic systolic (congestive) heart failure (principal)

== ENCOUNTER → 2023-06-30 | Outpatient (REF) | payer BC, MEDICARE ==
[2023-06-30 16:42] LABS: CALCIUM LEVEL 9.1 MG/DL (8.3-10.6); CREATININE FOR GFR 1.26 MG/DL (0.55-1.30); GLOMERULAR FILTRATION RATE 45.4 (>45)
== END ==
LOC: M LABDRWAD 15:57
PROVIDERS: ATTEND Internal Medicine Cardiovascular Disease
DX: I50.22 Chronic systolic (congestive) heart failure (principal)

== ENCOUNTER 2023-08-10 14:26 | Outpatient (CLI) | payer BC, MEDICARE ==
[~2023-08-10] VITALS: Ht 160 cm; Wt 106.0 kg
[~2023-08-10 14:26] MED LIST changes: +ALBUTEROL SULFATE 2.5MG/0.5ML INH NEB SOLN INH PRN; +EPINEPHrine INJ 1 MG/ML 1ML AMP IM PRN; +NS 1,000 ML IV SCH; +diphenhydrAMINE 50MG/ML VIAL IV PRN; +methylPREDNISolone 125MG 2ML VIAL IV PRN
[2023-08-10 15:29] VITALS: BP 118/56; O2SAT 98
[2023-08-10] MEDS ORDERED: diphenhydrAMINE 50MG PO PRIOR TO INFUSION PO ONE (15:30)
[2023-08-10] MEDS ORDERED: IRON SUCROSE 300 MG in NS 250 ML OVER 90 MIN. IV ONE (16:00)
== END 2023-08-10 17:12 | disposition home or self-care (01) ==
LOC: M INFU 14:26
PROVIDERS: ATTEND Internal Medicine Cardiovascular Disease
DX: D50.9 Iron deficiency anemia, unspecified (principal); Z88.0 Allergy status to penicillin; Z88.1 Allergy status to other antibiotic agents; Z88.2 Allergy status to sulfonamides; Z88.8 Allergy status to other drugs, medicaments and biological substances
CPT/HCPCS: 96365; J1756

== ENCOUNTER → 2023-09-06 | Outpatient (REF) | payer BC, MEDICARE ==
[~2023-09-06] MED LIST changes: -ALBUTEROL SULFATE 2.5MG/0.5ML INH NEB SOLN INH PRN; -EPINEPHrine INJ 1 MG/ML 1ML AMP IM PRN; -NS 1,000 ML IV SCH; -diphenhydrAMINE 50MG/ML VIAL IV PRN; -methylPREDNISolone 125MG 2ML VIAL IV PRN
[2023-09-06 13:16] LABS: HEMATOCRIT 35.1 % (36.0-47.0); HEMOGLOBIN 10.5 g/dl (12.0-15.5); MEAN CORPUSCULAR HEMOGLOBIN 25.2 pg (27.0-33.0); MEAN CORPUSCULAR HGB CONC 29.9 g/dl (32.0-36.5); MEAN CORPUSCULAR VOLUME 84.4 fl (80.0-96.0); PLATELET COUNT, AUTOMATED 297 10^3/uL (150-450); RED BLOOD COUNT 4.16 10^6/uL (4.00-5.40); WHITE BLOOD COUNT 8.8 10^3/uL (4.0-10.0)
[2023-09-06 13:37] LABS: CALCIUM LEVEL 9.5 MG/DL (8.3-10.6); CREATININE FOR GFR 1.14 MG/DL (0.55-1.30); GLOMERULAR FILTRATION RATE 50.9 (>45); POTASSIUM SERUM 3.7 MMOL/L (3.5-5.1)
== END ==
LOC: M LABDRWAD 12:38
PROVIDERS: ATTEND Internal Medicine Cardiovascular Disease
DX: I50.22 Chronic systolic (congestive) heart failure (principal)

== ENCOUNTER → 2023-09-13 | Outpatient (REF) | payer BC, MEDICARE | LOC: M SFHCADAM 12:36 | PROVIDERS: ATTEND Family Medicine | DX: R19.7 Diarrhea, unspecified (principal); F32.89 Other specified depressive episodes ==

== ENCOUNTER → 2023-10-04 | Outpatient (REF) | payer BC, MEDICARE ==
[2023-10-04 15:17] LABS: HEMATOCRIT 38.2 % (36.0-47.0); HEMOGLOBIN 11.2 g/dl (12.0-15.5); MEAN CORPUSCULAR HEMOGLOBIN 25.1 pg (27.0-33.0); MEAN CORPUSCULAR HGB CONC 29.3 g/dl (32.0-36.5); MEAN CORPUSCULAR VOLUME 85.7 fl (80.0-96.0); PLATELET COUNT, AUTOMATED 246 10^3/uL (150-450); RED BLOOD COUNT 4.46 10^6/uL (4.00-5.40); WHITE BLOOD COUNT 10.6 10^3/uL (4.0-10.0)
[2023-10-04 15:47] LABS: BLOOD UREA NITROGEN 14 MG/DL (9-23); CALCIUM LEVEL 9.4 MG/DL (8.3-10.6); CARBON DIOXIDE LEVEL 26 MMOL/L (20-31); CHLORIDE LEVEL 106 MMOL/L (98-107); GLOMERULAR FILTRATION RATE > 60.0 (>45); GLUCOSE, FASTING 105 MG/DL (74-106); SODIUM LEVEL 139 MMOL/L (136-145)
== END ==
LOC: M SFHCADAM 10:15
PROVIDERS: ATTEND Family Medicine
DX: I11.9 Hypertensive heart disease without heart failure (principal); K92.1 Melena

== ENCOUNTER 2023-11-01 14:14 | Inpatient (IN) | payer BC, MEDICARE ==
[~2023-11-01] VITALS: Ht 160 cm; Wt 97.9 kg
[2023-11-01] MEDS: MIRTAZAPINE 15 MG TAB PO SCH (04:30)
[2023-11-01] MEDS: LR 1,000 ML IV SCH (10:00)
[~2023-11-01 14:14] MED LIST changes: -AMMO12CR7 TOP; -FAMO1TAB11 PO
[2023-11-01 15:13] LABS: BASO # 0.1 10^3/uL (0.0-0.2); BASO % 0.5 % (0.0-1.0); EOS # 0.3 10^3/uL (0.0-0.5); EOS % 2.3 % (0.0-3.0); HEMATOCRIT 36.6 % (36.0-47.0); HEMOGLOBIN 11.3 g/dl (12.0-15.5); LYMPH # 1.1 10^3/uL (1.5-5.0); MEAN CORPUSCULAR HEMOGLOBIN 25.5 pg (27.0-33.0); MEAN CORPUSCULAR HGB CONC 30.9 g/dl (32.0-36.5); MEAN CORPUSCULAR VOLUME 82.6 fl (80.0-96.0); MONO # 0.8 10^3/uL (0.0-0.8); MONO % 6.9 % (2.0-8.0); NEUTROPHILS # 9.5 10^3/uL (1.5-8.5); NEUTROPHILS % 80.8 % (36.0-66.0); PLATELET COUNT, AUTOMATED 335 10^3/uL (150-450); RED BLOOD COUNT 4.43 10^6/uL (4.00-5.40); WHITE BLOOD COUNT 11.8 10^3/uL (4.0-10.0)
[2023-11-01 15:25] LABS: INR 1.22; PROTHROMBIN TIME 15.1 SECONDS (12.5-14.5)
[2023-11-01 15:36] LABS: BLOOD UREA NITROGEN 45 MG/DL (9-23); CALCIUM LEVEL 8.6 MG/DL (8.3-10.6); CARBON DIOXIDE LEVEL 22 MMOL/L (20-31); CHLORIDE LEVEL 106 MMOL/L (98-107); CREATININE FOR GFR 2.33 MG/DL (0.55-1.30); GLOMERULAR FILTRATION RATE 22.3 (>45); GLUCOSE, FASTING 114 MG/DL (74-106); POTASSIUM SERUM 5.4 MMOL/L (3.5-5.1); SODIUM LEVEL 136 MMOL/L (136-145)
[2023-11-01 16:53] LABS: CK-MB VALUE MASS < 1.0 NG/ML (<3.6)
[2023-11-01 16:55] LABS: CPK CREATINE PHOSPHOKINASE 28 U/L (34-145); MB/CK RELATIVE INDEX 3.57 (< OR =4)
[2023-11-01 16:56] LABS: ALBUMIN 3.4 G/DL (3.2-5.2); ALKALINE PHOSPHATASE 111 U/L (46-116); ALT/SGPT 21 U/L (7.0-40); AST/SGOT 14 U/L (<34); BILIRUBIN,DIRECT < 0.1 MG/DL (<0.4); BILIRUBIN,TOTAL 0.3 MG/DL (0.3-1.2); TOTAL PROTEIN 6.6 G/DL (5.7-8.2)
[2023-11-01 16:57] LABS: FREE T4 1.68 NG/DL (0.89-1.76)
[2023-11-01 16:58] LABS: THYROID STIMULATING HORMONE 0.026 uIU/ML (0.55-4.78)
[2023-11-01] MEDS: NS 1,000 ML IV ONE ×3 (17:14→19:55)
[2023-11-01] MEDS: DEXTROSE 50% 50ML SYRINGE IV STA (17:20)
[2023-11-01] MEDS: CALCIUM GLUCONATE 1,000 MG in D5W MINI-BAG PLUS 100 ML IV ONE (17:20)
[2023-11-01] MEDS: HumuLIN R (REGULAR) INSULIN (NovoLIN R) **100U/ML** PER UNIT IV ONE (17:21)
[2023-11-01 17:57] LABS: CK-MB VALUE MASS 1.1 NG/ML (<3.6)
[2023-11-01 17:59] LABS: MB/CK RELATIVE INDEX 2.34 (< OR =4)
[2023-11-01] MEDS: NS 1,000 ML IV SCH (18:25)
[2023-11-01 18:41] LABS: LIPASE 57 U/L (12-53)
[2023-11-01 18:43] LABS: RSV AMPLIFICATION NEGATIVE (NEGATIVE)
[2023-11-01] MEDS ORDERED: FAMO1TAB11 PO (20:13)
[2023-11-01] MEDS ORDERED: AMMO12CR7 TOP (20:22)
[2023-11-01] MEDS ORDERED: HOME MED LIST COMPLETE! XX SCH ×2 (20:25→21:00)
[2023-11-01] MEDS: PANTOPRAZOLE 40MG VIAL IV ONE (20:47)
[2023-11-01] MEDS ORDERED: ACETAMINOPHEN TAB 650MG DOSE (2X325MG) PO PRN (21:20)
[2023-11-01] MEDS: NOREPINEPHRINE 4MG IN D5 250ML 4 MG in IV 1 EA IV SCH (23:56)
[2023-11-02] VITALS (63 sets, daily range): BP systolic 70–142; BP diastolic 37–71; TEMP 97.6–99.6; O2SAT 95–99
[2023-11-02] MEDS ORDERED: ALBUTEROL SULFATE 2.5MG/0.5ML INH NEB SOLN INH PRN (04:05)
[2023-11-02] MEDS: MAG SULF 1GM/100ML (MAG RUN) 1 GM in IV 1 EA IV ONE (04:08)
[2023-11-02] MEDS: MONTELUKAST 10 MG TAB PO SCH (04:44)
[2023-11-02] MEDS: ROSUVASTATIN 10 MG TAB (CRESTOR) PO SCH (04:44)
[2023-11-02] MEDS: LEVOTHYROXINE 75MCG TABLET (0.075MG) PO SCH (06:12)
[2023-11-02 06:23] LABS: HEMATOCRIT 35.9 % (36.0-47.0); HEMOGLOBIN 10.8 g/dl (12.0-15.5); MEAN CORPUSCULAR HEMOGLOBIN 24.8 pg (27.0-33.0); MEAN CORPUSCULAR HGB CONC 30.1 g/dl (32.0-36.5); MEAN CORPUSCULAR VOLUME 82.5 fl (80.0-96.0); PLATELET COUNT, AUTOMATED 344 10^3/uL (150-450); RED BLOOD COUNT 4.35 10^6/uL (4.00-5.40); WHITE BLOOD COUNT 12.2 10^3/uL (4.0-10.0)
[2023-11-02 06:53] LABS: ALBUMIN 3.2 G/DL (3.2-5.2); BILIRUBIN,TOTAL 0.5 MG/DL (0.3-1.2); CALCIUM LEVEL 8.5 MG/DL (8.3-10.6); CREATININE FOR GFR 1.67 MG/DL (0.55-1.30); GLOMERULAR FILTRATION RATE 32.8 (>45); MAGNESIUM LEVEL 2.2 MG/DL (1.8-2.4); POTASSIUM SERUM 4.3 MMOL/L (3.5-5.1); TOTAL PROTEIN 6.2 G/DL (5.7-8.2)
[2023-11-02] MEDS: LACTIC ACID 12% LOTION 225 GM BTL TOP SCH (09:00)
[2023-11-02] MEDS: PANTOPRAZOLE 40MG VIAL IV SCH (09:19)
[2023-11-02] MEDS: EZETIMIBE 10MG TABLET (ZETIA) PO SCH (09:19)
[2023-11-02] MEDS: LR 1,000 ML IV SCH ×2 (13:01→22:17)
[2023-11-03] VITALS (31 sets, daily range): BP systolic 81–155; BP diastolic 44–87; PULSE 96; TEMP 98.1; O2SAT 96–100
[2023-11-03 03:08] LABS: BASO # 0.1 10^3/uL (0.0-0.2); BASO % 0.6 % (0.0-1.0); EOS # 0.4 10^3/uL (0.0-0.5); EOS % 5.4 % (0.0-3.0); HEMATOCRIT 33.3 % (36.0-47.0); HEMOGLOBIN 10.1 g/dl (12.0-15.5); LYMPH # 1.4 10^3/uL (1.5-5.0); LYMPH % 18.1 % (24.0-44.0); MEAN CORPUSCULAR HEMOGLOBIN 25.3 pg (27.0-33.0); MEAN CORPUSCULAR HGB CONC 30.3 g/dl (32.0-36.5); MEAN CORPUSCULAR VOLUME 83.3 fl (80.0-96.0); MONO # 0.8 10^3/uL (0.0-0.8); MONO % 9.6 % (2.0-8.0); NEUTROPHILS # 5.1 10^3/uL (1.5-8.5); NEUTROPHILS % 65.9 % (36.0-66.0); PLATELET COUNT, AUTOMATED 256 10^3/uL (150-450); WHITE BLOOD COUNT 7.8 10^3/uL (4.0-10.0)
[2023-11-03 03:38] LABS: CK-MB VALUE MASS 4.9 NG/ML (<3.6)
[2023-11-03 03:39] LABS: MB/CK RELATIVE INDEX 7.42 (< OR =4)
[2023-11-03 03:40] LABS: ALBUMIN 2.9 G/DL (3.2-5.2); BILIRUBIN,TOTAL 0.3 MG/DL (0.3-1.2); CALCIUM LEVEL 8.4 MG/DL (8.3-10.6); CREATININE FOR GFR 1.05 MG/DL (0.55-1.30); POTASSIUM SERUM 4.1 MMOL/L (3.5-5.1); TOTAL PROTEIN 5.6 G/DL (5.7-8.2)
[2023-11-03] MEDS: NITROGLYCERIN 0.4MG SUBL TABLET SL PRN (05:04)
[2023-11-03 05:05] LABS: CK-MB VALUE MASS 4.2 NG/ML (<3.6)
[2023-11-03 05:08] LABS: MB/CK RELATIVE INDEX 8.75 (< OR =4)
[2023-11-03] MEDS ORDERED: HEPARIN SOD (PORCINE) 5000UNITS/ML 1ML VIAL/SYRINGE IV PRN (07:40)
[2023-11-03] MEDS: HEPARIN DRIP 25,000 UNITS in IV 1 EA IV SCH (08:29)
[2023-11-03] MEDS ORDERED: FAMOTIDINE 20 MG TAB PO SCH (09:00)
== END 2023-11-03 10:52 | disposition short-term general hospital (02) | DRG 196 ==
LOC: M ED 14:14 → M ED INP 21:19 → ENRESERV 11-02 01:13 → M ICU 11-02 03:50
PROVIDERS: ADMIT Internal Medicine; ATTEND Internal Medicine
DX: R57.1 Hypovolemic shock (principal); I11.0 Hypertensive heart disease with heart failure; I95.9 Hypotension, unspecified; I50.22 Chronic systolic (congestive) heart failure; I48.91 Unspecified atrial fibrillation; E66.01 Morbid (severe) obesity due to excess calories; I25.110 Atherosclerotic heart disease of native coronary artery with unstable angina pectoris; E78.5 Hyperlipidemia, unspecified; R73.03 Prediabetes; F32.A Depression, unspecified; K22.70 Barrett's esophagus without dysplasia; K21.9 Gastro-esophageal reflux disease without esophagitis; E55.9 Vitamin D deficiency, unspecified; F41.9 Anxiety disorder, unspecified; M51.34 Other intervertebral disc degeneration, thoracic region; M50.30 Other cervical disc degeneration, unspecified cervical region; R19.7 Diarrhea, unspecified; K64.9 Unspecified hemorrhoids; R07.89 Other chest pain; J45.909 Unspecified asthma, uncomplicated; E53.8 Deficiency of other specified B group vitamins; Z95.5 Presence of coronary angioplasty implant and graft; Z95.810 Presence of automatic (implantable) cardiac defibrillator; Z90.49 Acquired absence of other specified parts of digestive tract; Z87.891 Personal history of nicotine dependence; Z79.01 Long term (current) use of anticoagulants; Z79.82 Long term (current) use of aspirin; Z79.890 Hormone replacement therapy; Z79.899 Other long term (current) drug therapy; Z88.0 Allergy status to penicillin; Z88.1 Allergy status to other antibiotic agents; Z88.2 Allergy status to sulfonamides; Z88.8 Allergy status to other drugs, medicaments and biological substances; Z11.52 Encounter for screening for COVID-19; Z68.37 Body mass index [BMI] 37.0-37.9, adult

== ENCOUNTER → 2023-11-01 | Outpatient (REF) | payer BC, MEDICARE ==
[~2023-11-01] MED LIST changes: +AMMO12CR7 TOP; +FAMO1TAB11 PO
[2023-11-01 16:17] LABS: ALBUMIN 3.3 G/DL (3.2-5.2); CALCIUM LEVEL 8.7 MG/DL (8.3-10.6); CREATININE FOR GFR 1.95 MG/DL (0.55-1.30); GLOMERULAR FILTRATION RATE 27.4 (>45); POTASSIUM SERUM 4.8 MMOL/L (3.5-5.1); TOTAL PROTEIN 6.4 G/DL (5.7-8.2)
[2023-11-01 16:28] LABS: HEMATOCRIT 36.4 % (36.0-47.0); MEAN CORPUSCULAR HEMOGLOBIN 25.1 pg (27.0-33.0); MEAN CORPUSCULAR HGB CONC 30.2 g/dl (32.0-36.5); MEAN CORPUSCULAR VOLUME 82.9 fl (80.0-96.0); PLATELET COUNT, AUTOMATED 339 10^3/uL (150-450); RED BLOOD COUNT 4.39 10^6/uL (4.00-5.40); WHITE BLOOD COUNT 9.4 10^3/uL (4.0-10.0)
[2023-11-01 16:33] LABS: BILIRUBIN,TOTAL 0.3 MG/DL (0.3-1.2)
== END ==
LOC: M LABDRWAD 15:45
PROVIDERS: ATTEND Internal Medicine Cardiovascular Disease
DX: I50.22 Chronic systolic (congestive) heart failure (principal)

== ENCOUNTER → 2023-11-01 | Outpatient (REF) | payer BC, MEDICARE ==
[2023-11-01 16:19] LABS: FERRITIN 19.5 NG/ML (7.3-270.7); PERCENT SATURATION 10.4 % (13.2-45.0); THYROID STIMULATING HORMONE 0.024 uIU/ML (0.55-4.78)
[2023-11-01 16:21] LABS: FREE T4 1.77 NG/DL (0.89-1.76)
[2023-11-01 16:22] LABS: HEMATOCRIT 36.9 % (36.0-47.0); HEMOGLOBIN 11.1 g/dl (12.0-15.5); MEAN CORPUSCULAR HEMOGLOBIN 25.1 pg (27.0-33.0); MEAN CORPUSCULAR HGB CONC 30.1 g/dl (32.0-36.5); MEAN CORPUSCULAR VOLUME 83.3 fl (80.0-96.0); PLATELET COUNT, AUTOMATED 346 10^3/uL (150-450); RED BLOOD COUNT 4.43 10^6/uL (4.00-5.40); WHITE BLOOD COUNT 9.4 10^3/uL (4.0-10.0)
[2023-11-01 16:44] LABS: ALBUMIN 3.3 G/DL (3.2-5.2); BILIRUBIN,TOTAL 0.3 MG/DL (0.3-1.2); CALCIUM LEVEL 8.7 MG/DL (8.3-10.6); CHOLESTEROL RISK RATIO 2.14 (<5); CREATININE FOR GFR 1.98 MG/DL (0.55-1.30); GLOMERULAR FILTRATION RATE 26.9 (>45); HDL CHOLESTEROL 56.8 MG/DL (>40); LDL CHOLESTEROL 45.2 MG/DL (<100); NON-HDL-C 65.2 MG/DL; TOTAL PROTEIN 6.3 G/DL (5.7-8.2)
[2023-11-01 16:49] LABS: HEMOGLOBIN A1c 6.1 % (4.0-6.0)
== END ==
LOC: M LABDRWAD 15:43
PROVIDERS: ATTEND Family Medicine
DX: F32.9 Major depressive disorder, single episode, unspecified (principal); D50.0 Iron deficiency anemia secondary to blood loss (chronic); N18.31 Chronic kidney disease, stage 3a; E78.2 Mixed hyperlipidemia; R73.03 Prediabetes